=== PATIENT | female | born 1940 | race African-American/Black ===

== ENCOUNTER → 2018-03-02 09:42 | Outpatient (CLI) | payer MEDICARE, BC, SELFPAY ==
[2018-03-02 10:58] LABS: AST(SGOT) 22 U/L (15-37); Alanine Aminotransfer ALT/SGPT 20 U/L (13-56); Albumin, Serum 3.5 g/dL (3.2-5.0); Alkaline Phosphatase 106 U/L (45-117); Bilirubin, Direct 0.14 mg/dL (0.00-0.30); Cholesterol 143 mg/dL (200); Globulin 3.8 g/dL (2.2-4.2); High Density Lipoprotein 49 mg/dL; Protein, Total 7.3 g/dL (6.4-8.2); Triglycerides 169 mg/dL; Very Low Density Lipoprotein 34 mg/dL (5-40)
== END ==
PROVIDERS: Family Provider Family Medicine; PCP Family Medicine; Visit Provider Internal Medicine Cardiovascular Disease
DX: E78.5 Hyperlipidemia, unspecified (principal)
CPT/HCPCS: 36415; 80061; 80076

== ENCOUNTER → 2018-04-20 14:34 | Outpatient (CLI) | payer MEDICARE, BC, SELFPAY | PROVIDERS: Family Provider Family Medicine; PCP Family Medicine; Visit Provider Family Medicine | DX: Z12.31 Encounter for screening mammogram for malignant neoplasm of breast (principal); Z80.3 Family history of malignant neoplasm of breast | CPT/HCPCS: 77063; 77067 ==

== ENCOUNTER → 2018-11-17 13:56 | Outpatient (CLI) | payer MEDICARE, BC, SELFPAY ==
[2018-02-19 09:37] VITALS: BMI 53.6
[2018-11-17 17:24] LABS: Chlamydia Trachomatis by PCR Negative (Negative); Neisserai gonorrhoeae by PCR Negative (Negative); Probe Check PASS; Sample Adequacy Control PASS; Specimen Processing Control PASS
[2018-11-17 17:45] LABS: HIV - WCH Non-Reactive (Nonreactive)
[2018-11-19 01:30] LABS: Rapid Plasmin Reagin (RPR) NONREACTIVE (NONREACTIVE)
[2018-11-19 05:07] LABS: HEPATITIS B SURFACE AG Negative (Negative); Hepatitis A AB, Total Positive (Negative); Hepatitis A IgM Antibody Negative (Negative); Hepatitis B Core AB IgM Negative (Negative); Hepatitis B Core Ab Total Negative (Negative); Hepatitis C Ab <0.1 s/co ratio (0.0-0.9)
[2018-11-19 14:30] LABS: Hep B Surface Antibodies Non Reactive (.)
== END ==
PROVIDERS: Family Provider Family Medicine; PCP Family Medicine; Visit Provider Family Medicine
DX: Z20.9 Contact with and (suspected) exposure to unspecified communicable disease (principal); Z20.5 Contact with and (suspected) exposure to viral hepatitis
CPT/HCPCS: 86592; 86703; 86704; 86705; 86706; 86708; 86709; 86803; 87340; 87491; 87591

== ENCOUNTER 2019-03-05 20:24 | Emergency (ER) | payer MEDICARE, BC, SELFPAY ==
[2019-03-05 20:24] VITALS: BP 159/63; PULSE 72; RESP 18; TEMP 36.1; O2SAT 99; BMI 53.1
--- NOTE | 2019-03-05 20:51 | ED.RN ---
pt had similar problem in her opposite eye last week and was given drops, now the problem is in the right eye. conjunctiva of right eye is red, eye is discharging, pt is wearing makeup on both eyes and states she had been using the same make up for a while, pt was also observed wiping her affected eye then the non affected eye. this nurse educated the pt to not touch the affected eye and then the clean eye without washing her hands between.
[2019-03-05] MEDS: Tetracaine 0.5% Ophthalmic Bottle 1 DRP RIGHT EYE (22:24)
--- NOTE | 2019-03-05 23:55 | ED.DCSUM_ITS ---
- ER Visit Summary Date of Service: 03/05/19 Chief Complaint: Atraumatic right eye pain History of Present Illness: The patient is a 78 F history of bilateral cataract surgery with lens implants. Patient states she is doing well. This afternoon she was sitting outside so developing right eye pain. Denies any trauma. No visual change. No discharge. No facial swelling. States this is never happened before. States she saw her tile layer drainage Dr. Wally Myers within the last several weeks and she had a good eye exam at that time. She has no history of glaucoma. Physical Examination: Older female no acute distress. Vital signs are stable afebrile. Visual acuity 20/30 right eye 20/30 left eye 20/30 bilaterally. HEENT exam pupils round reactive light. Distributions are intact. She has bilateral lens implants. The upper and lower lid of the right eye were everted there was no signs of trauma. No swelling. No stye. There was watering of the right eye and mild injection. External motions are intact. Bilaterally. No palsy. Tetracaine was applied to the right eye which gave her significant relief. And then floor seen. Slit-lamp examination I did not see any signs of foreign body. No corneal abrasion. No signs of infection. 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 There was no swelling or trauma to her face. No preauricular lymphadenopathy. No signs of proptosis. And no orbital cellulitis or orbital trauma. Lungs clear to auscultation. Heart regular rhythm no murmur. Abdomen soft and nontender. Neurologically she is awake and alert with no focal motor deficits. Test Results: Slit-lamp exam was unremarkable other than focal injection of the right eye. Adria-Pen revealed pressures in the right eye of 22 and 23. Emergency Department Course and Treatment: Patient responded to tetracaine. There is no obvious cause of her pain. I do not see any signs of trauma. This does not appear to be glaucoma. And she has no visual change. Treatment Plan: I spoke to her tile layer drainage Dr. Wally Myers who is on-call. She will be discharged with tetracaine for pain. Bacitracin ophthalmic ointment. And follow-up with his office on Thursday. She does return if worse. Tylenol for pain. Disposition: Discharge Impression: Acute right eye pain uncertain etiology. Prior history of cataract surgery. This note was generated with [employer] dictation software. It may contain incorrect words, spelling, and punctuation that were not noted in review of the chart prior to signing ED Disposition - Plan for ED Patient: Referrals: Alicia Florentino DO [Primary Care Provider] -
--- NOTE | 2019-03-05 23:59 | ED.DEP ---
ED Disposition - Plan for ED Patient: Disposition: Home or Assisted Living Referrals: Sergo Myers MD [STAFF PHYSICIAN] - As soon as possible Additional Instructions: Tylenol for pain. Eye ointment 3 times a day to your right eye. Tetracaine for pain. Follow-up with Dr. Myers on Thursday. I spoke with him the night. Because office Thursday morning and get an appointment on Thursday.
[2019-03-06 00:14] VITALS: BP 148/68; PULSE 72; RESP 15; O2SAT 96
== END 2019-03-06 00:14 | disposition home or self-care (01) ==
PROVIDERS: Emergency Provider Emergency Medicine; Family Provider Family Medicine; PCP Family Medicine
DX: H57.11 Ocular pain, right eye (principal); H57.03 Miosis; E11.9 Type 2 diabetes mellitus without complications; I10 Essential (primary) hypertension; Z79.82 Long term (current) use of aspirin; Z79.4 Long term (current) use of insulin; Z79.899 Other long term (current) drug therapy; Z98.42 Cataract extraction status, left eye; Z98.41 Cataract extraction status, right eye; Z96.1 Presence of intraocular lens
CPT/HCPCS: 99283

== ENCOUNTER → 2019-04-21 13:12 | Outpatient (CLI) | payer MEDICARE, BC, SELFPAY ==
[2019-04-01 10:17] VITALS: BMI 53.6
--- NOTE | 2019-04-21 13:15 | BI_ITS ---
MAMMOGRAPHY - BILATERAL SCREENING REASON FOR EXAM: Female, 78 years old. Routine annual screening examination. PERTINENT HISTORY: Sister with breast cancer. TECHNIQUE: Digital bilateral breast geoffrey (3D mammographic acquisition) in the CC and MLO projections. 2-D mediolateral oblique (MLO) and craniocaudad (CC) views of both breasts were obtained. CAD: Full Field Digital Mammography with Computer Added Detection was performed. COMPARISON: Comparison is made with prior examination dated April 20, 2018 and March 27, 2017. FINDINGS: Breast Composition: The breasts are almost entirely fatty. There are no dominant masses or suspicious calcifications. Stable benign-appearing bilateral axillary lymph nodes. Stable calcified nodule in the mid medial aspect of the right breast suggestive of a calcified fibroadenoma. No other significant abnormalities are identified. There has been no significant change since the prior study. BI/SCREEN MAMM (CAD) W/GEOFFREY BILAT IMPRESSION: Stable bilateral screening mammogram. Yearly follow-up mammogram recommended. (A) ASSESSMENT CATEGORY: BIRADS Category 2: Benign. A letter regarding these results will be sent to the patient by the facility within 30 days. Approximately 10% of breast cancers are not detected by mammography. A normal mammogram should not delay biopsy of a clinically suspicious abnormality. [id number] Electronically Signed: Young Rucker, at 15:11 EDT , Service support ,
== END ==
PROVIDERS: Family Provider Family Medicine; PCP Family Medicine; Referring Provider Family Medicine; Visit Provider Family Medicine
DX: Z12.31 Encounter for screening mammogram for malignant neoplasm of breast (principal); Z80.3 Family history of malignant neoplasm of breast
CPT/HCPCS: 77063; 77067

== ENCOUNTER → 2020-04-23 10:46 | Outpatient (CLI) | payer MEDICARE, BC, SELFPAY ==
[2020-04-02 10:05] VITALS: BMI 53.5
--- NOTE | 2020-04-23 10:49 | BI_ITS ---
MAMMOGRAPHY - BILATERAL SCREENING REASON FOR EXAM: Female, 79 years old. Routine annual screening examination. PERTINENT HISTORY: Sister with breast cancer. TECHNIQUE: Digital bilateral breast geoffrey (3D mammographic acquisition) in the CC and MLO projections. 2-D mediolateral oblique (MLO) and craniocaudad (CC) views of both breasts were obtained. CAD: Full Field Digital Mammography with Computer Added Detection was performed. COMPARISON: Comparison is made with prior examination dated 04/21/2019 and 04/20/2018. FINDINGS: Breast Composition: The breasts are almost entirely fatty. There are no dominant masses or suspicious calcifications. Stable benign-appearing bilateral axillary lymph nodes. Stable calcified nodule in the mid medial aspect of the right breast fibroadenoma. No other significant abnormalities are identified. There has been no significant change since the prior study. BI/SCREEN MAMM (CAD) W/GEOFFREY BILAT IMPRESSION: Stable bilateral screening mammogram. Yearly follow-up mammogram recommended. (A) ASSESSMENT CATEGORY: BIRADS Category 2: Benign. A letter regarding these results will be sent to the patient by the facility within 30 days. Approximately 10% of breast cancers are not detected by mammography. A normal mammogram should not delay biopsy of a clinically suspicious abnormality. [id number] Electronically Signed: Young Rucker, at 12:40 EDT , Service support ,
== END ==
PROVIDERS: PCP Family Medicine; Referring Provider Family Medicine; Visit Provider Family Medicine
DX: Z12.31 Encounter for screening mammogram for malignant neoplasm of breast (principal); Z80.3 Family history of malignant neoplasm of breast
CPT/HCPCS: 77063; 77067

== ENCOUNTER → 2020-09-24 13:42 | Outpatient (CLI) | payer MEDICARE, BC, SELFPAY ==
[2020-04-02 10:05] VITALS: BMI 53.5
[2020-09-24 15:22] LABS: Absolute Lymphocyte Count 2.24 X10^3/uL (0.83-4.51); Absolute Neutrophil Count 1.9 X10^3/uL (2.0-7.7); Basophil# 0.02 X10^3/uL; Basophil% 0.4 % (0-1); Eosinophil# 0.05 X10^3/uL; Eosinophils% 1.1 % (0-5); Hematocrit 43.7 % (37-47); Hemoglobin 13.5 g/dL (12.0-15.0); Lymphocyte # 2.24 X10^3/ul (4.0); Lymphocyte % 50.1 % (19-41); Mean Corp Hgb Conc 30.9 g/dL (32-36); Mean Corpuscular Hgb 28.3 pg (27.0-32.0); Mean Corpuscular Volume 91.6 fL (81-99); Mean Platelet Vol. 11.2 fl (6.2-12.0); Monocyte% 6.7 % (0-10); NRBC Flagged by Analyzer 0 % (0-5); Neutrophil # 1.85 X10^3/uL (2.7-7.7); Neutrophil % 41.5 % (47-70); Platelet Count 277 K/mm3 (150-450); RBC Distribution Width CV 14.1 % (11.6-14.6); RBC Distribution Width SD 47.7 fl (35.1-43.9); Red Blood Count 4.77 M/mm3 (4.2-5.4); White Blood Count 4.5 K/mm3 (4.4-11.0)
[2020-09-24 16:04] LABS: ALB/GLOB Ratio 0.8 RATIO (0.9-2.4); AST(SGOT) 20 U/L (15-37); Alanine Aminotransfer ALT/SGPT 23 U/L (13-56); Albumin, Serum 3.4 g/dL (3.2-5.0); Alkaline Phosphatase 115 U/L (45-117); Anion Gap 7 (5-15); BUN 11 mg/dL (7-18); BUN/Creat Ratio 12.7 RATIO (10-20); Calcium,Total 9.9 mg/dL (8.5-10.1); Chloride 108 mmol/L (98-107); Creatinine, Serum 0.87 mg/dL (0.55-1.02); EST Glomerular Filtration Rate 67 mL/min (>60); Est Glom Filt Rate - Afr Amer 81 mL/min (>60); Globulin 4.2 g/dL (2.2-4.2); Glucose 101 mg/dL (74-106); Iron 75 ug/dL (50-170); Potassium 4.3 mmol/L (3.5-5.1); Protein, Total 7.6 g/dL (6.4-8.2); Sodium Level 141 mmol/L (136-145)
== END ==
PROVIDERS: PCP Family Medicine; Visit Provider Family Medicine
DX: E11.9 Type 2 diabetes mellitus without complications (principal); D64.9 Anemia, unspecified; Z51.81 Encounter for therapeutic drug level monitoring
CPT/HCPCS: 36415; 80053; 83540; 85025

== ENCOUNTER → 2021-04-25 12:32 | Outpatient (CLI) | payer MEDICARE, BC, SELFPAY ==
--- NOTE | 2021-04-25 12:34 | BI_ITS ---
MAMMOGRAPHY - BILATERAL SCREENING 3-D TOMOSYNTHESIS REASON FOR EXAM: Female, 80 years old. SCREENING PERTINENT HISTORY: No significant family history. TECHNIQUE: 2-D mammograms and 3-D Tomosynthesis of the breast (s) were performed. CAD was performed. COMPARISON: 04/23/2020 FINDINGS: The breast composition is composed of scattered fibroglandular density. Scattered benign calcifications are seen. No dense spiculated masses or suspicious microcalcifications are identified. No architectural distortion is identified. There is no skin thickening or retraction. There has been no significant change since the prior study. BI/SCRN MAMM (CAD)W/GEOFFREY BILAT IMPRESSION: No mammographic signs of malignancy. Routine yearly mammograms recommended. ASSESSMENT CATEGORY: BIRADS Category 1: Negative. A letter regarding these results will be sent to the patient by the facility within 30 days. FOLLOW UP RECOMMENDATION: Yearly follow up mammogram recommended. (A) Approximately 10% of breast cancers are not detected by mammography. A normal mammogram should not delay biopsy of a clinically suspicious abnormality. Electronically Signed: Petar Washington MD at 13:49 EDT Tel , Service support ,
== END ==
PROVIDERS: PCP Family Medicine; Referring Provider Family Medicine; Visit Provider Family Medicine
DX: Z12.31 Encounter for screening mammogram for malignant neoplasm of breast (principal)
CPT/HCPCS: 77063; 77067

== ENCOUNTER → 2022-05-01 | Outpatient (CLI) | payer MEDICARE, BC, SELFPAY ==
--- NOTE | 2022-05-01 09:46 | BI_ITS ---
MAMMOGRAPHY - BILATERAL SCREENING REASON FOR EXAM: Female, 81 years old. Routine annual screening examination. PERTINENT HISTORY: Sister with breast cancer. TECHNIQUE: Digital bilateral breast geoffrey (3D mammographic acquisition) in the CC and MLO projections. 2-D mediolateral oblique (MLO) and craniocaudad (CC) views of both breasts were obtained. CAD: Full Field Digital Mammography with Computer Added Detection was performed. COMPARISON: Comparison is made with prior study dated 04/25/2021 and 04/23/2020. FINDINGS: Breast Composition: There are scattered areas of fibroglandular density. There are no dominant masses or suspicious calcifications. Stable small benign appearing bilateral axillary lymph nodes. No other significant abnormalities are identified. There has been no significant change since the prior study. BI/SCRN MAMM (CAD)W/GEOFFREY BILAT IMPRESSION: Stable bilateral screening mammogram. Yearly follow-up mammogram recommended. (A) ASSESSMENT CATEGORY: BIRADS Category 2: Benign. A letter regarding these results will be sent to the patient by the facility within 30 days. Approximately 10% of breast cancers are not detected by mammography. A normal mammogram should not delay biopsy of a clinically suspicious abnormality. [id number] Electronically Signed: Young Rucker MD at 10:52 EDT ,
== END | disposition home or self-care (01) ==
LOC: OPBI 09:43
PROVIDERS: PCP Family Medicine; Visit Provider Family Medicine
DX: Z12.31 Encounter for screening mammogram for malignant neoplasm of breast (principal); Z80.3 Family history of malignant neoplasm of breast
CPT/HCPCS: 77063; 77067

== ENCOUNTER → 2023-05-04 | Outpatient (CLI) | payer MEDICARE, BC, SELFPAY ==
--- NOTE | 2023-05-04 12:31 | BI_ITS ---
MAMMOGRAPHY - BILATERAL SCREENING 3-D TOMOSYNTHESIS REASON FOR EXAM: Female, 82 years old. SCREENING PERTINENT HISTORY: Sister with breast cancer.. TECHNIQUE: 2-D mammograms and 3-D Tomosynthesis of the breast (s) were performed. CAD was performed. COMPARISON: 05/01/2022 FINDINGS: The breast composition is composed of scattered fibroglandular density. Scattered benign calcifications are seen. No dense spiculated masses or suspicious microcalcifications are identified. No architectural distortion is identified. There is no skin thickening or retraction. There has been no significant change since the prior study. BI/SCRN MAMM (CAD)W/GEOFFREY BILAT IMPRESSION: No mammographic signs of malignancy. Routine yearly mammograms recommended. ASSESSMENT CATEGORY: BIRADS Category 1: Negative. A letter regarding these results will be sent to the patient by the facility within 30 days. FOLLOW UP RECOMMENDATION: Yearly follow up mammogram recommended. (A) Approximately 10% of breast cancers are not detected by mammography. A normal mammogram should not delay biopsy of a clinically suspicious abnormality. Electronically Signed: Ki Macias MD at 15:14 EDT ,
== END | disposition home or self-care (01) ==
PROVIDERS: PCP Family Medicine; Referring Provider Family Medicine; Visit Provider Family Medicine
DX: Z12.31 Encounter for screening mammogram for malignant neoplasm of breast (principal); Z80.3 Family history of malignant neoplasm of breast
CPT/HCPCS: 77063; 77067

== ENCOUNTER 2023-09-02 08:44 | Inpatient (IN) | payer MEDICARE, BC, SELFPAY ==
[2023-09-02] VITALS (10 sets, daily range): BP systolic 128–165; BP diastolic 46–73; PULSE 57–86; RESP 14–25; TEMP 36.6–36.9; O2SAT 97–100; BMI 45.8; BMI 46.1
--- NOTE | 2023-09-02 08:56 | RAD_ITS ---
STUDY: X-RAY CHEST REASON FOR EXAM: Female, 82 years old. Chest pain TECHNIQUE: Single AP portable view of the chest. COMPARISON: Comparison is made with prior study dated October 26, 2015. FINDINGS: EKG electrodes are seen. The lungs are clear and expanded. There is no demonstrated pleural abnormality. Normal size heart. Normal mediastinum and maria eugenia. Normal visualized pulmonary arteries. Normal visualized aortic arch and descending thoracic aorta. There are diffuse degenerative changes of the visualized thoracic spine. Prior rotator cuff surgery of the left shoulder. Degenerative changes of the right shoulder joint. There is no demonstrated abnormality of the visualized soft tissue structures of the upper abdomen. RAD/Chest 1 View (Portable) IMPRESSION: No acute abnormality is seen. Electronically Signed: Young Rucker MD at 9:23 EST ,
--- NOTE | 2023-09-02 08:58 | EDS_ITS ---
HPI History of Present Illness Chief Complaint: Chest Pain Detail of Chief Complaint: Chest pain and abdomen pain Informant: patient Narrative Narrative: Patient presents to the emergency department complaint of chest pain and abdomen pain that started around 3 AM. Patient also vomited x 3. She describes pain in her upper abdomen and chest. She still has her gallbladder. No prior heart history. She denies recent travel or surgery. She denies diarrhea. She denies sick contacts. States her pain severe. Pain does not radiate to her back. [facility] Medical History (Updated 09/02/23 @ 15:11 by Iwona Hawk) Asthma Chronic pain Diabetes Diabetes mellitus, type II Essential hypertension Former smoker GERD (gastroesophageal reflux disease) Hyperlipidemia Hypertension Irregular heart beat Morbid obesity with BMI of 50.0-59.9, adult Nephrolithiasis Peripheral neuropathy Premature atrial contractions Premature ventricular contraction Rheumatoid arthritis RLS (restless legs syndrome) Home Medications atorvastatin 10 mg tablet 10 mg PO QHS CHOLESTEROL 07/28/13 [History Last Taken 10/05/16 08:30] esomeprazole magnesium 40 mg capsule,delayed release 40 mg PO DAILY heartburn/acid reflux 07/28/13 [History Last Taken 12/02/16 09:00] metoprolol tartrate 25 mg tablet 25 tab PO BID high blood pressure 12/26/14 [History Last Taken 12/02/16 09:00] odublwnt-lfb-nmlit acid 0.4 mg-lycopene 300 mcg-lutein 250 mcg tablet 1 ea PO DAILY supplement 12/26/14 [History Last Taken 10/05/16 08:30] calcium carbonate 600 mg calcium (1,500 mg) tablet 1,200 mg PO DAILY SUPPLEMENT 10/05/16 [History Last Taken 10/05/16 08:30] amlodipine 5 mg-valsartan 320 mg tablet 1 tab PO DAILY HIGH BLOOD PRESSURE 11/19/16 [History Last Taken 12/02/16 09:00] acetaminophen 500 mg tablet 1,000 mg PO Q8 PRN pain 02/19/18 [History Last Taken Unknown] aspirin 81 mg tablet,delayed release 81 mg PO DAILY HEART MAINTENENCE 03/05/19 [History Last Taken Unknown] insulin glargine 100 unit/mL (3 mL) subcutaneous pen 45 unit subcut QHS DIABETES 04/01/19 [History Last Taken Unknown] insulin lispro 100 unit/mL subcutaneous pen 8 unit subcut TID DIABETES 04/01/19 [History Last Taken Unknown] nitroglycerin 0.4 mg sublingual tablet 0.4 mg sublingual Q5M PRN Chest Pain #25 tabs 04/02/20 [Rx Last Taken Unknown] etodolac 300 mg capsule 300 mg PO BID INFLAMMATION 09/02/23 [History Last Taken Unknown] potassium chloride 20 mEq tablet,extended release(part/cryst) (Klor-Con M) 20 meq PO DAILY SUPPLEMENT 09/02/23 [History Last Taken Unknown] Allergy/AdvReac Type Severity Reaction Status Date / Time hydromorphone HCl Allergy Nausea Verified 09/02/23 08:44 [From Dilaudid] naproxen [From Aleve] AdvReac Severe Nausea Verified 09/02/23 08:44 venlafaxine AdvReac Severe Nausea Verified 09/02/23 08:44 adhesive AdvReac Other Verified 09/02/23 08:44 aspirin AdvReac BABY OK. Verified 09/02/23 08:44 REG STRENG UPSET STOMACH Family History Father Diabetes Mother Hypertension Sister Hypertension CAD (coronary artery disease) Myocardial infarction Sister Diabetes Surgical History (Updated 09/02/23 @ 15:11 by Iwona Hawk) History of appendectomy History of coronary artery stent placement History of hernia repair History of knee replacement procedure of left knee History of knee replacement procedure of right knee History of repair of rotator cuff History of total hysterectomy Social History (Updated 09/02/23 @ 14:[address] Babita Beltrán MD) household members: none Smoking Status: Former smoker how long ago did patient quit smoking: Quit ~ 40 yrs prior, smoked 1/4 ppd since teen until quit. alcohol intake: never substance use type: does not use ROS ROS ED Review of Systems ROS Unobtainable: other Constitutional Constitutional ED: Reports lethargy; Denies chills, fever(s), sweats or weight loss Eyes Eyes: Denies blurry vision, change in vision or diplopia ENT ENT ED: Denies rhinorrhea or sore throat Cardiovascular Cardiovascular: Reports chest pain; Denies orthopnea or racing heartbeat Respiratory/Chest Respiratory/Chest: Denies cough, dyspnea, dyspnea on exertion, orthopnea or sputum Gastrointestinal Gastrointestinal: Reports abdominal pain, nausea and vomiting; Denies diarrhea Genitourinary Genitourinary ED: Denies dysuria, hematuria or urinary frequency Musculoskeletal Musculoskeletal: Denies arthralgias, back pain, myalgias or neck pain Integumentary Denies abscess, Abrasions or rash Neurologic Neurologic: Denies headache(s) or weakness Psychiatric Psychiatric: Denies anxiety, depression or suicidal thoughts Endocrine Endocrinology: Denies polydipsia, polyphagia or polyuria Hematologic/Lymphatic Hematologic/Lymphatic: Denies easy bleeding, easy bruising or lymphadenopathy Allergic/Immunologic Allergic/Immunologic ED: Denies mouth swelling, tongue swelling or urticaria EXAM Physical Exam Const Vital Signs: 09/02/23 08:45 09/02/23 08:45 09/02/23 09:14 Temperature 97.9 F Temperature Source Oral Pulse Rate 80 Respiratory Rate 20 H Respiratory Effort Normal Non-Labored Blood Pressure Blood Pressure Mean Pulse Ox 100 100 Oxygen Delivery Method Room Air Room Air 09/02/23 09:14 09/02/23 09:56 09/02/23 11:55 Temperature Temperature Source Pulse Rate 81 78 Respiratory Rate 20 H 25 H Respiratory Effort Blood Pressure 165/69 H 145/62 H 148/46 H Blood Pressure Mean 101 89 80 Pulse Ox 100 100 Oxygen Delivery Method Room Air 09/02/23 13:00 09/02/23 13:26 Temperature 98.4 F Temperature Source Pulse Rate 57 L 76 Respiratory Rate 15 14 Respiratory Effort Blood Pressure 136/55 H 147/64 H Blood Pressure Mean 82 91 Pulse Ox 100 100 Oxygen Delivery Method Room Air Positive well nourished and well developed General Appearance ED: well developed and NAD HEENT Reports TM's clear and moist mucous membranes normocephalic and atraumatic; Negative for trauma or tenderness Tympanic Membrane ED: Yes TM's clear Eyes PERRL and EOMs intact bilaterally General Eye ED: Negative for pale conjunctiva or scleral icterus Neck no lymphadenopathy, supple and no JVD General: Negative for tenderness Chest Wall inspection of chest normal and palpation of chest normal Chest: Negative for tenderness Resp normal respiratory effort and clear to auscultation bilaterally Effort and Inspection: Negative for respiratory distress or pain with movement Auscultation: Negative for rhonchi, wheezes or diminished lung sounds Cardio regular rate, regular rhythm, S1 normal heart sound, S2 normal heart sound and no murmurs Peripheral Pulses: pulses 2+ throughout GI normal to inspection, nondistended, normoactive bowel sounds, soft to palpation, non-distended and no masses GI Narrative: Tenderness diffusely over the right upper quadrant with guarding. Patient also with tenderness over the epigastric region with guarding. No rebound, rigidity, or pineal signs. No mass palpated. Patient morbidly obese. Back/Spine no CVA tenderness and no thoracic nor lumbar tenderness Extremity normal to inspection General Extremety ED: Negative for edema General Extremity: Negative for edema Neuro oriented x3, CN's II-XII intact bilaterally, no sensory deficits noted and gait normal Sensorium / Orientation: awake, alert, oriented to person, oriented to place and oriented to time Motor Exam: strength 5/5 throughout and strength abnormal Psych mental status grossly normal Skin no rashes or lesions noted and no wounds MDM MDM MDM Narrative Medical decision making narrative: Patient presents with chest and upper abdomen pain. An IV line established. EKG obtained arrival showed a sinus rhythm with ventricular rate of 81 bpm with occasional PACs and no acute ST segment changes. She had occasional PVCs. CBC with differential obtained showed white count 7.5 with hemoglobin 13 and platelet count of 345. Chemistries unremarkable. Initial troponin was normal at 7. LFTs were elevated with total bilirubin of 2.1 and AST of 190 and ALT of 90. Alkaline phosphatase was 173. Patient had a gallbladder ultrasound that showed multiple gallstones with thickened gallbladder wall measuring 4.2 millimeters and a duct that measured 4.4 mm. There was gallbladder wall thickening and small amount of pericholecystic fluid. She had a positive Murray sign. On presentation she was medicated with morphine and Zofran. She had to be given a second dose of morphine secondary to pain. Will discuss case with general surgeon on-call to evaluate for abdominal pain and suspected acute cholecystitis. Lab Data Attestation: I reviewed the patient's lab results. Labs: Laboratory Results - last 24 hr 09/02/23 09/02/23 09:27 12:22 WBC 7.5 RBC 4.55 Hgb 13.2 Hct 40.4 MCV 88.8 MCH 29.0 MCHC 32.7 RDW Std Deviation 45.5 H RDW Coeff of Jorge L 14.2 Plt Count 345 MPV 10.3 Immature Gran % (Auto) 0.300 Neut % (Auto) 87.1 H Lymph % (Auto) 10.4 L Emery % (Auto) 1.9 Eos % (Auto) 0.0 Baso % (Auto) 0.3 Absolute Neuts (auto) 6.6 Absolute Lymphs (auto) 0.78 L Nucleated RBC % 0 Differential Comment SCANNED Sodium 140 Potassium 4.0 Chloride 109 H Carbon Dioxide 23.0 Anion Gap 8 BUN 9 Creatinine 0.94 Estim Creat Clear Calc 51.82 Est GFR (MDRD) Af Amer 74 Est GFR (MDRD) Non-Af 61 BUN/Creatinine Ratio 9.6 L Glucose 171 H Calcium 10.5 H Magnesium 1.8 Total Bilirubin 2.10 H AST 190 H ALT 90 H Alkaline Phosphatase 173 H Troponin I High Sens 7 10 Total Protein 7.5 Albumin 3.4 Globulin 4.1 Albumin/Globulin Ratio 0.8 L Lipase 47 Radiography Diagnostic Testing: Clinical Impression(s) from Imaging Studies Chest X-Ray 09/02/23 08:56 IMPRESSION: No acute abnormality is seen. Electronically Signed: Young Rucker MD at 9:23 EST , Gallbladder Ultrasound 09/02/23 10:56 IMPRESSION: Hepatomegaly and fatty infiltration of the liver. Multiple gallstones with positive sonographic Murray''s sign and small amount of pericholecystic fluid. Electronically Signed: Young Rucker MD at 12:15 EST , 1 view chest x-ray obtained interpreted by myself as no evidence of infiltrate or pneumothorax or acute disease process. No evidence of widened mediastinum. Radiology in agreement. EKG Initial EKG: Comments: Sinus rhythm with ventricular rate of 81 bpm with PACs and occasional PVCs Discharge Plan Dx/Rx/DC Orders Clinical Impression: Abdominal pain, Chest pain, Acute cholecystitis Disposition Disposition: Acute Care [facility] Discharge Date/Time: 09/02/23 14:42
--- NOTE | 2023-09-02 09:00 | EKG12_ITS ---
Test Reason : CP Blood Pressure : / mmHG Vent. Rate : 081 BPM Atrial Rate : 072 BPM P-R Int : 152 ms QRS Dur : 090 ms QT Int : 390 ms P-R-T Axes : 042 -07 041 degrees QTc Int : 453 ms Sinus rhythm with Premature atrial complexes and Premature ventricular complexes or Fusion complexes Otherwise normal ECG Confirmed by ESMER DE LEON, MOOK ([id number]), film editor THEODORE FREY ([id number]) on 09/04/2023 6:56:58 AM Referred By: Confirmed By:MOOK LYMAN MD
[2023-09-02 09:48] LABS: Absolute Lymphocyte Count 0.78 X10^3/uL (0.83-4.51); Absolute Neutrophil Count 6.6 X10^3/uL (2.0-7.7); Basophil# 0.02 X10^3/uL; Basophil% 0.3 % (0-1); Hematocrit 40.4 % (37-47); Hemoglobin 13.2 g/dL (12.0-15.0); Lymphocyte # 0.78 X10^3/ul (0.83-4.51); Lymphocyte % 10.4 % (19-41); Mean Corp Hgb Conc 32.7 g/dL (32-36); Mean Corpuscular Volume 88.8 fL (81-99); Mean Platelet Vol. 10.3 fl (6.2-12.0); Monocyte# 0.14 X10^3/uL; Monocyte% 1.9 % (0-10); NRBC Flagged by Analyzer 0 % (0-5); Neutrophil # 6.57 X10^3/uL (2.7-7.7); Neutrophil % 87.1 % (47-70); POSITIVE MORPHOLOGY YES; Platelet Count 345 K/mm3 (150-450); RBC Distribution Width CV 14.2 % (11.6-14.6); RBC Distribution Width SD 45.5 fl (35.1-43.9); Red Blood Count 4.55 M/mm3 (4.2-5.4); White Blood Count 7.5 K/mm3 (4.4-11.0)
[2023-09-02 09:50] LABS: Differential Indicated SCAN CRITERIA MET
[2023-09-02] MEDS: Ondansetron 4 MG/2 ML Vial IV ×2 (09:53→14:09)
[2023-09-02] MEDS: 0.9% Normal Saline (1000mL) 1,000 ML 150 ML IV (09:53)
[2023-09-02] MEDS: Morphine 4 MG/ML Syringe IV ×3 (09:53→12:55)
[2023-09-02 10:09] LABS: ALB/GLOB Ratio 0.8 RATIO (0.9-2.4); AST(SGOT) 190 U/L (15-37); Alanine Aminotransfer ALT/SGPT 90 U/L (13-56); Albumin, Serum 3.4 g/dL (3.2-5.0); Alkaline Phosphatase 173 U/L (45-117); Anion Gap 8 (5-15); BUN 9 mg/dL (7-18); BUN/Creat Ratio 9.6 RATIO (10-20); Calcium,Total 10.5 mg/dL (8.5-10.1); Chloride 109 mmol/L (98-107); Creatinine, Serum 0.94 mg/dL (0.55-1.02); EST Glomerular Filtration Rate 61 mL/min (>60); Est Glom Filt Rate - Afr Amer 74 mL/min (>60); Estimated Creatinine Clearance 51.82 ml/min; Globulin 4.1 g/dL (2.2-4.2); Glucose 171 mg/dL (74-106); Lipase 47 U/L (13-75); Protein, Total 7.5 g/dL (6.4-8.2); Sodium Level 140 mmol/L (136-145); Troponin-I HS (w/2H Reflex) 7 pg/mL (3.0-54.0)
[2023-09-02] MEDS: Aspirin 81 MG TAB.CHEW 324 MG PO (10:19)
--- NOTE | 2023-09-02 10:20 | ED.RN ---
ASPIRIN DELAYED DUE TO PT WITH NAUSEA/VOMITING.
--- NOTE | 2023-09-02 10:56 | US_ITS ---
STUDY: ABDOMINAL ULTRASOUND - RIGHT UPPER QUADRANT REASON FOR VISIT: Female, 82 years old abdominal pain x 1 day TECHNIQUE: Ultrasound evaluation of the right upper quadrant was performed with real-time and static santoro-scale imaging. TECHNICAL QUALITY: Adequate. COMPARISON: None. FINDINGS: Liver: The liver is enlarged and measures 19.1 cm. There is increased echogenicity consistent with fatty infiltration. The bile ducts are within normal limits. There is hepatic color flow. The direction of portal flow is hepatopetal. There is no demonstrated mass lesion. Gallbladder: There is a distended gallbladder. The gallbladder wall is thickened and measures 4.2 mm. There is a positive sonographic Murray''s sign. There is pericholecystic fluid. There are multiple echogenic structures within the gallbladder, consistent with multiple gallstones. Common Bile Duct (C.B.D.): The common bile duct measures 4.4 mm. Pancreas: Normal size of the head, body and tail of the pancreas. There is normal echogenicity of the pancreas. There is no demonstrated pancreatic mass or cyst. Right Kidney: Normal size of the right kidney. The right kidney measures 9.5 cm x 4.5 cm x 4.7 cm. Normal renal cortex. The right cortex measures 1.2 cm. There is no demonstrated renal mass or cyst. There is no right hydronephrosis. US/Gallbladder IMPRESSION: Hepatomegaly and fatty infiltration of the liver. Multiple gallstones with positive sonographic Murray''s sign and small amount of pericholecystic fluid. Electronically Signed: Young Rucker MD at 12:15 EST ,
[2023-09-02 11:09] LABS: Differential Comment SCANNED
[2023-09-02 11:42] LABS: Reflex Troponin-HS? (from REC) Y
[2023-09-02 12:58] LABS: Troponin-I HS 10 pg/mL (3.0-54.0)
--- NOTE | 2023-09-02 13:27 | NURSING ---
MED SURG AKASH ABD PAIN, ACUTE CHOLECYSTITIS, CHEST PAIN, ELEVATED LIVER ENZYMES
--- NOTE | 2023-09-02 13:50 | CON.PCM.HO_ITS ---
HPI Consult Data Date of Consult: 09/02/23 HPI Narrative Reason for Consultation: Medical management HPI Narrative: The patient is an 82 y/o F w/ PMHx: Morbid obesity, Asthma, HTN, HLD, Diabetes mellitus type II w/ chronic peripheral neuropathy, GERD, PAC/PVC, RLS, Hx nephrolithiasis who presents to the [facility] ED on 09/02/23 with history of onset of chest discomfort as well as upper abdominal pain and right upper quadrant pain that started at approximately 3 AM on day of presentation with associated nausea and emesis with no recent fever, chills or any diarrhea reporting her pain is severe and constant prompting ED evaluation. Workup in the ED included T98.4, heart 76, BP 147/64, respiratory rate 14, under percent room air, CBC with WBC 7.5, human 13.2, platelet 345 with lymphopenia, CMP with chloride 109, glucose 171, calcium 10.5, T. bili 2.10, AST/LT 190/90, alk phos 173, troponin 7 with repeat delta 10, lipase 47, chest x-ray with no acute cardiopulmonary finding, gallbladder ultrasound with hepatomegaly and fatty infiltration of the liver, multiple gallstones with a positive sonographic Murray sign and a small amount of pericholecystic fluid, EKG was sinus rhythm with PAC and occasional PVC otherwise no acute cardiopulmonary finding. In the ED patient administered Zosyn, maintenance IV fluids, initially aspirin 324 p.o. x 1, Zofran 4 mg IV x 1, morphine 4 mg IV times a total of 3 doses while the in the ED. Dr. Melendrez admitting patient and requesting hospitalist consultation. [facility] Medical History (Updated 09/02/23 @ 12:[address] Ame Dobbs, ) Asthma Diabetes mellitus, type II Essential hypertension GERD (gastroesophageal reflux disease) Hyperlipidemia Morbid obesity with BMI of 50.0-59.9, adult Nephrolithiasis Peripheral neuropathy Premature atrial contractions Premature ventricular contraction RLS (restless legs syndrome) Home Medications atorvastatin 10 mg tablet 10 mg PO QHS 07/28/13 [History Last Taken 10/05/16 08:30] esomeprazole magnesium 40 mg capsule,delayed release 40 mg PO DAILY 07/28/13 [History Last Taken 12/02/16 09:00] metoprolol tartrate 25 mg tablet 25 tab PO BID 12/26/14 [History Last Taken 12/02/16 09:00] tsaplitn-xid-epmjl acid 0.4 mg-lycopene 300 mcg-lutein 250 mcg tablet 1 ea PO DAILY 12/26/14 [History Last Taken 10/05/16 08:30] calcium carbonate 600 mg calcium (1,500 mg) tablet 1,200 mg PO DAILY 10/05/16 [History Last Taken 10/05/16 08:30] amlodipine 5 mg-valsartan 320 mg tablet 1 tab PO DAILY 11/19/16 [History Last Taken 12/02/16 09:00] acetaminophen 500 mg tablet 1,000 mg PO Q8 PRN Pain 02/19/18 [History Last Taken Unknown] aspirin 81 mg tablet,delayed release 81 mg PO DAILY 03/05/19 [History Last Taken Unknown] insulin glargine 100 unit/mL (3 mL) subcutaneous pen 45 unit subcut QHS 04/01/19 [History Last Taken Unknown] insulin lispro 100 unit/mL subcutaneous pen 8 unit subcut TID 04/01/19 [History Last Taken Unknown] nitroglycerin 0.4 mg sublingual tablet 0.4 mg sublingual Q5M PRN Chest Pain #25 tabs 04/02/20 [Rx Last Taken Unknown] etodolac 300 mg capsule 300 mg PO BID INFLAMMATION 09/02/23 [History Last Taken Unknown] potassium chloride 20 mEq tablet,extended release(part/cryst) (Klor-Con M) 20 meq PO DAILY SUPPLEMENT 09/02/23 [History Last Taken Unknown] Allergy/AdvReac Type Severity Reaction Status Date / Time hydromorphone HCl Allergy Nausea Verified 09/02/23 08:44 [From Dilaudid] naproxen [From Aleve] AdvReac Severe Nausea Verified 09/02/23 08:44 venlafaxine AdvReac Severe Nausea Verified 09/02/23 08:44 adhesive AdvReac Other Verified 09/02/23 08:44 aspirin AdvReac BABY OK. Verified 09/02/23 08:44 REG STRENG UPSET STOMACH Family History Father Diabetes Mother Hypertension Sister Hypertension CAD (coronary artery disease) Myocardial infarction Sister Diabetes Surgical History History of hernia repair History of knee replacement procedure of left knee History of knee replacement procedure of right knee History of repair of rotator cuff History of total hysterectomy Social History Smoking Status: Former smoker alcohol intake: never substance use type: does not use Lab / Micro Data 09/02/23 09:27 09/02/23 09:27 Labs: Laboratory Results - last 24 hr 09/02/23 09:27: WBC 7.5, RBC 4.55, Hgb 13.2, Hct 40.4, MCV 88.8, MCH 29.0, MCHC 32.7, RDW Std Deviation 45.5 H, RDW Coeff of Jorge L 14.2, Plt Count 345, MPV 10.3, Immature Gran % (Auto) 0.300, Neut % (Auto) 87.1 H, Lymph % (Auto) 10.4 L, Jerome % (Auto) 1.9, Eos % (Auto) 0.0, Baso % (Auto) 0.3, Absolute Neuts (auto) 6.6, Absolute Lymphs (auto) 0.78 L, Nucleated RBC % 0, Differential Comment SCANNED, Sodium 140, Potassium 4.0, Chloride 109 H, Carbon Dioxide 23.0, Anion Gap 8, BUN 9, Creatinine 0.94, Estim Creat Clear Calc 51.82, Est GFR (MDRD) Af Amer 74, Est GFR (MDRD) Non-Af 61, BUN/Creatinine Ratio 9.6 L, Glucose 171 H, Calcium 10.5 H, Total Bilirubin 2.10 H, AST 190 H, ALT 90 H, Alkaline Phosphatase 173 H, Troponin I High Sens 7, Total Protein 7.5, Albumin 3.4, Globulin 4.1, Albumin/Globulin Ratio 0.8 L, Lipase 47 09/02/23 12:22: Troponin I High Sens 10 Imagaing Radiology Impression Chest X-Ray 09/02/23 08:56 IMPRESSION: No acute abnormality is seen. Electronically Signed: Young Rucker MD at 9:23 EST , Gallbladder Ultrasound 09/02/23 10:56 IMPRESSION: Hepatomegaly and fatty infiltration of the liver. Multiple gallstones with positive sonographic Murray''s sign and small amount of pericholecystic fluid. Electronically Signed: Young Rucker MD at 12:15 EST ,
--- NOTE | 2023-09-02 13:50 | PCM.CONS.GEN ---
Assessment & Plan Assessment/Plan (1) Acute cholecystitis: PLAN: Plan The patient is an 82 y/o F w/ PMHx: Morbid obesity, Asthma, HTN, HLD, Diabetes mellitus type II w/ chronic peripheral neuropathy, GERD, PAC/PVC, RLS, Hx nephrolithiasis who presents to the [facility] ED on 09/02/23 with history of onset of chest discomfort as well as upper abdominal pain and right upper quadrant pain that started at approximately 3 AM on day of presentation with associated nausea and emesis with no recent fever, chills or any diarrhea reporting her pain is severe and constant prompting ED evaluation. #1. Acute cholecystitis with some concern for choledocholithiasis w/ abdominal pain, N/V with significant hyperbilirubinemia and transaminitis: Patient being admitted per general surgery, maintain on judicious fluids, maintained on IV Zosyn therapy, per review of their orders note plan for allowance of clears with n.p.o. status at midnight, maintain on PPI, would trend CBC, CMP, given findings consultation with GI at Surgery discretion, PRN pain regimen/antiemetic regimen per surgery discretion. Patient NSQIP risk certainly moderately increased for perioperative cardiac events also confounded by underlying pulmonary disease and from discussions asthma is not as well-controlled as preferred but patient has had no recent exacerbation therefore as noted will place on budesonide scheduled, EKG with no acute evidence of ischemia, labs otherwise with no acute findings, agree with progression to OR. #2. Chronic asthma, from discussions moderately controlled with intermittent symptoms ongoing: From discussion patient's asthma is likely not completely well-controlled although she has not had an exacerbation in some time, to be cautious given current presentation and planned operative intervention will place on ATC budesonide therapy, PRN albuterol, HOB, IS parameters. #3. Hypertension: Continue home regimen including metoprolol, and the pain, valsartan, PRN hydralazine. #4. Hyperlipidemia: Holding statin therapy given elevated bilirubin and transaminases. Resume once clinically appropriate. #5. Diabetes mellitus type II with chronic neuropathy: Will hold scheduled short acting insulin given clear to n.p.o. status but may resume once she is transition to an appropriate diet, in the interim will maintain on every 6 hours accu checks w/ ISS. #6. Morbid Obesity: Weight loss and lifestyle changes encouraged. #7. History PVC/PAC: We will continue patient home metoprolol regimen. #8. Restless leg syndrome: Per currently not on chronic regimen, if acutely an issue may consider adding agent. #9. Former tobacco use: Encourage continued tobacco cessation. #10. GERD: We will maintain on PPI. #11. DVT prophylaxis: SCDs, chemoprophylaxis initiation per surgery discretion given planned OR. #12. CODE status: Patient HCPOA is Radha Ken her niece and Kamran Goel her son and living will is she notes currently in place. Discussed CODE status at length including difference between FULL code, DNR-CCA and DNR-CC status. Following discussions about the differences in these status, requested Full Code status. Advanced Care Planning Face to Face Time: 16 minutes. HPI Consult Data Date of Consult: 09/02/23 HPI Narrative Reason for Consultation: Medical management HPI Narrative: The patient is an 82 y/o F w/ PMHx: Morbid obesity, Asthma, HTN, HLD, Diabetes mellitus type II w/ chronic peripheral neuropathy, GERD, PAC/PVC, RLS, Hx nephrolithiasis who presents to the [facility] ED on 09/02/23 with history of onset of chest discomfort as well as upper abdominal pain and right upper quadrant pain that started at approximately 3 AM on day of presentation with associated nausea and emesis with no recent fever, chills or any diarrhea reporting her pain is severe and constant prompting ED evaluation. She reports her pain still 9-10/10, worse with palpation. She notes minimal improvement with morphine. She does report history of occasional wheezing and dyspnea with heavy activity but otherwise notes last asthma exacerbation was > 2 years prior. She denies having any inhaler should she needed unfortunately. She does note that she has been meaning to discuss this with her primary care physician. Workup in the ED included T98.4, heart 76, BP 147/64, respiratory rate 14, under percent room air, CBC with WBC 7.5, human 13.2, platelet 345 with lymphopenia, CMP with chloride 109, glucose 171, calcium 10.5, T. bili 2.10, AST/LT 190/90, alk phos 173, troponin 7 with repeat delta 10, lipase 47, chest x-ray with no acute cardiopulmonary finding, gallbladder ultrasound with hepatomegaly and fatty infiltration of the liver, multiple gallstones with a positive sonographic Murray sign and a small amount of pericholecystic fluid, EKG was sinus rhythm with PAC and occasional PVC otherwise no acute cardiopulmonary finding. In the ED patient administered Zosyn, maintenance IV fluids, initially aspirin 324 p.o. x 1, Zofran 4 mg IV x 1, morphine 4 mg IV times a total of 3 doses while the in the ED. Dr. Melendrez admitting patient and requesting hospitalist consultation. [facility] Medical History Asthma Diabetes mellitus, type II Essential hypertension GERD (gastroesophageal reflux disease) Hyperlipidemia Morbid obesity with BMI of 50.0-59.9, adult Nephrolithiasis Peripheral neuropathy Premature atrial contractions Premature ventricular contraction RLS (restless legs syndrome) Home Medications atorvastatin 10 mg tablet 10 mg PO QHS CHOLESTEROL 07/28/13 [History Last Taken 10/05/16 08:30] esomeprazole magnesium 40 mg capsule,delayed release 40 mg PO DAILY heartburn/acid reflux 07/28/13 [History Last Taken 12/02/16 09:00] metoprolol tartrate 25 mg tablet 25 tab PO BID high blood pressure 12/26/14 [History Last Taken 12/02/16 09:00] xaesdxak-lhq-fiumg acid 0.4 mg-lycopene 300 mcg-lutein 250 mcg tablet 1 ea PO DAILY supplement 12/26/14 [History Last Taken 10/05/16 08:30] calcium carbonate 600 mg calcium (1,500 mg) tablet 1,200 mg PO DAILY SUPPLEMENT 10/05/16 [History Last Taken 10/05/16 08:30] amlodipine 5 mg-valsartan 320 mg tablet 1 tab PO DAILY HIGH BLOOD PRESSURE 11/19/16 [History Last Taken 12/02/16 09:00] acetaminophen 500 mg tablet 1,000 mg PO Q8 PRN pain 02/19/18 [History Last Taken Unknown] aspirin 81 mg tablet,delayed release 81 mg PO DAILY HEART MAINTENENCE 03/05/19 [History Last Taken Unknown] insulin glargine 100 unit/mL (3 mL) subcutaneous pen 45 unit subcut QHS DIABETES 04/01/19 [History Last Taken Unknown] insulin lispro 100 unit/mL subcutaneous pen 8 unit subcut TID DIABETES 04/01/19 [History Last Taken Unknown] nitroglycerin 0.4 mg sublingual tablet 0.4 mg sublingual Q5M PRN Chest Pain #25 tabs 04/02/20 [Rx Last Taken Unknown] etodolac 300 mg capsule 300 mg PO BID INFLAMMATION 09/02/23 [History Last Taken Unknown] potassium chloride 20 mEq tablet,extended release(part/cryst) (Klor-Con M) 20 meq PO DAILY SUPPLEMENT 09/02/23 [History Last Taken Unknown] Allergy/AdvReac Type Severity Reaction Status Date / Time hydromorphone HCl Allergy Nausea Verified 09/02/23 08:44 [From Dilaudid] naproxen [From Aleve] AdvReac Severe Nausea Verified 09/02/23 08:44 venlafaxine AdvReac Severe Nausea Verified 09/02/23 08:44 adhesive AdvReac Other Verified 09/02/23 08:44 aspirin AdvReac BABY OK. Verified 09/02/23 08:44 REG STRENG UPSET STOMACH Family History Father Diabetes Mother Hypertension Sister Hypertension CAD (coronary artery disease) Myocardial infarction Sister Diabetes Surgical History History of hernia repair History of knee replacement procedure of left knee History of knee replacement procedure of right knee History of repair of rotator cuff History of total hysterectomy Social History (Updated 09/02/23 @ 14:[address] Babita Beltrán MD) household members: none Smoking Status: Former smoker how long ago did patient quit smoking: Quit ~ 40 yrs prior, smoked 1/4 ppd since teen until quit. alcohol intake: never substance use type: does not use ROS ROS Narrative Admission Review of Systems: CONSTITUTIONAL: No weight loss, fever, chills, + weakness or fatigue. HEENT: Eyes: No visual loss, blurred vision, double vision or yellow sclerae. Ears, Nose, Throat: No hearing loss, sneezing, congestion, runny nose or sore throat. SKIN: No rash or itching, lesions, wounds. CARDIOVASCULAR: No chest pain, chest pressure or chest discomfort, palpitations, edema, orthopnea, syncopal events. RESPIRATORY: + Intermittent exertional dyspnea with wheezing. No recent cough, increased sputum or hemoptysis. GASTROINTESTINAL: + anorexia, nausea, vomiting, abdominal pain. No diarrhea, melena, BRBPR. GENITOURINARY: No dysuria, frequency, urgency or retention. NEUROLOGICAL: No headache, dizziness, syncope, paralysis, ataxia, numbness or tingling in the extremities, focal weakness, change in bowel or bladder control, seizure. MUSCULOSKELETAL: + muscle, back pain, joint pain or stiffness. HEMATOLOGIC: No anemia. Easy bleeding/bruising. LYMPHATICS: No enlarged nodes. No history of splenectomy. PSYCHIATRIC: No history of depression or anxiety. ENDOCRINOLOGIC: No reports of sweating, cold or heat intolerance. No polyuria or polydipsia. ALLERGIES: + History of asthma. Physical Exam Narrative Physical Examination: General: Awake, alert, oriented x 3 and cooperative, laying in the ED bed, fatigued, notes pain ongoing to the epigastric but primarily right upper quadrant, 9-10 out of 10 Skin: Normal color, normal turgor, no icterus, no cyanosis. HEENT: AT/NC, EOMI, PERRLA, dry MM, no carotid bruits or JVD noted. Lungs: Mildly diminished, distant, greater bases, appropriate effort with no evidence of any distress, currently no wheezing nor any rales or rhonchi. Heart: Regular rate and rhythm; no gallop, rub audible. Abdomen: Soft, morbidly obese, significant discomfort primarily to right upper quadrant with rebound and some mild discomfort to the epigastric region as well, hyperactive BS, difficult to discern distention and HSM given significant pain with palpation and habitus. Extremities: No cyanosis, no clubbing, mild ankle/distal hernandez nonpitting edema. Neurological: Patient awake, alert, oriented as noted, cognitive function intact; pupils equally reactive to light and accommodation, cranial nerves II-XII grossly normal, moving all 4 extremities, no focal deficits, strength severely globally decreased secondary to acute complaints. Psychiatric: Affect appears fatigued, uncomfortable appearing, no acute evidence of depressive or anxiety feelings. Lab / Micro Data 09/02/23 09:27 09/02/23 09:27 Labs: Laboratory Results - last 24 hr 09/02/23 09:27: WBC 7.5, RBC 4.55, Hgb 13.2, Hct 40.4, MCV 88.8, MCH 29.0, MCHC 32.7, RDW Std Deviation 45.5 H, RDW Coeff of Jorge L 14.2, Plt Count 345, MPV 10.3, Immature Gran % (Auto) 0.300, Neut % (Auto) 87.1 H, Lymph % (Auto) 10.4 L, [place] % (Auto) 1.9, Eos % (Auto) 0.0, Baso % (Auto) 0.3, Absolute Neuts (auto) 6.6, Absolute Lymphs (auto) 0.78 L, Nucleated RBC % 0, Differential Comment SCANNED, Sodium 140, Potassium 4.0, Chloride 109 H, Carbon Dioxide 23.0, Anion Gap 8, BUN 9, Creatinine 0.94, Estim Creat Clear Calc 51.82, Est GFR (MDRD) Af Amer 74, Est GFR (MDRD) Non-Af 61, BUN/Creatinine Ratio 9.6 L, Glucose 171 H, Calcium 10.5 H, Total Bilirubin 2.10 H, AST 190 H, ALT 90 H, Alkaline Phosphatase 173 H, Troponin I High Sens 7, Total Protein 7.5, Albumin 3.4, Globulin 4.1, Albumin/Globulin Ratio 0.8 L, Lipase 47 09/02/23 12:22: Troponin I High Sens 10 Imagaing Radiology Impression Chest X-Ray 09/02/23 08:56 IMPRESSION: No acute abnormality is seen. Electronically Signed: Young Rucker MD at 9:23 EST , Gallbladder Ultrasound 09/02/23 10:56 IMPRESSION: Hepatomegaly and fatty infiltration of the liver. Multiple gallstones with positive sonographic Murray''s sign and small amount of pericholecystic fluid. Electronically Signed: Young Rucker MD at 12:15 EST , Charges/Coding Visit Charges Office Visits / Consults: [id number] IP Consult L4
--- NOTE | 2023-09-02 14:03 | PCM.HP.STD ---
HPI - General General Date of Admission: 09/02/23 Date of Service: 09/02/23 Chief Complaint: Right upper quadrant/epigastric pain HPI Narrative KEIKO ALANIZ, is a 82 F who presents with a sudden onset of epigastric/right upper quadrant abdominal pain. Patient notes that the pain woke her up around 0300 AM this morning. She notes multiple episodes of vomiting this morning prior to coming to the ED. Patient denies previous pain similar to this. She denies a known history of gallbladder issues. She notes a cardiac history of irregular heartbeat and was following with Dr. Lockett. Her last office visit with him was in May of 2022. Patient was supposed to transfer to Dr. Gusman, however she has not scheduled an appointment with him. Patient notes she has high blood pressure and is a diabetic. She notes she carries nitroglycerin with her in her purse, however has not had to take it. Patient denies any pulmonary history. She does not use oxygen at home. She notes her abdominal surgical history includes a hysterectomy. Labs were obtained and were remarkable for elevated liver enzymes. A RUQ u/s was obtained which demonstrated fatty liver, hepatomegaly, multiple gallstones with positive sonographic Murray's sign and small amount of pericholecystic fluid. [facility] Medical History (Updated 09/02/23 @ 12:[address] Ame Dobbs DO) Asthma Diabetes mellitus, type II Essential hypertension GERD (gastroesophageal reflux disease) Hyperlipidemia Morbid obesity with BMI of 50.0-59.9, adult Nephrolithiasis Peripheral neuropathy Premature atrial contractions Premature ventricular contraction RLS (restless legs syndrome) Home Medications atorvastatin 10 mg tablet 10 mg PO QHS CHOLESTEROL 07/28/13 [History Last Taken 10/05/16 08:30] esomeprazole magnesium 40 mg capsule,delayed release 40 mg PO DAILY heartburn/acid reflux 07/28/13 [History Last Taken 12/02/16 09:00] metoprolol tartrate 25 mg tablet 25 tab PO BID high blood pressure 12/26/14 [History Last Taken 12/02/16 09:00] kwirccqg-jpk-kaqss acid 0.4 mg-lycopene 300 mcg-lutein 250 mcg tablet 1 ea PO DAILY supplement 12/26/14 [History Last Taken 10/05/16 08:30] calcium carbonate 600 mg calcium (1,500 mg) tablet 1,200 mg PO DAILY SUPPLEMENT 10/05/16 [History Last Taken 10/05/16 08:30] amlodipine 5 mg-valsartan 320 mg tablet 1 tab PO DAILY HIGH BLOOD PRESSURE 11/19/16 [History Last Taken 12/02/16 09:00] acetaminophen 500 mg tablet 1,000 mg PO Q8 PRN pain 02/19/18 [History Last Taken Unknown] aspirin 81 mg tablet,delayed release 81 mg PO DAILY HEART MAINTENENCE 03/05/19 [History Last Taken Unknown] insulin glargine 100 unit/mL (3 mL) subcutaneous pen 45 unit subcut QHS DIABETES 04/01/19 [History Last Taken Unknown] insulin lispro 100 unit/mL subcutaneous pen 8 unit subcut TID DIABETES 04/01/19 [History Last Taken Unknown] nitroglycerin 0.4 mg sublingual tablet 0.4 mg sublingual Q5M PRN Chest Pain #25 tabs 04/02/20 [Rx Last Taken Unknown] etodolac 300 mg capsule 300 mg PO BID INFLAMMATION 09/02/23 [History Last Taken Unknown] potassium chloride 20 mEq tablet,extended release(part/cryst) (Klor-Con M) 20 meq PO DAILY SUPPLEMENT 09/02/23 [History Last Taken Unknown] Allergy/AdvReac Type Severity Reaction Status Date / Time hydromorphone HCl Allergy Nausea Verified 09/02/23 08:44 [From Dilaudid] naproxen [From Aleve] AdvReac Severe Nausea Verified 09/02/23 08:44 venlafaxine AdvReac Severe Nausea Verified 09/02/23 08:44 adhesive AdvReac Other Verified 09/02/23 08:44 aspirin AdvReac BABY OK. Verified 09/02/23 08:44 REG STRENG UPSET STOMACH Family History Father Diabetes Mother Hypertension Sister Hypertension CAD (coronary artery disease) Myocardial infarction Sister Diabetes Surgical History History of hernia repair History of knee replacement procedure of left knee History of knee replacement procedure of right knee History of repair of rotator cuff History of total hysterectomy Social History Smoking Status: Former smoker alcohol intake: never substance use type: does not use ROS Constitutional Constitutional: Reports fatigue and poor appetite Eyes Eyes: Reports systems reviewed and no addt'l complaints, except as documented ENT HEENT: Reports systems reviewed and no addt'l complaints, except as documented Cardiovascular Cardiovascular: Reports chest pain, hypertension, irregular heart rhythm and vomiting Respiratory/Chest Respiratory/Chest: Reports systems reviewed and no addt'l complaints, except as documented Gastrointestinal Gastrointestinal: Reports systems reviewed and no addt'l complaints, except as documented Genitourinary Genitourinary: Reports systems reviewed and no addt'l complaints, except as documented Musculoskeletal Musculoskeletal: Reports systems reviewed and no addt'l complaints, except as documented Integumentary Integumentary: Reports systems reviewed and no addt'l complaints, except as documented Neurologic Neurologic: Reports systems reviewed and no addt'l complaints, except as documented Psychiatric Psychiatric: Reports systems reviewed and no addt'l complaints, except as documented Endocrine Endocrinology: Reports systems reviewed and no addt'l complaints, except as documented Hematologic/Lymphatic Hematologic/Lymphatic: Reports systems reviewed and no addt'l complaints, except as documented Allergic/Immunologic Allergic/Immunologic: Reports systems reviewed and no addt'l complaints, except as documented Vital Signs Vital Signs Vital Signs: 09/02/23 08:45 09/02/23 08:45 09/02/23 09:14 Temperature 97.9 F Temperature Source Oral Pulse Rate 80 Respiratory Rate 20 H Respiratory Effort Normal Non-Labored Blood Pressure Blood Pressure Mean Pulse Ox 100 100 Oxygen Delivery Method Room Air Room Air 09/02/23 09:14 09/02/23 09:56 09/02/23 11:55 Temperature Temperature Source Pulse Rate 81 78 Respiratory Rate 20 H 25 H Respiratory Effort Blood Pressure 165/69 H 145/62 H 148/46 H Blood Pressure Mean 101 89 80 Pulse Ox 100 100 Oxygen Delivery Method Room Air 09/02/23 13:00 09/02/23 13:26 Temperature 98.4 F Temperature Source Pulse Rate 57 L 76 Respiratory Rate 15 14 Respiratory Effort Blood Pressure 136/55 H 147/64 H Blood Pressure Mean 82 91 Pulse Ox 100 100 Oxygen Delivery Method Room Air Weight Weight: 235 lb 0.204 oz Body Mass Index (BMI) 45.8 Physical Exam Const alert and oriented x3 General Appearance: anxious HEENT normocephalic and head/scalp atraumatic Eyes PERRL Neck full ROM Lymph Lymphatic: no lymphadenopathy noted Resp normal respiratory effort and clear to auscultation bilaterally Cardio Rate: regular rate Rhythm: regular rhythm Heart Sounds: murmur GI GI Narrative: Abdomen- soft, obese, generalized abdominal pain worse in the epigastric region. Positive bowel sounds. no CVA tenderness Back/Spine no CVA tenderness Extremity normal to inspection Skin no rashes or lesions noted Neuro no focal motor deficits and no sensory deficits noted Psych Appearance: grossly normal Mood & Affect: anxious Thought Process: normal thought process Results Lab / Micro Data 09/02/23 09:27 09/02/23 09:27 Labs: Laboratory Results - last 24 hr 09/02/23 09:27: WBC 7.5, RBC 4.55, Hgb 13.2, Hct 40.4, MCV 88.8, MCH 29.0, MCHC 32.7, RDW Std Deviation 45.5 H, RDW Coeff of Jorge L 14.2, Plt Count 345, MPV 10.3, Immature Gran % (Auto) 0.300, Neut % (Auto) 87.1 H, Lymph % (Auto) 10.4 L, [place] % (Auto) 1.9, Eos % (Auto) 0.0, Baso % (Auto) 0.3, Absolute Neuts (auto) 6.6, Absolute Lymphs (auto) 0.78 L, Nucleated RBC % 0, Differential Comment SCANNED, Sodium 140, Potassium 4.0, Chloride 109 H, Carbon Dioxide 23.0, Anion Gap 8, BUN 9, Creatinine 0.94, Estim Creat Clear Calc 51.82, Est GFR (MDRD) Af Amer 74, Est GFR (MDRD) Non-Af 61, BUN/Creatinine Ratio 9.6 L, Glucose 171 H, Calcium 10.5 H, Total Bilirubin 2.10 H, AST 190 H, ALT 90 H, Alkaline Phosphatase 173 H, Troponin I High Sens 7, Total Protein 7.5, Albumin 3.4, Globulin 4.1, Albumin/Globulin Ratio 0.8 L, Lipase 47 09/02/23 12:22: Troponin I High Sens 10 Imagaing Radiology Impression Chest X-Ray 09/02/23 08:56 IMPRESSION: No acute abnormality is seen. Electronically Signed: Young Rucker MD at 9:23 EST , Gallbladder Ultrasound 09/02/23 10:56 IMPRESSION: Hepatomegaly and fatty infiltration of the liver. Multiple gallstones with positive sonographic Murray''s sign and small amount of pericholecystic fluid. Electronically Signed: Young Rucker MD at 12:15 EST , Assessment & Plan Assessment/Plan (1) Acute cholecystitis: PLAN: I am seeing this patient in conjunction with Dr. Melendrez. Patient's examination and workup are consistent with acute cholecystitis. Plan to admit patient to med/surg floor with tele monitoring, stabilize and plan for surgery tomorrow. Consult hospitalist for medical management. Dr. Melendrez will plan to perform a laparoscopic cholecystectomy with intraoperative cholangiogram. Procedure details, risks and benefits have been explained to the patient. Patient verbally understands and agrees with eplan. Appreciate hospitalist input and recommendations. Thank you for allowing us to participate in this patient's care. Charges/Coding Visit Charges Inpatient E&M: 11098 Init Hosp L2
[2023-09-02] MEDS: HYDROmorphone 1 MG/ML Syringe IV ×2 (14:09→19:34)
--- NOTE | 2023-09-02 14:12 | ED.RN ---
patient continued to not improve w/ pain after 3 doses of Morphine. Patient was ok with trialing dilaudid after consulting with Dr. Beltrán and Dr. Agrawal regarding patient alleged adverse reaction to Dilaudid being nausea.
[2023-09-02] MEDS: Piperacil/Tazobactam 4.5 GM in 0.9% Normal Saline (100mL MB+) 100 ML IV (14:22)
--- OUTSIDE RECORDS SUMMARY | 2023-09-02 14:23 | XMS RPT_ITS | CCD ---
Author Name Unknown Address [address] [place] [address] Organization [facility] Care Team Providers Care Salesperson [employer] Name Role Phone Lisbet Chairez Unavailable Nita Ramírez Unavailable Unavailable Nita Ramírez Unavailable Unavailable LO LEO Attending Unavailable ALICIA FLORENTINO Primary Care Unavailable Alicia Florentino DO Primary Care Provider [phone] Allergies Allergy Classification Reported Allergen(s) Allergy Type Date of Onset Reaction(s) Facility (3 sources) Adhesive Tape; Translations: [ADHESIVE BANDAGES] allergy to substance 3 silva skin [facility] Work Phone: (6 sources) aspirin drug allergy 0 vomiting [facility] Work Phone: (3 sources) naproxen drug allergy 5 nausea [facility] Work Phone: (3 sources) venlafaxine drug allergy 6 Nausea [facility] Work Phone: (3 sources) Lisinopril; Translations: [LISINOPRIL] Drug Allergy 9 Swelling [facility] Repository Medications Current Medications Medication Drug Class(es) Dates Sig (Normalized) Sig (Original) benzonatate 100 mg oral capsule (7 sources) Non-narcotic Antitussive Start: 08-22-2022 End: 08-29-2022 take 1 capsule by mouth three times daily as needed for cough benzonatate (TESSALON PERLES) 100 mg capsule Indications: URI, acute Take 1 capsule by mouth three times daily as needed for cough for up to 7 days. 21 capsule 0 08/22/2022 08/29/2022 Active Completed/Discontinued Medications Medication Drug Class(es) Dates Sig (Normalized) Sig (Original) ACCUCHECK COMPACT TEST STRIPS (6 sources) Start: 10-22-2012 End: 08-31-2013 ACCUCHECK COMPACT TEST STRIPS 3-4 times daily DX: DM-uncontrolled, on insulin ACCUCHECK COMPACT TEST STRIPS Marybel Palafox Mallorymcikpeggy Problems Active Problems Problem Classification Problem Date Documented Date Episodic/Chronic Cardiac dysrhythmias (6 sources) Ventricular premature beats; Translations: [Premature atrial contraction] Onset: 09-08-2013 09-08-2013 Chronic Diabetes mellitus with complications (15 sources) Diabetic peripheral neuropathy; Translations: [Type II diabetes mellitus uncontrolled] Onset: 10-02-2010 Resolved: 03-28-2015 10-02-2010 Chronic Disorders of lipid metabolism (5 sources) Hypercholesterolemia; Translations: [Hyperlipidemia] Onset: 10-02-2010 10-02-2010 Chronic Esophageal disorders (3 sources) Gastroesophageal reflux disease; Translations: [Gastro-esophageal reflux disease without esophagitis] 08-25-2012 Chronic Essential hypertension (3 sources) Hypertensive disorder; Translations: [Essential (primary) hypertension] Onset: 10-02-2010 10-02-2010 Chronic Menopausal disorders (3 sources) Menopausal syndrome; Translations: [Menopausal and female climacteric states] Onset: 11-30-2012 11-30-2012 Chronic Osteoarthritis (3 sources) Osteoarthritis of knee; Translations: [Osteoarthritis of knee, unspecified] Onset: 11-22-2015 12-02-2015 Chronic Other hereditary and degenerative nervous system conditions (3 sources) Restless legs; Translations: [Restless legs syndrome] Onset: 10-02-2010 10-02-2010 Chronic Other nervous system disorders (3 sources) Peripheral nerve disease ; Translations: [Polyneuropathy, unspecified] Onset: 01-17-2016 01-17-2016 Chronic Other nutritional; endocrine; and metabolic disorders (4 sources) Body mass index 40+ - severely obese; Translations: [Body mass index (BMI) 50-59.9 , adult] Onset: 09-08-2013 04-07-2016 Chronic Other nutritional; endocrine; and metabolic disorders (2 sources) Body mass index (BMI) 50-59.9 , adult; Translations: [Body mass index (BMI) 50-59.9 , adult] Onset: 09-08-2013 09-08-2013 Chronic Other upper respiratory infections (3 sources) Acute upper respiratory infection, unspecified; Translations: [Acute upper respiratory infection] Onset: 08-22-2022 Episodic Spondylosis; intervertebral disc disorders; other back problems (3 sources) Degeneration of lumbar intervertebral disc; Translations: [Other intervertebral disc degeneration, lumbar region] Onset: 10-17-2013 10-17-2013 Chronic Unclassified (2 sources) Screening mammography ; Translations: [Encounter for other screening for malignant neoplasm of breast] Onset: 03-01-2013 03-01-2013 Past or Other Problems Problem Classification Problem Date Documented Da te Episodic/Chronic Abdominal pain (6 sources) Left lower quadrant pain; Translations: [Left lower quadrant pain] Onset: 04-07-2011 Resolved: 02-09-2012 04-07-2011 Episodic Cardiac dysrhythmias (6 sources) Tachycardia; Translations: [Palpitations] Onset: 08-01-2013 11-28-2014 Episodic Conditions associated with dizziness or vertigo (9 sources) Dizziness; Translations: [Dizziness and giddiness] Onset: 08-01-2013 Resolved: 01-19-2014 01-19-2014 Episodic Malaise and fatigue (3 sources) Fatigue; Translations: [Other fatigue] Onset: 03-28-2015 03-28-2015 Episodic Nonspecific chest pain (18 sources) Atypical chest pain; Translations: [Chest pain] Onset: 08-01-2013 Resolved: 03-28-2015 03-28-2015 Episodic Other acquired deformities (2 sources) Lumbar spondylolisthesis; Translations: [Spondylolisthesis, lumbar region] Onset: 06-26-2016 06-26-2016 Episodic Other circulatory disease (3 sources) Abnormal result of cardiovascular function study, unspecified; Translations: [Abnormal result of cardiovascular function study, unspecified] Onset: 12-13-2014 12-13-2014 Episodic Other connective tissue disease (12 sources) Ganglion cyst; Translations: [Foot pain] Onset: 08-07-2010 Resolved: 03-28-2015 03-28-2015 Episodic Other connective tissue disease (2 sources) Foot pain; Translations: [Pain in right foot] Onset: 05-13-2011 Resolved: 08-12-2011 08-12-2011 Episodic Other connective tissue disease (1 source) Pain in lower limb; Translations: [Pain in left leg] Onset: 10-17-2013 10-17-2013 Episodic Other ear and sense organ disorders (3 sources) Tinnitus; Translations: [Tinnitus, left ear] Onset: 08-12-2013 08-12-2013 Episodic Other gastrointestinal disorders (12 sources) Constipation; Translations: [Chronic constipation] Onset: 03-26-2011 Resolved: 02-09-2012 08-12-2011 Episodic Other gastrointestinal disorders (3 sources) Chronic constipation; Translations: [Other constipation] Onset: 03-26-2011 Resolved: 02-09-2012 05-24-2012 Episodic Other lower respiratory disease (6 sources) Cough; Translations: [Cough] Onset: 06-07-2012 Resolved: 08-25-2012 06-07-2012 Episodic Other nervous system disorders (3 sources) Paresthesia; Translations: [Unspecified disturbances of skin sensation] Onset: 01-19-2014 01-19-2014 Episodic Other non-traumatic joint disorders (10 sources) Pain in joint, shoulder region; Translations: [Knee pain] Onset: 01-19-2014 Resolved: 03-28-2015 03-28-2015 Episodic Other non-traumatic joint disorders (1 source) Hip pain; Translations: [Pain in right hip] Onset: 08-13-2015 08-13-2015 Episodic Other non-traumatic joint disorders (1 source) Knee pain; Translations: [Pain in unspecified knee] Onset: 08-13-2015 08-13-2015 Episodic Other skin disorders (10 sources) Localized swelling, mass and lump, unspecified; Translations: [Excessive sweating] Onset: 07-22-2010 Resolved: 03-28-2015 07-22-2010 Episodic Other skin disorders (1 source) Excessive sweating; Translations: [Generalized hyperhidrosis] Onset: 01-17-2016 01-17-2016 Episodic Other skin disorders (4 sources) Mass of neck; Translations: [Localized swelling, mass and lump, trunk] Onset: 10-02-2011 Resolved: 11-30-2012 10-02-2011 Episodic Residual codes; unclassified (1 source) FH: Raised blood lipids; Translations: [Family history of other endocrine, nutritional and metabolic diseases] 02-19-2015 Episodic Residual codes; unclassified (1 source) Family history of ischemic heart disease and other diseases of the circulatory system; Translations: [Family history of ischemic heart disease and other diseases of the circulatory system] 02-19-2015 Episodic Residual codes; unclassified (1 source) Postmenopausal state; Translations: [Asymptomatic menopausal state] Onset: 03-01-2013 03-01-2013 Episodic Residual codes; unclassified (1 source) Insomnia; Translations: [Insomnia, unspecified] Onset: 05-24-2012 05-24-2012 Episodic Spondylosis; intervertebral disc disorders; other back problems (3 sources) Sciatica; Translations: [Sciatica, left side] Onset: 03-28-2015 03-28-2015 Episodic Unclassified (13 sources) FH: Hypertension; Translations: [FH: Raised blood lipids] Onset: 10-02-2011 Resolved: 11-30-2012 02-19-2015 Episodic Results Test Name Value Interpretation Reference Range Facil it Vital Signs Date Time Vital Sign Value Performing Clinician Facility 08-22-2022 11:22-0500 Body temperature 97.39 [degF] Lo Leo APRN.CALL TAKER Work Phone: [facility] 08-22-2022 11:22-0500 Body weight 108.14 kg Lo Leo APRN.CALL TAKER Work Phone: [facility] 08-22-2022 11:22-0500 Diastolic blood pressure 72 mm[Hg] Lo Leo APRN.CALL TAKER Work Phone: [facility] 08-22-2022 11:22-0500 Heart rate 85 /min Lo Leo APRN.CALL TAKER Work Phone: [facility] 08-22-2022 11:22-0500 Respiratory rate 18 /min Lo Leo APRN.CALL TAKER Work Phone: [facility] 08-22-2022 11:22-0500 SaO2% (BldA) [Mass fraction] 98 % Lo Leo APRN.CALL TAKER Work Phone: [facility] 08-22-2022 11:22-0500 Systolic blood pressure 124 mm[Hg] Lo Leo APRN.CALL TAKER Work Phone: [facility] 06-08-2017 09:55-0400 BMI (Body Mass Index) 51.75 kg/m2 [facility] Work Phone: 06-08-2017 09:55-0400 BP Diastolic 60 mm[Hg] [facility] Work Phone: 06-08-2017 09:55-0400 BP Systolic 120 mm[Hg] [facility] Work Phone: 06-08-2017 09:55-0400 Pulse (Heart Rate) 60 /min [facility] Work Phone: 06-08-2017 09:55-0400 Weight 120.2 kg [facility] Work Phone: 12-01-2016 09:47-0400 BMI (Body Mass Index) 52.14 kg/m2 Lisbethussein Chairez [place] [employer] [facility] Work Phone: 12-01-2016 09:47-0400 BP Diastolic 64 mm[Hg] Lisbet Chairez [place] [employer] [facility] Work Phone: 12-01-2016 09:47-0400 BP Systolic 122 mm[Hg] Lisbet Chairez [facility] [employer] [facility] Work Phone: 12-01-2016 09:47-0400 Height 152.[address] [facility] [employer] [facility] Work Phone: 12-01-2016 09:47-0400 Pulse (Heart Rate) 68 /min Lisbet Chairez [facility] [employer] [facility] Work Phone: 12-01-2016 09:47-0400 Respiratory Rate 20 /min Lisbet Chairez [facility] [employer] [facility] Work Phone: 12-01-2016 09:47-0400 Weight 121.[address] [facility] [employer] [facility] Work Phone: 04-07-2016 11:27-0400 BSA (Body Surface Area) 2.11 m2 [facility] [employer] [facility] Work Phone: 02-18-2016 12:15-0400 Body Temperature 98.3 [degF] Lisbet Chairez [facility] [employer] [facility] Work Phone: 02-18-2016 12:15-0400 Pulse Oximetry 100 % Lisbet Chairez [place] [employer] [facility] Work Phone: 11-03-2015 07:55-0500 Body surface area Derived from formula 38.96 mL/min [facility] Work Phone: 11-28-2014 10:11-0400 Heart rate 66 /min [facility] Work Phone: 08-01-2013 09:41-0500 BP Diastolic 80 mm[Hg] Lisbet [facility] [employer] Work Phone: 08-01-2013 09:41-0500 BP Systolic 125 mm[Hg] Lisbet [facility] [employer] [facility] Work Phone: Encounters Encounter Date Encounter Type Care Provider Facility Start: 09-13-2022 Amos espinoza APRN.CNP Work Phone: [facility] Care Procedures Date Procedure Procedure Detail Performing Clinician Start: 06-08-2017 End: 06-08-2017 Follow Up Appt 9 months Sharona freed PA-C Work Phone: Start: 06-08-2017 End: 06-08-2017 M Sharona Lucas PA-C Work Phone: Start: 12-01-2016 End: 12-01-2016 Follow Up Appt 6 months Nickolas Lockett MD Start: 12-01-2016 End: 12-01-2016 GAEL Lockett MD Start: 12-01-2016 End: 12-01-2016 Dietary management education, guidance, and counseling Nita Ramírez Start: 12-01-2016 End: 12-01-2016 Follow Up Appt 6 months Nickolas Lockett MD Start: 12-01-2016 End: 12-01-2016 MMM Nickolas Lockett MD Start: 04-07-2016 End: 04-07-2016 Follow Up Appt 6 months Sharona freed PA-C Work Phone: Start: 04-07-2016 End: 04-07-2016 PFM Sharona Lucas PA-C Work Phone: Start: 04-07-2016 End: 04-07-2016 Follow Up Appt 6 months Sharona freed PA-C Work Phone: Start: 04-07-2016 End: 04-07-2016 PF Sharona Lucas PA-C Work Phone: Start: 03-07-2016 End: 05-27-2017 Mammogram, screening Jerson Carrillo DO Work Phone: Start: 10-27-2015 End: 10-27-2015 Urinalysis Nita Ramírez Start: 10-01-2015 End: 05-27-2017 *Hepatic Function Panel Nickolas Lockett MD Start: 10-01-2015 End: 10-01-2015 Follow Up Appt 6 months Nickolas Lockett MD Start: 10-01-2015 End: 05-27-2017 Lipid 1996 panel - Serum or Plasma Nickolas Lockett MD Start: 10-01-2015 End: 10-01-2015 MMSerafin Lockett MD Start: 10-01-2015 End: 10-01-2015 Follow Up Appt 6 months Nickolas Lockett MD Start: 10-01-2015 End: 10-01-2015 GAEL Lockett MD Start: 08-13-2015 End: 05-27-2017 Radiologic exam knee complete 4/more views Alicia A Malys, DO Work Phone: Start: 08-13-2015 End: 05-27-2017 X-ray exam of hip Alicia Florentino, DO Work Phone: Start: 03-28-2015 End: 08-13-2015 *CBC with Differential Alicia Kesslerys, DO Work Phone: Start: 03-28-2015 End: 08-10-2015 *CMP Complete Metabolic Panel Alicia Kesslerys, DO Work Phone: Start: 03-28-2015 End: 08-11-2015 Hemoglobin A1c/Hemoglobin.total in Blood Alicia Florentino, DO Work Phone: Start: 03-28-2015 End: 08-11-2015 Lipid 1996 panel - Serum or Plasma Alicia Florentino, DO Work Phone: Start: 03-28-2015 End: 08-13-2015 *CBC with Differential Alicia Kesslerys, DO Work Phone: Start: 03-28-2015 End: 08-10-2015 *CMP Complete Metabolic Panel Alicia Florentino, DO Work Phone: Start: 03-28-2015 End: 08-11-2015 HbA1c Alicia Florentino, DO Work Phone: Start: 03-28-2015 End: 08-11-2015 Lipid panel [AGGREGATE] Alicia Florentino, DO Work Phone: Start: 02-27-2015 End: 05-27-2017 Mammogram, screening Alicia Florentino, DO Work Phone: Start: 02-19-2015 End: 02-20-2015 Colonoscopy Sharona Lucas PA-C Work Phone: Start: 02-19-2015 End: 02-20-2015 Documentation of current medications Sharona Lucas PA-C Work Phone: Start: 02-19-2015 End: 02-20-2015 Examination of retina Sharona villalba PA-C Work Phone: Start: 02-19-2015 End: 02-19-2015 Follow Up Appt 6 months Sharona freed PA-C Work Phone: Start: 02-19-2015 End: 02-20-2015 Pedal pulse taking Sharona Lucas PA-C Work Phone: Start: 02-19-2015 End: 02-19-2015 PFM Sharona Lucas PA-C Work Phone: Start: 02-19-2015 End: 02-20-2015 Colonoscopy Sharona Lucas PA-C Work Phone: Start: 02-19-2015 End: 02-20-2015 Documentation of current medications Sharona Lucas PA-C Work Phone: Start: 02-19-2015 End: 02-20-2015 Examination of retina Sharona villalba PA-C Work Phone: Start: 02-19-2015 End: 02-19-2015 Follow Up Appt 6 months Sharona freed PA-C Work Phone: Start: 02-19-2015 End: 02-20-2015 Pedal pulse taking Sharona Lucas PA-C Work Phone: Start: 02-19-2015 End: 02-19-2015 PFM Sharona Lucas PA-C Work Phone: Start: 12-13-2014 End: 12-13-2014 *BMP Sharona Lucas PA-C Work Phone: Start: 12-13-2014 End: 12-13-2014 aPTT in Platelet poor plasma by Coagulation assay Sharona Lucas PA-C Work Phone: Start: 12-13-2014 End: 01-19-2015 Carotid duplex Sharona Lucas PA-C Work Phone: Start: 12-13-2014 End: 12-13-2014 CBC W Auto Differential panel - Blood Sharona Lucas PA-C Work Phone: Start: 12-13-2014 End: 12-15-2014 Chest x-ray Sharona Lucas PA-C Work Phone: Start: 12-13-2014 End: 12-14-2014 Colonoscopy Sharona Lucas PA-C Work Phone: Start: 12-13-2014 End: 12-14-2014 Documentation of current medications Sharona Lucas PA-C Work Phone: Start: 12-13-2014 End: 12-13-2014 Ecg routine ecg w/least 12 lds w/i&r Sharona Lucas PA-C Work Phone: Start: 12-13-2014 End: 12-14-2014 Examination of retina Sharona villalba PA-C Work Phone: Start: 12-13-2014 End: 12-13-2014 Follow Up Appt 6 weeks Sharona lawson PA-C Work Phone: Start: 12-13-2014 End: 12-13-2014 INR in Platelet poor plasma by Coagulation assay Sharona Lucas PA-C Work Phone: Start: 12-13-2014 End: 01-19-2015 Left Heart Cath Sharona Lucas PA-C Work Phone: Start: 12-13-2014 End: 12-13-2014 MMM Sharona Lucas PA-C Work Phone: Start: 12-13-2014 End: 12-14-2014 Pedal pulse taking Sharona Lucas PA-C Work Phone: Start: 12-13-2014 End: 12-13-2014 *BMP Sharona Lucas PA-C Work Phone: Start: 12-13-2014 End: 12-13-2014 aPTT Sharona Lucas PA-C Work Phone: Start: 12-13-2014 End: 01-19-2015 Carotid duplex Sharona Lucas PA-C Work Phone: Start: 12-13-2014 End: 12-13-2014 CBC W Auto Differential panel - Blood Sharona Lucas PA-C Work Phone: Start: 12-13-2014 End: 12-15-2014 Chest x-ray Sharona Lucas PA-C Work Phone: Start: 12-13-2014 End: 12-13-2014 Coagulation factor induced.INR assay in platelet poor plasma Sharona Lucas PA-C Work Phone: Start: 12-13-2014 End: 12-14-2014 Colonoscopy Sharona Lucas PA-C Work Phone: Start: 12-13-2014 End: 12-14-2014 Documentation of current medications Sharona Lucas PA-C Work Phone: Start: 12-13-2014 End: 12-13-2014 Electrocardiogram, complete Sharona Rivas PA-C Work Phone: Start: 12-13-2014 End: 12-14-2014 Examination of retina Sharona villalba PA-C Work Phone: Start: 12-13-2014 End: 12-13-2014 Follow Up Appt 6 weeks Sharona lawson PA-C Work Phone: Start: 12-13-2014 End: 01-19-2015 Left Heart Cath Sharona Lucsa PA-C Work Phone: Start: 12-13-2014 End: 12-13-2014 MMM Sharona Lucas PA-C Work Phone: Start: 12-13-2014 End: 12-14-2014 Pedal pulse taking Sharona Lucas PA-C Work Phone: Start: 11-28-2014 End: 12-06-2014 Ecg routine ecg w/least 12 lds w/i&r Jossue Moya MD Start: 11-28-2014 End: 12-06-2014 Nuclear stress test -Anya Moya MD Start: 11-28-2014 End: 12-06-2014 Electrocardiogram, nestor Moya MD Start: 11-28-2014 End: 12-06-2014 Nuclear stress test -Anya Moya MD Start: 10-26-2014 End: 11-23-2014 *CMP Complete Metabolic Panel Jossue Moya MD Start: 10-26-2014 End: 11-23-2014 *MIACRE Microalb; Creat Ratio, [place] UR Jossue Moya MD Start: 10-26-2014 End: 11-23-2014 Assay of thyroid stimulating hormone tsh Jossue Moya MD Start: 10-26-2014 End: 11-23-2014 Hemoglobin glycosylated a1c Jossue Moya MD Start: 10-26-2014 End: 11-23-2014 Lipid Profile Jossue Moya MD Start: 10-26-2014 End: 11-23-2014 *CMP Complete Metabolic Panel Jossue Moya MD Start: 10-26-2014 End: 11-23-2014 *MIACRE Microalb; Creat Ratio, [place] UR Jossue Moya MD Start: 10-26-2014 End: 11-23-2014 HbA1c Jossue Moya MD Start: 10-26-2014 End: 11-23-2014 Lipid Profile Jossue Moya MD Start: 10-26-2014 End: 11-23-2014 Thyroid stimulating hormone (TSH) Jossue Moya MD Start: 07-27-2014 End: 07-27-2014 *BMP Jossue Moya MD Start: 07-27-2014 End: 07-27-2014 Hemoglobin A1c/Hemoglobin.total in Blood Jossue Moya MD Start: 07-27-2014 End: 07-27-2014 Injection single/varitype operator trigger point 1/2 muscles Jossue Moya MD Start: 07-27-2014 End: 07-27-2014 *ANGELIQUE Moya MD Start: 07-27-2014 End: 07-27-2014 HbA1c Jossue Moya MD Start: 07-27-2014 End: 07-27-2014 Inj trigger point, 1/2 muscl Jossue youssef MD Start: 06-23-2014 End: 07-28-2014 Neurology Referral Jossue Moya MD Start: 06-23-2014 End: 07-28-2014 Neurology Referral Jossue Moya MD Start: 05-30-2014 End: 07-27-2014 *ANGELIQUE Moya MD Start: 05-30-2014 End: 07-27-2014 Hemoglobin A1c/Hemoglobin.total in Blood Jossue Moya MD Start: 05-30-2014 End: 07-27-2014 *ANGELIQUE Moya MD Start: 05-30-2014 End: 07-27-2014 Christian Moya MD Start: 04-26-2014 End: 07-27-2014 EMG Jossue Moya MD Start: 04-26-2014 End: 07-27-2014 Nerve Conduction Jossue Moya MD Start: 04-26-2014 End: 07-27-2014 PHILLIP Moya MD Start: 04-26-2014 End: 07-27-2014 Nerve Conduction Jossue Moya MD Start: 03-06-2014 End: 03-09-2014 Mammogram, Screening, both breasts Jossue Moya MD Start: 03-06-2014 End: 03-09-2014 Mammogram, Screening, both breasts Jossue Moya MD Start: 01-19-2014 End: 04-19-2014 *CMP Complete Metabolic Panel Jossue Moya MD Start: 01-19-2014 End: 07-27-2014 EMG Jossue Moya MD Start: 01-19-2014 End: 04-19-2014 Hemoglobin A1c/Hemoglobin.total in Blood Jossue Moya MD Start: 01-19-2014 End: 04-19-2014 Lipid 1996 panel - Serum or Plasma Jossue Moya MD Start: 01-19-2014 End: 07-27-2014 Nerve Conduction Jossue Moya MD Start: 01-19-2014 End: 01-19-2014 Radex shoulder complete minimum 2 views Jossue Moya MD Start: 01-19-2014 End: 04-19-2014 *CMP Complete Metabolic Panel Jossue Moya MD Start: 01-19-2014 End: 07-27-2014 EMG Jossue Moya MD Start: 01-19-2014 End: 04-19-2014 HbA1c Jossue Moya MD Start: 01-19-2014 End: 04-19-2014 Lipid panel [AGGREGATE] Jossue Moya MD Start: 01-19-2014 End: 07-27-2014 Nerve Conduction Jossue Moya MD Start: 01-19-2014 End: 01-19-2014 X-ray exam of shoulder Jossue Moya MD Start: 01-17-2014 End: 01-19-2014 Hemoglobin A1c/Hemoglobin.total in Blood Jossue Moya MD Start: 01-17-2014 End: 01-19-2014 HbA1c Jossue Moya MD Start: 09-08-2013 End: 09-08-2013 Ecg routine ecg w/least 12 lds w/i&r Nickolas Lockett MD Start: 09-08-2013 End: 12-13-2014 Echocardiography Nickolas Lockett MD Start: 09-08-2013 End: 09-08-2013 Follow Up Appt 6 weeks Nickolas Lockett MD Start: 09-08-2013 End: 09-08-2013 MMM Nickolas Lockett MD Start: 09-08-2013 End: 12-13-2014 Echocardiography Nickolas Lockett MD Start: 09-08-2013 End: 09-08-2013 Electrocardiogram, complete Nickolas springer MD Start: 09-08-2013 End: 09-08-2013 Follow Up Appt 6 weeks Nickolas Lockett MD Start: 09-08-2013 End: 09-08-2013 MMM Nickolas Lockett MD Start: 08-29-2013 End: 08-29-2014 Cardiac Referral Jossue Moya MD Start: 08-29-2013 End: 08-29-2014 Cardiac Referral Jossue Moya MD Start: 08-12-2013 End: 08-12-2014 ENT referral Jossue Moya MD Start: 08-12-2013 End: 08-12-2014 ENT referral Jossue Moya MD Start: 08-01-2013 End: 08-15-2013 48 hour holter monitor Jossue Moya MD Start: 08-01-2013 End: 08-09-2013 Carotid duplex Jossue Moya MD Start: 08-01-2013 End: 08-15-2013 48 hour holter monitor Jossue Moya MD Start: 08-01-2013 End: 08-09-2013 Carotid duplex Jossue Moya MD Start: 06-23-2013 End: 09-07-2013 *CMP Complete Metabolic Panel Jossue Moya MD Start: 06-23-2013 End: 09-07-2013 *MIACRE Microalb; Creat Ratio, [place] UR Jossue Moya MD Start: 06-23-2013 End: 09-07-2013 CBC W Auto Differential panel - Blood Jossue Moya MD Start: 06-23-2013 End: 09-07-2013 Hemoglobin A1c/Hemoglobin.total in Blood Jossue Moya MD Start: 06-23-2013 End: 09-07-2013 Lipid 1996 panel - Serum or Plasma Jossue Moya MD Start: 06-23-2013 End: 09-07-2013 *CMP Complete Metabolic Panel Jossue Moya MD Start: 06-23-2013 End: 09-07-2013 *MIACRE Microalb; Creat Ratio, [place] UR Jossue Moya MD Start: 06-23-2013 End: 09-07-2013 CBC W Auto Differential panel - Blood Jossue Moya MD Start: 06-23-2013 End: 09-07-2013 HbA1c Jossue Moya MD Start: 06-23-2013 End: 09-07-2013 Lipid panel [AGGREGATE] Jossue Moya MD Start: 03-01-2013 End: 03-01-2013 *BMP Jossue Moya MD Start: 03-01-2013 End: 03-08-2013 Bone density scan Jossue Moya MD Start: 03-01-2013 End: 03-01-2013 Hemoglobin A1c/Hemoglobin.total in Blood Jossue Moya MD Start: 03-01-2013 End: 03-08-2013 Mammogram, Screening, both breasts Jossue Moya MD Start: 03-01-2013 Screening mammography OTHER SCREENING MAMMOGRAM Nita Ramírez Start: 03-01-2013 End: 03-01-2013 *ANGELIQUE Moya MD Start: 03-01-2013 End: 03-08-2013 Bone density scan Jossue Moya MD Start: 03-01-2013 End: 03-01-2013 HbA1c Jossue Moya MD Start: 03-01-2013 End: 03-08-2013 Mammogram, Screening, both breasts Jossue Moya MD Start: 11-30-2012 End: 11-30-2012 *ANGELIQUE Moya MD Start: 11-30-2012 End: 12-01-2012 Hemoglobin A1c/Hemoglobin.total in Blood Jossue Moya MD Start: 11-30-2012 End: 11-30-2012 *ANGELIQUE Moya MD Start: 11-30-2012 End: 12-01-2012 Christian Moya MD Start: 05-24-2012 End: 08-25-2012 *CMP Complete Metabolic Panel Jossue Moya MD Start: 05-24-2012 End: 08-25-2012 *Microalbumin, Creatine Ratio, rand urine Jossue Moya MD Start: 05-24-2012 End: 05-24-2012 Follow Up Appt 3 months Jossue Moya MD Start: 05-24-2012 End: 08-25-2012 Hemoglobin A1c/Hemoglobin.total in Blood Jossue Moya MD Start: 05-24-2012 End: 08-25-2012 Lipid 1996 panel - Serum or Plasma Jossue Moya MD Start: 05-24-2012 End: 08-25-2012 *CMP Complete Metabolic Panel Jossue Moya MD Start: 05-24-2012 End: 08-25-2012 *Microalbumin, Creatine Ratio, rand urine Jossue Moya MD Start: 05-24-2012 End: 05-24-2012 Follow Up Appt 3 months Jossue Moya MD Start: 05-24-2012 End: 08-25-2012 HbA1c Jossue Moya MD Start: 05-24-2012 End: 08-25-2012 Lipid panel [AGGREGATE] Jossue Moya MD Start: 04-09-2012 End: 05-17-2012 *BMP Jossue Moya MD Start: 04-09-2012 End: 05-17-2012 Hemoglobin A1c/Hemoglobin.total in Blood Jossue Moya MD Start: 04-09-2012 End: 05-17-2012 *BMP Jossue Moya MD Start: 04-09-2012 End: 05-17-2012 HbA1c Jossue Moya MD Start: 10-02-2011 End: 12-18-2011 Ct soft tissue neck w/contrast material Brian Tovar MD Start: 10-02-2011 End: 12-18-2011 Ct soft tissue neck w/dye Brian Tovar MD Start: 08-12-2011 End: 2011 *CMP Complete Metabolic Panel Brian Tovar MD Start: 08-12-2011 End: 2011 Hemoglobin A1c/Hemoglobin.total in Blood Brian Tovar MD Start: 08-12-2011 End: 2011 Lipid 1996 panel - Serum or Plasma Brian Tovar MD Start: 08-12-2011 End: 2011 *CMP Complete Metabolic Panel Brian Tovar MD Start: 08-12-2011 End: 2011 HbA1c Brian Tovar MD Start: 08-12-2011 End: 2011 Lipid panel [AGGREGATE] Brian Betancourt D Start: 05-13-2011 End: 10-03-2011 Radex foot complete minimum 3 views Brian Tovar MD Start: 05-13-2011 End: 10-03-2011 X-ray exam of foot Brian Tovar MD Start: 03-26-2011 End: 2011 Surgery Referral Brian Tovar MD Start: 03-26-2011 End: 2011 Surgery Referral Brian Tovar MD Start: 02-13-2011 End: 03-27-2011 Hemoglobin glycosylated a1c Brian washington MD Start: 02-13-2011 End: 03-27-2011 HbA1c Brian Tovar MD Start: 10-02-2010 End: 10-03-2010 Basic metabolic panel calcium total Brian Tovar MD Start: 10-02-2010 End: 10-03-2010 Blood count manual cell count each Brian Tovar MD Start: 10-02-2010 End: 10-03-2010 Hemoglobin glycosylated a1c Brian washington MD Start: 10-02-2010 End: 10-03-2010 Hepatic function panel Brian Tovar MD Start: 10-02-2010 End: 10-03-2010 Lipid panel Brian Tovar MD Start: 10-02-2010 End: 10-03-2010 HbA1c Brian Tovar MD Start: 10-02-2010 End: 10-03-2010 Hepatic function panel Brian Tovar MD Start: 10-02-2010 End: 10-03-2010 Lipid panel Brian Tovar MD Start: 10-02-2010 End: 10-03-2010 Manual cell count, each Brian Victoria Start: 10-02-2010 End: 10-03-2010 Metabolic panel total ca Brian Tovar MD Plan of Treatment Date Care Activity Detail Author Start: 08-24-2022 ADVANCE DIRECTIVE DISCUSSION ADVANCE DIRECTIVE DISCUSSION [facility] Start: 08-24-2022 DEPRESSION ASSESSMENT DEPRESSION ASSESSMENT [facility] Start: 03-08-2018 End: 03-08-2018 Appointment Appointment [facility] Work Phone: Start: 11-23-2017 DIABETES SCREEN DIABETES SCREEN [facility] Start: 06-08-2017 End: 06-08-2017 Follow Up Appt 9 months Follow Up Appt 9 months [facility] Work Phone: Start: 06-08-2017 End: 06-08-2017 PFM PFM [facility] Work Phone: Start: 06-08-2017 End: 06-08-2017 Appointment Appointment [employer] [facility] Work Phone: Start: 12-01-2016 End: 12-01-2016 Follow Up Appt 6 months Follow Up Appt 6 months [facility] Work Phone: Start: 12-01-2016 End: 12-01-2016 MMM MMM [facility] Work Phone: Start: 12-01-2016 End: 12-01-2016 Follow Up Appt 6 months Follow Up Appt 6 months [employer] [facility] Work Phone: Start: 12-01-2016 End: 12-01-2016 MMM [employer] [facility] Work Phone: Start: 04-07-2016 End: 04-07-2016 Follow Up Appt 6 months Follow Up Appt 6 months [facility] Work Phone: Start: 04-07-2016 End: 04-07-2016 PFM PFM [facility] Work Phone: Start: 04-07-2016 End: 04-07-2016 Follow Up Appt 6 months Follow Up Appt 6 months [facility] Work Phone: Start: 04-07-2016 End: 04-07-2016 [facility] Work Phone: Start: 03-07-2016 End: 05-27-2017 Mammogram, screening Mammogram, Screening, both breasts [facility] Work Phone: Start: 03-07-2016 End: 03-07-2016 Mammogram, screening Mammogram, Screening, both breasts [facility] Work Phone: Start: 10-01-2015 End: 05-27-2017 *Hepatic Function Panel *Hepatic Function Panel [facility] Work Phone: Start: 10-01-2015 End: 10-01-2015 Follow Up Appt 6 months Follow Up Appt 6 months [facility] Work Phone: Start: 10-01-2015 End: 05-27-2017 Lipid panel [AGGREGATE] *Lipid Profile CC PCP [facility] Work Phone: Start: 10-01-2015 End: 10-01-2015 MMM MMM [facility] Work Phone: Start: 10-01-2015 End: 10-01-2015 *Hepatic Function Panel *[facility] Work Phone: Start: 10-01-2015 End: 10-01-2015 Follow Up Appt 6 months Follow [facility] Appt 6 [facility] Work Phone: Start: 10-01-2015 End: 10-01-2015 Lipid panel [AGGREGATE] *Lipid Profile CC PCP [facility] Work Phone: Start: 10-01-2015 End: 10-01-2015 MMM MMM [place] [employer] [facility] Work Phone: Start: 08-13-2015 End: 05-27-2017 Radiologic exam knee complete 4/more views X-Ray, Knee [facility] Work Phone: Start: 08-13-2015 End: 05-27-2017 X-ray exam of hip X-Ray, Hip Unilateral [facility] Work Phone: Start: 08-13-2015 End: 08-13-2015 X-ray exam of hip X-Ray, Hip Unilateral [facility] [employer] [facility] Work Phone: Start: 08-13-2015 End: 08-13-2015 X-ray exam, knee, 4 or more X-Ray, Knee [place] [employer] [facility] Work Phone: Start: 03-28-2015 End: 08-13-2015 *CBC with Differential *CBC with Differential [facility] Work Phone: Start: 03-28-2015 End: 08-10-2015 *CMP Complete Metabolic Panel *CMP Complete Metabolic Panel [facility] Work Phone: Start: 03-28-2015 End: 08-11-2015 Hemoglobin A1c/Hemoglobin.total mass fraction (Bld) *HgA1C [facility] Work Phone: Start: 03-28-2015 End: 08-11-2015 Lipid panel [AGGREGATE] *Lipid Profile [facility] Work Phone: Start: 03-28-2015 End: 08-13-2015 *CBC with Differential *CBC with Differential [facility] [employer] [facility] Work Phone: Start: 03-28-2015 End: 08-10-2015 *CMP Complete Metabolic Panel *CMP Complete Metabolic Panel [place] [employer] [facility] Work Phone: Start: 03-28-2015 End: 08-11-2015 HbA1c *HgA1C [place] [employer] [facility] Work Phone: Start: 03-28-2015 End: 08-11-2015 Lipid panel [AGGREGATE] *Lipid Profile [facility] Work Phone: Start: 02-27-2015 End: 05-27-2017 Mammogram, screening Mammogram, Screening, both breasts [facility] Work Phone: Start: 02-27-2015 End: 02-27-2015 Mammogram, screening Mammogram, Screening, both breasts [facility] Work Phone: Start: 02-19-2015 End: 02-19-2015 Follow Up Appt 6 months Follow Up Appt 6 months [facility] Work Phone: Start: 02-19-2015 End: 02-19-2015 PFM PF [facility] Work Phone: Start: 02-19-2015 End: 02-19-2015 Follow Up Appt 6 months Follow Up Appt 6 months [facility] Work Phone: Start: 02-19-2015 End: 02-19-2015 [facility] Work Phone: Start: 12-13-2014 End: 12-13-2014 *BMP *BMP [facility] Work Phone: Start: 12-13-2014 End: 12-13-2014 aPTT *PTT-Partial Thromboplastin Time [facility] Work Phone: Start: 12-13-2014 End: 12-13-2014 Carotid duplex Carotid duplex [facility] Work Phone: Start: 12-13-2014 End: 12-13-2014 CBC W Auto Differential panel - Blood *CBC without Diff [facility] Work Phone: Start: 12-13-2014 End: 12-15-2014 Chest x-ray X-Ray, Chest, PA & Lateral [facility] Work Phone: Start: 12-13-2014 End: 12-13-2014 Ecg routine ecg w/least 12 lds w/i&r EKG (In office) [facility] Work Phone: Start: 12-13-2014 End: 12-13-2014 Follow Up Appt 6 weeks Follow Up Appt 6 weeks [facility] Work Phone: Start: 12-13-2014 End: 12-13-2014 INR Coag RelTime (PPP) *PT/INR [facility] Work Phone: Start: 12-13-2014 End: 12-13-2014 Left Heart Cath Left Heart Cath [facility] Work Phone: Start: 12-13-2014 End: 12-13-2014 MMM MMM [facility] Work Phone: Start: 12-13-2014 End: 12-13-2014 *BMP *BMP [place] [facility] Work Phone: Start: 12-13-2014 End: 12-13-2014 aPTT *PTT-Partial Thromboplastin Time [place] [employer] [facility] Work Phone: Start: 12-13-2014 End: 12-13-2014 Carotid duplex Carotid duplex [place] [employer] [facility] Work Phone: Start: 12-13-2014 End: 12-13-2014 CBC W Auto Differential panel - Blood *CBC without Diff [place] [employer] [facility] Work Phone: Start: 12-13-2014 End: 12-15-2014 Chest x-ray X-Ray, Chest, PA & Lateral [place] [employer] [facility] Work Phone: Start: 12-13-2014 End: 12-13-2014 Coagulation factor induced.INR assay in platelet poor plasma *PT/INR [place] [employer] [facility] Work Phone: Start: 12-13-2014 End: 12-13-2014 Electrocardiogram, complete EKG (In office) [place] [employer] [facility] Work Phone: Start: 12-13-2014 End: 12-13-2014 Follow Up Appt 6 weeks [facility] Appt [facility] Work Phone: Start: 12-13-2014 End: 12-13-2014 Left Heart Cath Left Heart Cath [facility] Work Phone: Start: 12-13-2014 End: 12-13-2014 MMM MMM [place] [employer] [facility] Work Phone: Start: 11-28-2014 End: 12-06-2014 Ecg routine ecg w/least 12 lds w/i&r EKG (In office) [facility] Work Phone: Start: 11-28-2014 End: 12-06-2014 Nuclear stress test -Lexiscan Nuclear stress test -Lexiscan [facility] Work Phone: Start: 11-28-2014 End: 12-06-2014 Electrocardiogram, complete EKG (In office) [place] [employer] [facility] Work Phone: Start: 11-28-2014 End: 12-06-2014 Nuclear stress test -Lexiscan Nuclear stress test -SPARQan [place] [employer] [facility] Work Phone: Start: 10-26-2014 End: 11-23-2014 *CMP Complete Metabolic Panel *CMP Complete Metabolic Panel [facility] Work Phone: Start: 10-26-2014 End: 11-23-2014 *MIACRE Microalb; Creat Ratio, [place] UR *MIACRE Microalb; Creat Ratio, [place] UR [facility] Work Phone: Start: 10-26-2014 End: 11-23-2014 Hemoglobin A1c/Hemoglobin.total mass fraction (Bld) HGBA1C [facility] Work Phone: Start: 10-26-2014 End: 11-23-2014 Lipid Profile Lipid Profile [facility] Work Phone: Start: 10-26-2014 End: 11-23-2014 Thyroid stimulating hormone (TSH) TSH [facility] Work Phone: Start: 10-26-2014 End: 11-23-2014 *CMP Complete Metabolic Panel *CMP Complete Metabolic Panel [facility] Work Phone: Start: 10-26-2014 End: 11-23-2014 *MIACRE Microalb; Creat Ratio, [place] UR *MIACRE Microalb; Creat Ratio, [place] UR [facility] Work Phone: Start: 10-26-2014 End: 11-23-2014 HbA1c HGBA1C [facility] Work Phone: Start: 10-26-2014 End: 11-23-2014 Lipid Profile Lipid Profile [facility] Work Phone: Start: 10-26-2014 End: 11-23-2014 Thyroid stimulating hormone (TSH) TSH [facility] Work Phone: Start: 07-27-2014 End: 07-27-2014 *BMP *BMP [facility] Work Phone: Start: 07-27-2014 End: 07-27-2014 Hemoglobin A1c/Hemoglobin.total mass fraction (Bld) *HgA1C [facility] Work Phone: Start: 07-27-2014 End: 07-27-2014 Injection single/varitype operator trigger point 1/2 muscles Injection Trigger Point 1-2 Muscles [facility] Work Phone: Start: 07-27-2014 End: 07-27-2014 *BMP *BMP [facility] Work Phone: Start: 07-27-2014 End: 07-27-2014 HbA1c *HgA1C [facility] Work Phone: Start: 07-27-2014 End: 07-27-2014 Inj trigger point, 1/2 muscl Injection Trigger Point 1-2 Muscles [facility] Work Phone: Start: 06-23-2014 End: 06-28-2014 Neurology Referral Neurology Referral [address], [place], [address] [facility] Work Phone: Start: 06-23-2014 End: 06-28-2014 Neurology Referral Neurology Referral [address], [place], [address] [facility] Work Phone: Start: 05-30-2014 End: 07-27-2014 *BMP *BMP [facility] Work Phone: Start: 05-30-2014 End: 07-27-2014 Hemoglobin A1c/Hemoglobin.total mass fraction (Bld) *HgA1C [facility] Work Phone: Start: 05-30-2014 End: 07-27-2014 *BMP *BMP [place] [employer] [facility] Work Phone: Start: 05-30-2014 End: 07-27-2014 HbA1c *HgA1C [place] [employer] [facility] Work Phone: Start: 04-26-2014 End: 07-27-2014 [facility]: Start: 04-26-2014 End: 07-27-2014 Nerve Conduction Nerve Conduction [facility] Work Phone: Start: 04-26-2014 End: 07-27-2014 EMG EMG [place] [employer] [facility] Work Phone: Start: 04-26-2014 End: 07-27-2014 Nerve Conduction Nerve Conduction [place] [employer] [facility] Work Phone: Start: 03-06-2014 End: 03-09-2014 Mammogram, Screening, both breasts Mammogram, Screening, both breasts [facility] Work Phone: Start: 03-06-2014 End: 03-09-2014 Mammogram, Screening, both breasts Mammogram, Screening, both breasts [facility] Work Phone: Start: 01-19-2014 End: 04-19-2014 *CMP Complete Metabolic Panel *CMP Complete Metabolic Panel [facility] Work Phone: Start: 01-19-2014 End: 07-27-2014 EMG EMG [facility] Work Phone: Start: 01-19-2014 End: 04-19-2014 Hemoglobin A1c/Hemoglobin.total mass fraction (Bld) *HgA1C [facility] Work Phone: Start: 01-19-2014 End: 04-19-2014 Lipid panel [AGGREGATE] *Lipid Profile [facility] Work Phone: Start: 01-19-2014 End: 07-27-2014 Nerve Conduction Nerve Conduction [facility] Work Phone: Start: 01-19-2014 End: 01-19-2014 Radex shoulder complete minimum 2 views X-Ray, Shoulder [facility] Work Phone: Start: 01-19-2014 End: 04-19-2014 *CMP Complete Metabolic Panel *CMP Complete Metabolic Panel [place] [employer] [facility] Work Phone: Start: 01-19-2014 End: 07-27-2014 EMG EMG [place] [employer] [facility] Work Phone: Start: 01-19-2014 End: 04-19-2014 HbA1c *HgA1C [place] [employer] [facility] Work Phone: Start: 01-19-2014 End: 04-19-2014 Lipid panel [AGGREGATE] *Lipid Profile [facility] Work Phone: Start: 01-19-2014 End: 07-27-2014 Nerve Conduction Nerve Conduction [place] [employer] [facility] Work Phone: Start: 01-19-2014 End: 01-19-2014 X-ray exam of shoulder [facility]-Ray, Shoulder [facility] Work Phone: Start: 01-17-2014 End: 01-19-2014 Hemoglobin A1c/Hemoglobin.total mass fraction (Bld) *HgA1C [facility] Work Phone: Start: 01-17-2014 End: 01-19-2014 HbA1c *HgA1C [place] [employer] [facility] Work Phone: Start: 09-08-2013 End: 09-08-2013 Ecg routine ecg w/least 12 lds w/i&r EKG (In office) [facility] Work Phone: Start: 09-08-2013 End: 09-08-2013 Echocardiography Echocardiogram (complete) [facility] Work Phone: Start: 09-08-2013 End: 09-08-2013 Follow Up Appt 6 weeks Follow Up Appt 6 weeks [facility] Work Phone: Start: 09-08-2013 End: 09-08-2013 MMM MMM [facility] Work Phone: Start: 09-08-2013 End: 09-08-2013 Echocardiography Echocardiogram (complete) [place] [employer] [facility] Work Phone: Start: 09-08-2013 End: 09-08-2013 Electrocardiogram, complete EKG (In office) [place] [employer] [facility] Work Phone: Start: 09-08-2013 End: 09-08-2013 Follow Up Appt 6 weeks [facility]t [facility] Work Phone: Start: 09-08-2013 End: 09-08-2013 MMM MMIMANIN [place] [employer] [facility] Work Phone: Start: 08-29-2013 End: 08-30-2013 Cardiac Referral Cardiac Referral [address] [place] [address], [address], [place], [address] [facility] Work Phone: Start: 08-29-2013 End: 08-30-2013 Cardiac Referral Cardiac Referral [address] [place] [address], [address], [place], [address] [place] [employer] [facility] Work Phone: Start: 08-12-2013 End: 09-05-2013 ENT referral ENT referral Beto Pratt, [address] [place] [address], [place], [address] [facility] Work Phone: Start: 08-12-2013 End: 09-05-2013 ENT referral ENT referral Beto Pratt, [address] [place] [address], [address] [place] [employer] [facility] Work Phone: Start: 08-01-2013 End: 08-15-2013 48 hour holter monitor 48 hour holter monitor [facility] Work Phone: Start: 08-01-2013 End: 08-09-2013 Carotid duplex Carotid duplex [facility] Work Phone: Start: 08-01-2013 End: 08-15-2013 48 hour holter monitor 48 hour holter monitor [facility] Work Phone: Start: 08-01-2013 End: 08-09-2013 Carotid duplex Carotid duplex [facility] Work Phone: Start: 06-23-2013 End: 09-07-2013 *CMP Complete Metabolic Panel *CMP Complete Metabolic Panel [facility] Work Phone: Start: 06-23-2013 End: 09-07-2013 *MIACRE Microalb; Creat Ratio, [place] UR *MIACRE Microalb; Creat Ratio, [place] UR [facility] Work Phone: Start: 06-23-2013 End: 09-07-2013 CBC W Auto Differential panel - Blood *CBC without Diff [facility] Work Phone: Start: 06-23-2013 End: 09-07-2013 Hemoglobin A1c/Hemoglobin.total mass fraction (Bld) *HgA1C [facility] Work Phone: Start: 06-23-2013 End: 09-07-2013 Lipid panel [AGGREGATE] *Lipid Profile [facility] Work Phone: Start: 06-23-2013 End: 09-07-2013 *CMP Complete Metabolic Panel *CMP Complete Metabolic Panel [facility] Work Phone: Start: 06-23-2013 End: 09-07-2013 *MIACRE Microalb; Creat Ratio, [place] UR *MIACRE Microalb; Creat Ratio, [place] UR [facility] Work Phone: Start: 06-23-2013 End: 09-07-2013 CBC W Auto Differential panel - Blood *CBC without Diff [place] [employer] [facility] Work Phone: Start: 06-23-2013 End: 09-07-2013 HbA1c *HgA1C [facility] Work Phone: Start: 06-23-2013 End: 09-07-2013 Lipid panel [AGGREGATE] *Lipid Profile [facility] Work Phone: Start: 03-01-2013 End: 03-01-2013 *BMP *BMP [employer] [facility] Work Phone: Start: 03-01-2013 End: 03-01-2013 Bone density scan Bone Density Study [facility] Work Phone: Start: 03-01-2013 End: 03-01-2013 Hemoglobin A1c/Hemoglobin.total mass fraction (Bld) *HgA1C [facility] Work Phone: Start: 03-01-2013 End: 03-01-2013 Mammogram, Screening, both breasts Mammogram, Screening, both breasts [facility] Work Phone: Start: 03-01-2013 End: 03-01-2013 *BMP *BMP [place] [employer] [facility] Work Phone: Start: 03-01-2013 End: 03-01-2013 Bone density scan Bone Density Study [facility] Work Phone: Start: 03-01-2013 End: 03-01-2013 HbA1c *HgA1C [facility] Work Phone: Start: 03-01-2013 End: 03-01-2013 Mammogram, Screening, both breasts Mammogram, Screening, both breasts [facility] Work Phone: Start: 11-30-2012 End: 11-30-2012 *BMP *BMP [employer] [facility] Work Phone: Start: 11-30-2012 End: 12-01-2012 Hemoglobin A1c/Hemoglobin.total mass fraction (Bld) *HgA1C [facility] Work Phone: Start: 11-30-2012 End: 11-30-2012 *BMP *BMP [place] [employer] [facility] Work Phone: Start: 11-30-2012 End: 12-01-2012 HbA1c *HgA1C [facility] Work Phone: Start: 05-24-2012 End: 08-25-2012 *CMP Complete Metabolic Panel *CMP Complete Metabolic Panel [facility] Work Phone: Start: 05-24-2012 End: 08-25-2012 *Microalbumin, Creatine Ratio, rand urine *Microalbumin, Creatine Ratio, rand urine [facility] Work Phone: Start: 05-24-2012 End: 05-24-2012 Follow Up Appt 3 months Follow Up Appt 3 months [facility] Work Phone: Start: 05-24-2012 End: 08-25-2012 Hemoglobin A1c/Hemoglobin.total mass fraction (Bld) *HgA1C [facility] Work Phone: Start: 05-24-2012 End: 08-25-2012 Lipid panel [AGGREGATE] *Lipid Profile [facility] Work Phone: Start: 05-24-2012 End: 08-25-2012 *CMP Complete Metabolic Panel *CMP Complete Metabolic Panel [facility] Work Phone: Start: 05-24-2012 End: 08-25-2012 *Microalbumin, Creatine Ratio, rand urine *Microalbumin, Creatine Ratio, rand urine [place] [facility] Work Phone: Start: 05-24-2012 End: 05-24-2012 Follow Up Appt 3 months Follow Up Appt 3 months [place] [facility] Work Phone: Start: 05-24-2012 End: 08-25-2012 HbA1c *HgA1C [place] [facility] Work Phone: Start: 05-24-2012 End: 08-25-2012 Lipid panel [AGGREGATE] *Lipid Profile [facility] [employer] [facility] Work Phone: Start: 04-09-2012 End: 05-17-2012 *BMP *BMP [facility] Work Phone: Start: 04-09-2012 End: 05-17-2012 Hemoglobin A1c/Hemoglobin.total mass fraction (Bld) *HgA1C [facility] Work Phone: Start: 04-09-2012 End: 05-17-2012 *BMP *BMP [facility] Work Phone: Start: 04-09-2012 End: 05-17-2012 HbA1c *HgA1C [facility] Work Phone: Start: 10-02-2011 End: 12-18-2011 Ct soft tissue neck w/contrast material CT Neck Soft Tissue with Contrast [facility] Work Phone: Start: 10-02-2011 End: 12-18-2011 Ct soft tissue neck w/dye CT Neck Soft Tissue with Contrast [facility] Work Phone: Start: 08-12-2011 End: 2011 *CMP Complete Metabolic Panel *CMP Complete Metabolic Panel [facility] Work Phone: Start: 08-12-2011 End: 2011 Hemoglobin A1c/Hemoglobin.total mass fraction (Bld) *HgA1C [facility] Work Phone: Start: 08-12-2011 End: 2011 Lipid panel [AGGREGATE] *Lipid Profile [facility][Note 2] [facility] Work Phone: Start: 08-12-2011 End: 2011 *CMP Complete Metabolic Panel *CMP Complete Metabolic Panel [facility] [facility] Work Phone: Start: 08-12-2011 End: 2011 HbA1c *HgA1C [facility] Work Phone: Start: 08-12-2011 End: 2011 Lipid panel [AGGREGATE] *Lipid Profile [facility] Work Phone: Start: 05-13-2011 End: 10-03-2011 Radex foot complete minimum 3 views X-Ray, Foot [facility] Work Phone: Start: 05-13-2011 End: 10-03-2011 X-ray exam of foot X-Ray, Foot [facility] Work Phone: Start: 03-26-2011 End: 2011 Surgery Referral Surgery Referral [facility] Work Phone: Start: 03-26-2011 End: 2011 Surgery Referral Surgery Referral [employer] [facility] Work Phone: Start: 02-13-2011 End: 03-27-2011 Hemoglobin A1c/Hemoglobin.total mass fraction (Bld) *HgA1C [employer] [facility] Work Phone: Start: 02-13-2011 End: 03-27-2011 HbA1c *HgA1C [employer] [facility] Work Phone: Start: 10-02-2010 End: 10-03-2010 Basic metabolic panel calcium total *BMP [facility] Work Phone: Start: 10-02-2010 End: 10-03-2010 Blood count manual cell count each *CBC with Differential [employer] [facility] Work Phone: Start: 10-02-2010 End: 10-03-2010 Hemoglobin A1c/Hemoglobin.total mass fraction (Bld) *HgA1C [employer] Work Phone: Start: 10-02-2010 End: 10-03-2010 Hepatic function panel *Liver/Hepatic Function Panel [facility] Work Phone: Start: 10-02-2010 End: 10-03-2010 Lipid panel *Lipid Profile [facility] Work Phone: Start: 10-02-2010 End: 10-03-2010 Protein mass conc *Lipid Profile [employer] Work Phone: Start: 10-02-2010 End: 10-03-2010 HbA1c *HgA1C [employer] [facility] Work Phone: Start: 10-02-2010 End: 10-03-2010 Hepatic function panel *Liver/Hepatic Function Panel [employer] [facility] Work Phone: Start: 10-02-2010 End: 10-03-2010 Lipid panel *Lipid Profile [facility] Work Phone: Start: 10-02-2010 End: 10-03-2010 Manual cell count, each *CBC with Differential [facility] Work Phone: Start: 10-02-2010 End: 10-03-2010 Metabolic panel total ca *BMP [facility] [employer] Work Phone: Start: 2006 BONE DENSITY BONE DENSITY [facility] Start: 2006 PNEUMOCOCCAL: 65+ (1 - PCV) PNEUMOCOCCAL: 65+ (1 - PCV) [facility] Start: 1991 SHINGRIX VACCINE (1 of 2) SHINGRIX VACCINE (1 of 2) [facility] Start: 1960 Urine microalbumin profile DTAP,TDAP,TD (1 - Tdap) [facility] Immunizations Immunization Date Immunization Notes Care Provider Angela dill 05-08-2015 varicella zoster imm une globulin; Translations: [ZOSTER VACCINE LIVE] Nita davis Work Phone: Payers Date Payer Category Payer Medicare [id number] 2004 Unknown LEONIE HADLEY ME DICARE SUPPLEMENT [id number] 2004-Present [phone] [address] [place] [address] Indemnity [id number] 2002 Medicare [id number] 2002 Medicare MEDICARE MEDICAR E A AND B [id number] 2002-Present [phone] [address] [address] [place] [address] Medicare [id number] Social History Date Type Detail Facility Tobacco smoking stat us RIIS Never smoked tobacco [facility] Start: 08-22-2022 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 Medical Equipment Procedure Code Equipment Code Equipment Origin al Text Equipment Identifier Dates TEST STRIPS TEST STRIPS [id number] Start: 05-21-2015 LANCETS LANCETS [id number] Start: 05-21-2015 INSULIN SYRINGE-NEEDLE U-100 [id number] Start: 10-22-2012 End: 08-31-2013 INSULIN SYRINGE-NEEDLE U-100 BD INSULIN SYRINGE ULTRAFINE 31G X 5/16 0.3 ML [id number] Start: 03-17-2011 INSULIN SYRINGE-NEEDLE U-100 BD INSULIN SYRINGE ULTRAFINE 31G X 5/16 0.3 ML [id number] Start: 05-20-2012 ACCUCHECK COMPACT TEST STRIPS ACCUCHECK COMPACT TEST STRIPS [id number] Start: 12-04-2010 ACCUCHECK COMPAC T TEST STRIPS [id number] Start: 10-22-2012 Note 09-16-2022 Telephone Encounter - Larisa Barker LPN - 09/16/2022 11:38 AM ESTTelephone Encounter - Lynnette Zayas LPN - 09/15/2022 10:22 AM EST Note Date & Type Note Facility 09-16-2022 Miscellaneous Notes Formattin g of this note might be different from the original. Pt reports she has a pcp outside of the clinic and is not sure why a rx request was sent here unless it has something to do with being at [facility] last month. Larisa Barker LPN TC to Pt. LM to call [facility] to schedule a New Pt appt. Has not been seen since 2011. Lynnette Zayas LPN documented in this encounter [facility] Progress note 08-22-2022 Note Date & Type Note Facility 08-22-2022 Note HNO ID: [id number] Author: Lo Leo APRN.CALL TAKER Service: ? Author Type: Nurse Practitioner Type: Progress Notes Filed: 08/22/2022 12:06 PM Note Text: CC: Patient presents with: Head Congestion: And chest congestion x5 days HPI: Marilou Goel is a 81 year old female who presents to the office with complaint of head congestion and cough, nonproductive for 5 days. Symptoms are staying the same. Associated symptoms includes nasal congestion and cough. Denies nausea, vomiting , and diarrhea. Treatments tried include nothing so far. with no relief of symptoms. Sick contacts: unknown. History of asthma, frequent episodes of bronchitis, chronic bronchitis, bronchiectasis or COPD: No Smoker: No Seasonal/environmental allergies: No The ROS is otherwise negative. The patient's pmh, medications, allergies, and past visits are reviewed. PHYSICAL EXAM: BP 124/72 Pulse 85 Temp 36.3 ?C (97.4 ?F) Resp 18 Wt 108.1 kg (238 lb 6.4 oz) SpO2 98% BMI 46.56 kg/m? General appearance: alert, cooperative, pleasant, in no acute distress Head: Normocephalic Eyes: EOM's intact, conjunctiva pink and moist, no icterus, sclera white, non-injected Ears: Right ear: External ear/canal- Normal, TM - clear with good landmarks. Left ear: External ear/canal- Normal, TM - clear with good landmarks Nose: clear. Oropharynx:moist without lesions, No erythema, exudates or tonsillar hypertrophy. Heart: Negative. RRR without obvious murmur, gallop, or rubs. No ectopy. Lungs: clear to auscultation, without rales or wheeze, good air exchange PAST MEDICAL HISTORY Diagnosis Date Dizziness and giddiness Esophagitis, unspecified Other and unspecified hyperlipidemia Type II or unspecified type diabetes mellitus without mention of complication, not stated as uncontrolled Unspecified essential hypertension PAST SURGICAL HISTORY Procedure Laterality Date ARTHRP KNE CONDYLEANDPLATU MEDIALANDLAT COMPARTMENTS Knee replacement, total COLONOSCOPY FLX DX W/COLLJ SPEC WHEN PFRMD years ago Colonoscopy FNA WITH IMAGING 01/06/12 U/S FNA left supraclavicular mass PAST SURGICAL HISTORY OF 2009 Lipoma on shoulder removed RPR 1ST INGUN HRNA AGE 6 YRS/> REDUCIBLE Hernia repair, inguinal TOTAL ABDOMINAL HYSTERECT W/WO RMVL TUBE OVARY Hysterectomy, JOSEPH ALLERGIES Lisinopril MEDICATIONS metoprolol tartrate, short acting, (LOPRESSOR) 25 mg tablet amLODIPine-Valsartan 5-320 mg per tablet BD INSULIN SYRINGE ULTRA-FINE 0.5 mL 31 gauge x 5/16 potassium chloride(KLOR-CON M20 20 MEQ TAB) Take one(1) tablet daily. esomeprazole mag trihydrate(NEXIUM 40 MG CAP) Take one(1) capsule daily. FUROSEMIDE 40 MG TAB Take one(1) tablet daily. atorvastatin calcium(LIPITOR 10 MG TAB) Take one(1) tablet daily. multivitamins w-minerals/lut(CENTRUM SILVER TAB) Take one(1) tablet daily. CALCIUM 500 MG TAB Take one(1) tablet twice daily. insulin lispro,human rec.anlog(HUMALOG 100 UNIT/ML SUB-Q) as directed insulin glargine,hum.rec.anlog(LANTUS 100 UNIT/ML SUB-Q) Use as directed. fluticasone (FLONASE) 50 mcg/actuation nasal spray Use 2 Sprays in each nostril once daily. Rinse mouth after use. benzonatate (TESSALON PERLES) 100 mg capsule Take 1 capsule by mouth three times daily as needed for cough for up to 7 days. estrogens,conjugated(PREMARIN 0.3 MG TAB) Take one(1) tablet daily. FAMILY HISTORY Problem Relation Age of Onset Cancer Mother Social History Tobacco Use Smoking status: Never Substance Use Topics Alcohol use: No ASSESSMENT/PLAN: 1. URI, acute - ICD9: 465.9, ICD10: J06.9 - FLUTICASONE PROPIONATE 50 MCG/ACTUATION NASAL SPRAY,SUSPENSION - BENZONATATE 100 MG CAPSULE Prescription instructions reviewed with patient as applicable. Potential red flag symptoms discussed with the patient. Reviewed appropriate action plan to take if red flag symptoms occur. Patient agreeable to treatment plan. Lo Leo APRN.ARNOL [facility] Instructions 08-22-2022 Patient Instructions Note Date & Type Note Facility 08-22-2022 Instructions Lo Leo APRN.[facility] - 08/22/2022 11:44 AM EST Diagnosis: Assessment COUGH: Your doctor wants you to have this information about coughing. The body has a cough reflex which helps expel mucous secretions and irritants from the lung and airway passages. Cough spasms are periods of continuous coughing lasting several minutes. Most coughs is caused by virus infections which may last for up to 2-3 weeks. Coughing helps to protect the lung from pneumonia. A persistent cough lasting longer than 4-6 weeks requires medical evaluation by your primary care doctor. Treatment of cough includes measures to loosen the cough and thin the mucous. Warm liquids, cough drops, and nonprescription cough medicine may help reduce dry hacking cough. Use a humidifier if necessary as dry air can make coughs worse. Ultrasonic humidifiers are especially useful as they kill molds and many bacteria. Some cough medicines have antihistamines, decongestants, or alcohol in them; there is no proof that any of these help control cough. Prescription cough medicine or those with dextromethorphan (DM) should be reserved for dry coughs that prevent sleep or cause spasms or chest pain. Avoid any exposure to cigarette smoke as this will worsen the cough or make it last much longer. Call your doctor right away if you or your child have increased breathing difficulty, a high fever, a cough that lasts longer than 3 weeks, or other serious complaints. documented in this encounter [facility] History of Present illness Narrative 08-22-2022 Lo Leo APRN.CALL TAKER - 08/22/2022 11:40 AM EST Note Date & Type Note Facility 08-22-2022 History of Presen t illness Narrative CC: Patient presents with: Head Congestion: And chest congestion x5 days HPI: Marilou Goel is a 81 year old female who presents to the office with complaint of head congestion and cough, nonproductive for 5 days. Symptoms are staying the same. Associated symptoms includes nasal congestion and cough. Denies nausea, vomiting , and diarrhea. Treatments tried include nothing so far. with no relief of symptoms. Sick contacts: unknown. History of asthma, frequent episodes of bronchitis, chronic bronchitis, bronchiectasis or COPD: No Smoker: No Seasonal/environmental allergies: No The ROS is otherwise negative. The patient's pmh, medications, allergies, and past visits are reviewed. PHYSICAL EXAM: BP 124/72 Pulse 85 Temp 36.3 C (97.4 F) Resp 18 Wt 108.1 kg (238 lb 6.4 oz) SpO2 98% BMI 46.56 kg/m General appearance: alert, cooperative, pleasant, in no acute distress Head: Normocephalic Eyes: EOM's intact, conjunctiva pink and moist, no icterus, sclera white, non-injected Ears: Right ear: External ear/canal- Normal, TM - clear with good landmarks. Left ear: External ear/canal- Normal, TM - clear with good landmarks Nose: clear. Oropharynx:moist without lesions, No erythema, exudates or tonsillar hypertrophy. Heart: Negative. RRR without obvious murmur, gallop, or rubs. No ectopy. Lungs: clear to auscultation, without rales or wheeze, good air exchange PAST MEDICAL HISTORY Diagnosis Date Dizziness and giddiness Esophagitis, unspecified Other and unspecified hyperlipidemia Type II or unspecified type diabetes mellitus without mention of complication, not stated as uncontrolled Unspecified essential hypertension PAST SURGICAL HISTORY Procedure Laterality Date ARTHRP KNE CONDYLE&PLATU MEDIAL&LAT COMPARTMENTS Knee replacement, total COLONOSCOPY FLX DX W/COLLJ SPEC WHEN PFRMD years ago Colonoscopy FNA WITH IMAGING 01/06/12 U/S FNA left supraclavicular mass PAST SURGICAL HISTORY OF 2009 Lipoma on shoulder removed RPR 1ST INGUN HRNA AGE 6 YRS/> REDUCIBLE Hernia repair, inguinal TOTAL ABDOMINAL HYSTERECT W/WO RMVL TUBE OVARY Hysterectomy, JOSEPH ALLERGIES Lisinopril MEDICATIONS metoprolol tartrate, short acting, (LOPRESSOR) 25 mg tablet amLODIPine-Valsartan 5-320 mg per tablet BD INSULIN SYRINGE ULTRA-FINE 0.5 mL 31 gauge x 5/16 potassium chloride(KLOR-CON M20 20 MEQ TAB) Take one(1) tablet daily. esomeprazole mag trihydrate(NEXIUM 40 MG CAP) Take one(1) capsule daily. FUROSEMIDE 40 MG TAB Take one(1) tablet daily. atorvastatin calcium(LIPITOR 10 MG TAB) Take one(1) tablet daily. multivitamins w-minerals/lut(CENTRUM SILVER TAB) Take one(1) tablet daily. CALCIUM 500 MG TAB Take one(1) tablet twice daily. insulin lispro,human rec.anlog(HUMALOG 100 UNIT/ML SUB-Q) as directed insulin glargine,hum.rec.anlog(LANTUS 100 UNIT/ML SUB-Q) Use as directed. fluticasone (FLONASE) 50 mcg/actuation nasal spray Use 2 Sprays in each nostril once daily. Rinse mouth after use. benzonatate (TESSALON PERLES) 100 mg capsule Take 1 capsule by mouth three times daily as needed for cough for up to 7 days. estrogens,conjugated(PREMARIN 0.3 MG TAB) Take one(1) tablet daily. FAMILY HISTORY Problem Relation Age of Onset Cancer Mother Social History Tobacco Use Smoking status: Never Substance Use Topics Alcohol use: No ASSESSMENT/PLAN: 1. URI, acute - ICD9: 465.9, ICD10: J06.9 - FLUTICASONE PROPIONATE 50 MCG/ACTUATION NASAL SPRAY,SUSPENSION - BENZONATATE 100 MG CAPSULE Prescription instructions reviewed with patient as applicable. Potential red flag symptoms discussed with the patient. Reviewed appropriate action plan to take if red flag symptoms occur. Patient agreeable to treatment plan. Lo Leo APRN.ARNOL documented in this encounter [facility] Evaluation note Note Date & Type Note Facility documented in this encounter [facility] Evaluation note Note Date & Type Note Facility documented in this encounter [facility] Summary Purpose Family History No Family History Records Found Advance Directives No Advanced Directives Records Found Additional Source Comments INFORMATION SOURCE (unrecogn ized section and content) Source Comments (unrecognize d section and content) In the event this informatio n is protected by the Federal Confidentiality of Alcohol and Drug Abuse Patient Records regulations: The Federal rules restrict any use of the information to criminally investigate or prosecute any alcohol or drug abuse patient.[facility] the event this information is protected by the Federal Confidentiality of Alcohol and Drug Abuse Patient Records regulations: The Federal rules restrict any use of the information to criminally investigate or prosecute any alcohol or drug abuse patient.[facility] Reason for Visit (unrecogniz ed section and content) Reason Onset Date Comments Refill Request Refill Request 09/16/2022 Care Teams (unrecognized sec tion and content) Salesperson [employer] Relationship Specialty Start Date End Date Alicia Florentino PCP - General Family Medicine 06/26/16 FOR RECORDS PERTAINING TO PATIENTS WHO ARE OR HAVE BEEN ENROLLED IN A CHEMICAL DEPENDENCY/SUBSTANCEABUSE PROGRAM, SOME INFORMATION MAY BE OMITTED. This clinical summary was aggregated from multiple sources. Caution should be exercised in using it in the provision of clinical care. This summary normalizes information from multiple sources, and as a consequence, information in this document may materially change the coding, format and clinical context of patient data. In addition, data may be omitted in some cases. CLINICAL DECISIONS SHOULD BE BASED ON THE PRIMARY CLINICAL RECORDS. [facility]. provides no warranty or guarantee of the accuracy or completeness of information in this document.
--- OUTSIDE RECORDS SUMMARY | 2023-09-02 14:40 | XMS RPT_ITS | CCD ---
Author Name Unknown Address [address] [place] [address] Organization [facility] Care Team Providers Care Community Youth Secretary Name Role Phone Lisbet Chairez Unavailable Nita Ramírez Unavailable Unavailable Nita Ramírez Unavailable Unavailable LO LEO Attending Unavailable ALICIA FLORENTINO Primary Care Unavailable Alicia Florentino DO Primary Care Provider Allergies Allergy Classification Reported Allergen(s) Allergy Type Date of Onset Reaction(s) Facility (3 sources) Adhesive Tape; Translations: [ADHESIVE BANDAGES] allergy to substance 3 silva skin [facility] Work Phone: (6 sources) aspirin drug allergy 0 vomiting [facility] Work Phone: (3 sources) naproxen drug allergy 5 nausea [facility] Work Phone: (3 sources) venlafaxine drug allergy 6 Nausea [facility] Work Phone: (3 sources) Lisinopril; Translations: [LISINOPRIL] Drug Allergy 9 Swelling [facility] Repository Medications Current Medications Medication Drug Class(es) [...] insulin ACCUCHECK COMPACT TEST STRIPS Marybel Palafox Mallorymickpeggy Problems Active Problems Problem Classification Problem Date [...] 11:22-0500 Body temperature 97.39 [degF] Lo Leo APRN.AUTOMOTIVE INSTRUCTOR Work Phone: [facility] 08-22-2022 11:22-0500 Body weight 108.14 kg Lo Leo APRN.AUTOMOTIVE INSTRUCTOR Work Phone: [facility] 08-22-2022 11:22-0500 Diastolic blood pressure 72 mm[Hg] Lo Leo APRN.AUTOMOTIVE INSTRUCTOR Work Phone: [facility] 08-22-2022 11:22-0500 Heart rate 85 /min Lo Leo APRN.AUTOMOTIVE INSTRUCTOR Work Phone: [facility] 08-22-2022 11:22-0500 Respiratory rate 18 /min Lo Leo APRN.AUTOMOTIVE INSTRUCTOR Work Phone: [facility] 08-22-2022 11:22-0500 SaO2% (BldA) [Mass fraction] 98 % Lo Leo APRN.AUTOMOTIVE INSTRUCTOR Work Phone: [facility] 08-22-2022 11:22-0500 Systolic blood pressure 124 mm[Hg] Lo Leo APRN.AUTOMOTIVE INSTRUCTOR Work Phone: [facility] 06-08-2017 09:55-0400 BMI (Body Mass Index) 51.75 [...] (Body Mass Index) 52.14 kg/m2 Lisbethussein Chairez [place] [employer] [facility] Work Phone: 12-01-2016 09:47-0400 BP Diastolic 64 mm[Hg] Lisbet Chairez [place] [employer] [facility] Work Phone: 12-01-2016 09:47-0400 BP Systolic 122 mm[Hg] Lisbet Chairez [facility] [employer] [facility] Work Phone: 12-01-2016 09:47-0400 Height 152.4 cm Lisbethussein Chairez [facility] [employer] [facility] Work Phone: 12-01-2016 09:47-0400 Pulse (Heart Rate) 68 /min Lisbet Chairez [facility] [employer] [facility] Work Phone: 12-01-2016 09:47-0400 Respiratory Rate 20 /min Lisbet Chairez [facility] ical [employer] [facility] Work Phone: 12-01-2016 09:47-0400 Weight 121.11 kg Lisbet Chairez [facility] [employer] [facility] Work Phone: 04-07-2016 11:27-0400 BSA (Body Surface Area) 2.11 m2 [facility] Work Phone: 02-18-2016 12:15-0400 Body Temperature 98.3 [degF] Lisbet Chairez [facility] [employer] [facility] Work Phone: 02-18-2016 12:15-0400 Pulse Oximetry 100 % Lisbet Chairez [place] [employer] [facility] Work Phone: 11-03-2015 07:55-0500 Body surface area Derived from formula 38.96 mL/min Nita [facility] Work Phone: 11-28-2014 10:11-0400 Heart rate 66 /min [facility] Work Phone: 08-01-2013 09:41-0500 BP Diastolic 80 mm[Hg] Lisbet [facility] [employer] Work Phone: 08-01-2013 09:41-0500 BP Systolic 125 mm[Hg] Lisbet [facility] [employer] [facility] Work Phone: Encounters Encounter Date Encounter Type Care Provider Facility Start: 09-13-2022 Amos espinoza APRN.CNP Work Phone: [facility] Care Procedures Date Procedure Procedure Detail [...] 12-13-2014 End: 12-14-2014 Examination of retina Sharona vilallba PA-C Work Phone: Start: 12-13-2014 End: 12-13-2014 [...] 10-26-2014 End: 11-23-2014 *MIACRE Microalb; Creat Ratio, [place] UR Jossue Moya MD Start: 10-26-2014 End: 11-23-2014 Assay of thyroid stimulating hormone tsh Jossue Moya MD Start: 10-26-2014 End: 11-23-2014 Hemoglobin glycosylated a1c Jossue Moya MD Start: 10-26-2014 End: 11-23-2014 Lipid Profile Jossue Moya MD Start: 10-26-2014 End: 11-23-2014 *CMP Complete Metabolic Panel Jossue Moya MD Start: 10-26-2014 End: 11-23-2014 *MIACRE Microalb; Creat Ratio, [place] UR Jossue Moya MD Start: 10-26-2014 End: 11-23-2014 HbA1c Jossue Moya MD Start: 10-26-2014 End: 11-23-2014 Lipid Profile Jossue Moya MD Start: 10-26-2014 End: 11-23-2014 Thyroid stimulating hormone (TSH) Jossue Moya MD Start: 07-27-2014 End: 07-27-2014 *BMP Jossue Moya MD Start: 07-27-2014 End: 07-27-2014 Hemoglobin A1c/Hemoglobin.total in Blood Jossue Moya MD Start: 07-27-2014 End: 07-27-2014 Injection single/belt lacer trigger point 1/2 muscles Jossue Moya MD [...] 06-23-2013 End: 09-07-2013 *CMP Complete Metabolic Panel Josuse Moya MD Start: 06-23-2013 End: 09-07-2013 *MIACRE Microalb; Creat Ratio, [place] UR Jossue Moya MD Start: 06-23-2013 End: 09-07-2013 CBC W Auto Differential panel - Blood Jossue Moya MD Start: 06-23-2013 End: 09-07-2013 Hemoglobin A1c/Hemoglobin.total in Blood Jossue Moya MD Start: 06-23-2013 End: 09-07-2013 Lipid 1996 panel - Serum or Plasma Jossue Moya MD Start: 06-23-2013 End: 09-07-2013 *CMP Complete Metabolic Panel Jossue Moya MD Start: 06-23-2013 End: 09-07-2013 *MIACRE Microalb; Creat Ratio, [place] UR Jossue Moya MD Start: 06-23-2013 End: [...] 08-24-2022 ADVANCE DIRECTIVE DISCUSSION ADVANCE DIRECTIVE DISCUSSION [facility] Start: 08-24-2022 DEPRESSION ASSESSMENT DEPRESSION ASSESSMENT [facility] Start: 03-08-2018 End: 03-08-2018 Appointment Appointment [facility] Work Phone: Start: 11-23-2017 DIABETES SCREEN DIABETES SCREEN [facility] Start: 06-08-2017 End: 06-08-2017 Follow Up Appt 9 months Follow Up Appt 9 months [facility] Work Phone: Start: 06-08-2017 End: 06-08-2017 PFM PFM [facility] Work Phone: Start: 06-08-2017 End: 06-08-2017 Appointment Appointment [employer] [facility] Work Phone: Start: 12-01-2016 End: 12-01-2016 Follow Up Appt 6 months Follow Up Appt 6 months [facility] Work Phone: Start: 12-01-2016 End: 12-01-2016 MMM MMM [facility] Work Phone: Start: 12-01-2016 End: 12-01-2016 Follow Up Appt 6 months Follow Up Appt 6 months [employer] [facility] Work Phone: Start: 12-01-2016 End: 12-01-2016 MMM [employer] [facility] Work Phone: Start: 04-07-2016 End: 04-07-2016 Follow Up Appt 6 months Follow Up Appt 6 months [facility] Work Phone: Start: 04-07-2016 End: 04-07-2016 PFM PFM [facility] Work Phone: Start: 04-07-2016 End: 04-07-2016 Follow Up Appt 6 months Follow Up Appt 6 months [facility] Work Phone: Start: 04-07-2016 End: 04-07-2016 [facility] Work Phone: Start: 03-07-2016 End: 05-27-2017 Mammogram, screening Mammogram, Screening, both breasts [facility] Work Phone: Start: 03-07-2016 End: 03-07-2016 Mammogram, screening Mammogram, Screening, both breasts [facility] Work Phone: Start: 10-01-2015 End: 05-27-2017 *Hepatic Function Panel *Hepatic Function Panel [facility] Work Phone: Start: 10-01-2015 End: 10-01-2015 Follow Up Appt 6 months Follow Up Appt 6 months [facility] Work Phone: Start: 10-01-2015 End: 05-27-2017 Lipid panel [AGGREGATE] *Lipid Profile CC PCP [facility] Work Phone: Start: 10-01-2015 End: 10-01-2015 MMM MMM [facility] Work Phone: Start: 10-01-2015 End: 10-01-2015 *Hepatic Function Panel *[facility] Work Phone: Start: 10-01-2015 End: 10-01-2015 Follow Up Appt 6 months [facility] Appt [facility] Work Phone: Start: 10-01-2015 End: 10-01-2015 Lipid panel [AGGREGATE] *Lipid Profile CC PCP [facility] Work Phone: Start: 10-01-2015 End: 10-01-2015 MMM MMM [place] [facility] Work Phone: Start: 08-13-2015 End: 05-27-2017 Radiologic exam knee complete 4/more views X-Ray, Knee [facility] Work Phone: Start: 08-13-2015 End: 05-27-2017 X-ray exam of hip X-Ray, Hip Unilateral [facility] Work Phone: Start: 08-13-2015 End: 08-13-2015 X-ray exam of hip X-Ray, Hip Unilateral [facility] [employer] [facility] Work Phone: Start: 08-13-2015 End: 08-13-2015 X-ray exam, knee, 4 or more X-Ray, Knee [place] [facility] Work Phone: Start: 03-28-2015 End: 08-13-2015 *CBC with Differential *CBC with Differential [facility] Work Phone: Start: 03-28-2015 End: 08-10-2015 *CMP Complete Metabolic Panel *CMP Complete Metabolic Panel [facility] Work Phone: Start: 03-28-2015 End: 08-11-2015 Hemoglobin A1c/Hemoglobin.total mass fraction (Bld) *HgA1C [facility] Work Phone: Start: 03-28-2015 End: 08-11-2015 Lipid panel [AGGREGATE] *Lipid Profile [facility] Work Phone: Start: 03-28-2015 End: 08-13-2015 *CBC with Differential *CBC with Differential [facility] [employer] [facility] Work Phone: Start: 03-28-2015 End: 08-10-2015 *CMP Complete Metabolic Panel *CMP Complete Metabolic Panel [place] [facility] Work Phone: Start: 03-28-2015 End: 08-11-2015 HbA1c *HgA1C [place] [facility] Work Phone: Start: 03-28-2015 End: 08-11-2015 Lipid panel [AGGREGATE] *[facility] Work Phone: Start: 02-27-2015 End: 05-27-2017 Mammogram, screening Mammogram, Screening, both breasts [facility] Work Phone: Start: 02-27-2015 End: 02-27-2015 Mammogram, screening Mammogram, Screening, both breasts [facility] Work Phone: Start: 02-19-2015 End: 02-19-2015 Follow Up Appt 6 months Follow Up Appt 6 months [facility] Work Phone: Start: 02-19-2015 End: 02-19-2015 PFM PF [facility] Work Phone: Start: 02-19-2015 End: 02-19-2015 Follow Up Appt 6 months Follow Up Appt 6 [facility] Work Phone: Start: 02-19-2015 End: 02-19-2015 [facility] Work Phone: Start: 12-13-2014 End: 12-13-2014 *BMP *BMP [facility] Work Phone: Start: 12-13-2014 End: 12-13-2014 aPTT *PTT-Partial Thromboplastin Time [facility] Work Phone: Start: 12-13-2014 End: 12-13-2014 Carotid duplex Carotid duplex [facility] Work Phone: Start: 12-13-2014 End: 12-13-2014 CBC W Auto Differential panel - Blood *CBC without Diff [facility] Work Phone: Start: 12-13-2014 End: 12-15-2014 Chest x-ray X-Ray, Chest, PA & Lateral [facility] Work Phone: Start: 12-13-2014 End: [...] Phone: Start: 12-13-2014 End: 12-13-2014 *BMP *BMP [place] [employer] [facility] Work Phone: Start: 12-13-2014 End: 12-13-2014 aPTT *PTT-Partial Thromboplastin Time [place] [employer] [facility] Work Phone: Start: 12-13-2014 End: 12-13-2014 Carotid duplex Carotid duplex [place] [employer] [facility] Work Phone: Start: 12-13-2014 End: 12-13-2014 CBC W Auto Differential panel - Blood *CBC without Diff [place] [employer] [facility] Work Phone: Start: 12-13-2014 End: 12-15-2014 Chest x-ray X-Ray, Chest, PA & Lateral [place] [facility] Work Phone: Start: 12-13-2014 End: 12-13-2014 Coagulation factor induced.INR assay in platelet poor plasma *PT/INR [place] [employer] [facility] Work Phone: Start: 12-13-2014 End: 12-13-2014 Electrocardiogram, complete EKG (In office) [place] [employer] [facility] Work Phone: Start: 12-13-2014 End: 12-13-2014 Follow Up Appt 6 weeks Follow Up Appt 6 weeks [facility] Work Phone: Start: 12-13-2014 End: 12-13-2014 Left Heart Cath Left Heart Cath [facility] Work Phone: Start: 12-13-2014 End: 12-13-2014 MMM MMM [place] [facility] Work Phone: Start: 11-28-2014 End: 12-06-2014 Ecg routine ecg w/least 12 lds w/i&r EKG (In office) [facility] Work Phone: Start: 11-28-2014 End: 12-06-2014 Nuclear stress test -Lexiscan Nuclear stress test -Lexiscan [facility] Work Phone: Start: 11-28-2014 End: 12-06-2014 Electrocardiogram, complete EKG (In office) [place] [facility] Work Phone: Start: 11-28-2014 End: 12-06-2014 Nuclear stress test -Lexiscan Nuclear stress test -[place] [employer] [place] [facility] Work Phone: Start: 10-26-2014 End: 11-23-2014 *CMP Complete Metabolic Panel *CMP Complete Metabolic Panel [facility] Work Phone: Start: 10-26-2014 End: 11-23-2014 *MIACRE Microalb; Creat Ratio, [place] UR *MIACRE Microalb; Creat Ratio, [place] UR [facility] Work Phone: Start: 10-26-2014 End: 11-23-2014 Hemoglobin A1c/Hemoglobin.total mass fraction (Bld) HGBA1C [facility] Work Phone: Start: 10-26-2014 End: 11-23-2014 Lipid Profile Lipid Profile [facility] Work Phone: Start: 10-26-2014 End: 11-23-2014 Thyroid stimulating hormone (TSH) TSH [facility] Work Phone: Start: 10-26-2014 End: 11-23-2014 *CMP Complete Metabolic Panel *CMP Complete Metabolic Panel [facility] Work Phone: Start: 10-26-2014 End: 11-23-2014 *MIACRE Microalb; Creat Ratio, [place] UR *MIACRE Microalb; Creat Ratio, [place] UR [facility] Work Phone: Start: 10-26-2014 End: 11-23-2014 HbA1c HGBA1C [facility] Work Phone: Start: 10-26-2014 End: 11-23-2014 Lipid Profile Lipid Profile [facility] Work Phone: Start: 10-26-2014 End: 11-23-2014 Thyroid stimulating hormone (TSH) TSH [facility] Work Phone: Start: 07-27-2014 End: 07-27-2014 *BMP *BMP [facility] Work Phone: Start: 07-27-2014 End: 07-27-2014 Hemoglobin A1c/Hemoglobin.total mass fraction (Bld) *HgA1C [facility] Work Phone: Start: 07-27-2014 End: 07-27-2014 Injection single/belt lacer trigger point 1/2 muscles Injection Trigger Point 1-2 Muscles [facility] Work Phone: Start: 07-27-2014 End: 07-27-2014 *BMP *BMP [facility] Work Phone: Start: 07-27-2014 End: 07-27-2014 HbA1c *HgA1C [facility] Work Phone: Start: 07-27-2014 End: 07-27-2014 Inj trigger point, 1/2 muscl Injection Trigger Point 1-2 Muscles [facility] Work Phone: Start: 06-23-2014 End: 06-28-2014 Neurology Referral Neurology Referral [address], [place], [address] [place] [employer] [facility] Work Phone: Start: 06-23-2014 End: 06-28-2014 Neurology Referral Neurology Referral [address], [place], [address] [facility] Work Phone: Start: 05-30-2014 End: 07-27-2014 *BMP *BMP [facility] [employer] [facility] Work Phone: Start: 05-30-2014 End: 07-27-2014 Hemoglobin A1c/Hemoglobin.total mass fraction (Bld) *HgA1C [facility] [employer] [facility] Work Phone: Start: 05-30-2014 End: 07-27-2014 *BMP *BMP [place] [facility] Work Phone: Start: 05-30-2014 End: 07-27-2014 HbA1c *HgA1C [place] [facility] Work Phone: Start: 04-26-2014 End: 07-27-2014 [facility] Start: 04-26-2014 End: 07-27-2014 Nerve Conduction Nerve Conduction [facility] Work Phone: Start: 04-26-2014 End: 07-27-2014 EMG EMG [place] [facility] Work Phone: Start: 04-26-2014 End: 07-27-2014 Nerve Conduction Nerve Conduction [place] [facility] Work Phone: Start: 03-06-2014 End: 03-09-2014 Mammogram, Screening, both breasts Mammogram, Screening, both breasts [place] [employer] [facility] Work Phone: Start: 03-06-2014 End: 03-09-2014 Mammogram, Screening, both breasts Mammogram, Screening, both breasts [facility] Work Phone: Start: 01-19-2014 End: 04-19-2014 *CMP Complete Metabolic Panel *CMP Complete Metabolic Panel [facility] Work Phone: Start: 01-19-2014 End: 07-27-2014 EMG EMG [facility] Work Phone: Start: 01-19-2014 End: 04-19-2014 Hemoglobin A1c/Hemoglobin.total mass fraction (Bld) *HgA1C [facility] Work Phone: Start: 01-19-2014 End: 04-19-2014 Lipid panel [AGGREGATE] *Lipid Profile [facility] Work Phone: Start: 01-19-2014 End: 07-27-2014 Nerve Conduction Nerve Conduction [facility] Work Phone: Start: 01-19-2014 End: 01-19-2014 Radex shoulder complete minimum 2 views X-Ray, Shoulder [facility] Work Phone: Start: 01-19-2014 End: 04-19-2014 *CMP Complete Metabolic Panel *CMP Complete Metabolic Panel [place] [facility] Work Phone: Start: 01-19-2014 End: 07-27-2014 EMG EMG [place] [facility] Work Phone: Start: 01-19-2014 End: 04-19-2014 HbA1c *HgA1C [place] [facility] Work Phone: Start: 01-19-2014 End: 04-19-2014 Lipid panel [AGGREGATE] *Lip[facility] Work Phone: Start: 01-19-2014 End: 07-27-2014 Nerve Conduction Nerve Conduction [place] [facility] Work Phone: Start: 01-19-2014 End: 01-19-2014 X-ray exam of shoulder [facility], [facility] Work Phone: Start: 01-17-2014 End: 01-19-2014 Hemoglobin A1c/Hemoglobin.total mass fraction (Bld) *HgA1C [place] [employer] [facility] Work Phone: Start: 01-17-2014 End: 01-19-2014 HbA1c *HgA1C [place] [facility] Work Phone: Start: 09-08-2013 End: 09-08-2013 Ecg routine ecg w/least 12 lds w/i&r EKG (In office) [facility] Work Phone: Start: 09-08-2013 End: 09-08-2013 Echocardiography Echocardiogram (complete) [facility] Work Phone: Start: 09-08-2013 End: 09-08-2013 Follow Up Appt 6 weeks Follow Up Appt 6 weeks [facility] Work Phone: Start: 09-08-2013 End: 09-08-2013 MMM MMM [facility] Work Phone: Start: 09-08-2013 End: 09-08-2013 Echocardiography Echocardiogram (complete) [place] [facility] Work Phone: Start: 09-08-2013 End: 09-08-2013 Electrocardiogram, complete EKG (In office) [place] [facility] Work Phone: Start: 09-08-2013 End: 09-08-2013 Follow Up Appt 6 weeks Follow Up Appt 6 weeks [facility] Work Phone: Start: 09-08-2013 End: 09-08-2013 MMM [employer] [place] [facility] Work Phone: Start: 08-29-2013 End: 08-30-2013 Cardiac Referral Cardiac Referral [address] [place] [address], [address], [place], [address] [facility] Work Phone: Start: 08-29-2013 End: 08-30-2013 Cardiac Referral Cardiac Referral [address] [place] [address], [address], [place], [address] [place] [facility] Work Phone: Start: 08-12-2013 End: 09-05-2013 ENT referral ENT referral Beto Pratt, [address] [place] [address], [place], [address] [facility] Work Phone: Start: 08-12-2013 End: 09-05-2013 ENT referral ENT referral Beto Pratt, [address] [place] [address], [address] [place] [facility] Work Phone: Start: 08-01-2013 End: 08-15-2013 48 hour holter monitor 48 hour holter monitor [facility] Work Phone: Start: 08-01-2013 End: 08-09-2013 Carotid duplex Carotid duplex [facility] Work Phone: Start: 08-01-2013 End: 08-15-2013 48 hour holter monitor 48 hour holter monitor [facility] Work Phone: Start: 08-01-2013 End: 08-09-2013 Carotid duplex Carotid duplex [facility] Work Phone: Start: 06-23-2013 End: 09-07-2013 *CMP Complete Metabolic Panel *CMP Complete Metabolic Panel [facility] Work Phone: Start: 06-23-2013 End: 09-07-2013 *MIACRE Microalb; Creat Ratio, [place] UR *MIACRE Microalb; Creat Ratio, [place] UR [facility] Work Phone: Start: 06-23-2013 End: 09-07-2013 CBC W Auto Differential panel - Blood *CBC without Diff [facility] Work Phone: Start: 06-23-2013 End: 09-07-2013 Hemoglobin A1c/Hemoglobin.total mass fraction (Bld) *HgA1C [facility] Work Phone: Start: 06-23-2013 End: 09-07-2013 Lipid panel [AGGREGATE] *Lipid Profile [facility] Work Phone: Start: 06-23-2013 End: 09-07-2013 *CMP Complete Metabolic Panel *CMP Complete Metabolic Panel [facility] Work Phone: Start: 06-23-2013 End: 09-07-2013 *MIACRE Microalb; Creat Ratio, [place] UR *MIACRE Microalb; Creat Ratio, [place] UR [facility] Work Phone: Start: 06-23-2013 End: 09-07-2013 CBC W Auto Differential panel - Blood *CBC without Diff [place] [facility] Work Phone: Start: 06-23-2013 End: 09-07-2013 HbA1c *HgA1C [facility] Work Phone: Start: 06-23-2013 End: 09-07-2013 Lipid panel [AGGREGATE] *Lip[facility] Work Phone: Start: 03-01-2013 End: 03-01-2013 *BMP *BMP [employer] [facility] Work Phone: Start: 03-01-2013 End: 03-01-2013 Bone density scan Bone Density Study [facility] Work Phone: Start: 03-01-2013 End: 03-01-2013 Hemoglobin A1c/Hemoglobin.total mass fraction (Bld) *HgA1C [place] [employer] [facility] Work Phone: Start: 03-01-2013 End: 03-01-2013 Mammogram, Screening, both breasts Mammogram, Screening, both breasts [place] [employer] [facility] Work Phone: Start: 03-01-2013 End: 03-01-2013 *BMP *BMP [place] [facility] Work Phone: Start: 03-01-2013 End: 03-01-2013 Bone density scan Bone Density Study [facility] Work Phone: Start: 03-01-2013 End: 03-01-2013 HbA1c *HgA1C [facility] [facility] Work Phone: Start: 03-01-2013 End: 03-01-2013 Mammogram, Screening, both breasts Mammogram, Screening, both breasts [facility] Work Phone: Start: 11-30-2012 End: 11-30-2012 *BMP *BMP [employer] [facility] Work Phone: Start: 11-30-2012 End: 12-01-2012 Hemoglobin A1c/Hemoglobin.total mass fraction (Bld) *HgA1C [facility] [employer] [facility] Work Phone: Start: 11-30-2012 End: 11-30-2012 *BMP *BMP [place] [facility] Work Phone: Start: 11-30-2012 End: 12-01-2012 HbA1c *HgA1C [facility] Work Phone: Start: 05-24-2012 End: 08-25-2012 *CMP [...] End: 08-25-2012 Lipid panel [AGGREGATE] *Lipid Profile [facility] Work Phone: Start: 05-24-2012 End: 08-25-2012 *CMP Complete Metabolic Panel *CMP Complete Metabolic Panel [place] [employer] [facility] Work Phone: Start: 05-24-2012 End: 08-25-2012 *Microalbumin, Creatine Ratio, rand urine *Microalbumin, Creatine Ratio, rand urine [place] [employer] [facility] Work Phone: Start: 05-24-2012 End: 05-24-2012 Follow Up Appt 3 months Follow Up Appt 3 months [place] [employer] [facility] Work Phone: Start: 05-24-2012 End: 08-25-2012 HbA1c *HgA1C [place] [employer] [facility] Work Phone: Start: 05-24-2012 End: 08-25-2012 Lipid panel [AGGREGATE] *Lipid Profile [facility] Work Phone: Start: 04-09-2012 End: 05-17-2012 *BMP *BMP [facility] Work Phone: Start: 04-09-2012 End: 05-17-2012 Hemoglobin A1c/Hemoglobin.total mass fraction (Bld) *HgA1C [facility] Work Phone: Start: 04-09-2012 End: 05-17-2012 *BMP *BMP [facility] Work Phone: Start: 04-09-2012 End: 05-17-2012 HbA1c *HgA1C [facility] Work Phone: Start: 10-02-2011 End: 12-18-2011 Ct soft tissue neck w/contrast material CT Neck Soft Tissue with Contrast [facility] Work Phone: Start: 10-02-2011 End: 12-18-2011 Ct soft tissue neck w/dye CT Neck Soft Tissue with Contrast [facility] Work Phone: Start: 08-12-2011 End: 2011 *CMP Complete Metabolic Panel *CMP Complete Metabolic Panel [facility] Work Phone: Start: 08-12-2011 End: 2011 Hemoglobin A1c/Hemoglobin.total mass fraction (Bld) *HgA1C [facility] Work Phone: Start: 08-12-2011 End: 2011 Lipid panel [AGGREGATE] *Lipid Profile [facility] Work Phone: Start: 08-12-2011 End: 2011 *CMP Complete Metabolic Panel *CMP Complete Metabolic Panel [facility] Work Phone: Start: 08-12-2011 End: 2011 HbA1c *HgA1C [facility] Work Phone: Start: 08-12-2011 End: 2011 Lipid panel [AGGREGATE] *Lipid Profile [facility] Work Phone: Start: 05-13-2011 End: 10-03-2011 Radex foot complete minimum 3 views X-Ray, Foot [facility] Work Phone: Start: 05-13-2011 End: 10-03-2011 X-ray exam of foot X-Ray, Foot [facility] Work Phone: Start: 03-26-2011 End: 2011 Surgery Referral Surgery Referral [facility] Work Phone: Start: 03-26-2011 End: 2011 Surgery Referral [facility] [place] [facility] Work Phone: Start: 02-13-2011 End: 03-27-2011 Hemoglobin A1c/Hemoglobin.total mass fraction (Bld) *HgA1C [employer] [facility] Work Phone: Start: 02-13-2011 End: 03-27-2011 HbA1c *HgA1C [place] [facility] Work Phone: Start: 10-02-2010 End: 10-03-2010 Basic metabolic panel calcium total *BMP [facility] Work Phone: Start: 10-02-2010 End: 10-03-2010 Blood count manual cell count each *CBC with Differential [place] [employer] [facility] Work Phone: Start: 10-02-2010 End: 10-03-2010 Hemoglobin A1c/Hemoglobin.total mass fraction (Bld) *HgA1C [place] [employer] Work Phone: Start: 10-02-2010 End: 10-03-2010 Hepatic function panel *Liver/Hepatic Function Panel [facility] Work Phone: Start: 10-02-2010 End: 10-03-2010 Lipid panel *Lipid Profile [facility] Work Phone: Start: 10-02-2010 End: 10-03-2010 Protein mass conc *Lipid Profile [facility] [employer] Work Phone: Start: 10-02-2010 End: 10-03-2010 HbA1c *HgA1C [place] [facility] Work Phone: Start: 10-02-2010 End: 10-03-2010 Hepatic function panel *Liver/Hepatic Function Panel [place] [facility] Work Phone: Start: 10-02-2010 End: 10-03-2010 Lipid panel *Lipid Profile [facility] Work Phone: Start: 10-02-2010 End: 10-03-2010 Manual cell count, each *CBC with Differential [facility] Work Phone: Start: 10-02-2010 End: 10-03-2010 Metabolic panel total ca *BMP [facility] [employer] Work Phone: Start: 2006 BONE DENSITY BONE DENSITY [facility] Start: 2006 PNEUMOCOCCAL: 65+ (1 - PCV) PNEUMOCOCCAL: 65+ (1 - PCV) [facility] Start: 1991 SHINGRIX VACCINE (1 of 2) SHINGRIX VACCINE (1 of 2) [facility] Start: 1960 Urine microalbumin profile DTAP,TDAP,TD (1 - Tdap) [facility] Immunizations Immunization Date Immunization Notes Care Provider Angela dill 05-08-2015 varicella zoster imm une globulin; Translations: [ZOSTER VACCINE LIVE] Nita davis Work Phone: Payers Date Payer Category Payer Medicare [id number] 2004 Unknown LEONIE HADLEY ME DICARE SUPPLEMENT [id number] 2004-Present [phone] [address] [place] [address] Indemnity [id number] 2002 Medicare [id number] 2002 Medicare MEDICARE MEDICAR E A AND B [id number] 2002-Present [phone] [address] [address] [place] [address] Medicare [id number] Social History Date Type Detail Facility Tobacco smoking stat us TXIS Never smoked tobacco [facility] Start: 08-22-2022 Alcohol intake 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) [facility] Start: 1940 Sex Assigned At Not on file [facility] Medical Equipment Procedure Code Equipment Code Equipment Origin al Text Equipment Identifier Dates TEST STRIPS TEST STRIPS [id number] Start: 05-21-2015 LANCETS LANCETS [id number] Start: 05-21-2015 INSULIN SYRINGE-NEEDLE U-100 [id number] Start: 10-22-2012 End: 08-31-2013 INSULIN SYRINGE-NEEDLE U-100 BD INSULIN SYRINGE ULTRAFINE 31G X 5/16 0.3 ML [id number] Start: 03-17-2011 INSULIN SYRINGE-NEEDLE U-100 BD INSULIN SYRINGE ULTRAFINE 31G X 5/16 0.3 ML [id number] Start: 05-20-2012 ACCUCHECK COMPACT TEST STRIPS ACCUCHECK COMPACT TEST STRIPS [id number] Start: 12-04-2010 ACCUCHECK COMPAC T TEST STRIPS [id number] Start: 10-22-2012 Note 09-16-2022 Telephone Encounter - [...] has something to do with being at [facility] last month. Larisa Barker LPN TC to Pt. LM to call [facility] to schedule a New Pt appt. Has not been seen since 2011. Lynnette Zayas LPN documented in this encounter [facility] Progress note 08-22-2022 Note Date & Type Note Facility 08-22-2022 Note HNO ID: [id number] Author: Lo Leo APRN.AUTOMOTIVE INSTRUCTOR Service: ? Author Type: Nurse Practitioner Type: [...] agreeable to treatment plan. Lo Leo APRN.ARNOL [facility] Instructions 08-22-2022 Patient Instructions Note Date & Type Note Facility 08-22-2022 Instructions Lo Leo APRN.[facility] - 08/22/2022 11:44 AM EST Diagnosis: Assessment [...] other serious complaints. documented in this encounter [facility] History of Present illness Narrative 08-22-2022 Lo Leo APRN.AUTOMOTIVE INSTRUCTOR - 08/22/2022 11:40 AM EST Note Date [...] Lo Leo APRN.ARNOL documented in this encounter [facility] Evaluation note Note Date & Type Note Facility documented in this encounter [facility] Evaluation note Note Date & Type Note Facility documented in this encounter [facility] Summary Purpose Family History No Family History [...] or prosecute any alcohol or drug abuse patient.[facility] the event this information is protected by the Federal Confidentiality of Alcohol and Drug Abuse Patient Records regulations: The Federal rules restrict any use of the information to criminally investigate or prosecute any alcohol or drug abuse patient.[facility] Reason for Visit (unrecogniz ed section and content) Reason Onset Date Comments Refill Request Refill Request 09/16/2022 Care Teams (unrecognized sec tion and content) Community Youth Secretary Relationship Specialty Start Date End Date Alicia [...] BE BASED ON THE PRIMARY CLINICAL RECORDS. [facility]. provides no warranty or guarantee of the accuracy or completeness of information in this document.
[2023-09-02 14:54] LABS: Magnesium 1.8 mg/dL (1.6-2.6)
[2023-09-02] MEDS: 0.9% Normal Saline (1000mL) 1,000 ML 100 ML IV (15:22)
[2023-09-02 15:49] LABS: Bedside Glucose 101 mg/dL (74-106)
[2023-09-02 21:36] LABS: Bedside Glucose 119 mg/dL (74-106)
[2023-09-02] MEDS: Piperacil/Tazobactam 3.375 GM in 0.9% Normal Saline (50mL MB+) 50 ML IV (21:54)
[2023-09-02] MEDS: Metoprolol Tartrate 25 MG Tablet PO (21:54)
--- NOTE | 2023-09-02 23:00 | EX.PCM.CON.G ---
HPI Consult Data Date of Consult: 09/02/23 HPI Narrative Reason for Consultation: Choledocholithiasis HPI Narrative: KEIKO ALANIZ, is a 82 F who presents with worsening right upper quadrant pain. She has a past medical history of morbid obesity, Asthma, HTN, HLD, Diabetes mellitus type II w/ chronic peripheral neuropathy, GERD, PAC/PVC, RLS, Hx nephrolithiasis who presents to the [facility] ED on 09/02/23 with history of onset of chest discomfort as well as upper abdominal pain and right upper quadrant pain. She reported her pain as 9-10/10, worse with palpation. She notes minimal improvement with morphine. She does report history of occasional wheezing and dyspnea with heavy activity but otherwise notes last asthma exacerbation was > 2 years prior. She denies having any inhaler should she needed unfortunately. Workup in the ED included T98.4, heart 76, BP 147/64, respiratory rate 14, under percent room air, CBC with WBC 7.5, human 13.2, platelet 345 with lymphopenia, CMP with chloride 109, glucose 171, calcium 10.5, T. bili 2.10, AST/LT 190/90, alk phos 173, troponin 7 with repeat delta 10, lipase 47, chest x-ray with no acute cardiopulmonary finding, gallbladder ultrasound with hepatomegaly and fatty infiltration of the liver, multiple gallstones with a positive sonographic Murray sign and a small amount of pericholecystic fluid, EKG was sinus rhythm with PAC and occasional PVC otherwise no acute cardiopulmonary finding. CT scan of the abdomen pelvis there is decreased attenuation of the liver consistent with steatosis. There are multiple gallstones. Mild distention of the gallbladder lumen. Normal spleen. Normal pancreas Laboratory analysis WBC 7.2, RBC 4.02 L, Hgb 11.6 L, Hct 36.0 L, MCV 89.6, MCH 28.9, MCHC 32.2, RDW Std Deviation 46.0 H, RDW Coeff of Jorge L 14.2, Plt Count 299, MPV 9.7, Immature Gran % (Auto) 0.000, Neut % (Auto) 72.6 H, Lymph % (Auto) 21.2, Dixon % (Auto) 6.0, Eos % (Auto) 0.1, Baso % (Auto) 0.1, Absolute Neuts (auto) 5.2, Absolute Lymphs (auto) 1.52, Nucleated RBC % 0, Sodium 143, Potassium 4.0, Chloride 113 H, Carbon Dioxide 26.0, Anion Gap 4 L, BUN 11, Creatinine 0.98, Estim Creat Clear Calc 49.88, Est GFR (MDRD) Af Amer 70, Est GFR (MDRD) Non-Af 58 L, BUN/Creatinine Ratio 11.2, Glucose 78, Hemoglobin A1c 6.5 H, Calcium 8.7, Total Bilirubin 4.90 H, AST 154 H, ALT 136 H, Alkaline Phosphatase 175 H, Total Protein 6.3 L, Albumin 2.8 L, Globulin 3.5, Albumin/Globulin Ratio 0.8 L PFSH Medical History (Updated 09/02/23 @ 15:11 by Iwona Hawk) Asthma Chronic pain Diabetes Diabetes mellitus, type II Essential hypertension Former smoker GERD (gastroesophageal reflux disease) Hyperlipidemia Hypertension Irregular heart beat Morbid obesity with BMI of 50.0-59.9, adult Nephrolithiasis Peripheral neuropathy Premature atrial contractions Premature ventricular contraction Rheumatoid arthritis RLS (restless legs syndrome) Home Medications atorvastatin 10 mg tablet 10 mg PO QHS CHOLESTEROL 07/28/13 [History Last Taken 10/05/16 08:30] esomeprazole magnesium 40 mg capsule,delayed release 40 mg PO DAILY heartburn/acid reflux 07/28/13 [History Last Taken 12/02/16 09:00] metoprolol tartrate 25 mg tablet 25 tab PO BID high blood pressure 12/26/14 [History Last Taken 12/02/16 09:00] ksvgghxi-rsp-jhtgn acid 0.4 mg-lycopene 300 mcg-lutein 250 mcg tablet 1 ea PO DAILY supplement 12/26/14 [History Last Taken 10/05/16 08:30] calcium carbonate 600 mg calcium (1,500 mg) tablet 1,200 mg PO DAILY SUPPLEMENT 10/05/16 [History Last Taken 10/05/16 08:30] amlodipine 5 mg-valsartan 320 mg tablet 1 tab PO DAILY HIGH BLOOD PRESSURE 11/19/16 [History Last Taken 12/02/16 09:00] acetaminophen 500 mg tablet 1,000 mg PO Q8 PRN pain 02/19/18 [History Last Taken Unknown] aspirin 81 mg tablet,delayed release 81 mg PO DAILY HEART MAINTENENCE 03/05/19 [History Last Taken Unknown] insulin glargine 100 unit/mL (3 mL) subcutaneous pen 45 unit subcut QHS DIABETES 04/01/19 [History Last Taken Unknown] insulin lispro 100 unit/mL subcutaneous pen 8 unit subcut TID DIABETES 04/01/19 [History Last Taken Unknown] nitroglycerin 0.4 mg sublingual tablet 0.4 mg sublingual Q5M PRN Chest Pain #25 tabs 04/02/20 [Rx Last Taken Unknown] etodolac 300 mg capsule 300 mg PO BID INFLAMMATION 09/02/23 [History Last Taken Unknown] potassium chloride 20 mEq tablet,extended release(part/cryst) (Klor-Con M) 20 meq PO DAILY SUPPLEMENT 09/02/23 [History Last Taken Unknown] Allergy/AdvReac Type Severity Reaction Status Date / Time hydromorphone HCl Allergy Nausea Verified 09/02/23 08:44 [From Dilaudid] naproxen [From Aleve] AdvReac Severe Nausea Verified 09/02/23 08:44 venlafaxine AdvReac Severe Nausea Verified 09/02/23 08:44 adhesive AdvReac Other Verified 09/02/23 08:44 aspirin AdvReac BABY OK. Verified 09/02/23 08:44 REG STRENG UPSET STOMACH Family History Father Diabetes Mother Hypertension Sister Hypertension CAD (coronary artery disease) Myocardial infarction Sister Diabetes Surgical History (Updated 09/02/23 @ 15:11 by Iwona Hawk) History of appendectomy History of coronary artery stent placement History of hernia repair History of knee replacement procedure of left knee History of knee replacement procedure of right knee History of repair of rotator cuff History of total hysterectomy Social History (Updated 09/02/23 @ 14:[address] Babita Beltrán MD) household members: none Smoking Status: Former smoker how long ago did patient quit smoking: Quit ~ 40 yrs prior, smoked 1/4 ppd since teen until quit. alcohol intake: never substance use type: does not use ROS Constitutional Constitutional: Reports fatigue and poor appetite Eyes Eyes: Reports systems reviewed and no addt'l complaints, except as documented ENT HEENT: Reports systems reviewed and no addt'l complaints, except as documented Cardiovascular Cardiovascular: Reports chest pain, hypertension, irregular heart rhythm and vomiting Respiratory/Chest Respiratory/Chest: Reports systems reviewed and no addt'l complaints, except as documented Gastrointestinal Gastrointestinal: Reports systems reviewed and no addt'l complaints, except as documented Genitourinary Genitourinary: Reports systems reviewed and no addt'l complaints, except as documented Musculoskeletal Musculoskeletal: Reports systems reviewed and no addt'l complaints, except as documented Integumentary Integumentary: Reports systems reviewed and no addt'l complaints, except as documented Neurologic Neurologic: Reports systems reviewed and no addt'l complaints, except as documented Psychiatric Psychiatric: Reports systems reviewed and no addt'l complaints, except as documented Endocrine Endocrinology: Reports systems reviewed and no addt'l complaints, except as documented Hematologic/Lymphatic Hematologic/Lymphatic: Reports systems reviewed and no addt'l complaints, except as documented Allergic/Immunologic Allergic/Immunologic: Reports systems reviewed and no addt'l complaints, except as documented Physical Exam Const oriented x3 and no apparent distress Resp normal respiratory effort GI GI Narrative: Obese, nondistended, soft, tender to palpation in the right upper quadrant with positive Murray sign Lab / Micro Data 09/03/23 05:45 09/03/23 05:45 Labs: Laboratory Results - last 24 hr 09/02/23 21:18: POC Glucose 119 H 09/03/23 02:25: POC Glucose 105 09/03/23 05:45: WBC 7.2, RBC 4.02 L, Hgb 11.6 L, Hct 36.0 L, MCV 89.6, MCH 28.9, MCHC 32.2, RDW Std Deviation 46.0 H, RDW Coeff of Jorge L 14.2, Plt Count 299, MPV 9.7, Immature Gran % (Auto) 0.000, Neut % (Auto) 72.6 H, Lymph % (Auto) 21.2, Dixon % (Auto) 6.0, Eos % (Auto) 0.1, Baso % (Auto) 0.1, Absolute Neuts (auto) 5.2, Absolute Lymphs (auto) 1.52, Nucleated RBC % 0, Sodium 143, Potassium 4.0, Chloride 113 H, Carbon Dioxide 26.0, Anion Gap 4 L, BUN 11, Creatinine 0.98, Estim Creat Clear Calc 49.88, Est GFR (MDRD) Af Amer 70, Est GFR (MDRD) Non-Af 58 L, BUN/Creatinine Ratio 11.2, Glucose 78, Hemoglobin A1c 6.5 H, Calcium 8.7, Total Bilirubin 4.90 H, AST 154 H, ALT 136 H, Alkaline Phosphatase 175 H, Total Protein 6.3 L, Albumin 2.8 L, Globulin 3.5, Albumin/Globulin Ratio 0.8 L 09/03/23 10:08: POC Glucose 52 L 09/03/23 10:30: POC Glucose 164 H 09/03/23 15:45: POC Glucose 61 L Imagaing Radiology Impression Abdomen/Pelvis CT 09/03/23 07:39 IMPRESSION: Hepatomegaly and fatty infiltration of the liver. Mildly distended gallbladder lumen with multiple gallstones. 2. Adjacent calculi are seen in the midportion of the right ureter. Bibasilar atelectasis. Electronically Signed: Young Rucker MD at 8:55 EST , Assessment & Plan Assessment/Plan (1) Acute cholecystitis: PLAN: Plan The patient is an 82 y/o F w/ PMHx: Morbid obesity, Asthma, HTN, HLD, Diabetes mellitus type II w/ chronic peripheral neuropathy, GERD, PAC/PVC, RLS, Hx nephrolithiasis who presents to the [facility] ED on 09/02/23 with history of onset of chest discomfort as well as upper abdominal pain and right upper quadrant pain that started at approximately 3 AM on day of presentation with associated nausea and emesis with no recent fever, chills or any diarrhea reporting her pain is severe and constant prompting ED evaluation. Acute cholecystitis with some concern for choledocholithiasis w/ abdominal pain, N/V with significant hyperbilirubinemia and transaminitis: We discussed the option of pursuing an MRCP due to the elevation in her liver enzymes consistent with cholestatic stasis and likely obstructive jaundice. However patient cannot get an MRI in order to have the test done and it is highly likely that she will need a therapeutic procedure. Therefore she agreed to undergo ERCP. Risk and benefits of the procedure were explained to the patient including not withstanding infection, bleeding, sepsis, perforation, post ERCP pancreatitis,. She will have an ASA of 3 for the procedure. Charges/Coding Visit Charges Inpatient E&M: 15813 Init Hosp L3
[2023-09-03] VITALS (20 sets, daily range): BP systolic 114–149; BP diastolic 37–73; PULSE 49–77; RESP 12–19; TEMP 36.4–37.4; O2SAT 92–100; BMI 46.1
[2023-09-03] MEDS: 0.9% Saline Lock 10 ML Syringe IV ×4 (01:24→22:53)
[2023-09-03] MEDS: HYDROmorphone 1 MG/ML Syringe IV ×3 (01:25→22:52)
[2023-09-03] MEDS: Ondansetron 4 MG/2 ML Vial IV ×2 (01:30→11:55)
[2023-09-03 02:42] LABS: Bedside Glucose 105 mg/dL (74-106)
[2023-09-03] MEDS: 0.9% Normal Saline (1000mL) 1,000 ML 100 ML IV (05:38)
[2023-09-03] MEDS: Piperacil/Tazobactam 3.375 GM in 0.9% Normal Saline (50mL MB+) 50 ML IV ×3 (05:38→22:44)
[2023-09-03 06:04] LABS: Absolute Lymphocyte Count 1.52 X10^3/uL (0.83-4.51); Absolute Neutrophil Count 5.2 X10^3/uL (2.0-7.7); Basophil# 0.01 X10^3/uL; Basophil% 0.1 % (0-1); Eosinophil# 0.01 X10^3/uL; Eosinophils% 0.1 % (0-5); Hemoglobin 11.6 g/dL (12.0-15.0); Lymphocyte # 1.52 X10^3/ul (0.83-4.51); Lymphocyte % 21.2 % (19-41); Mean Corp Hgb Conc 32.2 g/dL (32-36); Mean Corpuscular Hgb 28.9 pg (27.0-32.0); Mean Corpuscular Volume 89.6 fL (81-99); Mean Platelet Vol. 9.7 fl (6.2-12.0); Monocyte# 0.43 X10^3/uL; NRBC Flagged by Analyzer 0 % (0-5); Neutrophil % 72.6 % (47-70); Platelet Count 299 K/mm3 (150-450); RBC Distribution Width CV 14.2 % (11.6-14.6); Red Blood Count 4.02 M/mm3 (4.2-5.4); White Blood Count 7.2 K/mm3 (4.4-11.0)
[2023-09-03 06:56] LABS: ALB/GLOB Ratio 0.8 RATIO (0.9-2.4); AST(SGOT) 154 U/L (15-37); Alanine Aminotransfer ALT/SGPT 136 U/L (13-56); Albumin, Serum 2.8 g/dL (3.2-5.0); Alkaline Phosphatase 175 U/L (45-117); Anion Gap 4 (5-15); BUN 11 mg/dL (7-18); BUN/Creat Ratio 11.2 RATIO (10-20); Calcium,Total 8.7 mg/dL (8.5-10.1); Chloride 113 mmol/L (98-107); Creatinine, Serum 0.98 mg/dL (0.55-1.02); EST Glomerular Filtration Rate 58 mL/min (>60); Est Glom Filt Rate - Afr Amer 70 mL/min (>60); Estimated Creatinine Clearance 49.88 ml/min; Globulin 3.5 g/dL (2.2-4.2); Glucose 78 mg/dL (74-106); Protein, Total 6.3 g/dL (6.4-8.2); Sodium Level 143 mmol/L (136-145)
[2023-09-03] MEDS: Budesonide Respules 0.5 MG/2 ML AMPUL.NEB. INHALATION ×2 (07:19→19:58)
--- NOTE | 2023-09-03 07:39 | CT_ITS ---
STUDY: CT ABDOMEN AND PELVIS WITH CONTRAST REASON FOR EXAM: Female, 82 years old. Obstructive jaundice RADIATION DOSAGE (If Supplied By Facility): CTDIvol = ( 40.78 ) mGy, DLP = ( 1447.59 ) mGycm TECHNIQUE: Transaxial images were obtained from the dome of the diaphragm to the symphysis pubis without oral contrast. IV 100mL Isovue-300 was administered. Sagittal and coronal images were reconstructed. Individualized dose optimization techniques were used for this CT. COMPARISON: None. FINDINGS: Increased markings at the lung bases suggest some bibasilar atelectasis. The visualized portions of the heart are within normal limits. There is decreased attenuation of the liver consistent with steatosis. There are multiple gallstones. Mild distention of the gallbladder lumen. Normal spleen. Normal pancreas. Normal bilateral adrenal glands. Normal right kidney. 2.7 mm calculus in the mid right ureter. A similar appearing calculus is seen just distal to the previously mentioned calculus. Normal left kidney. Normal visualized stomach. Normal small intestine. Normal colon. The patient is status post appendectomy. There is scattered atherosclerotic calcification of the abdominal aorta and major visceral branches, without a demonstrated aneurysm. Normal inferior vena cava. Normal retroperitoneum. Normal urinary bladder. There is absence of the uterus consistent with a prior hysterectomy. Normal abdominal wall. There are diffuse degenerative changes of the visualized lumbar spine. CT/Abdomen/Pelvis W IV Cont ONLY IMPRESSION: Hepatomegaly and fatty infiltration of the liver. Mildly distended gallbladder lumen with multiple gallstones. 2. Adjacent calculi are seen in the midportion of the right ureter. Bibasilar atelectasis. Electronically Signed: Young Rucker MD at 8:55 EST ,
--- NOTE | 2023-09-03 08:55 | PN.HOSP_ITS ---
Reason for Visit Reason for Visit: Diagnoses Acute cholecystitis (09/02/23) Subjective Subjective Patient is an 82-year-old lady who presented with epigastric discomfort. An assessment of acute cholecystitis made admitted to regular nursing floor under surgical services with consultation placed to the hospitalist team Objective Data Objective Data Vital Signs: Vital Signs Temp Pulse Resp BP Pulse Ox O2 Del Method 97.8 F 77 19 H 115/52 L 95 Room Air 09/03/23 02:29 09/03/23 07:18 09/03/23 07:18 09/03/23 02:29 09/03/23 02:29 09/03/23 08:18 Oxygen Delivery Method Room Air Weight: 107.184 kg Body Mass Index (BMI) 46.1 Intake & Output: Intake and Output for Last 24 Hours 09/01/23 09/02/23 09/03/23 23:59 23:59 23:59 Intake Total 1575.83 / 1575.83 398.34 / 398.34 Output Total 650 / 650 Balance 1575.83 / 1575.83 -251.66 / -251.66 Lab / Micro Data 09/03/23 05:45 09/03/23 05:45 Labs: Laboratory Results - last 24 hr 09/02/23 09:27: WBC 7.5, RBC 4.55, Hgb 13.2, Hct 40.4, MCV 88.8, MCH 29.0, MCHC 32.7, RDW Std Deviation 45.5 H, RDW Coeff of Jorge L 14.2, Plt Count 345, MPV 10.3, Immature Gran % (Auto) 0.300, Neut % (Auto) 87.1 H, Lymph % (Auto) 10.4 L, [place] % (Auto) 1.9, Eos % (Auto) 0.0, Baso % (Auto) 0.3, Absolute Neuts (auto) 6.6, Absolute Lymphs (auto) 0.78 L, Nucleated RBC % 0, Differential Comment SCANNED, Sodium 140, Potassium 4.0, Chloride 109 H, Carbon Dioxide 23.0, Anion Gap 8, BUN 9, Creatinine 0.94, Estim Creat Clear Calc 51.82, Est GFR (MDRD) Af Amer 74, Est GFR (MDRD) Non-Af 61, BUN/Creatinine Ratio 9.6 L, Glucose 171 H, Calcium 10.5 H, Total Bilirubin 2.10 H, AST 190 H, ALT 90 H, Alkaline Phosphatase 173 H, Troponin I High Sens 7, Total Protein 7.5, Albumin 3.4, Globulin 4.1, Albumin/Globulin Ratio 0.8 L, Lipase 47 09/02/23 12:22: Magnesium 1.8, Troponin I High Sens 10 09/02/23 15:25: POC Glucose 101 09/02/23 21:18: POC Glucose 119 H 09/03/23 02:25: POC Glucose 105 09/03/23 05:45: WBC 7.2, RBC 4.02 L, Hgb 11.6 L, Hct 36.0 L, MCV 89.6, MCH 28.9, MCHC 32.2, RDW Std Deviation 46.0 H, RDW Coeff of Jorge L 14.2, Plt Count 299, MPV 9.7, Immature Gran % (Auto) 0.000, Neut % (Auto) 72.6 H, Lymph % (Auto) 21.2, [place] % (Auto) 6.0, Eos % (Auto) 0.1, Baso % (Auto) 0.1, Absolute Neuts (auto) 5.2, Absolute Lymphs (auto) 1.52, Nucleated RBC % 0, Sodium 143, Potassium 4.0, Chloride 113 H, Carbon Dioxide 26.0, Anion Gap 4 L, BUN 11, Creatinine 0.98, Estim Creat Clear Calc 49.88, Est GFR (MDRD) Af Amer 70, Est GFR (MDRD) Non-Af 58 L, BUN/Creatinine Ratio 11.2, Glucose 78, Calcium 8.7, Total Bilirubin 4.90 H , AST 154 H, ALT 136 H, Alkaline Phosphatase 175 H, Total Protein 6.3 L, Albumin 2.8 L, Globulin 3.5, Albumin/Globulin Ratio 0.8 L Radiography Diagnostic Testing: Radiology Impression Chest X-Ray 09/02/23 08:56 IMPRESSION: No acute abnormality is seen. Electronically Signed: Young Rucker MD at 9:23 EST , Gallbladder Ultrasound 01/10/24 10:56 IMPRESSION: Hepatomegaly and fatty infiltration of the liver. Multiple gallstones with positive sonographic Murray''s sign and small amount of pericholecystic fluid. Electronically Signed: Young Rucker MD at 12:15 EST , Physical Exam Narrative GENERAL: cooperative HEENT: Atraumatic; normocephalic EYES; Anicteric, Normal Conjunctiva NECK; supple, normal thyroid, RESPIRATORY: Diminished to auscultation CARDIOVASCULAR: Regular S1 S2, GI: soft, normoactive bowel sounds, : No Renal angle tenderness; EXTREMITIES: No edema, no clubbing, MUSCULOSKELETAL: no muscle wasting NEURO: Awake; no lateralizing signs. SKIN: No Rash PSYCH; Flat affect Assessment & Plan Assessment/Plan (1) Acute cholecystitis: PLAN: Plan Patient is an 82-year-old lady who presented with epigastric discomfort. An assessment of acute cholecystitis made admitted to regular nursing floor under surgical services with consultation placed to the hospitalist team 1. Acute cholecystitis ? Imaging studies on admission did reveal hepatomegaly and fatty infiltration of the liver. Multiple gallstones with positive sonographic Murray''s sign and small amount of pericholecystic fluid. Patient admitted to the surgical service with plans for patient to undergo laparoscopic cholecystectomy with intraoperative cholangiogram 2. Mild intermittent asthma ? Bronchodilator treatments as needed 3. Hypertension - Blood pressure controlled, home medications continued with dose adjustment as needed 4. Class III obesity with BMI of 46 ? Complicating care weight loss advised 5. Nonalcoholic fatty liver disease ? Related to patient obesity as well as diabetes plans for patient to follow-up with primary care physician for subsequent referral to GI 6. Dyslipidemia -Patient is on statin therapy, continued at home dose 7. Diabetes mellitus type II -patient's oral hypoglycemics held. Placed on long acting insulin, Accu-Cheks a.c. and at bedtime and covered with sliding scale insulin 8. GERD ? On PPI 9. History of PACs and PVCs ? Patient is on metoprolol 10. DVT prophylaxis Recommend low molecular weight if no contraindication will defer decision to general surgery Time spent in the patient's overall evaluation,decision-making process, review of diagnostic data, adjustment of management, discussion with other providers, nursing nursing and ancillary staff involved in patient's care documentation, 50 Minutes Charges/Coding Visit Charges Inpatient E&M: 98158 Subs Hosp L3
--- NOTE | 2023-09-03 09:25 | PCM.PN.SRG ---
Subjective Subjective Patient seen and examined during AM rounds. She is found resting in bed. She states that she is feeling somewhat better today. Objective Data Objective Data Vital Signs: Vital Signs Temp Pulse Resp BP Pulse Ox O2 Del Method 97.8 F 77 19 H 115/52 L 95 Room Air 09/03/23 02:29 09/03/23 07:18 09/03/23 07:18 09/03/23 02:29 09/03/23 02:29 09/03/23 08:18 Oxygen Delivery Method Room Air Weight: 236 lb 4.8 oz Body Mass Index (BMI) 46.1 Intake & Output: Intake and Output for Last 24 Hours 09/01/23 09/02/23 09/03/23 23:59 23:59 23:59 Intake Total 1575.83 / 1575.83 398.34 / 398.34 Output Total 650 / 650 Balance 1575.83 / 1575.83 -251.66 / -251.66 Lab / Micro Data 09/03/23 05:45 09/03/23 05:45 Labs: Laboratory Results - last 24 hr 09/02/23 09:27: WBC 7.5, RBC 4.55, Hgb 13.2, Hct 40.4, MCV 88.8, MCH 29.0, MCHC 32.7, RDW Std Deviation 45.5 H, RDW Coeff of Jorge L 14.2, Plt Count 345, MPV 10.3, Immature Gran % (Auto) 0.300, Neut % (Auto) 87.1 H, Lymph % (Auto) 10.4 L, [place] % (Auto) 1.9, Eos % (Auto) 0.0, Baso % (Auto) 0.3, Absolute Neuts (auto) 6.6, Absolute Lymphs (auto) 0.78 L, Nucleated RBC % 0, Differential Comment SCANNED, Sodium 140, Potassium 4.0, Chloride 109 H, Carbon Dioxide 23.0, Anion Gap 8, BUN 9, Creatinine 0.94, Estim Creat Clear Calc 51.82, Est GFR (MDRD) Af Amer 74, Est GFR (MDRD) Non-Af 61, BUN/Creatinine Ratio 9.6 L, Glucose 171 H, Calcium 10.5 H, Total Bilirubin 2.10 H, AST 190 H, ALT 90 H, Alkaline Phosphatase 173 H, Troponin I High Sens 7, Total Protein 7.5, Albumin 3.4, Globulin 4.1, Albumin/Globulin Ratio 0.8 L, Lipase 47 09/02/23 12:22: Magnesium 1.8, Troponin I High Sens 10 09/02/23 15:25: POC Glucose 101 09/02/23 21:18: POC Glucose 119 H 09/03/23 02:25: POC Glucose 105 09/03/23 05:45: WBC 7.2, RBC 4.02 L, Hgb 11.6 L, Hct 36.0 L, MCV 89.6, MCH 28.9, MCHC 32.2, RDW Std Deviation 46.0 H, RDW Coeff of Jorge L 14.2, Plt Count 299, MPV 9.7, Immature Gran % (Auto) 0.000, Neut % (Auto) 72.6 H, Lymph % (Auto) 21.2, [place] % (Auto) 6.0, Eos % (Auto) 0.1, Baso % (Auto) 0.1, Absolute Neuts (auto) 5.2, Absolute Lymphs (auto) 1.52, Nucleated RBC % 0, Sodium 143, Potassium 4.0, Chloride 113 H, Carbon Dioxide 26.0, Anion Gap 4 L, BUN 11, Creatinine 0.98, Estim Creat Clear Calc 49.88, Est GFR (MDRD) Af Amer 70, Est GFR (MDRD) Non-Af 58 L, BUN/Creatinine Ratio 11.2, Glucose 78, Calcium 8.7, Total Bilirubin 4.90 H, AST 154 H, ALT 136 H, Alkaline Phosphatase 175 H, Total Protein 6.3 L, Albumin 2.8 L, Globulin 3.5, Albumin/Globulin Ratio 0.8 L Radiography Diagnostic Testing: Radiology Impression Gallbladder Ultrasound 09/02/23 10:56 IMPRESSION: Hepatomegaly and fatty infiltration of the liver. Multiple gallstones with positive sonographic Murray''s sign and small amount of pericholecystic fluid. Electronically Signed: Young Rucker MD at 12:15 EST , Abdomen/Pelvis CT 09/03/23 07:39 IMPRESSION: Hepatomegaly and fatty infiltration of the liver. Mildly distended gallbladder lumen with multiple gallstones. 2. Adjacent calculi are seen in the midportion of the right ureter. Bibasilar atelectasis. Electronically Signed: Young Rucker MD at 8:55 EST , Physical Exam Const oriented x3 and no apparent distress Resp normal respiratory effort GI GI Narrative: Obese, nondistended, soft, tender to palpation in the right upper quadrant with positive Murray sign Assessment & Plan Assessment/Plan (1) Acute cholecystitis: PLAN: Patient is an 82-year-old female who is hospital day 2 for acute cholecystitis and probable choledocholithiasis. Given that her T. bili is elevated over yesterday's value I am recommending that we proceed with a GI consultation and probable ERCP prior to performing a cholecystectomy so as to decompress to her biliary tree to mitigate her risk for cholangitis. Patient has been n.p.o. since yesterday in anticipation of procedure and remains on continuous empiric antibiotic therapy. Consult has been placed in GI has been notified. (2) Hyperlipidemia: QUALIFIERS: Hyperlipidemia type: unspecified Qualified Code(s): E78.5 - Hyperlipidemia, unspecified PLAN: Hyperbilirubinemia in the setting of cholestatic pattern to remaining LFTs suggestive of choledocholithiasis. Notably patient's common bile duct was measured yesterday is within normal limits. GI consult has been made and there are tentative plans for ERCP later this afternoon. This likely means that patient's cholecystectomy will now be pending for a.m. of 09/04/2023 Charges/Coding Visit Charges Inpatient E&M: 02854 Subs Hosp L2
[2023-09-03] MEDS: Metoprolol Tartrate 25 MG Tablet PO ×2 (10:05→22:45)
[2023-09-03] MEDS: Losartan Potassium 100 MG Tablet PO (10:05)
[2023-09-03] MEDS: Dextrose 50%-Water 25 GM/50 ML DISP.SYRIN IV (10:29)
[2023-09-03] MEDS: Dext 5%-0.45% NS 1,000 ML 125 ML IV (10:29)
[2023-09-03 10:49] LABS: Bedside Glucose 52 mg/dL (74-106)
[2023-09-03 10:49] LABS: Bedside Glucose 164 mg/dL (74-106)
--- NOTE | 2023-09-03 11:47 | CASEMGMT ---
MICKEY ECHAVARRIA Assessment Face to Face with patient for initial transition planning/care coordination assessment. MICKEY ECHAVARRIA introduced self and role at [facility], pt voices understanding. Pt is A&Ox4 and is resting comfortably in bed and is calm. There are multiple family members in the room at this time. Care providers, pharmacy, and demographics verified. Admitting dx: NASREEN HANSON Strata: 2 PCP: Mishel Specialists: Denies Preferred Pharmacy: [facility] Insurance: AARP CADY ADV, ANTHEM Prescription Benefit: Yes LNOK: Kamran Goel - Son. Radha Ken - Niece Living Arrangements: Pt states she lives alone on the second floor of an apartment with 7 steps with handrails to enter. Pt denies any issues using the steps. ADLs/IADLs: States independent will all ADLS and IADLs. Pt manages own medications. Transportation: Pt drives DME: Pt states she uses a walker at home. Pt states that she checks her BS daily and has enough supplies for this. Raised toilet seat with grab bars. Shower is equipped with grab bars. Pt reports she has a lift chair but does not need to use. HHC/SNF: Denies history or needs at this time. Pt Plan: Pt 6 click close is 14. PT ordered to evaluate. Pt states that she wants to DC home alone via a family member (pt has multiple family members willing to help her). Pt states that she does not need any additional therapy at this time. Will follow therapy. Andree Prado RN, CM
[2023-09-03 12:32] LABS: Hemoglobin A1c 6.5 % (3.8-5.6)
--- NOTE | 2023-09-03 13:19 | CHAPLAIN ---
Type of Pastoral Visit _x__ Initial Visit ___ Follow-up Visit ___ On-call Visit ___ General Patient Visit ___ Spiritual Assessment ___ Family Conference ___ Bereavement ___ Rapid Response ___ Code Blue ___ Other (describe below) Pastoral Care Referral From _x__ Patient ___ Family ___ Nurse ___ Physician ___ Senior Ruby Developer ___ Regional Economic Liaison ___ Other (describe below) Sacrament/Intervention _x__ Active listening ___ Anointing ___ Anglican ___ Bereavement ___ Communion ___ Laine exploration ___ ___ Life review ___ Prayer ___ Reconciliation _x__ Sacrament of Sick _x__ Supportive presence ___ Wedding ___ Other (describe below) Pastoral Comments patient is lying down in bed and explains that she will need to use the bathroom real soon because she will be going into surgery; many family members are in the room; pt expresses desire for this senior ecologist to stay, offer of prayer given and answer is yes, as family mbmers gather around pt bed; prayer and praises given at this time of need; pt expresses gratitude and so does the family members
--- NOTE | 2023-09-03 13:25 | RAD_ITS ---
Fluoroscopic guided ERCP INDICATION: Right upper quadrant pain TECHNIQUE: Fluoroscopic guided ERCP was performed in usual fashion utilizing fluoroscopic guidance by the call center recruiter.. 5.41 minutes of fluoroscopic time were utilized during the exam. FINDINGS: Fluoroscopic guided images were obtained during the study to document findings during the procedure. For more complete information recommend correlation with gastroenterology procedural notes RAD/ERCP Biliary/Pancreas IMPRESSION: Fluoroscopic guided ERCP Electronically Signed: Sergo Garcia MD at 18:15 EST ,
--- NOTE | 2023-09-03 14:47 | NURSING ---
pt to endo
[2023-09-03] MEDS: Lactated Ringers 1,000 ML 15 ML IV (15:35)
--- NOTE | 2023-09-03 15:58 | NURSING ---
BGL [address] RODRIGUEZ AT BEDSIDE VERBAL ORDER DEXTROSE 5% AT 150ML/HR
[2023-09-03 16:04] LABS: Bedside Glucose 61 mg/dL (74-106)
--- NOTE | 2023-09-03 17:31 | OP.ERCP_ITS ---
Patient Name: Marilou Goel Procedure Date: 09/03/2023 4:12 PM Date of : 1940 Age: 82 Procedure: ERCP Indications: Bile duct stone(s) Providers: Azar Cespedes DO Medicines: Monitored Anesthesia Care Patient Profile: This is an 82 year old female. Refer to note in patient chart for documentation of history and physical. Patient has symptoms of chronic jaundice. Complications: No immediate complications. Procedure: Pre-Anesthesia Assessment: - Prior to the procedure, a History and Physical was performed, and patient medications and allergies were reviewed. The patient is competent. The risks and benefits of the procedure and the sedation options and risks were discussed with the patient. All questions were answered and informed consent was obtained. Patient identification and proposed procedure were verified by the physician. Mental Status Examination: normal. Respiratory Examination: clear to auscultation. Prophylactic Antibiotics: The patient does not require prophylactic antibiotics. Prior Anticoagulants: The patient has taken no anticoagulant or antiplatelet agents. ASA Grade Assessment: III - A patient with severe systemic disease. After reviewing the risks and benefits, the patient was deemed in satisfactory condition to undergo the procedure. The anesthesia plan was to use monitored anesthesia care (MAC). Immediately prior to administration of medications, the patient was re-assessed for adequacy to receive sedatives. The heart rate, respiratory rate, oxygen saturations, blood pressure, adequacy of pulmonary ventilation, and response to care were monitored throughout the procedure. The physical status of the patient was re-assessed after the procedure. After obtaining informed consent, the scope was passed under direct vision. Throughout the procedure, the patient's blood pressure, pulse, and oxygen saturations were monitored continuously. The Duodenoscope was introduced through the mouth, and advanced to the duodenum and used to inject contrast into the bile duct and ventral pancreatic duct. The ERCP was accomplished without difficulty. The patient tolerated the procedure well. Scope In: 4:41:03 PM Scope Out: 5:24:55 PM Total Procedure Duration Time 0 hours 43 minutes 52 seconds Findings: The informatica developer film was normal. The esophagus was successfully intubated under direct vision. The scope was advanced to a normal major papilla in the descending duodenum without detailed examination of the pharynx, larynx and associated structures, and upper GI tract. The upper GI tract was grossly normal. The bile duct was deeply cannulated with the short-nosed traction sphincterotome. Contrast was injected. I personally interpreted the pancreatic duct images. There was brisk flow of contrast through the ducts. Image quality was adequate. Opacification of the entire biliary tree except for the cystic duct and gallbladder and main bile duct was successful. The maximum diameter of the ducts was 10 mm. The main bile duct contained multiple stones, the largest of which was 8 mm in diameter. A long cystic duct stump originated in the main bile duct. The main bile duct contained multiple stones, the largest of which was 6 mm in diameter. A straight Roadrunner wire was passed into the biliary tree. A 4 mm biliary sphincterotomy was made with a traction (standard) sphincterotome using ERBE electrocautery. There was no post-sphincterotomy bleeding. The biliary tree was swept with a 15 mm balloon starting at the bifurcation. Three stones were removed. Three stones remained. A 0.035 inch x 260 cm angled Hydra Jagwire was passed into the ventral pancreatic duct. The hepatic duct bifurcation was successfully dilated with a 6-7-8 mm balloon dilator. One 10 Fr by 9 cm temporary stent with two external flaps and two internal flaps was placed 5 cm into the common bile duct. Bile flowed through the stent. The stent was in good position. Impression: - The patient has had a cholecystectomy. - Choledocholithiasis was found. Partial removal was accomplished with biliary sphincterotomy; a stent was inserted. - A biliary sphincterotomy was performed. - The biliary tree was swept. - The hepatic duct bifurcation was successfully dilated. - One temporary stent was placed into the common bile duct. Procedure Code(s): --- Professional --- 28291, Endoscopic retrograde cholangiopancreatography (ERCP); with placement of endoscopic stent into biliary or pancreatic duct, including pre- and post-dilation and guide wire passage, when performed, including sphincterotomy, when performed, each stent 16437, 59, Endoscopic retrograde cholangiopancreatography (ERCP); with trans-endoscopic balloon dilation of biliary/pancreatic duct(s) or of ampulla (sphincteroplasty), including sphincterotomy, when performed, each duct 80717, 51, Endoscopic retrograde cholangiopancreatography (ERCP); with removal of calculi/debris from biliary/pancreatic duct(s) 19060, 26, Endoscopic catheterization of the pancreatic ductal system, radiological supervision and interpretation CPT copyright 2021 [employer]. All rights reserved. The codes documented in this report are preliminary and upon cnc supervisor review may be revised to meet current compliance requirements. Azar Cespedes DO 09/03/2023 5:30:50 PM This report has been signed electronically. Number of Addenda: 0 Note Initiated On: 09/03/2023 4:12 PM
--- NOTE | 2023-09-03 17:31 | OP.CCLET_ITS ---
09/03/2023 Alicia Florentino [address] [facility] [facility] [place] [address] [place] [address] Re : ERCP procedure for Marilou Ray Dear Dr. Florentino This procedure was performed on August. My impressions and recommendations are as follows: Impressions : - The patient has had a cholecystectomy. - Choledocholithiasis was found. Partial removal was accomplished with biliary sphincterotomy; a stent was inserted. - A biliary sphincterotomy was performed. - The biliary tree was swept. - The hepatic duct bifurcation was successfully dilated. - One temporary stent was placed into the common bile duct. Recommendations : My findings are described in the full procedure note, which is enclosed. If I can be of further assistance, please feel free to contact me at . Sincerely, Azar Cespedes, 09/03/2023 5:30:50 PM This report has been signed electronically.
[2023-09-03 18:19] LABS: Bedside Glucose 99 mg/dL (74-106)
[2023-09-03] MEDS: Dext 5%-0.45% NS 1,000 ML 150 ML IV (22:45)
[2023-09-04] VITALS (20 sets, daily range): BP systolic 105–188; BP diastolic 31–81; PULSE 53–90; RESP 16–18; TEMP 36.6–37.7; O2SAT 94–100; BMI 46.1
--- NOTE | 2023-09-04 | GALL_PTH ---
PATHOLOGY RESULTS PATIENT: KEIKO ALANIZ LOC: [facility]3 U#:[id number] AGE/SX: 82/F ROOM: [facility]322 RE09/02/[address]: Dr. Carol Crow MD : 1940 BED: 1 DIS: 09/10/2023 SPEC #: [id number] RECD: 09/04/23 12:58 STATUS: SADI REQ #: [id number] CHAI: 09/04/23 00:[address]: Elia Melendrez DEPT: SURGICAL PATHOLOGY RECD BY: Ashwin Nicole ENTERED: 09/04/23 12:58 SP TYPE: CHRIS ABRAMS DR: MD Dr. Master Alvarez MD Dr. Lisa Malys, DO Dr. Michael Bortz, MD Dr. Rahsaan Friend, DO Tissues: Gallbladder, NOS Procedures: Surgery Specimen Level III Comments: @ Ordering doctor for SUIII edited from to @ by JANI at 09/04/23 1425 @ Submitting doctor edited from to @ by KYLEOD at 09/04/23 1425 HEADER OPERATION: Laparoscopic cholecystectomy with IOC PRE-OP DIAGNOSIS: Acute cholelithiasis TISSUE SUBMITTED: Gallbladder MICROSCOPIC DIAGNOSIS Gallbladder, cholecystectomy: Chronic cholecystitis and cholelithiasis. AM:keshia 09/07/2023 MICROSCOPIC DESCRIPTION Slides are reviewed. GROSS DESCRIPTION Received is one container labeled with the patient's name and designated gallbladder. The specimen consists of a gallbladder measuring 10.0 cm in length and up to 4.0 cm in diameter. The external surface is pink-bello, smooth and glistening for the most part. Focally it is granular, hemorrhagic and contains cautery artifact. The gallbladder contains green-yellow to hemorrhagic bile and multiple black, irregular stones measuring in aggregate 5.0 x 4.5 x 0.5 cm and 0.1 to 0.5 cm in greatest dimension. The mucosa is bile-stained and without any mass lesions. The gallbladder wall measures up to 0.1 cm in thickness. Care Coordination Manager sections from the gallbladder and the cystic duct are submitted in one cassette. / SJ:keshia 09/04/23 TC:3 CPT: 67217
[2023-09-04] MEDS: Insulin Lispro 100 UNIT/ML INSULN.PEN SC ×2 (03:21→21:55)
[2023-09-04 03:38] LABS: Bedside Glucose 219 mg/dL (74-106)
[2023-09-04 05:18] LABS: Absolute Neutrophil Count 5.2 X10^3/uL (2.0-7.7); Hematocrit 33.9 % (37-47); Hemoglobin 11.1 g/dL (12.0-15.0); Lymphocyte % 14.3 % (19-41); Mean Corp Hgb Conc 32.7 g/dL (32-36); Mean Corpuscular Hgb 29.7 pg (27.0-32.0); Mean Corpuscular Volume 90.6 fL (81-99); Mean Platelet Vol. 10.4 fl (6.2-12.0); Monocyte# 0.16 X10^3/uL; Monocyte% 2.5 % (0-10); NRBC Flagged by Analyzer 0 % (0-5); Neutrophil # 5.21 X10^3/uL (2.7-7.7); Neutrophil % 82.9 % (47-70); Platelet Count 280 K/mm3 (150-450); RBC Distribution Width CV 14.5 % (11.6-14.6); RBC Distribution Width SD 48.3 fl (35.1-43.9); Red Blood Count 3.74 M/mm3 (4.2-5.4); White Blood Count 6.3 K/mm3 (4.4-11.0)
[2023-09-04 05:45] LABS: AST(SGOT) 93 U/L (15-37); Alanine Aminotransfer ALT/SGPT 96 U/L (13-56); Albumin, Serum 2.3 g/dL (3.2-5.0); Alkaline Phosphatase 144 U/L (45-117); Anion Gap 5 (5-15); BUN 14 mg/dL (7-18); BUN/Creat Ratio 13.1 RATIO (10-20); Bilirubin, Direct 0.85 mg/dL (0.00-0.30); Chloride 110 mmol/L (98-107); Creatinine, Serum 1.07 mg/dL (0.55-1.02); EST Glomerular Filtration Rate 52 mL/min (>60); Est Glom Filt Rate - Afr Amer 63 mL/min (>60); Estimated Creatinine Clearance 45.68 ml/min; Globulin 3.2 g/dL (2.2-4.2); Glucose 232 mg/dL (74-106); Magnesium 1.9 mg/dL (1.6-2.6); Phosphorus 3.3 mg/dL (2.5-4.9); Potassium 4.6 mmol/L (3.5-5.1); Protein, Total 5.5 g/dL (6.4-8.2); Sodium Level 138 mmol/L (136-145)
[2023-09-04] MEDS: Dext 5%-0.45% NS 1,000 ML 150 ML IV ×2 (05:50→17:29)
[2023-09-04] MEDS: Piperacil/Tazobactam 3.375 GM in 0.9% Normal Saline (50mL MB+) 50 ML IV ×2 (05:51→21:56)
[2023-09-04] MEDS: Budesonide Respules 0.5 MG/2 ML AMPUL.NEB. INHALATION ×2 (07:12→20:01)
--- NOTE | 2023-09-04 07:42 | PCM.PN.HOSP ---
Reason for Visit Reason for Visit: Diagnoses Hyperlipidemia, unspecified (09/02/23) Acute cholecystitis (09/02/23) Subjective Subjective Underwent ERCP by Dr. Cespedes the day prior findings of procedure performed as below - Choledocholithiasis was found. Partial removal was accomplished with biliary sphincterotomy; a stent was inserted. - A biliary sphincterotomy was performed. - The biliary tree was swept. - The hepatic duct bifurcation was successfully dilated. - One temporary stent was placed into the common bile duct. -Plan is for patient to undergo laparoscopic cholecystectomy Objective Data Objective Data Vital Signs: Vital Signs Temp Pulse Resp BP Pulse Ox O2 Del Method O2 Flow Rate 97.9 F 78 18 105/48 L 95 Nasal Cannula 2 09/04/23 03:23 09/04/23 07:13 09/04/23 07:13 09/04/23 03:23 09/04/23 07:13 09/04/23 07:13 09/04/23 07:13 Oxygen Flow Rate (L/min) 2 Oxygen Delivery Method Nasal Cannula Weight: 107.184 kg Body Mass Index (BMI) 46.1 Intake & Output: Intake and Output for Last 24 Hours 09/02/23 09/03/23 09/04/23 23:59 23:59 23:59 Intake Total 1575.83 / 1575.83 1557.59 / 1557.59 1050 / 1050 Output Total 1150 / 1150 225 / 225 Balance 1575.83 / 1575.83 407.59 / 407.59 825 / 825 Lab / Micro Data 09/04/23 04:00 09/04/23 04:00 Labs: Laboratory Results - last 24 hr 09/03/23 05:45: Hemoglobin A1c 6.5 H 09/03/23 10:08: POC Glucose 52 L 09/03/23 10:30: POC Glucose 164 H 09/03/23 15:45: POC Glucose 61 L 09/03/23 18:01: POC Glucose 99 09/04/23 03:14: POC Glucose 219 H 09/04/23 04:00: WBC 6.3, RBC 3.74 L, Hgb 11.1 L, Hct 33.9 L, MCV 90.6, MCH 29.7, MCHC 32.7, RDW Std Deviation 48.3 H, RDW Coeff of Jorge L 14.5, Plt Count 280, MPV 10.4, Immature Gran % (Auto) 0.300, Neut % (Auto) 82.9 H, Lymph % (Auto) 14.3 L, Briscoe % (Auto) 2.5, Eos % (Auto) 0.0, Baso % (Auto) 0.0, Absolute Neuts (auto) 5.2, Absolute Lymphs (auto) 0.90, Nucleated RBC % 0, Sodium 138, Potassium 4.6, Chloride 110 H, Carbon Dioxide 23.0, Anion Gap 5, BUN 14, Creatinine 1.07 H, Estim Creat Clear Calc 45.68, Est GFR (MDRD) Af Amer 63, Est GFR (MDRD) Non-Af 52 L, BUN/Creatinine Ratio 13.1, Glucose 232 H, Calcium 8.0 L, Phosphorus 3.3, Magnesium 1.9, Total Bilirubin 1.30 H, Direct Bilirubin 0.85 H, AST 93 H, ALT 96 H, Alkaline Phosphatase 144 H, Total Protein 5.5 L, Albumin 2.3 L, Globulin 3.2 Radiography Diagnostic Testing: Radiology Impression Abdomen/Pelvis CT 09/03/23 07:39 IMPRESSION: Hepatomegaly and fatty infiltration of the liver. Mildly distended gallbladder lumen with multiple gallstones. 2. Adjacent calculi are seen in the midportion of the right ureter. Bibasilar atelectasis. Electronically Signed: Young Rucker MD at 8:55 EST , Endo Retro Cholangiopancreatogram 09/03/23 13:25 IMPRESSION: Fluoroscopic guided ERCP Electronically Signed: Sergo Garcia MD at 18:15 EST , Physical Exam Narrative GENERAL: cooperative HEENT: Atraumatic; normocephalic EYES; Anicteric, Normal Conjunctiva NECK; supple, normal thyroid, RESPIRATORY: Diminished to auscultation CARDIOVASCULAR: Regular S1 S2, GI: soft, normoactive bowel sounds, : No Renal angle tenderness; EXTREMITIES: No edema, no clubbing, MUSCULOSKELETAL: no muscle wasting NEURO: Awake; no lateralizing signs. SKIN: No Rash PSYCH; Flat affect Assessment & Plan Assessment/Plan (1) Acute cholecystitis: PLAN: Plan Patient is an 82-year-old lady who presented with epigastric discomfort. An assessment of acute cholecystitis made admitted to regular nursing floor under surgical services with consultation placed to the hospitalist team 1. Acute cholecystitis ? Imaging studies on admission did reveal hepatomegaly and fatty infiltration of the liver. Multiple gallstones with positive sonographic Murray''s sign and small amount of pericholecystic fluid. Patient admitted to the surgical service with plans for patient to undergo laparoscopic cholecystectomy with intraoperative cholangiogram ? 09/04/2023;Underwent ERCP by Dr. Cespedes the day prior findings of procedure performed as below - Choledocholithiasis was found. Partial removal was accomplished with biliary sphincterotomy; a stent was inserted. - A biliary sphincterotomy was performed. - The biliary tree was swept. - The hepatic duct bifurcation was successfully dilated. - One temporary stent was placed into the common bile duct. -Plan is for patient to undergo laparoscopic cholecystectomy 2. Mild intermittent asthma ? Bronchodilator treatments as needed 3. Hypertension - Blood pressure controlled, home medications continued with dose adjustment as needed 4. Class III obesity with BMI of 46 ? Complicating care weight loss advised 5. Nonalcoholic fatty liver disease ? Related to patient obesity as well as diabetes plans for patient to follow-up with primary care physician for subsequent referral to GI 6. Dyslipidemia -Patient is on statin therapy, continued at home dose 7. Diabetes mellitus type II -patient's oral hypoglycemics held. Placed on long acting insulin, Accu-Cheks a.c. and at bedtime and covered with sliding scale insulin ? 09/04/2023 patient had a hypoglycemic episode the day prior patient was started on D5 since she was n.p.o. for her procedure. 8. GERD ? On PPI 9. History of PACs and PVCs ? Patient is on metoprolol 10. DVT prophylaxis Recommend low molecular weight if no contraindication will defer decision to general surgery Time spent in the patient's overall evaluation,decision-making process, review of diagnostic data, adjustment of management, discussion with other providers, nursing nursing and ancillary staff involved in patient's care documentation, 50 Minutes Charges/Coding Visit Charges Inpatient E&M: 06812 Subs Hosp L3
[2023-09-04] MEDS: 0.9% Saline Lock 10 ML Syringe IV (08:01)
[2023-09-04] MEDS: Furosemide 100 MG/10 ML Vial 60 MG IV (08:01)
--- NOTE | 2023-09-04 08:30 | NURSING ---
pt left floor with sugery transport and went to AC
[2023-09-04 08:39] LABS: Bedside Glucose 225 mg/dL (74-106)
[2023-09-04] MEDS: 0.9% Normal Saline (1000mL) 1,000 ML 15 ML IV ×2 (09:05→11:30)
[2023-09-04] MEDS: Albuterol 2.5 MG/3 ML VIAL.NEB. INHALATION (09:25)
--- NOTE | 2023-09-04 09:30 | PCM.PN.SRG ---
Subjective Subjective Pt seen and examined during AM rounds. She is found resting in bed. However, she appears somewhat short of breath and confirms this. She describes mild tenderness of her right upper quadrant but states that overall her abdominal pain is improved. Objective Data Objective Data Vital Signs: Vital Signs Temp Pulse Resp BP Pulse Ox O2 Del Method O2 Flow Rate 98.3 F 56 L 18 129/55 H 98 Nasal Cannula 2 09/04/23 08:23 09/04/23 08:23 09/04/23 09:26 09/04/23 08:23 09/04/23 08:23 09/04/23 08:23 09/04/23 08:23 Oxygen Flow Rate (L/min) 2 Oxygen Delivery Method Nasal Cannula Weight: 236 lb 4.8 oz Body Mass Index (BMI) 46.1 Intake & Output: Intake and Output for Last 24 Hours 09/02/23 09/03/23 09/04/23 23:59 23:59 23:59 Intake Total 1575.83 / 1575.83 1557.59 / 1557.59 1050 / 1050 Output Total 1150 / 1150 225 / 225 Balance 1575.83 / 1575.83 407.59 / 407.59 825 / 825 Lab / Micro Data 09/04/23 04:00 09/04/23 04:00 Labs: Laboratory Results - last 24 hr 09/03/23 05:45: Hemoglobin A1c 6.5 H 09/03/23 10:08: POC Glucose 52 L 09/03/23 10:30: POC Glucose 164 H 09/03/23 15:45: POC Glucose 61 L 09/03/23 18:01: POC Glucose 99 09/04/23 03:14: POC Glucose 219 H 09/04/23 04:00: WBC 6.3, RBC 3.74 L, Hgb 11.1 L, Hct 33.9 L, MCV 90.6, MCH 29.7, MCHC 32.7, RDW Std Deviation 48.3 H, RDW Coeff of Jorge L 14.5, Plt Count 280, MPV 10.4, Immature Gran % (Auto) 0.300, Neut % (Auto) 82.9 H, Lymph % (Auto) 14.3 L, Isabela % (Auto) 2.5, Eos % (Auto) 0.0, Baso % (Auto) 0.0, Absolute Neuts (auto) 5.2, Absolute Lymphs (auto) 0.90, Nucleated RBC % 0, Sodium 138, Potassium 4.6, Chloride 110 H, Carbon Dioxide 23.0, Anion Gap 5, BUN 14, Creatinine 1.07 H, Estim Creat Clear Calc 45.68, Est GFR (MDRD) Af Amer 63, Est GFR (MDRD) Non-Af 52 L, BUN/Creatinine Ratio 13.1, Glucose 232 H, Calcium 8.0 L, Phosphorus 3.3, Magnesium 1.9, Total Bilirubin 1.30 H, Direct Bilirubin 0.85 H, AST 93 H, ALT 96 H, Alkaline Phosphatase 144 H, Total Protein 5.5 L, Albumin 2.3 L, Globulin 3.2 09/04/23 08:05: POC Glucose 225 H Radiography Diagnostic Testing: Radiology Impression Endo Retro Cholangiopancreatogram 09/03/23 13:25 IMPRESSION: Fluoroscopic guided ERCP Electronically Signed: Sergo Garcia MD at 18:15 EST Reading Location ID and State: [facility] / [place] Tel , Service support , Physical Exam Const oriented x3 Resp Resp Narrative: Dyspneic GI GI Narrative: The soft, nondistended, soft, tender to palpation in right upper quadrant with negative Murray sign Assessment & Plan Assessment/Plan (1) Acute cholecystitis: PLAN: Patient is an 82-year-old female who is hospital day 2 for acute cholecystitis with acute choledocholithiasis status post ERCP with stone removal 09/03/2023 by GI. Appears somewhat dyspneic this morning I understand she had intravenous fluids applied with dextrose 5% to counteract some hypoglycemia over the past 24 hours. Hospitalist service has been notified and we are in agreement that patient should be diuresed this morning to try to optimize her respiratory status prior to undergoing anesthesia again today for planned laparoscopic cholecystectomy with intraoperative cholangiogram. (2) Hyperlipidemia: QUALIFIERS: Hyperlipidemia type: unspecified Qualified Code(s): E78.5 - Hyperlipidemia, unspecified PLAN: Hyperbilirubinemia in the setting of cholestatic pattern to remaining LFTs suggestive of choledocholithiasis. Notably patient's common bile duct was measured yesterday is within normal limits. GI consult has been made and there are tentative plans for ERCP later this afternoon. This likely means that patient's cholecystectomy will now be pending for a.m. of 09/04/2023 Charges/Coding Visit Charges Inpatient E&M: 18619 Subs Hosp L2
[2023-09-04 09:43] LABS: Bedside Glucose 192 mg/dL (74-106)
--- NOTE | 2023-09-04 10:22 | RAD_ITS ---
STUDY: INTRAOPERATIVE CHOLANGIOGRAM. REASON FOR EXAM: Female, 82 years old. LAP PAULINA WITH IOC FLUOROSCOPY TIME (if supplied): ( 23 seconds ) minutes/seconds. 16.05 mGy TECHNIQUE: An intraoperative cholangiogram was performed by the surgeon. Imaging was submitted. COMPARISON: None. FINDINGS: A common bile duct stent is seen. There is a dilatation of the intrahepatic biliary ducts and proximal common bile duct. Contrast is seen entering the duodenum. RAD/Cholangiogram/ O R,Initial IMPRESSION: Biliary stent is seen. Dilated intrahepatic bile ducts and proximal common bile duct. Electronically Signed: Young Rucker MD at 12:39 EST ,
[2023-09-04] MEDS: Bupivacaine Mpf 0.5% 30 ML VIAL (11:46)
--- NOTE | 2023-09-04 11:48 | PCM.OPRPT ---
Report of Operation Date of Procedure: 09/04/23 Pre-Operative Diagnosis: Acute cholecystitis with choledocholithiasis Post-Operative Diagnosis: Same Surgery/Procedure Performed:: Laparoscopic cholecystectomy with intraoperative cholangiogram Description of Surgical Findings:: ? Foreshortened gallbladder neck due to inflammation, with shortened cystic duct ? Otherwise normal biliary anatomy with single cystic duct and anterior cystic artery ? Cholangiogram showing antegrade filling through common bile duct stent in good position with flow through the ampulla into the duodenum as well as retrograde flow into the common hepatic and proper hepatic duct Surgeon: Elia Melendrez lighting adviser: Kiara Dove Type of Anesthesia: General/Supplemental Anesthesiologist: Jeramie Goldberg Specimen's removed: Gallbladder Estimated Blood Loss (mL): 25 Description of Procedure: After appropriate identification in the preoperative holding area the patient was brought to the operating room. There she was positioned supine on the operating room table. Preoperatively SCDs were placed (antibiotics were administered just prior in the day surgery holding area). General anesthesia was then induced. Patient then required replacement of her peripheral IV as the existing peripheral demonstrated suboptimal function. Patient's abdomen was prepped and draped in usual sterile fashion. A formal timeout was conducted to confirm both patient and the procedure. Procedure was begun with a epigastric incision (given the low level of her umbilicus) which was extended deeply down to the level of the fascia. The fascia was elevated and incised, as well as the peritoneum. A finger sweep was performed to ensure there were no underlying adhesions and a 12 mm balloon trocar was inserted. Pneumoperitoneum was established at 15 mmHg. 3 additional trocars were placed in the subxiphoid position and in the right upper quadrant (3 x 5 mm) under laparoscopic visualization. Inspection of the peritoneum revealed no inadvertent injury to the viscera below. The gallbladder was visualized with a shroud of omentum which was bluntly taken down. Above the liver I noted rather dense adhesions between the dome of the liver capsule and the underside of the right hemidiaphragm consistent with Sandro-Jesus Dallas adhesions. The the gallbladder fundus was then grasped and elevated cephalad. Unfortunately the gallbladder wall was both thin and inflamed and simply elevating the gallbladder in this manner resulting in inadvertent rent in the wall and consequently there was local spillage of bile contents that were suctioned free of the peritoneum. The grasper then was reoriented to try to minimize any further contamination. Then, using careful dissection the peritoneum was opened and the structures of the hepatocystic triangle were delineated. This proved challenging as the gallbladder neck area was foreshortened by the inflammation and the cystic duct itself proved to be quite short but I attempted to dissect all soft tissue structures off the cystic duct to gain as much length as possible. Once the critical view of safety was obtained, the cystic duct was singly clipped and partially divided with a ductotomy. The proximal duct was milked of any debris until there was backflow of bile. Using an [place] Morning [place] clamp, a cholangiocatheter was fed into the proximal segment of the cystic duct and clamped into place. Under fluoroscopy a cholangiogram was then obtained showing a shortened cystic duct flowing into a common bile duct with unobstructed antegrade flow of contrast through a common bile duct stent into the duodenum. There was also retrograde flow through the common hepatic duct into the right and left hepatic ducts. Satisfied with this result, the cholangiocatheter was withdrawn and the proximal cystic duct was sealed with clips and the cystic duct was completely transected. The same process was used for the cystic artery. The gallbladder was then removed from the gallbladder fossa with the use of electrocautery. Selective electrocautery was used to obtain hemostasis in the gallbladder fossa?particularly along the medial aspect where there was some slight oozing. However this application electrocautery was successful in obtaining hemostasis. The gallbladder was placed in an Endo Catch bag and removed from the peritoneum. Morison's pouch was copiously irrigated and the effluent was suctioned free of the peritoneum until the effluent returned clear as there had been continued local contamination during the removal of the gallbladder from the rent in the gallbladder wall. Hemostasis was again confirmed in the gallbladder fossa. Then, given the thickness of the patient's abdominal wall, I elected to close the supraumbilical port site under direct laparoscopic visualization with a [place] Sinclair suture passer and #1 PDS suture. A [id number] was made in the abdominal wall fascia resulting in a nice apposition of the fascial edges. The fascia was then injected with additional local anesthetic. Pneumoperitoneum was evacuated.. A total of 30 mL of anesthetic was injected at the port sites for postoperative pain control. The skin of each port site was then closed in subcuticular fashion using 4-0 Monocryl. Steri-Strips and bandages were applied as dressings. Patient tolerated the procedure well without any apparent complications. On emergence from their anesthetic the patient was taken to PACU for ongoing recovery. Complications None Admit VTE Documentation VTE Mechan Device Prophylaxis: SCD's Procedures Digestive 40xxx-49xxx: [id number] Laparo cholecystectomy/graph
[2023-09-04 14:17] LABS: Bedside Glucose 218 mg/dL (74-106)
[2023-09-04] MEDS: HYDROmorphone 1 MG/ML Syringe IV ×2 (15:10→17:59)
[2023-09-04] MEDS: Ondansetron 4 MG/2 ML Vial IV (15:13)
[2023-09-04] MEDS: Metoclopramide 10 MG/2 ML Vial IV (18:35)
[2023-09-04] MEDS: Ketorolac 15 MG/ML Vial IV (19:47)
--- NOTE | 2023-09-04 21:05 | PN.GI_ITS ---
Subjective Subjective Patient is doing well without any complaints. She is scheduled to undergo cystectomy today. She underwent an ERCP yesterday. Objective Data Objective Data Vital Signs: Vital Signs Temp Pulse Resp BP Pulse Ox O2 Del Method O2 Flow Rate 98.0 F 80 18 113/52 L 100 Room Air 2 09/04/23 17:51 09/04/23 17:51 09/04/23 17:51 09/04/23 17:51 09/04/23 17:51 09/04/23 17:51 09/04/23 14:58 Oxygen Flow Rate (L/min) 2 Oxygen Delivery Method Room Air Weight: 236 lb 4.8 oz Body Mass Index (BMI) 46.1 Intake & Output: Intake and Output for Last 24 Hours 09/02/23 09/03/23 09/04/23 23:59 23:59 23:59 Intake Total 1575.83 / 1575.83 1557.59 / 1557.59 3307 / 3307 Output Total 1150 / 1150 1425 / 1425 Balance 1575.83 / 1575.83 407.59 / 407.59 1882 / 1882 Lab / Micro Data 09/04/23 04:00 09/04/23 04:00 Labs: Laboratory Results - last 24 hr 09/04/23 03:14: POC Glucose 219 H 09/04/23 04:00: WBC 6.3, RBC 3.74 L, Hgb 11.1 L, Hct 33.9 L, MCV 90.6, MCH 29.7, MCHC 32.7, RDW Std Deviation 48.3 H, RDW Coeff of Jorge L 14.5, Plt Count 280, MPV 10.4, Immature Gran % (Auto) 0.300, Neut % (Auto) 82.9 H, Lymph % (Auto) 14.3 L, Emanuel % (Auto) 2.5, Eos % (Auto) 0.0, Baso % (Auto) 0.0, Absolute Neuts (auto) 5.2, Absolute Lymphs (auto) 0.90, Nucleated RBC % 0, Sodium 138, Potassium 4.6, Chloride 110 H, Carbon Dioxide 23.0, Anion Gap 5, BUN 14, Creatinine 1.07 H, Estim Creat Clear Calc 45.68, Est GFR (MDRD) Af Amer 63, Est GFR (MDRD) Non-Af 52 L, BUN/Creatinine Ratio 13.1, Glucose 232 H, Calcium 8.0 L, Phosphorus 3.3, Magnesium 1.9, Total Bilirubin 1.30 H, Direct Bilirubin 0.85 H, AST 93 H, ALT 96 H, Alkaline Phosphatase 144 H, Total Protein 5.5 L, Albumin 2.3 L, Globulin 3.2 09/04/23 08:05: POC Glucose 225 H 09/04/23 09:26: POC Glucose 192 H 09/04/23 13:58: POC Glucose 218 H Radiography Diagnostic Testing: Radiology Impression Cholangiogram 09/04/23 10:22 IMPRESSION: Biliary stent is seen. Dilated intrahepatic bile ducts and proximal common bile duct. Electronically Signed: Young Rucker MD at 12:39 EST , Physical Exam Narrative GENERAL: cooperative HEENT: Atraumatic; normocephalic EYES; Anicteric, Normal Conjunctiva NECK; supple, normal thyroid, RESPIRATORY: Diminished to auscultation CARDIOVASCULAR: Regular S1 S2, GI: soft, normoactive bowel sounds, : No Renal angle tenderness; EXTREMITIES: No edema, no clubbing, MUSCULOSKELETAL: no muscle wasting NEURO: Awake; no lateralizing signs. SKIN: No Rash PSYCH; Flat affect Assessment & Plan Assessment/Plan (1) Acute cholecystitis: PLAN: Plan The patient is an 82 y/o F w/ PMHx: Morbid obesity, Asthma, HTN, HLD, Diabetes mellitus type II w/ chronic peripheral neuropathy, GERD, PAC/PVC, RLS, Hx nephrolithiasis who presents to the [facility] ED on 09/02/23 with history of onset of chest discomfort as well as upper abdominal pain and right upper quadrant pain that started at approximately 3 AM on day of presentation with associated nausea and emesis with no recent fever, chills or any diarrhea reporting her pain is severe and constant prompting ED evaluation. Acute cholecystitis with some concern for choledocholithiasis w/ abdominal pain, N/V with significant hyperbilirubinemia and transaminitis: We discussed the option of pursuing an MRCP due to the elevation in her liver enzymes consistent with cholestatic stasis and likely obstructive jaundice. However patient cannot get an MRI in order to have the test done and it is highly likely that she will need a therapeutic procedure. Therefore she agreed to undergo ERCP. Risk and benefits of the procedure were explained to the patient including not withstanding infection, bleeding, sepsis, perforation, post ERCP pancreatitis,. She will have an ASA of 3 for the procedure. 09/04- Status post Rstatus post the [employer]PERATING OFFIC[employer] with stone removal at the sprinkler, autotomy and dilation. All the stones cannot be removed so a come by extant was placed. She will need EHL with possible mechanical lithotripsy to remove the rest of Tangela. She's is scheduled for a cholecystectomy today Continue to monitor LFTs. . Charges/Coding Visit Charges Inpatient E&M: 24073 Subs Hosp L3
[2023-09-04] MEDS: Insulin Glargine-YFGN 100 UNIT/ML Pen 45 UNIT SC (21:54)
[2023-09-04] MEDS: Metoprolol Tartrate 25 MG Tablet PO (21:55)
[2023-09-04 22:17] LABS: Bedside Glucose 322 mg/dL (74-106)
[2023-09-05] VITALS (9 sets, daily range): BP systolic 112–120; BP diastolic 49–62; PULSE 64–95; RESP 16–19; TEMP 36.8–37.1; O2SAT 94–100
[2023-09-05] MEDS: Dext 5%-0.45% NS 1,000 ML 150 ML IV (02:46)
[2023-09-05] MEDS: Insulin Lispro 100 UNIT/ML INSULN.PEN SC ×4 (02:47→21:50)
[2023-09-05] MEDS: Ondansetron 4 MG/2 ML Vial IV (02:55)
[2023-09-05] MEDS: HYDROmorphone 1 MG/ML Syringe IV ×4 (02:58→21:51)
[2023-09-05 03:30] LABS: Bedside Glucose 256 mg/dL (74-106)
[2023-09-05] MEDS: Piperacil/Tazobactam 3.375 GM in 0.9% Normal Saline (50mL MB+) 50 ML IV (05:23)
[2023-09-05 06:57] LABS: Absolute Lymphocyte Count 1.26 X10^3/uL (0.83-4.51); Absolute Neutrophil Count 7.9 X10^3/uL (2.0-7.7); Basophil# 0.01 X10^3/uL; Basophil% 0.1 % (0-1); Hematocrit 32.5 % (37-47); Hemoglobin 10.5 g/dL (12.0-15.0); Lymphocyte # 1.26 X10^3/ul (0.83-4.51); Lymphocyte % 13.1 % (19-41); Mean Corp Hgb Conc 32.3 g/dL (32-36); Mean Corpuscular Volume 89.8 fL (81-99); Mean Platelet Vol. 10.5 fl (6.2-12.0); Monocyte# 0.42 X10^3/uL; Monocyte% 4.4 % (0-10); NRBC Flagged by Analyzer 0 % (0-5); Neutrophil # 7.93 X10^3/uL (2.7-7.7); Neutrophil % 82.1 % (47-70); Platelet Count 294 K/mm3 (150-450); RBC Distribution Width CV 14.1 % (11.6-14.6); RBC Distribution Width SD 46.4 fl (35.1-43.9); Red Blood Count 3.62 M/mm3 (4.2-5.4); White Blood Count 9.7 K/mm3 (4.4-11.0)
[2023-09-05] MEDS: Budesonide Respules 0.5 MG/2 ML AMPUL.NEB. INHALATION ×2 (07:26→19:16)
[2023-09-05] MEDS: Albuterol 2.5 MG/3 ML VIAL.NEB. INHALATION (07:26)
--- NOTE | 2023-09-05 08:07 | PCM.PN.HOSP ---
Reason for Visit Reason for Visit: Diagnoses Hyperlipidemia, unspecified (09/02/23) Acute cholecystitis (09/02/23) Subjective Subjective Patient underwent laparoscopic cholecystectomy with intraoperative cholangiogram on 09/04/2023 Objective Data Objective Data Vital Signs: Vital Signs Temp Pulse Resp BP Pulse Ox O2 Del Method O2 Flow Rate 98.2 F 95 19 H 117/55 L 94 Nasal Cannula 2 09/05/23 02:35 09/05/23 07:26 09/05/23 07:26 09/05/23 02:35 09/05/23 07:26 09/05/23 07:26 09/05/23 07:26 Oxygen Flow Rate (L/min) 2 Oxygen Delivery Method Nasal Cannula Weight: 107.184 kg Body Mass Index (BMI) 46.1 Intake & Output: Intake and Output for Last 24 Hours 09/03/23 09/04/23 09/05/23 23:59 23:59 23:59 Intake Total 1557.59 / 1557.59 3307 / 3307 1050 / 1050 Output Total 1150 / 1150 1425 / 1425 600 / 600 Balance 407.59 / 407.59 1882 / 1882 450 / 450 Lab / Micro Data 09/05/23 06:00 09/05/23 06:00 Labs: Laboratory Results - last 24 hr 09/04/23 08:05: POC Glucose 225 H 09/04/23 09:26: POC Glucose 192 H 09/04/23 13:58: POC Glucose 218 H 09/04/23 21:43: POC Glucose 322 H 09/05/23 02:39: POC Glucose 256 H 09/05/23 06:00: WBC 9.7, RBC 3.62 L, Hgb 10.5 L, Hct 32.5 L, MCV 89.8, MCH 29.0, MCHC 32.3, RDW Std Deviation 46.4 H, RDW Coeff of Jorge L 14.1, Plt Count 294, MPV 10.5, Immature Gran % (Auto) 0.300, Neut % (Auto) 82.1 H, Lymph % (Auto) 13.1 L, [place] % (Auto) 4.4, Eos % (Auto) 0.0, Baso % (Auto) 0.1, Absolute Neuts (auto) 7.9 H, Absolute Lymphs (auto) 1.26, Nucleated RBC % 0 Radiography Diagnostic Testing: Radiology Impression Cholangiogram 09/04/23 10:22 IMPRESSION: Biliary stent is seen. Dilated intrahepatic bile ducts and proximal common bile duct. Electronically Signed: Young Rucker MD at 12:39 EST , Physical Exam Narrative GENERAL: cooperative HEENT: Atraumatic; normocephalic EYES; Anicteric, Normal Conjunctiva NECK; supple, normal thyroid, RESPIRATORY: Diminished to auscultation CARDIOVASCULAR: Regular S1 S2, GI: soft, normoactive bowel sounds, : No Renal angle tenderness; EXTREMITIES: No edema, no clubbing, MUSCULOSKELETAL: no muscle wasting NEURO: Awake; no lateralizing signs. SKIN: No Rash PSYCH; Flat affect Assessment & Plan Assessment/Plan (1) Acute cholecystitis: PLAN: Plan Patient is an 82-year-old lady who presented with epigastric discomfort. An assessment of acute cholecystitis made admitted to regular nursing floor under surgical services with consultation placed to the hospitalist team 1. Acute cholecystitis ? Imaging studies on admission did reveal hepatomegaly and fatty infiltration of the liver. Multiple gallstones with positive sonographic Murray''s sign and small amount of pericholecystic fluid. Patient admitted to the surgical service with plans for patient to undergo laparoscopic cholecystectomy with intraoperative cholangiogram ? 09/04/2023;Underwent ERCP by Dr. Cespedes the day prior findings of procedure performed as below - Choledocholithiasis was found. Partial removal was accomplished with biliary sphincterotomy; a stent was inserted. - A biliary sphincterotomy was performed. - The biliary tree was swept. - The hepatic duct bifurcation was successfully dilated. - One temporary stent was placed into the common bile duct. -Plan is for patient to undergo laparoscopic cholecystectomy [id number] patient underwent laparoscopic cholecystectomy with intraoperative cholangiogram on 09/04/2023 Laparoscopic cholecystectomy with intraoperative cholangiogram Description of Surgical Findings:: ? Foreshortened gallbladder neck due to inflammation, with shortened cystic duct ? Otherwise normal biliary anatomy with single cystic duct and anterior cystic artery ? Cholangiogram showing antegrade filling through common bile duct stent in good position with flow through the ampulla into the duodenum as well as retrograde flow into the common hepatic and proper hepatic duct 2. Mild intermittent asthma ? Bronchodilator treatments as needed 3. Hypertension - Blood pressure controlled, home medications continued with dose adjustment as needed 4. Class III obesity with BMI of 46 ? Complicating care weight loss advised 5. Nonalcoholic fatty liver disease ? Related to patient obesity as well as diabetes plans for patient to follow-up with primary care physician for subsequent referral to GI 6. Dyslipidemia -Patient is on statin therapy, continued at home dose 7. Diabetes mellitus type II -patient's oral hypoglycemics held. Placed on long acting insulin, Accu-Cheks a.c. and at bedtime and covered with sliding scale insulin ? 09/04/2023 patient had a hypoglycemic episode the day prior patient was started on D5 since she was n.p.o. for her procedure. 8. GERD ? On PPI 9. History of PACs and PVCs ? Patient is on metoprolol 10. DVT prophylaxis SC Lovenox 11. Acute dyspnea ? Do suspect fluid overload versus atelectasis ordered checks x-ray patient given Lasix also ordered 2D echo for EF assessment Time spent in the patient's overall evaluation,decision-making process, review of diagnostic data, adjustment of management, discussion with other providers, nursing nursing and ancillary staff involved in patient's care documentation, 50 Minutes Charges/Coding Visit Charges Inpatient E&M: 23258 [facility] L3
[2023-09-05 09:09] LABS: Bedside Glucose 188 mg/dL (74-106)
[2023-09-05 09:28] LABS: ALB/GLOB Ratio 0.6 RATIO (0.9-2.4); AST(SGOT) 51 U/L (15-37); Alanine Aminotransfer ALT/SGPT 75 U/L (13-56); Albumin, Serum 2.1 g/dL (3.2-5.0); Alkaline Phosphatase 108 U/L (45-117); Anion Gap 6 (5-15); BUN 18 mg/dL (7-18); BUN/Creat Ratio 15.1 RATIO (10-20); Calcium,Total 8.1 mg/dL (8.5-10.1); Chloride 107 mmol/L (98-107); Creatinine, Serum 1.19 mg/dL (0.55-1.02); EST Glomerular Filtration Rate 46 mL/min (>60); Est Glom Filt Rate - Afr Amer 56 mL/min (>60); Estimated Creatinine Clearance 41.07 ml/min; Globulin 3.4 g/dL (2.2-4.2); Glucose 186 mg/dL (74-106); Potassium 3.8 mmol/L (3.5-5.1); Protein, Total 5.5 g/dL (6.4-8.2); Sodium Level 138 mmol/L (136-145)
--- NOTE | 2023-09-05 09:48 | PCM.PN.SRG ---
Subjective Subjective Patient seen and examined during AM rounds. Her family is at bedside and provides much of the history. They share that Mrs. Goel's pain is somewhat improved and that her nausea is also somewhat better. They share that she got out of bed yesterday with assistance and the plan is to sit in a chair this morning before further work with ambulation. Mrs. Goel largely confirms the above and specifies that her abdominal pain remains focused about her subxiphoid and supraumbilical port sites. Lastly there is some concern for upper extremity swelling (right greater than left) Objective Data Objective Data Vital Signs: Vital Signs Temp Pulse Resp BP Pulse Ox O2 Del Method O2 Flow Rate 98.7 F 87 18 120/52 L 100 Nasal Cannula 2 09/05/23 08:00 09/05/23 08:00 09/05/23 08:00 09/05/23 08:00 09/05/23 08:00 09/05/23 08:55 09/05/23 08:55 Oxygen Flow Rate (L/min) 2 Oxygen Delivery Method Nasal Cannula Weight: 236 lb 4.8 oz Body Mass Index (BMI) 46.1 Intake & Output: Intake and Output for Last 24 Hours 09/03/23 09/04/23 09/05/23 23:59 23:59 23:59 Intake Total 1557.59 / 1557.59 3307 / 3307 1050 / 1050 Output Total 1150 / 1150 1425 / 1425 600 / 600 Balance 407.59 / 407.59 1882 / 1882 450 / 450 Lab / Micro Data 09/05/23 06:00 09/05/23 06:00 Labs: Laboratory Results - last 24 hr 09/04/23 13:58: POC Glucose 218 H 09/04/23 21:43: POC Glucose 322 H 09/05/23 02:39: POC Glucose 256 H 09/05/23 06:00: WBC 9.7, RBC 3.62 L, Hgb 10.5 L, Hct 32.5 L, MCV 89.8, MCH 29.0, MCHC 32.3, RDW Std Deviation 46.4 H, RDW Coeff of Jorge L 14.1, Plt Count 294, MPV 10.5, Immature Gran % (Auto) 0.300, Neut % (Auto) 82.1 H, Lymph % (Auto) 13.1 L, [place] % (Auto) 4.4, Eos % (Auto) 0.0, Baso % (Auto) 0.1, Absolute Neuts (auto) 7.9 H, Absolute Lymphs (auto) 1.26, Nucleated RBC % 0, Sodium 138, Potassium 3.8, Chloride 107, Carbon Dioxide 25.0, Anion Gap 6, BUN 18, Creatinine 1.19 H, Estim Creat Clear Calc 41.07, Est GFR (MDRD) Af Amer 56 L, Est GFR (MDRD) Non-Af 46 L, BUN/Creatinine Ratio 15.1, Glucose 186 H, Calcium 8.1 L, Total Bilirubin 0.90, AST 51 H, ALT 75 H, Alkaline Phosphatase 108, Total Protein 5.5 L, Albumin 2.1 L, Globulin 3.4, Albumin/Globulin Ratio 0.6 L 09/05/23 08:14: POC Glucose 188 H Radiography Diagnostic Testing: Radiology Impression Cholangiogram 09/04/23 10:22 IMPRESSION: Biliary stent is seen. Dilated intrahepatic bile ducts and proximal common bile duct. Electronically Signed: Young Rucker MD at 12:39 EST , Physical Exam Const oriented x3 Constitutional Narrative: Patient appears fatigued and mildly dyspneic Resp Resp Narrative: Shallow respirations and mildly tachypneic GI GI Narrative: Minimally distended, operative dressings intact with no strikethrough. Soft and tender to palpation predominantly in the subxiphoid and supraumbilical port sites superficially. Assessment & Plan Assessment/Plan (1) Acute cholecystitis: PLAN: Patient is an 82-year-old female who is postoperative day 1 from laparoscopic cholecystectomy with intraoperative cholangiogram and hospital day 3 for acute cholecystitis with acute choledocholithiasis status post ERCP with stone removal 09/03/2023 by GI. Her pain complaints are somewhat improved and her nausea is reportedly resolved. Once again she appears somewhat dyspneic this morning and continues with administration of intravenous fluids applied with dextrose 5% to counteract some hypoglycemia over the past 24 hours. Given that we are completed with her planned procedures I would like to advance her to regular diet and discontinue her IV fluids as a means of restricting her free water. Will also transition her to oral pain medication to try to prolong the relief. Appreciate assistance of medicine for medical optimization and of nursing/PT OT for postoperative mobilization. Dispo: Continue inpatient stay Elia Melendrez MD General Surgery Endocrine Surgery Pager: [facility] [address] [place] [address], [facility], [address] [place] [address] Office: [phone] (2) Hyperlipidemia: QUALIFIERS: Hyperlipidemia type: unspecified Qualified Code(s): E78.5 - Hyperlipidemia, unspecified PLAN: Hyperbilirubinemia in the setting of cholestatic pattern to remaining LFTs suggestive of choledocholithiasis. Charges/Coding Visit Charges Inpatient E&M: 03929 Subs Hosp L2
[2023-09-05] MEDS: Losartan Potassium 100 MG Tablet PO (09:56)
[2023-09-05] MEDS: Metoprolol Tartrate 25 MG Tablet PO ×2 (09:57→21:50)
[2023-09-05] MEDS: amLODIPine 5 MG Tablet PO (09:57)
[2023-09-05] MEDS: Pantoprazole Sodium 40 MG Tablet PO (09:57)
--- NOTE | 2023-09-05 09:57 | RAD_ITS ---
INDICATION: dyspnea EXAMINATION/TECHNIQUE: X-RAY - XR Chest 1 View COMPARISON: No relevant prior comparison study available FINDINGS: LINES/DEVICES: None. LUNGS: [Atelectatic changes in the left lung base. Trace of left pleural effusion. MEDIASTINUM AND CARDIOVASCULAR STRUCTURES: Cardiac silhouette not enlarged. Central airways and mediastinal contour are unremarkable. BONES AND SOFT TISSUES: Unremarkable. RAD/Chest 1 View (Portable) IMPRESSION: Mild atelectatic changes in the left lung base and trace of left pleural effusion. Electronically Signed: Doni Khoury MD at 13:22 EST ,
--- NOTE | 2023-09-05 09:58 | ECHOCS_ITS ---
Reason For Study: CHF Procedure This was a 2D Doppler, Color Flow transthoracic echocardiogram. The study was technically difficult. Contrast injection was performed. Patient scanned sitting upright due to pain from surgery on 09/04/23. Exam performed portable in patient room. Left Ventricle Normal LV size. Left ventricular systolic function is normal. The estimated ejection fraction is 65 %. No regional wall motion abnormalities noted. Right Ventricle Normal RV size. Normal systolic function. Atria Normal left atrium. Normal right atrium. Mitral Valve Normal mitral valve. Tricuspid Valve Normal tricuspid valve. Mild to moderate (1-2+) tricuspid valve insufficiency. Pulmonary artery systolic pressure is 45 mmHg. Mild pulmonary hypertension. Aortic Valve Normal aortic valve. Pulmonic Valve Normal pulmonic valve. Great Vessels Normal aortic root. The pulmonary artery is normal size. Normal inferior vena cava. Pericardium/Pleural No pericardial effusion. Medication Diluted definity 4ml given slow IV push to enhance endocardial definition. MMode/2D Measurements & Calculations LVIDd: 3.6 cm IVSd: 1.0 cm LA dimension: 3.1 cm LVIDs: 2.3 cm LVPWd: 0.92 cm FS: 35.0 % LAV(MOD-bp): 60.8 ml LVAd ap4: 28.7 cm2 SV(MOD-sp4): 59.7 ml LAV(MOD-bp) Indexed: 30.4 ml/m2 LVLd ap4: 7.3 cm LAV(MOD-sp2): 48.4 ml EDV(MOD-sp4): 93.5 ml LAV(MOD-sp4): 65.3 ml EDV(sp4-el): 96.4 ml LVAs ap4: 15.9 cm2 LVLs ap4: 6.2 cm ESV(MOD-sp4): 33.8 ml ESV(sp4-el): 34.5 ml EF(MOD-sp4): 63.8 % EF(sp4-el): 64.3 % SV(sp4-el): 62.0 ml LA A4 area: 22.1 cm2 Time Measurements MV dec time: 0.20 sec Doppler Measurements & Calculations MV E max nixon: 60.5 cm/sec Lat Peak E' Nixon: 15.3 cm/sec Med Peak E' Nixon: 5.4 cm/sec MV A max nixon: 58.8 cm/sec E/E' lat: 4.0 E/E' med: 11.2 MV E/A: 1.0 MV V2 max: 79.6 cm/sec MV P1/2t max nixon: 80.1 cm/sec Ao V2 max: 158.5 cm/sec MV max P.5 mmHg MV P1/2t: 64.7 msec Ao max P.1 mmHg MV V2 mean: 36.3 cm/sec Ao V2 mean: 105.3 cm/sec MV mean P.67 mmHg MV dec slope: 362.3 cm/sec2 Ao mean P.1 mmHg MV V2 VTI: 25.7 cm MVA(P1/2t): 3.4 cm2 Ao V2 VTI: 34.6 cm AV (velocity ratio): 0.57 LV V1 max: 86.1 cm/sec PA V2 max: 107.3 cm/sec TR max nixon: 321.7 cm/sec LV V1 max P.0 mmHg PA V2 mean: 68.0 cm/sec TR max P.4 mmHg LV V1 mean P.5 mmHg LV V1 mean: 57.1 cm/sec LV V1 VTI: 19.9 cm ECHO/Echo Complete W/ Contrast Interpretation Summary Normal LV size. Left ventricular systolic function is normal. The estimated ejection fraction is 65 %. Pulmonary artery systolic pressure is 45 mmHg. Contrast injection was performed. Ordering Physician: Master Phillip Referring Physician: Alicia Florentino Performed By: Chato Huddleston RCS
[2023-09-05 10:25] LABS: BNP,B-Type NATRIURETIC PEPTIDE 120.7 pg/mL (0-100)
[2023-09-05] MEDS: Furosemide 100 MG/10 ML Vial 60 MG IV (10:44)
[2023-09-05] MEDS: oxyCODONE 5 MG Tablet PO ×2 (10:45→16:50)
[2023-09-05] MEDS: Enoxaparin 40 MG/0.4 ML Syringe SC (10:46)
--- NOTE | 2023-09-05 10:57 | NURSING ---
assisted up to BSC with walker and assist x2; pt voided then walked around bed to chair. pt tolerated with some pain rating 8/10. after in chair Echo came in. assisted pt back to bed for ECHO to be done. informed pt that we will let her rest after getting up twice. placed the purewick back. IV lasix and pain med given. talked with pt that will let her rest and then will get her up to chair again in couple hours for lunch. pt in agreeance
[2023-09-05 12:49] LABS: Bedside Glucose 172 mg/dL (74-106)
[2023-09-05 15:32] LABS: Bedside Glucose 168 mg/dL (74-106)
[2023-09-05] MEDS: Acetaminophen 325 MG Tablet 650 MG PO (16:24)
--- NOTE | 2023-09-05 18:29 | NURSING ---
documentation by Chapis cuellar reviewed.
[2023-09-05] MEDS: Insulin Glargine-YFGN 100 UNIT/ML Pen 45 UNIT SC (21:50)
[2023-09-05 23:25] LABS: Bedside Glucose 159 mg/dL (74-106)
[2023-09-06] VITALS (11 sets, daily range): BP systolic 106–132; BP diastolic 43–62; PULSE 62–82; RESP 16–20; TEMP 36.4–37.2; O2SAT 91–95
[2023-09-06] MEDS: HYDROmorphone 1 MG/ML Syringe IV ×2 (00:47→18:41)
[2023-09-06] MEDS: 0.9% Saline Lock 10 ML Syringe IV ×3 (00:48→18:41)
[2023-09-06 04:55] LABS: Bedside Glucose 110 mg/dL (74-106)
[2023-09-06] MEDS: oxyCODONE 5 MG Tablet PO ×3 (05:02→14:29)
[2023-09-06] MEDS: Acetaminophen 325 MG Tablet 650 MG PO ×2 (05:02→12:08)
[2023-09-06 07:01] LABS: Absolute Lymphocyte Count 1.46 X10^3/uL (0.83-4.51); Absolute Neutrophil Count 4.8 X10^3/uL (2.0-7.7); Basophil# 0.01 X10^3/uL; Basophil% 0.1 % (0-1); Eosinophil# 0.06 X10^3/uL; Eosinophils% 0.9 % (0-5); Hematocrit 31.7 % (37-47); Hemoglobin 10.6 g/dL (12.0-15.0); Lymphocyte # 1.46 X10^3/ul (0.83-4.51); Lymphocyte % 21.5 % (19-41); Mean Corp Hgb Conc 33.4 g/dL (32-36); Mean Corpuscular Volume 89.8 fL (81-99); Mean Platelet Vol. 9.9 fl (6.2-12.0); Monocyte# 0.46 X10^3/uL; Monocyte% 6.8 % (0-10); NRBC Flagged by Analyzer 0 % (0-5); Neutrophil # 4.79 X10^3/uL (2.7-7.7); Neutrophil % 70.4 % (47-70); Platelet Count 278 K/mm3 (150-450); RBC Distribution Width CV 14.5 % (11.6-14.6); RBC Distribution Width SD 47.6 fl (35.1-43.9); Red Blood Count 3.53 M/mm3 (4.2-5.4); White Blood Count 6.8 K/mm3 (4.4-11.0)
[2023-09-06] MEDS: Budesonide Respules 0.5 MG/2 ML AMPUL.NEB. INHALATION ×2 (07:18→19:55)
--- NOTE | 2023-09-06 07:37 | PN.HOSP_ITS ---
Reason for Visit Reason for Visit: Diagnoses Hyperlipidemia, unspecified (09/02/23) Acute cholecystitis (09/02/23) Subjective Subjective Patient seen clinical condition continues to improve. Case discussed with general surgery plans for possible discharge. Patient however complains of being constipated an order was given for [place] mL of magnesium citrate. Additional dose of Lasix given. Objective Data Objective Data Vital Signs: Vital Signs Temp Pulse Resp BP Pulse Ox O2 Del Method O2 Flow Rate 98.3 F 82 18 132/52 H 91 Room Air 2 09/06/23 04:36 09/06/23 07:18 09/06/23 07:18 09/06/23 04:36 09/06/23 07:18 09/06/23 07:18 09/05/23 14:00 Oxygen Flow Rate (L/min) 2 Oxygen Delivery Method Room Air Weight: 107.184 kg Body Mass Index (BMI) 46.1 Intake & Output: Intake and Output for Last 24 Hours 09/04/23 09/05/23 09/06/23 23:59 23:59 23:59 Intake Total 3307 / 3307 2460 / 2460 400 / 400 Output Total 1425 / 1425 1700 / 1700 600 / 600 Balance 1882 / 1882 760 / 760 -200 / -200 Lab / Micro Data 09/06/23 06:23 09/05/23 06:00 Labs: Laboratory Results - last 24 hr 09/05/23 06:00: Sodium 138, Potassium 3.8, Chloride 107, Carbon Dioxide 25.0, Anion Gap 6, BUN 18, Creatinine 1.19 H, Estim Creat Clear Calc 41.07, Est GFR (MDRD) Af Amer 56 L, Est GFR (MDRD) Non-Af 46 L, BUN/Creatinine Ratio 15.1, Glucose 186 H, Calcium 8.1 L, Total Bilirubin 0.90, AST 51 H, ALT 75 H, Alkaline Phosphatase 108, B-Natriuretic Peptide 120.7 H, Total Protein 5.5 L, Albumin 2.1 L, Globulin 3.4, Albumin/Globulin Ratio 0.6 L 09/05/23 08:14: POC Glucose 188 H 09/05/23 12:30: POC Glucose 172 H 09/05/23 15:08: POC Glucose 168 H 09/05/23 21:42: POC Glucose 159 H 09/06/23 04:28: POC Glucose 110 H 09/06/23 06:23: WBC 6.8, RBC 3.53 L, Hgb 10.6 L, Hct 31.7 L, MCV 89.8, MCH 30.0, MCHC 33.4, RDW Std Deviation 47.6 H, RDW Coeff of Jorge L 14.5, Plt Count 278, MPV 9.9, Immature Gran % (Auto) 0.300, Neut % (Auto) 70.4 H, Lymph % (Auto) 21.5, [place] % (Auto) 6.8, Eos % (Auto) 0.9, Baso % (Auto) 0.1, Absolute Neuts (auto) 4.8, Absolute Lymphs (auto) 1.46, Nucleated RBC % 0 Radiography Diagnostic Testing: Radiology Impression Chest X-Ray 09/05/23 09:57 IMPRESSION: Mild atelectatic changes in the left lung base and trace of left pleural effusion. Electronically Signed: Doni Khoury MD at 13:22 EST , Echocardiogram 09/05/23 09:58 Interpretation Summary Normal LV size. Left ventricular systolic function is normal. The estimated ejection fraction is 65 %. Pulmonary artery systolic pressure is 45 mmHg. Contrast injection was performed. Ordering Physician: Master Phillip Referring Physician: Alicia Florentino Performed By: Chato Huddleston RCS Physical Exam Narrative GENERAL: cooperative HEENT: Atraumatic; normocephalic EYES; Anicteric, Normal Conjunctiva NECK; supple, normal thyroid, RESPIRATORY: Diminished to auscultation CARDIOVASCULAR: Regular S1 S2, GI: soft, normoactive bowel sounds, : No Renal angle tenderness; EXTREMITIES: No edema, no clubbing, MUSCULOSKELETAL: no muscle wasting NEURO: Awake; no lateralizing signs. SKIN: No Rash PSYCH; Flat affect Assessment & Plan Assessment/Plan (1) Acute cholecystitis: PLAN: Plan Patient is an 82-year-old lady who presented with epigastric discomfort. An assessment of acute cholecystitis made admitted to regular nursing floor under surgical services with consultation placed to the hospitalist team 1. Acute cholecystitis ? Imaging studies on admission did reveal hepatomegaly and fatty infiltration of the liver. Multiple gallstones with positive sonographic Murray''s sign and small amount of pericholecystic fluid. Patient admitted to the surgical service with plans for patient to undergo laparoscopic cholecystectomy with intraoperative cholangiogram ? 09/04/2023;Underwent ERCP by Dr. Cespedes the day prior findings of procedure performed as below - Choledocholithiasis was found. Partial removal was accomplished with biliary sphincterotomy; a stent was inserted. - A biliary sphincterotomy was performed. - The biliary tree was swept. - The hepatic duct bifurcation was successfully dilated. - One temporary stent was placed into the common bile duct. -Plan is for patient to undergo laparoscopic cholecystectomy 09/05/2023 patient underwent laparoscopic cholecystectomy with intraoperative cholangiogram on 09/04/2023 Laparoscopic cholecystectomy with intraoperative cholangiogram Description of Surgical Findings:: ? Foreshortened gallbladder neck due to inflammation, with shortened cystic duct ? Otherwise normal biliary anatomy with single cystic duct and anterior cystic artery ? Cholangiogram showing antegrade filling through common bile duct stent in good position with flow through the ampulla into the duodenum as well as retrograde flow into the common hepatic and proper hepatic duct 2. Mild intermittent asthma ? Bronchodilator treatments as needed 3. Hypertension - Blood pressure controlled, home medications continued with dose adjustment as needed 4. Class III obesity with BMI of 46 ? Complicating care weight loss advised 5. Nonalcoholic fatty liver disease ? Related to patient obesity as well as diabetes plans for patient to follow-up with primary care physician for subsequent referral to GI 6. Dyslipidemia -Patient is on statin therapy, continued at home dose 7. Diabetes mellitus type II -patient's oral hypoglycemics held. Placed on long acting insulin, Accu-Cheks a.c. and at bedtime and covered with sliding scale insulin ? 09/04/2023 patient had a hypoglycemic episode the day prior patient was started on D5 since she was n.p.o. for her procedure. 8. GERD ? On PPI 9. History of PACs and PVCs ? Patient is on metoprolol 10. DVT prophylaxis SC Lovenox 11. Acute dyspnea ? Do suspect fluid overload versus atelectasis ordered checks x-ray patient given Lasix also ordered 2D echo for EF assessment 13. Acute congestive heart failure with preserved ejection fraction ? Echo demonstrated Normal LV size. Left ventricular systolic function is normal. The estimated ejection fraction is 65 %. Pulmonary artery systolic pressure is 45 mmHg. Contrast injection was performed. ? Patient responded to diuretic therapy Time spent in the patient's overall evaluation,decision-making process, review of diagnostic data, adjustment of management, discussion with other providers, nursing nursing and ancillary staff involved in patient's care documentation, 35. Minutes Charges/Coding Visit Charges Inpatient E&M: 03128 Subs Hosp L2
--- NOTE | 2023-09-06 08:03 | PCM.PN.SRG ---
Subjective Subjective Patient seen and examined during AM rounds. She is initially found eating breakfast and denied any nausea. She also reported that she had improvements in her abdominal discomfort but persistent pain at her subxiphoid port site. She was later evaluated in the afternoon and appeared to have more pain complaints. Family, at bedside, remarked that she had difficulty working with physical therapy and that her stamina was lacking. They are interested in seeing if patient is a candidate for TCU rehab. They also share that the pressure sore was identified. Lastly, they remain concerned about the swelling of patient's hands. Objective Data Objective Data Vital Signs: Vital Signs Temp Pulse Resp BP Pulse Ox O2 Del Method O2 Flow Rate 98.3 F 82 18 132/52 H 91 Room Air 2 09/06/23 04:36 09/06/23 07:18 09/06/23 07:18 09/06/23 04:36 09/06/23 07:18 09/06/23 07:18 09/05/23 14:00 Oxygen Flow Rate (L/min) 2 Oxygen Delivery Method Room Air Weight: 236 lb 4.8 oz Body Mass Index (BMI) 46.1 Intake & Output: Intake and Output for Last 24 Hours 09/04/23 09/05/23 09/06/23 23:59 23:59 23:59 Intake Total 3307 / 3307 2460 / 2460 400 / 400 Output Total 1425 / 1425 1700 / 1700 600 / 600 Balance 1882 / 1882 760 / 760 -200 / -200 Lab / Micro Data 09/06/23 06:23 09/05/23 06:00 Labs: Laboratory Results - last 24 hr 09/05/23 06:00: Sodium 138, Potassium 3.8, Chloride 107, Carbon Dioxide 25.0, Anion Gap 6, BUN 18, Creatinine 1.19 H, Estim Creat Clear Calc 41.07, Est GFR (MDRD) Af Amer 56 L, Est GFR (MDRD) Non-Af 46 L, BUN/Creatinine Ratio 15.1, Glucose 186 H, Calcium 8.1 L, Total Bilirubin 0.90, AST 51 H, ALT 75 H, Alkaline Phosphatase 108, B-Natriuretic Peptide 120.7 H, Total Protein 5.5 L, Albumin 2.1 L, Globulin 3.4, Albumin/Globulin Ratio 0.6 L 09/05/23 08:14: POC Glucose 188 H 09/05/23 12:30: POC Glucose 172 H 09/05/23 15:08: POC Glucose 168 H 09/05/23 21:42: POC Glucose 159 H 09/06/23 04:28: POC Glucose 110 H 09/06/23 06:23: WBC 6.8, RBC 3.53 L, Hgb 10.6 L, Hct 31.7 L, MCV 89.8, MCH 30.0, MCHC 33.4, RDW Std Deviation 47.6 H, RDW Coeff of Jorge L 14.5, Plt Count 278, MPV 9.9, Immature Gran % (Auto) 0.300, Neut % (Auto) 70.4 H, Lymph % (Auto) 21.5, Vance % (Auto) 6.8, Eos % (Auto) 0.9, Baso % (Auto) 0.1, Absolute Neuts (auto) 4.8, Absolute Lymphs (auto) 1.46, Nucleated RBC % 0 Radiography Diagnostic Testing: Radiology Impression Chest X-Ray 09/05/23 09:57 IMPRESSION: Mild atelectatic changes in the left lung base and trace of left pleural effusion. Electronically Signed: Doni Khoury MD at 13:22 EST , Echocardiogram 09/05/23 09:58 Interpretation Summary Normal LV size. Left ventricular systolic function is normal. The estimated ejection fraction is 65 %. Pulmonary artery systolic pressure is 45 mmHg. Contrast injection was performed. Ordering Physician: Master Phillip Referring Physician: Alicia Florentino Performed By: Chato Huddleston RCS Physical Exam Const oriented x3 Constitutional Narrative: Mild distress?particularly in the afternoon from pain GI GI Narrative: Obese, Steri-Strips remain intact, no evidence of drainage. Superficial tenderness with palpation about patient's subxiphoid and supraumbilical port sites. Otherwise nondistended and soft. Assessment & Plan Assessment/Plan (1) Acute cholecystitis: PLAN: Patient is an 82-year-old female who is postoperative day 2 from laparoscopic cholecystectomy with intraoperative cholangiogram and hospital day 4 for acute cholecystitis with acute choledocholithiasis status post ERCP with stone removal 09/03/2023 by GI. Her pain complaints were somewhat improved this a.m., but have returned after working with therapy. Patient shares she is not taking much of her regular diet and feels constipated?being without a bowel movement throughout her hospital stay. She appears less dyspneic this morning and her IV is now saline locked. Given her persistent pain complaints, will increase her oral pain medication to 1-2 tabs of oxycodone try to prolong the relief. Appreciate assistance of medicine for medical optimization and of nursing/PT OT for postoperative mobilization. Dispo: Continue inpatient stay?based on patient's reports and family's concerns about patient's mobility on return home they are seeking TCU rehab stay. Will plan to discuss this further with social work tomorrow. Elia Melendrez MD General Surgery Endocrine Surgery Pager: [facility] [address] [place] [address], [address] [place] [address] Office: [phone] (2) Hyperlipidemia: QUALIFIERS: Hyperlipidemia type: unspecified Qualified Code(s): E78.5 - Hyperlipidemia, unspecified PLAN: Hyperbilirubinemia in the setting of cholestatic pattern to remaining LFTs suggestive of choledocholithiasis. Charges/Coding Visit Charges Inpatient E&M: 19646 Subs Hosp L2
[2023-09-06] MEDS: Pantoprazole Sodium 40 MG Tablet PO (10:13)
[2023-09-06] MEDS: Polyethylene Glycol 3350 17 GM PACKET PO (10:13)
[2023-09-06] MEDS: Enoxaparin 40 MG/0.4 ML Syringe SC (12:02)
[2023-09-06] MEDS: Furosemide 100 MG/10 ML Vial 80 MG IV (12:02)
[2023-09-06 17:05] LABS: Bedside Glucose 166 mg/dL (74-106)
[2023-09-06] MEDS: Insulin Lispro 100 UNIT/ML INSULN.PEN SC ×2 (17:33→21:19)
[2023-09-06] MEDS: Insulin Glargine-YFGN 100 UNIT/ML Pen 45 UNIT SC (21:18)
[2023-09-06] MEDS: Metoprolol Tartrate 25 MG Tablet 12.5 MG PO (21:18)
[2023-09-06 22:18] LABS: Bedside Glucose 196 mg/dL (74-106)
[2023-09-07] VITALS (11 sets, daily range): BP systolic 120–135; BP diastolic 52–59; PULSE 58–70; RESP 16–20; TEMP 36.6–37.1; O2SAT 97–100
[2023-09-07] MEDS: oxyCODONE 5 MG Tablet PO ×3 (04:35→21:32)
[2023-09-07] MEDS: Acetaminophen 325 MG Tablet 650 MG PO ×2 (04:36→21:33)
[2023-09-07 05:41] LABS: Bedside Glucose 117 mg/dL (74-106)
[2023-09-07 06:41] LABS: Absolute Lymphocyte Count 1.38 X10^3/uL (0.83-4.51); Absolute Neutrophil Count 4.8 X10^3/uL (2.0-7.7); Basophil# 0.02 X10^3/uL; Basophil% 0.3 % (0-1); Eosinophil# 0.13 X10^3/uL; Eosinophils% 1.9 % (0-5); Hematocrit 31.6 % (37-47); Hemoglobin 10.3 g/dL (12.0-15.0); Lymphocyte # 1.38 X10^3/ul (0.83-4.51); Lymphocyte % 20.4 % (19-41); Mean Corp Hgb Conc 32.6 g/dL (32-36); Mean Corpuscular Hgb 29.2 pg (27.0-32.0); Mean Corpuscular Volume 89.5 fL (81-99); Mean Platelet Vol. 9.5 fl (6.2-12.0); Monocyte# 0.44 X10^3/uL; Monocyte% 6.5 % (0-10); NRBC Flagged by Analyzer 0 % (0-5); Neutrophil # 4.77 X10^3/uL (2.7-7.7); Neutrophil % 70.6 % (47-70); Platelet Count 288 K/mm3 (150-450); RBC Distribution Width CV 14.3 % (11.6-14.6); RBC Distribution Width SD 46.9 fl (35.1-43.9); Red Blood Count 3.53 M/mm3 (4.2-5.4); White Blood Count 6.8 K/mm3 (4.4-11.0)
[2023-09-07 07:00] LABS: Anion Gap 5 (5-15); BUN 16 mg/dL (7-18); BUN/Creat Ratio 23.3 RATIO (10-20); Calcium,Total 8.4 mg/dL (8.5-10.1); Chloride 106 mmol/L (98-107); Creatinine, Serum 0.69 mg/dL (0.55-1.02); EST Glomerular Filtration Rate 87 mL/min (>60); Est Glom Filt Rate - Afr Amer 105 mL/min (>60); Glucose 107 mg/dL (74-106); Magnesium 1.8 mg/dL (1.6-2.6); Phosphorus 2.3 mg/dL (2.5-4.9); Potassium 3.9 mmol/L (3.5-5.1); Sodium Level 141 mmol/L (136-145)
[2023-09-07] MEDS: Albuterol 2.5 MG/3 ML VIAL.NEB. INHALATION (07:52)
[2023-09-07] MEDS: Budesonide Respules 0.5 MG/2 ML AMPUL.NEB. INHALATION ×2 (07:52→20:11)
--- NOTE | 2023-09-07 09:10 | PCM.PN.SRG ---
Subjective Subjective Patient seen and examined during AM rounds. She is found resting in bed. She states that she is feeling somewhat better today. She has less pain and less nausea/better appetite. Objective Data Objective Data Vital Signs: Vital Signs Temp Pulse Resp BP Pulse Ox O2 Del Method O2 Flow Rate 98.4 F 58 L 18 120/58 L 100 Room Air 2 09/07/23 08:06 09/07/23 08:06 09/07/23 08:06 09/07/23 08:06 09/07/23 08:06 09/07/23 08:06 09/07/23 07:44 Oxygen Flow Rate (L/min) 2 Oxygen Delivery Method Room Air Weight: 236 lb 4.8 oz Body Mass Index (BMI) 46.1 Intake & Output: Intake and Output for Last 24 Hours 09/05/23 09/06/23 09/07/23 23:59 23:59 23:59 Intake Total 2460 / 2460 800 / 800 500 / 500 Output Total 1700 / 1700 1400 / 1400 550 / 550 Balance 760 / 760 -600 / -600 -50 / -50 Lab / Micro Data 09/07/23 06:21 09/07/23 06:21 Labs: Laboratory Results - last 24 hr 09/06/23 16:36: POC Glucose 166 H 09/06/23 20:47: POC Glucose 196 H 09/07/23 04:38: POC Glucose 117 H 09/07/23 06:21: WBC 6.8, RBC 3.53 L, Hgb 10.3 L, Hct 31.6 L, MCV 89.5, MCH 29.2, MCHC 32.6, RDW Std Deviation 46.9 H, RDW Coeff of Jorge L 14.3, Plt Count 288, MPV 9.5, Immature Gran % (Auto) 0.300, Neut % (Auto) 70.6 H, Lymph % (Auto) 20.4, [place] % (Auto) 6.5, Eos % (Auto) 1.9, Baso % (Auto) 0.3, Absolute Neuts (auto) 4.8, Absolute Lymphs (auto) 1.38, Nucleated RBC % 0, Sodium 141, Potassium 3.9, Chloride 106, Carbon Dioxide 30.0, Anion Gap 5, BUN 16, Creatinine 0.69, Estim Creat Clear Calc 61.10, Est GFR (MDRD) Af Amer 105, Est GFR (MDRD) Non-Af 87, BUN/Creatinine Ratio 23.3 H, Glucose 107 H, Calcium 8.4 L, Phosphorus 2.3 L, Magnesium 1.8 Physical Exam Const oriented x3 and no apparent distress GI GI Narrative: Soft, nondistended, currently tender to palpation across the epigastrium (patient exhibits some voluntary guarding before palpation even). Operative Steri-Strips remain intact. There is no wound drainage or local warmth. Assessment & Plan Assessment/Plan (1) Acute cholecystitis: PLAN: Patient is an 82-year-old female who is postoperative day 3 from laparoscopic cholecystectomy with intraoperative cholangiogram and hospital day 5 for acute cholecystitis with acute choledocholithiasis status post ERCP with stone removal 09/03/2023 by GI. Her pain complaints are further improved this a.m.. Patient has yet to have her breakfast but reports a better appetite today. Appreciate assistance of medicine for medical optimization and of nursing/PT OT for postoperative mobilization. Given patient's comorbidities and difficulty mobilizing postoperatively, tentative plan is to seek TCU residency for ongoing therapy as patient recovers from her acute abdominal conditions. Dispo: Await evaluation for possible TCU transfer. From a surgical standpoint patient would be appropriate for transfer as early as later today. Elia Melendrez MD General Surgery Endocrine Surgery Pager: [facility] [address] [place] [address], [address] [place] [address] Office: [phone] (2) Hyperlipidemia: QUALIFIERS: Hyperlipidemia type: unspecified Qualified Code(s): E78.5 - Hyperlipidemia, unspecified PLAN: Hyperbilirubinemia in the setting of cholestatic pattern to remaining LFTs suggestive of choledocholithiasis. Charges/Coding Visit Charges Inpatient E&M: 31103 Subs Hosp L2
[2023-09-07] MEDS: Na Biphos/Potassium Phosphate PACKET 1 PACKET PO (11:16)
[2023-09-07] MEDS: amLODIPine 5 MG Tablet PO (11:16)
[2023-09-07] MEDS: Pantoprazole Sodium 40 MG Tablet PO (11:16)
[2023-09-07] MEDS: Metoprolol Tartrate 25 MG Tablet 12.5 MG PO ×2 (11:17→21:46)
[2023-09-07] MEDS: Losartan Potassium 25 MG Tablet PO (11:21)
[2023-09-07] MEDS: Enoxaparin 40 MG/0.4 ML Syringe SC (11:21)
[2023-09-07 11:51] LABS: Bedside Glucose 140 mg/dL (74-106)
--- NOTE | 2023-09-07 15:07 | CASEMGMT ---
Discharge Planning A list of SNF providers including quality and resource use data and consistent with the patient's preferred geographic region, medical needs, and insurance network was created in [facility] Guide.? This list was provided to the SW. Soha Hussein Discharge Planning Asst.
--- NOTE | 2023-09-07 15:48 | CASEMGMT ---
Social Work SW met with pt and introduced self and role of SW. Pt requesting to go to SNF. A list of SNF providers including quality and resource use data and consistent with the patient?s preferred geographic region, medical needs, and insurance network were provided from the [facility] Guide. Pt's friend in the room and has esau prince on the phone. Preferred providers are 1. [facility]. [facility]. Referral to TCU and no beds available. DC assistant account executive updated and referral made to the [facility]. Plan: [facility], pending acceptance and precert ENRIQUE Huff
--- NOTE | 2023-09-07 16:04 | CASEMGMT ---
Addendum entered by Soha Hussein 09/08/23 08:05: [facility] has accepted and submitted precert. Soha Hussein, Discharge Planning Asst. Original Note: Discharge Planning Referral sent to [facility] via [facility]. Soha Hussein, Discharge Planning Asst.
[2023-09-07] MEDS: Docusate Sodium 100 MG Capsule 200 MG PO ×2 (16:13→21:34)
[2023-09-07] MEDS: Insulin Lispro 100 UNIT/ML INSULN.PEN SC ×2 (16:20→21:46)
--- NOTE | 2023-09-07 16:31 | EX.PCM.PN.GI ---
Subjective Subjective Patient is awaiting to be discharged to the [facility]. She said that she is eating a little bit better. She denies any abdominal pain. Her stools are normal color. Objective Data Objective Data Vital Signs: Vital Signs Temp Pulse Resp BP Pulse Ox O2 Del Method O2 Flow Rate 98.7 F 68 18 135/59 H 98 Room Air 2 09/07/23 15:49 09/07/23 15:49 09/07/23 15:49 09/07/23 15:49 09/07/23 15:49 09/07/23 15:49 09/07/23 07:44 Oxygen Flow Rate (L/min) 2 Oxygen Delivery Method Room Air Weight: 236 lb 4.8 oz Body Mass Index (BMI) 46.1 Intake & Output: Intake and Output for Last 24 Hours 09/05/23 09/06/23 09/07/23 23:59 23:59 23:59 Intake Total 2460 / 2460 800 / 800 950 / 950 Output Total 1700 / 1700 1400 / 1400 1550 / 1550 Balance 760 / 760 -600 / -600 -600 / -600 Lab / Micro Data 09/07/23 06:21 09/07/23 06:21 Labs: Laboratory Results - last 24 hr 09/06/23 16:36: POC Glucose 166 H 09/06/23 20:47: POC Glucose 196 H 09/07/23 04:38: POC Glucose 117 H 09/07/23 06:21: WBC 6.8, RBC 3.53 L, Hgb 10.3 L, Hct 31.6 L, MCV 89.5, MCH 29.2, MCHC 32.6, RDW Std Deviation 46.9 H, RDW Coeff of Jorge L 14.3, Plt Count 288, MPV 9.5, Immature Gran % (Auto) 0.300, Neut % (Auto) 70.6 H, Lymph % (Auto) 20.4, [place] % (Auto) 6.5, Eos % (Auto) 1.9, Baso % (Auto) 0.3, Absolute Neuts (auto) 4.8, Absolute Lymphs (auto) 1.38, Nucleated RBC % 0, Sodium 141, Potassium 3.9, Chloride 106, Carbon Dioxide 30.0, Anion Gap 5, BUN 16, Creatinine 0.69, Estim Creat Clear Calc 61.10, Est GFR (MDRD) Af Amer 105, Est GFR (MDRD) Non-Af 87, BUN/Creatinine Ratio 23.3 H, Glucose 107 H, Calcium 8.4 L, Phosphorus 2.3 L, Magnesium 1.8 09/07/23 11:32: POC Glucose 140 H Physical Exam Narrative GENERAL: cooperative HEENT: Atraumatic; normocephalic EYES; Anicteric, Normal Conjunctiva NECK; supple, normal thyroid, RESPIRATORY: Diminished to auscultation CARDIOVASCULAR: Regular S1 S2, GI: soft, normoactive bowel sounds, : No Renal angle tenderness; EXTREMITIES: No edema, no clubbing, MUSCULOSKELETAL: no muscle wasting NEURO: Awake; no lateralizing signs. SKIN: No Rash PSYCH; Flat affect Assessment & Plan Assessment/Plan (1) Acute cholecystitis: PLAN: Plan Patient is an 82-year-old lady who presented with epigastric discomfort. An assessment of acute cholecystitis made admitted to regular nursing floor under surgical services 1. Acute cholecystitis ? Imaging studies on admission did reveal hepatomegaly and fatty infiltration of the liver. Multiple gallstones with positive sonographic Murray''s sign and small amount of pericholecystic fluid. Patient admitted to the surgical service with plans for patient to undergo laparoscopic cholecystectomy with intraoperative cholangiogram ? 09/04/2023;Underwent ERCP the day prior findings of procedure performed as below - Choledocholithiasis was found. Partial removal was accomplished with biliary sphincterotomy; a stent was inserted. - A biliary sphincterotomy was performed. - The biliary tree was swept. - The hepatic duct bifurcation was successfully dilated. - One temporary stent was placed into the common bile duct. -Plan is for patient to undergo laparoscopic cholecystectomy 09/05/2023 patient underwent laparoscopic cholecystectomy with intraoperative cholangiogram on 09/04/2023 Laparoscopic cholecystectomy with intraoperative cholangiogram Description of Surgical Findings:: ? Foreshortened gallbladder neck due to inflammation, with shortened cystic duct ? Otherwise normal biliary anatomy with single cystic duct and anterior cystic artery ? Cholangiogram showing antegrade filling through common bile duct stent in good position with flow through the ampulla into the duodenum as well as retrograde flow into the common hepatic and proper hepatic duct 09/07/2023-patient will need to undergo repeat ERCP in a couple months for stent removal or exchange. Charges/Coding Visit Charges Inpatient E&M: 23747 [facility] Hosp L3
[2023-09-07 17:13] LABS: Bedside Glucose 177 mg/dL (74-106)
--- NOTE | 2023-09-07 17:25 | PCM.PN.HOSP ---
Reason for Visit Reason for Visit: Diagnoses Hyperlipidemia, unspecified (09/02/23) Acute cholecystitis (09/02/23) Subjective Subjective Pt reports still having some RUQ pain, ate some breakfast and feels she did fairly well with that, reports she has been constipated, no nausea or vomiting Objective Data Objective Data Vital Signs: Vital Signs Temp Pulse Resp BP Pulse Ox O2 Del Method O2 Flow Rate 98.7 F 68 18 135/59 H 98 Room Air 2 09/07/23 15:49 09/07/23 15:49 09/07/23 15:49 09/07/23 15:49 09/07/23 15:49 09/07/23 15:49 09/07/23 07:44 Oxygen Flow Rate (L/min) 2 Oxygen Delivery Method Room Air Weight: 107.184 kg Body Mass Index (BMI) 46.1 Intake & Output: Intake and Output for Last 24 Hours 09/05/23 09/06/23 09/07/23 23:59 23:59 23:59 Intake Total 2460 / 2460 800 / 800 950 / 950 Output Total 1700 / 1700 1400 / 1400 1550 / 1550 Balance 760 / 760 -600 / -600 -600 / -600 Lab / Micro Data 09/07/23 06:21 09/07/23 06:21 Labs: Laboratory Results - last 24 hr 09/06/23 20:47: POC Glucose 196 H 09/07/23 04:38: POC Glucose 117 H 09/07/23 06:21: WBC 6.8, RBC 3.53 L, Hgb 10.3 L, Hct 31.6 L, MCV 89.5, MCH 29.2, MCHC 32.6, RDW Std Deviation 46.9 H, RDW Coeff of Jorge L 14.3, Plt Count 288, MPV 9.5, Immature Gran % (Auto) 0.300, Neut % (Auto) 70.6 H, Lymph % (Auto) 20.4, [place] % (Auto) 6.5, Eos % (Auto) 1.9, Baso % (Auto) 0.3, Absolute Neuts (auto) 4.8, Absolute Lymphs (auto) 1.38, Nucleated RBC % 0, Sodium 141, Potassium 3.9, Chloride 106, Carbon Dioxide 30.0, Anion Gap 5, BUN 16, Creatinine 0.69, Estim Creat Clear Calc 61.10, Est GFR (MDRD) Af Amer 105, Est GFR (MDRD) Non-Af 87, BUN/Creatinine Ratio 23.3 H, Glucose 107 H, Calcium 8.4 L, Phosphorus 2.3 L, Magnesium 1.8 09/07/23 11:32: POC Glucose 140 H 09/07/23 16:20: POC Glucose 177 H Physical Exam Narrative General: Alert, oriented, no apparent distress HEENT: Atraumatic, normocephalic Eyes: Anicteric, normal conjunctiva, extraocular movements grossly intact Neck: Supple Respiratory: Clear to auscultation bilaterally, normal respiratory effort Cardiovascular: Regular rate and rhythm GI: Soft, some tenderness in right upper quadrant area without rebound, guarding, rigidity Extremities: No edema Musculoskeletal: Moving all extremities Neuro: No overt focal neurological deficits Skin: No rashes appreciated Psych: Cooperative Assessment & Plan Assessment/Plan (1) Acute cholecystitis: PLAN: Plan Patient is an 82-year-old lady who presented with epigastric discomfort. An assessment of acute cholecystitis made admitted to regular nursing floor under surgical services with consultation placed to the hospitalist team 1. Acute cholecystitis ? Imaging studies on admission did reveal hepatomegaly and fatty infiltration of the liver. Multiple gallstones with positive sonographic Murray''s sign and small amount of pericholecystic fluid. Patient admitted to the surgical service with plans for patient to undergo laparoscopic cholecystectomy with intraoperative cholangiogram ? 09/04/2023;Underwent ERCP by Dr. Cespedes the day prior findings of procedure performed as below - Choledocholithiasis was found. Partial removal was accomplished with biliary sphincterotomy; a stent was inserted. - A biliary sphincterotomy was performed. - The biliary tree was swept. - The hepatic duct bifurcation was successfully dilated. - One temporary stent was placed into the common bile duct. -Plan is for patient to undergo laparoscopic cholecystectomy -09/05/2023 patient underwent laparoscopic cholecystectomy with intraoperative cholangiogram on 09/04/2023 Laparoscopic cholecystectomy with intraoperative cholangiogram Description of Surgical Findings:: ? Foreshortened gallbladder neck due to inflammation, with shortened cystic duct ? Otherwise normal biliary anatomy with single cystic duct and anterior cystic artery ? Cholangiogram showing antegrade filling through common bile duct stent in good position with flow through the ampulla into the duodenum as well as retrograde flow into the common hepatic and proper hepatic duct -09/07: Patient postop day 3 from lap pavan with IntraOp cholangiogram and ERCP with stone removal 09/03. Slowly improving. Plan is for patient to go for placement. GI evaluated and advised patient needs to undergo repeat ERCP in a couple months for stent removal or exchange 2. Mild intermittent asthma ? Bronchodilator treatments as needed 3. Hypertension - Blood pressure controlled, home medications continued with dose adjustment as needed 4. Class III obesity with BMI of 46 ? Complicating care weight loss advised 5. Nonalcoholic fatty liver disease ? Related to patient obesity as well as diabetes plans for patient to follow-up with primary care physician for subsequent referral to GI 6. Dyslipidemia -Patient is on statin therapy, continued at home dose 7. Diabetes mellitus type II -patient's oral hypoglycemics held. Placed on long acting insulin, Accu-Cheks a.c. and at bedtime and covered with sliding scale insulin ? 09/04/2023 patient had a hypoglycemic episode the day prior patient was started on D5 since she was n.p.o. for her procedure. -09/07: On her long-acting, continue sliding scale as well, off dextrose 8. GERD ? On PPI 9. History of PACs and PVCs ? Patient is on metoprolol 10. DVT prophylaxis SC Lovenox 11. Acute dyspnea ? Do suspect fluid overload versus atelectasis ordered checks x-ray patient given Lasix also ordered 2D echo for EF assessment -09/07: EF 65% with PASP 45, symptoms improved Time spent in the patient's overall evaluation,decision-making process, review of diagnostic data, adjustment of management, discussion with other providers, nursing nursing and ancillary staff involved in patient's care documentation, 35 Minutes Capacity Legal Iron Setter Reflex Medical hold order details:: IF a medical hold is selected below, a suggested order for a MEDICAL HOLD will reflex upon signing the document. Next of kin: [place] law dictates a PRIORITY LIST for identifying legal decision-maker/legal next of kin in the following order (LNOK): 1st: The patient?s legal guardian, if any 2nd: The patient's spouse (if status is questionable, consult Risk Management) 3rd: The patient?s adult child(venkata) (majority, if multiple children) 4th: The patient?s parents 5th: The patient?s adult siblings (majority, if multiple children siblings) Charges/Coding Visit Charges Inpatient E&M: 27679 Subs Hosp L2
[2023-09-07] MEDS: Insulin Glargine-YFGN 100 UNIT/ML Pen 45 UNIT SC (21:46)
[2023-09-08] VITALS (11 sets, daily range): BP systolic 111–138; BP diastolic 48–60; PULSE 60–68; RESP 16–20; TEMP 36.7–36.9; O2SAT 90–97
[2023-09-08 00:33] LABS: Bedside Glucose 196 mg/dL (74-106)
[2023-09-08] MEDS: Acetaminophen 325 MG Tablet 650 MG PO (05:27)
[2023-09-08] MEDS: oxyCODONE 5 MG Tablet PO ×2 (05:27→15:43)
[2023-09-08 06:34] LABS: Bedside Glucose 68 mg/dL (74-106)
[2023-09-08 06:34] LABS: Bedside Glucose 80 mg/dL (74-106)
[2023-09-08] MEDS: Metoclopramide 10 MG/2 ML Vial IV (09:20)
--- NOTE | 2023-09-08 09:40 | PN.SURG_ITS ---
Subjective Subjective Seen and examined during AM rounds. She is found sitting out of bed in the chair. Nursing reports that they assist the patient with ambulating this morning and she did better than yesterday. However, patient is presently dry heaving and pleads for assistance feeling better. She flatly states this is not me . She denies any bowel movements and has had minimal flatus. Objective Data Objective Data Vital Signs: Vital Signs Temp Pulse Resp BP Pulse Ox O2 Del Method O2 Flow Rate 98.5 F 68 16 121/50 H 90 Room Air 2 09/08/23 04:39 09/08/23 04:39 09/08/23 04:39 09/08/23 04:39 09/08/23 08:06 09/08/23 08:06 09/07/23 07:44 Oxygen Flow Rate (L/min) 2 Oxygen Delivery Method Room Air Weight: 236 lb 4.8 oz Body Mass Index (BMI) 46.1 Intake & Output: Intake and Output for Last 24 Hours 09/06/23 09/07/23 09/08/23 23:59 23:59 23:59 Intake Total 800 / 800 1650 / 1650 300 / 300 Output Total 1400 / 1400 1950 / 1950 625 / 625 Balance -600 / -600 -300 / -300 -325 / -325 Lab / Micro Data 09/07/23 06:21 09/07/23 06:21 Labs: Laboratory Results - last 24 hr 09/07/23 11:32: POC Glucose 140 H 09/07/23 16:20: POC Glucose 177 H 09/07/23 21:44: POC Glucose 196 H 09/08/23 04:32: POC Glucose 68 L 09/08/23 05:21: POC Glucose 80 Physical Exam Const oriented x3 Constitutional Narrative: Patient appears ill Resp normal respiratory effort GI GI Narrative: Mildly distended, tender to palpation particularly in the epigastrium. Soft Assessment & Plan Assessment/Plan (1) Acute cholecystitis: PLAN: Patient is an 82-year-old female who is postoperative day 4 from laparoscopic cholecystectomy with intraoperative cholangiogram and hospital day 6 for acute cholecystitis with acute choledocholithiasis status post ERCP with stone removal 09/03/2023 by GI. Her pain persist today and she still has not had a bowel movement despite MiraLAX and use of stool softeners. I suspect she is just significantly constipated with her large doses of opiates in the periop erative phase of her care. Yet, I will pursue further investigation with an urgent KUB to assess her bowel gas pattern and stool burden. If patient is determined to simply be constipated I have requested her permission to administer an enema and she has provided this permission. I would also like to see her get a shower today. I am obtaining labs today in the event there are electrolyte abnormalities or other concerns to be addressed. Unfortunately given patient's condition this will have to delay her disposition to a nursing facility. To this end yesterday we learned that patient will not be a candidate for TCU transfer but is awaiting precertification for nursing facility locally. Appreciate assistance of medicine for medical optimization and of nursing/PT OT for postoperative mobilization. Dispo: Continue inpatient care and workup as above. Elia Melendrez MD General Surgery Endocrine Surgery Pager: [facility] [address] [place] [address], [facility], [address] [place] [address] Office: [phone] (2) Hyperlipidemia: QUALIFIERS: Hyperlipidemia type: unspecified Qualified Code(s): E78.5 - Hyperlipidemia, unspecified PLAN: Hyperbilirubinemia in the setting of cholestatic pattern to remaining LFTs suggestive of choledocholithiasis. Capacity Legal Director Case Management Reflex Medical hold order details:: IF a medical hold is selected below, a suggested order for a MEDICAL HOLD will reflex upon signing the document. Next of kin: [place] law dictates a PRIORITY LIST for identifying legal decision-maker/legal next of kin in the following order (LNOK): 1st: The patient?s legal guardian, if any 2nd: The patient's spouse (if status is questionable, consult Risk Management) 3rd: The patient?s adult child(venkata) (majority, if multiple children) 4th: The patient?s parents 5th: The patient?s adult siblings (majority, if multiple children siblings) Charges/Coding Visit Charges Inpatient E&M: 92911 Subs Hosp L2
[2023-09-08 09:46] LABS: Absolute Lymphocyte Count 2.24 X10^3/uL (0.83-4.51); Absolute Neutrophil Count 3.4 X10^3/uL (2.0-7.7); Basophil# 0.02 X10^3/uL; Basophil% 0.3 % (0-1); Eosinophil# 0.24 X10^3/uL; Eosinophils% 3.8 % (0-5); Hematocrit 33.4 % (37-47); Lymphocyte # 2.24 X10^3/ul (0.83-4.51); Lymphocyte % 35.4 % (19-41); Mean Corp Hgb Conc 32.9 g/dL (32-36); Mean Corpuscular Hgb 29.3 pg (27.0-32.0); Mean Corpuscular Volume 89.1 fL (81-99); Mean Platelet Vol. 9.5 fl (6.2-12.0); Monocyte# 0.43 X10^3/uL; Monocyte% 6.8 % (0-10); NRBC Flagged by Analyzer 0 % (0-5); Neutrophil # 3.37 X10^3/uL (2.7-7.7); Neutrophil % 53.2 % (47-70); Platelet Count 334 K/mm3 (150-450); RBC Distribution Width SD 45.9 fl (35.1-43.9); Red Blood Count 3.75 M/mm3 (4.2-5.4); White Blood Count 6.3 K/mm3 (4.4-11.0)
[2023-09-08 10:09] LABS: Anion Gap 5 (5-15); BUN 11 mg/dL (7-18); BUN/Creat Ratio 15.2 RATIO (10-20); Calcium,Total 9.3 mg/dL (8.5-10.1); Chloride 106 mmol/L (98-107); Creatinine, Serum 0.73 mg/dL (0.55-1.02); EST Glomerular Filtration Rate 82 mL/min (>60); Est Glom Filt Rate - Afr Amer 99 mL/min (>60); Glucose 82 mg/dL (74-106); Phosphorus 2.1 mg/dL (2.5-4.9); Potassium 3.9 mmol/L (3.5-5.1); Sodium Level 140 mmol/L (136-145)
--- NOTE | 2023-09-08 10:51 | RAD_ITS ---
STUDY: X-RAY - ABDOMEN/PELVIS REASON FOR EXAM: Female, 82 years old. Constipation, ab pain, nausea post pavan TECHNIQUE: Single AP view of the abdomen / pelvis. COMPARISON: None. FINDINGS: A biliary stent is seen in the common bile duct. Moderate amount of fecal material is seen in the colon. The visualized liver, spleen and kidneys are grossly normal in size and morphology. Normal soft tissue structures. There are degenerative changes of the visualized lumbar spine. RAD/Abdomen Single View (Portable) IMPRESSION: Moderate amount of fecal material is seen in the colon. Electronically Signed: Young Rucker MD at 11:27 EST ,
[2023-09-08] MEDS: Docusate Sodium 100 MG Capsule 200 MG PO ×2 (12:14→23:57)
[2023-09-08] MEDS: Enoxaparin 40 MG/0.4 ML Syringe SC (12:15)
[2023-09-08] MEDS: Metoprolol Tartrate 25 MG Tablet 12.5 MG PO ×2 (12:15→23:57)
[2023-09-08] MEDS: Losartan Potassium 25 MG Tablet PO (12:15)
[2023-09-08] MEDS: amLODIPine 5 MG Tablet PO (12:16)
[2023-09-08] MEDS: Pantoprazole Sodium 40 MG Tablet PO (12:16)
[2023-09-08] MEDS: Fleet Enema 133 ML RC (12:16)
[2023-09-08 12:45] LABS: Bedside Glucose 71 mg/dL (74-106)
[2023-09-08] MEDS: Polyethylene Glycol 3350 17 GM PACKET PO (13:21)
--- NOTE | 2023-09-08 14:43 | CASEMGMT ---
[facility] has obtained auth. SW updated. Soha Hussein, Discharge Planning Asst.
--- NOTE | 2023-09-08 15:36 | PCM.PN.HOSP ---
Reason for Visit Reason for Visit: Diagnoses Hyperlipidemia, unspecified (09/02/23) Acute cholecystitis (09/02/23) Subjective Subjective This morning patient nauseous and with pain, felt slightly better by the afternoon when I evaluated and nausea improved, had gotten enema and was waiting to have a bowel movement Objective Data Objective Data Vital Signs: Vital Signs Temp Pulse Resp BP Pulse Ox O2 Del Method O2 Flow Rate 98.4 F 60 18 138/60 H 96 Room Air 2 09/08/23 12:10 09/08/23 12:15 09/08/23 12:10 09/08/23 12:10 09/08/23 12:10 09/08/23 12:10 09/07/23 07:44 Oxygen Flow Rate (L/min) 2 Oxygen Delivery Method Room Air Weight: 107.184 kg Body Mass Index (BMI) 46.1 Intake & Output: Intake and Output for Last 24 Hours 09/06/23 09/07/23 09/08/23 23:59 23:59 23:59 Intake Total 800 / 800 1650 / 1650 550 / 550 Output Total 1400 / 1400 1950 / 1950 825 / 825 Balance -600 / -600 -300 / -300 -275 / -275 Lab / Micro Data 09/08/23 09:31 09/08/23 09:31 Labs: Laboratory Results - last 24 hr 09/07/23 16:20: POC Glucose 177 H 09/07/23 21:44: POC Glucose 196 H 09/08/23 04:32: POC Glucose 68 L 09/08/23 05:21: POC Glucose 80 09/08/23 09:31: WBC 6.3, RBC 3.75 L, Hgb 11.0 L, Hct 33.4 L, MCV 89.1, MCH 29.3, MCHC 32.9, RDW Std Deviation 45.9 H, RDW Coeff of Jorge L 14.0, Plt Count 334, MPV 9.5, Immature Gran % (Auto) 0.500, Neut % (Auto) 53.2, Lymph % (Auto) 35.4, Shannon % (Auto) 6.8, Eos % (Auto) 3.8, Baso % (Auto) 0.3, Absolute Neuts (auto) 3.4, Absolute Lymphs (auto) 2.24, Nucleated RBC % 0, Sodium 140, Potassium 3.9, Chloride 106, Carbon Dioxide 29.0, Anion Gap 5, BUN 11, Creatinine 0.73, Estim Creat Clear Calc 61.10, Est GFR (MDRD) Af Amer 99, Est GFR (MDRD) Non-Af 82, BUN/Creatinine Ratio 15.2, Glucose 82, Calcium 9.3, Phosphorus 2.1 L, Magnesium 2.0 09/08/23 11:57: POC Glucose 71 L Radiography Diagnostic Testing: Radiology Impression KUB X-Ray 09/08/23 10:51 IMPRESSION: Moderate amount of fecal material is seen in the colon. Electronically Signed: Young Rucker MD at 11:27 EST , Physical Exam Narrative General: Alert, oriented, no apparent distress HEENT: Atraumatic, normocephalic Eyes: Anicteric, normal conjunctiva, extraocular movements grossly intact Neck: Supple Respiratory: Clear to auscultation bilaterally, normal respiratory effort Cardiovascular: Regular rate and rhythm GI: Soft, some tenderness in right upper quadrant area without rebound, guarding, rigidity Extremities: No edema Musculoskeletal: Moving all extremities Neuro: No overt focal neurological deficits Skin: No rashes appreciated Psych: Cooperative Assessment & Plan Assessment/Plan (1) Acute cholecystitis: PLAN: Plan Patient is an 82-year-old lady who presented with epigastric discomfort. An assessment of acute cholecystitis made admitted to regular nursing floor under surgical services with consultation placed to the hospitalist team 1. Acute cholecystitis ? Imaging studies on admission did reveal hepatomegaly and fatty infiltration of the liver. Multiple gallstones with positive sonographic Murray''s sign and small amount of pericholecystic fluid. Patient admitted to the surgical service with plans for patient to undergo laparoscopic cholecystectomy with intraoperative cholangiogram ? 09/04/2023;Underwent ERCP by Dr. Cespedes the day prior findings of procedure performed as below - Choledocholithiasis was found. Partial removal was accomplished with biliary sphincterotomy; a stent was inserted. - A biliary sphincterotomy was performed. - The biliary tree was swept. - The hepatic duct bifurcation was successfully dilated. - One temporary stent was placed into the common bile duct. -Plan is for patient to undergo laparoscopic cholecystectomy -09/05/2023 patient underwent laparoscopic cholecystectomy with intraoperative cholangiogram on 09/04/2023 Laparoscopic cholecystectomy with intraoperative cholangiogram Description of Surgical Findings:: ? Foreshortened gallbladder neck due to inflammation, with shortened cystic duct ? Otherwise normal biliary anatomy with single cystic duct and anterior cystic artery ? Cholangiogram showing antegrade filling through common bile duct stent in good position with flow through the ampulla into the duodenum as well as retrograde flow into the common hepatic and proper hepatic duct -09/07: Patient postop day 3 from lap pavan with IntraOp cholangiogram and ERCP with stone removal 09/03. Slowly improving. Plan is for patient to go for placement. GI evaluated and advised patient needs to undergo repeat ERCP in a couple months for stent removal or exchange -09/08: Patient still having some pain and has been constipated, KUB obtained, patient got enema and awaiting bowel movement. Continue supportive care 2. Mild intermittent asthma ? Bronchodilator treatments as needed 3. Hypertension - Blood pressure controlled, home medications continued with dose adjustment as needed 4. Class III obesity with BMI of 46 ? Complicating care weight loss advised 5. Nonalcoholic fatty liver disease ? Related to patient obesity as well as diabetes plans for patient to follow-up with primary care physician for subsequent referral to GI 6. Dyslipidemia -Patient is on statin therapy, continued at home dose 7. Diabetes mellitus type II -patient's oral hypoglycemics held. Placed on long acting insulin, Accu-Cheks a.c. and at bedtime and covered with sliding scale insulin ? 09/04/2023 patient had a hypoglycemic episode the day prior patient was started on D5 since she was n.p.o. for her procedure. -09/07: On her long-acting, continue sliding scale as well, off dextrose -09/08: Given she has not been eating very well she did have a low glucose this morning, will de-escalate insulin dosing 8. GERD ? On PPI 9. History of PACs and PVCs ? Patient is on metoprolol 10. DVT prophylaxis SC Lovenox 11. Acute dyspnea ? Do suspect fluid overload versus atelectasis ordered checks x-ray patient given Lasix also ordered 2D echo for EF assessment -09/07: EF 65% with PASP 45, symptoms improved Time spent in the patient's overall evaluation,decision-making process, review of diagnostic data, adjustment of management, discussion with other providers, nursing nursing and ancillary staff involved in patient's care documentation, 35 Minutes Capacity Legal Electronics Technician Apprentice Reflex Medical hold order details:: IF a medical hold is selected below, a suggested order for a MEDICAL HOLD will reflex upon signing the document. Next of kin: [place] law dictates a PRIORITY LIST for identifying legal decision-maker/legal next of kin in the following order (LNOK): 1st: The patient?s legal guardian, if any 2nd: The patient's spouse (if status is questionable, consult Risk Management) 3rd: The patient?s adult child(venkata) (majority, if multiple children) 4th: The patient?s parents 5th: The patient?s adult siblings (majority, if multiple children siblings) Charges/Coding Visit Charges Inpatient E&M: 02837 Subs Hosp L2
--- NOTE | 2023-09-08 16:32 | PN.GI_ITS ---
Subjective Subjective Patient does complain of a lot of nausea, bloating and abdominal discomfort. She says that she has been belching and having dry heaving. She was seen by surgical service earlier in the day and a x-ray of the abdomen pelvis was ordered. It did show a significant stool burden. She is scheduled to get enemas. Objective Data Objective Data Vital Signs: Vital Signs Temp Pulse Resp BP Pulse Ox O2 Del Method O2 Flow Rate 98.4 F 60 18 138/60 H 96 Room Air 2 09/08/23 12:10 09/08/23 12:15 09/08/23 12:10 09/08/23 12:10 09/08/23 12:10 09/08/23 12:10 09/07/23 07:44 Oxygen Flow Rate (L/min) 2 Oxygen Delivery Method Room Air Weight: 236 lb 4.8 oz Body Mass Index (BMI) 46.1 Intake & Output: Intake and Output for Last 24 Hours 09/06/23 09/07/23 09/08/23 23:59 23:59 23:59 Intake Total 800 / 800 1650 / 1650 550 / 550 Output Total 1400 / 1400 1950 / 1950 825 / 825 Balance -600 / -600 -300 / -300 -275 / -275 Lab / Micro Data 09/08/23 09:31 09/08/23 09:31 Labs: Laboratory Results - last 24 hr 09/07/23 16:20: POC Glucose 177 H 09/07/23 21:44: POC Glucose 196 H 09/08/23 04:32: POC Glucose 68 L 09/08/23 05:21: POC Glucose 80 09/08/23 09:31: WBC 6.3, RBC 3.75 L, Hgb 11.0 L, Hct 33.4 L, MCV 89.1, MCH 29.3, MCHC 32.9, RDW Std Deviation 45.9 H, RDW Coeff of Jorge L 14.0, Plt Count 334, MPV 9.5, Immature Gran % (Auto) 0.500, Neut % (Auto) 53.2, Lymph % (Auto) 35.4, Cameron % (Auto) 6.8, Eos % (Auto) 3.8, Baso % (Auto) 0.3, Absolute Neuts (auto) 3.4, Absolute Lymphs (auto) 2.24, Nucleated RBC % 0, Sodium 140, Potassium 3.9, Chloride 106, Carbon Dioxide 29.0, Anion Gap 5, BUN 11, Creatinine 0.73, Estim Creat Clear Calc 61.10, Est GFR (MDRD) Af Amer 99, Est GFR (MDRD) Non-Af 82, BUN/Creatinine Ratio 15.2, Glucose 82, Calcium 9.3, Phosphorus 2.1 L, Magnesium 2.0 09/08/23 11:57: POC Glucose 71 L Radiography Diagnostic Testing: Radiology Impression KUB X-Ray 09/08/23 10:51 IMPRESSION: Moderate amount of fecal material is seen in the colon. Electronically Signed: Young Rucker MD at 11:27 EST , Physical Exam Narrative General: Alert, oriented, no apparent distress HEENT: Atraumatic, normocephalic Eyes: Anicteric, normal conjunctiva, extraocular movements grossly intact Neck: Supple Respiratory: Clear to auscultation bilaterally, normal respiratory effort Cardiovascular: Regular rate and rhythm GI: Soft, some tenderness in right upper quadrant area without rebound, guarding, rigidity Extremities: No edema Musculoskeletal: Moving all extremities Neuro: No overt focal neurological deficits Skin: No rashes appreciated Psych: Cooperative Assessment & Plan Assessment/Plan (1) Acute cholecystitis: PLAN: Plan Patient is an 82-year-old lady who presented with epigastric discomfort. An assessment of acute cholecystitis made admitted to regular nursing floor under surgical services 1. Acute cholecystitis ? Imaging studies on admission did reveal hepatomegaly and fatty infiltration of the liver. Multiple gallstones with positive sonographic Murray''s sign and small amount of pericholecystic fluid. Patient admitted to the surgical service with plans for patient to undergo laparoscopic cholecystectomy with intraoperative cholangiogram ? 09/04/2023;Underwent ERCP the day prior findings of procedure performed as below - Choledocholithiasis was found. Partial removal was accomplished with biliary sphincterotomy; a stent was inserted. - A biliary sphincterotomy was performed. - The biliary tree was swept. - The hepatic duct bifurcation was successfully dilated. - One temporary stent was placed into the common bile duct. -Plan is for patient to undergo laparoscopic cholecystectomy 09/05/2023 patient underwent laparoscopic cholecystectomy with intraoperative cholangiogram on 09/04/2023 Laparoscopic cholecystectomy with intraoperative cholangiogram Description of Surgical Findings:: ? Foreshortened gallbladder neck due to inflammation, with shortened cystic duct ? Otherwise normal biliary anatomy with single cystic duct and anterior cystic a rtery ? Cholangiogram showing antegrade filling through common bile duct stent in good position with flow through the ampulla into the duodenum as well as retrograde flow into the common hepatic and proper hepatic duct 09/07/2023-patient will need to undergo repeat ERCP in a couple months for stent removal or exchange. 09/08/2023-patient does seem to be experiencing some signs and symptoms of con stipation possibly from lack of movement, not eating and medication effect. Agree with aggressive bowel regimen including enemas, stool softeners and stimulant laxatives. I will put her on scheduled Reglan therapy. Charges/Coding Visit Charges Inpatient E&M: 70288 Subs Hosp L3
[2023-09-08] MEDS: Na Biphos/Potassium Phosphate PACKET 1 PACKET PO (17:04)
[2023-09-08] MEDS: Metoclopramide 10 MG/2 ML Vial 5 MG IV (17:07)
[2023-09-08] MEDS: 0.9% Saline Lock 10 ML Syringe IV (17:07)
[2023-09-08 17:52] LABS: Bedside Glucose 89 mg/dL (74-106)
[2023-09-08] MEDS: Budesonide Respules 0.5 MG/2 ML AMPUL.NEB. INHALATION (19:54)
[2023-09-09] VITALS (9 sets, daily range): BP systolic 126–142; BP diastolic 55–62; PULSE 65–78; RESP 16–20; TEMP 36.7–37.3; O2SAT 96–98
[2023-09-09] MEDS: Acetaminophen 325 MG Tablet 650 MG PO ×2 (00:01→10:01)
[2023-09-09 00:32] LABS: Bedside Glucose 122 mg/dL (74-106)
[2023-09-09] MEDS: 0.9% Saline Lock 10 ML Syringe IV ×3 (00:42→07:08)
[2023-09-09] MEDS: Metoclopramide 10 MG/2 ML Vial 5 MG IV ×5 (00:47→23:29)
[2023-09-09] MEDS: oxyCODONE 5 MG Tablet PO ×3 (00:54→20:48)
[2023-09-09 07:29] LABS: Bedside Glucose 106 mg/dL (74-106)
[2023-09-09] MEDS: Budesonide Respules 0.5 MG/2 ML AMPUL.NEB. INHALATION ×2 (07:55→18:56)
--- NOTE | 2023-09-09 08:03 | PCM.PN.HOSP ---
Reason for Visit Reason for Visit: Diagnoses Hyperlipidemia, unspecified (09/02/23) Acute cholecystitis (09/02/23) Subjective Subjective Had a very small bowel movement and feels slightly better but still has pain with palpation Objective Data Objective Data Vital Signs: Vital Signs Temp Pulse Resp BP Pulse Ox O2 Del Method O2 Flow Rate 99.1 F 70 20 H 142/57 H 96 Room Air 3 09/09/23 06:50 09/09/23 07:55 09/09/23 07:55 09/09/23 06:50 09/09/23 07:55 09/09/23 07:55 09/08/23 19:54 Oxygen Flow Rate (L/min) 3 Oxygen Delivery Method Room Air Weight: 107.184 kg Body Mass Index (BMI) 46.1 Intake & Output: Intake and Output for Last 24 Hours 09/07/23 09/08/23 09/09/23 23:59 23:59 23:59 Intake Total 1650 / 1650 1150 / 1150 Output Total 1950 / 1950 1075 / 1075 300 / 300 Balance -300 / -300 75 / 75 -300 / -300 Lab / Micro Data 09/09/23 07:38 09/09/23 07:38 Labs: Laboratory Results - last 24 hr 09/08/23 09:31: WBC 6.3, RBC 3.75 L, Hgb 11.0 L, Hct 33.4 L, MCV 89.1, MCH 29.3, MCHC 32.9, RDW Std Deviation 45.9 H, RDW Coeff of Jorge L 14.0, Plt Count 334, MPV 9.5, Immature Gran % (Auto) 0.500, Neut % (Auto) 53.2, Lymph % (Auto) 35.4, Angelina % (Auto) 6.8, Eos % (Auto) 3.8, Baso % (Auto) 0.3, Absolute Neuts (auto) 3.4, Absolute Lymphs (auto) 2.24, Nucleated RBC % 0, Sodium 140, Potassium 3.9, Chloride 106, Carbon Dioxide 29.0, Anion Gap 5, BUN 11, Creatinine 0.73, Estim Creat Clear Calc 61.10, Est GFR (MDRD) Af Amer 99, Est GFR (MDRD) Non-Af 82, BUN/Creatinine Ratio 15.2, Glucose 82, Calcium 9.3, Phosphorus 2.1 L, Magnesium 2.0 09/08/23 11:57: POC Glucose 71 L 09/08/23 17:01: POC Glucose 89 09/09/23 00:06: POC Glucose 122 H 09/09/23 07:10: POC Glucose 106 Radiography Diagnostic Testing: Radiology Impression KUB X-Ray 09/08/23 10:51 IMPRESSION: Moderate amount of fecal material is seen in the colon. Electronically Signed: Young Rucker MD at 11:27 EST , Physical Exam Narrative General: Alert, oriented, no apparent distress HEENT: Atraumatic, normocephalic Eyes: Anicteric, normal conjunctiva, extraocular movements grossly intact Neck: Supple Respiratory: Clear to auscultation bilaterally, normal respiratory effort Cardiovascular: Regular rate and rhythm GI: Soft, some tenderness in right upper quadrant area without rebound, guarding, rigidity Extremities: No edema Musculoskeletal: Moving all extremities Neuro: No overt focal neurological deficits Skin: No rashes appreciated Psych: Cooperative Assessment & Plan Assessment/Plan (1) Acute cholecystitis: PLAN: Plan Patient is an 82-year-old lady who presented with epigastric discomfort. An assessment of acute cholecystitis made admitted to regular nursing floor under surgical services with consultation placed to the hospitalist team 1. Acute cholecystitis ? Imaging studies on admission did reveal hepatomegaly and fatty infiltration of the liver. Multiple gallstones with positive sonographic Murray''s sign and small amount of pericholecystic fluid. Patient admitted to the surgical service with plans for patient to undergo laparoscopic cholecystectomy with intraoperative cholangiogram ? 09/04/2023;Underwent ERCP by Dr. Cespedes the day prior findings of procedure performed as below - Choledocholithiasis was found. Partial removal was accomplished with biliary sphincterotomy; a stent was inserted. - A biliary sphincterotomy was performed. - The biliary tree was swept. - The hepatic duct bifurcation was successfully dilated. - One temporary stent was placed into the common bile duct. -Plan is for patient to undergo laparoscopic cholecystectomy -09/05/2023 patient underwent laparoscopic cholecystectomy with intraoperative cholangiogram on 09/04/2023 Laparoscopic cholecystectomy with intraoperative cholangiogram Description of Surgical Findings:: ? Foreshortened gallbladder neck due to inflammation, with shortened cystic duct ? Otherwise normal biliary anatomy with single cystic duct and anterior cystic artery ? Cholangiogram showing antegrade filling through common bile duct stent in good position with flow through the ampulla into the duodenum as well as retrograde flow into the common hepatic and proper hepatic duct -09/07: Patient postop day 3 from lap pavan with IntraOp cholangiogram and ERCP with stone removal 09/03. Slowly improving. Plan is for patient to go for placement. GI evaluated and advised patient needs to undergo repeat ERCP in a couple months for stent removal or exchange -09/08: Patient still having some pain and has been constipated, KUB obtained, patient got enema and awaiting bowel movement. Continue supportive care -09/09: Patient had small bowel movement, bowel regimen to escalate per surgery recommendations/management 2. Mild intermittent asthma ? Bronchodilator treatments as needed 3. Hypertension - Blood pressure controlled, home medications continued with dose adjustment as needed 4. Class III obesity with BMI of 46 ? Complicating care weight loss advised 5. Nonalcoholic fatty liver disease ? Related to patient obesity as well as diabetes plans for patient to follow-up with primary care physician for subsequent referral to GI 6. Dyslipidemia -Patient is on statin therapy, continued at home dose 7. Diabetes mellitus type II -patient's oral hypoglycemics held. Placed on long acting insulin, Accu-Cheks a.c. and at bedtime and covered with sliding scale insulin ? 09/04/2023 patient had a hypoglycemic episode the day prior patient was started on D5 since she was n.p.o. for her procedure. -09/07: On her long-acting, continue sliding scale as well, off dextrose -09/08: Given she has not been eating very well she did have a low glucose this morning, will de-escalate insulin dosing -09/09: Fasting glucose well within range today without hypoglycemia 8. GERD ? On PPI 9. History of PACs and PVCs ? Patient is on metoprolol 10. DVT prophylaxis SC Lovenox 11. Acute dyspnea ? Do suspect fluid overload versus atelectasis ordered checks x-ray patient given Lasix also ordered 2D echo for EF assessment -09/07: EF 65% with PASP 45, symptoms improved Time spent in the patient's overall evaluation,decision-making process, review of diagnostic data, adjustment of management, discussion with other providers, nursing nursing and ancillary staff involved in patient's care documentation, 35 Minutes Capacity Legal Electronics Technician Apprentice Reflex Medical hold order details:: IF a medical hold is selected below, a suggested order for a MEDICAL HOLD will reflex upon signing the document. Next of kin: [place] law dictates a PRIORITY LIST for identifying legal decision-maker/legal next of kin in the following order (LNOK): 1st: The patient?s legal guardian, if any 2nd: The patient's spouse (if status is questionable, consult Risk Management) 3rd: The patient?s adult child(venkata) (majority, if multiple children) 4th: The patient?s parents 5th: The patient?s adult siblings (majority, if multiple children siblings) Charges/Coding Visit Charges Inpatient E&M: 03458 Subs Hosp L2
[2023-09-09 08:07] LABS: Absolute Neutrophil Count 3.9 X10^3/uL (2.0-7.7); Basophil# 0.02 X10^3/uL; Basophil% 0.3 % (0-1); Eosinophil# 0.28 X10^3/uL; Eosinophils% 4.1 % (0-5); Hematocrit 32.6 % (37-47); Hemoglobin 10.7 g/dL (12.0-15.0); Lymphocyte % 29.6 % (19-41); Mean Corp Hgb Conc 32.8 g/dL (32-36); Mean Corpuscular Hgb 29.5 pg (27.0-32.0); Mean Corpuscular Volume 89.8 fL (81-99); Mean Platelet Vol. 9.6 fl (6.2-12.0); Monocyte# 0.48 X10^3/uL; Monocyte% 7.1 % (0-10); NRBC Flagged by Analyzer 0 % (0-5); Neutrophil # 3.93 X10^3/uL (2.7-7.7); Neutrophil % 58.2 % (47-70); Platelet Count 347 K/mm3 (150-450); RBC Distribution Width SD 45.8 fl (35.1-43.9); Red Blood Count 3.63 M/mm3 (4.2-5.4); White Blood Count 6.8 K/mm3 (4.4-11.0)
[2023-09-09 08:37] LABS: Anion Gap 3 (5-15); BUN 8 mg/dL (7-18); BUN/Creat Ratio 12.2 RATIO (10-20); Calcium,Total 9.5 mg/dL (8.5-10.1); Chloride 105 mmol/L (98-107); Creatinine, Serum 0.66 mg/dL (0.55-1.02); EST Glomerular Filtration Rate 92 mL/min (>60); Est Glom Filt Rate - Afr Amer 111 mL/min (>60); Glucose 111 mg/dL (74-106); Potassium 4.1 mmol/L (3.5-5.1); Sodium Level 138 mmol/L (136-145)
[2023-09-09] MEDS: Metoprolol Tartrate 25 MG Tablet 12.5 MG PO ×2 (09:53→23:30)
[2023-09-09] MEDS: Pantoprazole Sodium 40 MG Tablet PO (09:54)
[2023-09-09] MEDS: Losartan Potassium 25 MG Tablet PO (09:54)
[2023-09-09] MEDS: Docusate Sodium 100 MG Capsule 200 MG PO ×2 (09:54→23:29)
[2023-09-09] MEDS: amLODIPine 5 MG Tablet PO (09:55)
[2023-09-09] MEDS: Enoxaparin 40 MG/0.4 ML Syringe SC (09:55)
--- NOTE | 2023-09-09 10:42 | PN.SURG_ITS ---
Subjective Subjective Patient evaluated resting comfortably in bed. She denies nausea, vomiting. She notes passing flatus, however no bowel movement. She notes abdominal discomfort due to not having a bowel movement. Objective Data Objective Data Vital Signs: Vital Signs Temp Pulse Resp BP Pulse Ox O2 Del Method O2 Flow Rate 99.1 F 78 20 H 142/57 H 96 Room Air 3 09/09/23 06:50 09/09/23 09:53 09/09/23 07:55 09/09/23 06:50 09/09/23 07:55 09/09/23 07:55 09/08/23 19:54 Oxygen Flow Rate (L/min) 3 Oxygen Delivery Method Room Air Weight: 236 lb 4.8 oz Body Mass Index (BMI) 46.1 Intake & Output: Intake and Output for Last 24 Hours 09/07/23 09/08/23 09/09/23 23:59 23:59 23:59 Intake Total 1650 / 1650 1150 / 1150 Output Total 1950 / 1950 1075 / 1075 300 / 300 Balance -300 / -300 75 / 75 -300 / -300 Lab / Micro Data 09/09/23 07:38 09/09/23 07:38 Labs: Laboratory Results - last 24 hr 09/08/23 11:57: POC Glucose 71 L 09/08/23 17:01: POC Glucose 89 09/09/23 00:06: POC Glucose 122 H 09/09/23 07:10: POC Glucose 106 09/09/23 07:38: WBC 6.8, RBC 3.63 L, Hgb 10.7 L, Hct 32.6 L, MCV 89.8, MCH 29.5, MCHC 32.8, RDW Std Deviation 45.8 H, RDW Coeff of Jorge L 14.0, Plt Count 347, MPV 9.6, Immature Gran % (Auto) 0.700, Neut % (Auto) 58.2, Lymph % (Auto) 29.6, Hunt % (Auto) 7.1, Eos % (Auto) 4.1, Baso % (Auto) 0.3, Absolute Neuts (auto) 3.9, Absolute Lymphs (auto) 2.00, Nucleated RBC % 0, Sodium 138, Potassium 4.1, Chloride 105, Carbon Dioxide 30.0, Anion Gap 3 L, BUN 8, Creatinine 0.66, Estim Creat Clear Calc 61.10, Est GFR (MDRD) Af Amer 111, Est GFR (MDRD) Non-Af 92, BUN/Creatinine Ratio 12.2, Glucose 111 H, Calcium 9.5, Phosphorus 3.0 Radiography Diagnostic Testing: Radiology Impression KUB X-Ray 09/08/23 10:51 IMPRESSION: Moderate amount of fecal material is seen in the colon. Electronically Signed: Young Rucker MD at 11:27 EST , Physical Exam GI GI Narrative: Abdomen- obese. Generalized tenderness. incisions c/d/i. No erythema or infection noted. Assessment & Plan Assessment/Plan (1) Acute cholecystitis: PLAN: Plan I have evaluated this patient in conjunction with Dr. Melendrez Labs reviewed Patient continuing to struggle with not having a bowel movement. Will give another enema. If no results in 3-4 hours will plan to give magnesium citrate. Continue regular diet at this time We will continue to monitor patient. Likely discharge tomorrow. Capacity Legal [employer] System Administrator Reflex Medical hold order details:: IF a medical hold is selected below, a suggested order for a MEDICAL HOLD will reflex upon signing the document. Next of kin: [place] law dictates a PRIORITY LIST for identifying legal decision-maker/legal next of kin in the following order (LNOK): 1st: The patient?s legal guardian, if any 2nd: The patient's spouse (if status is questionable, consult Risk Management) 3rd: The patient?s adult child(venkata) (majority, if multiple children) 4th: The patient?s parents 5th: The patient?s adult siblings (majority, if multiple children siblings) Charges/Coding Visit Charges Inpatient E&M: 57696 Subs Hosp L1 (post-op; no charge)
[2023-09-09] MEDS: Fleet Enema 133 ML RC (11:41)
[2023-09-09 12:02] LABS: Bedside Glucose 135 mg/dL (74-106)
[2023-09-09] MEDS: Magnesium Citrate 300 ML 150 ML PO (15:22)
--- NOTE | 2023-09-09 16:05 | CASEMGMT ---
Social Work SW met with pt's niece to discuss discharge plan. Niece states she and pt feel pt can return home at time of discharge and no longer want to go to [facility]. Pt lives at home alone and has a friend who can check on her frequently and stay with pt if needed. Niece states she can also stop and check on her daily and stay on the weekend. RNCM notified to followup for home needs. ENRIQUE Huff
--- NOTE | 2023-09-09 16:23 | CASEMGMT ---
Pt states at this time that she cannot decide if she wants to go home or to a SNF after DC. POA updated on pt status. Pt states she would like us to check in with her tomorrow. Pt is aware we have precert from [facility] at this time. Will follow.
[2023-09-09] MEDS: Insulin Lispro 100 UNIT/ML INSULN.PEN SC (16:39)
[2023-09-09 16:58] LABS: Bedside Glucose 158 mg/dL (74-106)
[2023-09-09 22:44] LABS: Bedside Glucose 130 mg/dL (74-106)
[2023-09-09] MEDS: Insulin Glargine-YFGN 100 UNIT/ML Pen 40 UNIT SC (23:30)
[2023-09-10] MEDS: Metoclopramide 10 MG/2 ML Vial 5 MG IV ×2 (05:49→12:07)
[2023-09-10 05:58] VITALS: BP 127/57; PULSE 66; RESP 16; TEMP 36.7; O2SAT 96
[2023-09-10 06:38] LABS: Bedside Glucose 115 mg/dL (74-106)
--- NOTE | 2023-09-10 08:00 | PN.GI_ITS ---
Subjective Subjective Patient underwent cholecystectomy yesterday. She is doing very well. She denies any abdominal pain or cramping. She is tolerating a normal diet. Objective Data Objective Data Vital Signs: Vital Signs Temp Pulse Resp BP Pulse Ox O2 Del Method O2 Flow Rate 98.3 F 76 18 142/57 H 95 Room Air 3 09/10/23 08:30 09/10/23 10:37 09/10/23 08:30 09/10/23 08:30 09/10/23 08:39 09/10/23 08:39 09/08/23 19:54 Oxygen Flow Rate (L/min) 3 Oxygen Delivery Method Room Air Weight: 236 lb 4.8 oz Body Mass Index (BMI) 46.1 Intake & Output: Intake and Output for Last 24 Hours 09/08/23 09/09/23 09/10/23 23:59 23:59 23:59 Intake Total 1150 / 1150 550 / 550 Output Total 1075 / 1075 950 / 950 1200 / 1200 Balance 75 / 75 -400 / -400 -1200 / -1200 Lab / Micro Data 09/10/23 07:58 09/10/23 07:58 Labs: Laboratory Results - last 24 hr 09/09/23 22:17: POC Glucose 130 H 09/10/23 05:48: POC Glucose 115 H 09/10/23 07:58: WBC 6.5, RBC 3.44 L, Hgb 10.0 L, Hct 30.4 L, MCV 88.4, MCH 29.1, MCHC 32.9, RDW Std Deviation 45.6 H, RDW Coeff of Jorge L 14.0, Plt Count 369, MPV 9.3, Immature Gran % (Auto) 0.900, Neut % (Auto) 59.2, Lymph % (Auto) 28.0, [place] % (Auto) 7.7, Eos % (Auto) 3.7, Baso % (Auto) 0.5, Absolute Neuts (auto) 3.8, Absolute Lymphs (auto) 1.81, Nucleated RBC % 0, Sodium 140, Potassium 4.1, Chloride 107, Carbon Dioxide 30.0, Anion Gap 3 L, BUN 7, Creatinine 0.66, Estim Creat Clear Calc 61.10, Est GFR (MDRD) Af Amer 111, Est GFR (MDRD) Non-Af 92, BUN/Creatinine Ratio 10.7, Glucose 91, Calcium 9.2, Total Bilirubin 0.50, AST 21, ALT 29, Alkaline Phosphatase 91, Total Protein 6.0 L, Albumin 2.0 L, Globulin 4.0, Albumin/Globulin Ratio 0.5 L 09/10/23 12:05: POC Glucose 153 H Physical Exam Narrative General: Alert, oriented, no apparent distress HEENT: Atraumatic, normocephalic Eyes: Anicteric, normal conjunctiva, extraocular movements grossly intact Neck: Supple Respiratory: Clear to auscultation bilaterally, normal respiratory effort Cardiovascular: Regular rate and rhythm GI: Soft, tenderness improved from yesterday Extremities: No edema Musculoskeletal: Moving all extremities Neuro: No overt focal neurological deficits Skin: No rashes appreciated Psych: Cooperative Assessment & Plan Assessment/Plan (1) Acute cholecystitis: PLAN: Plan Patient is an 82-year-old lady who presented with epigastric discomfort. An assessment of acute cholecystitis made admitted to regular nursing floor under surgical services with consultation placed to the hospitalist team Acute cholecystitis ? Imaging studies on admission did reveal hepatomegaly and fatty infiltration of the liver. Multiple gallstones with positive sonographic Murray''s sign and small amount of pericholecystic fluid. Patient admitted to the surgical service with plans for patient to undergo laparoscopic cholecystectomy with intraoperative cholangiogram ? 09/04/2023;Underwent ERCP by myself the day prior findings of procedure performed as below - Choledocholithiasis was found. Partial removal was accomplished with biliary sphincterotomy; a stent was inserted. - A biliary sphincterotomy was performed. - The biliary tree was swept. - The hepatic duct bifurcation was successfully dilated. - One temporary stent was placed into the common bile duct. -Plan is for patient to undergo laparoscopic cholecystectomy -09/05/2023 patient underwent laparoscopic cholecystectomy with intraoperative cholangiogram on 09/04/2023 Laparoscopic cholecystectomy with intraoperative cholangiogram Description of Surgical Findings:: ? Foreshortened gallbladder neck due to inflammation, with shortened cystic duct ? Otherwise normal biliary anatomy with single cystic duct and anterior cystic artery ? Cholangiogram showing antegrade filling through common bile duct stent in good position with flow through the ampulla into the duodenum as well as retrograde flow into the common hepatic and proper hepatic duct -09/07: Patient postop day [facility] from [facility] with IntraOp cholangiogram and ERCP with stone removal 09/03. Slowly improving. Plan is for patient to go for placement. GI evaluated and advised patient needs to undergo repeat ERCP in a couple months for stent removal or exchange -09/08: Patient still having some pain and has been constipated, KUB obtained, patient got enema and awaiting bowel movement. Continue supportive care -09/09: Patient had small bowel movement, bowel regimen to escalate per surgery recommendations/management -09/10: Patient had bowel movement, management per surgery, doing better overall Charges/Coding Visit Charges Inpatient E&M: 39616 [facility] Hosp L3
--- NOTE | 2023-09-10 08:09 | PCM.PN.SRG ---
Subjective Subjective Patient evaluated resting comfortably in bed. She notes generalized abdominal discomfort. She denies nausea, vomiting. She is tolerating her current diet. Patient has had an extensive amount of bowel stimulation via enemas and oral medication with little to no result. She had a very small bowel movement yesterday, however nothing over night. She has passed a little gas. Objective Data Objective Data Vital Signs: Vital Signs Temp Pulse Resp BP Pulse Ox O2 Del Method O2 Flow Rate 98.1 F 66 16 127/57 H 96 Room Air 3 09/10/23 05:58 09/10/23 05:58 09/10/23 05:58 09/10/23 05:58 09/10/23 05:58 09/10/23 05:58 09/08/23 19:54 Oxygen Flow Rate (L/min) 3 Oxygen Delivery Method Room Air Weight: 236 lb 4.8 oz Body Mass Index (BMI) 46.1 Intake & Output: Intake and Output for Last 24 Hours 09/08/23 09/09/23 09/10/23 23:59 23:59 23:59 Intake Total 1150 / 1150 550 / 550 Output Total 1075 / 1075 950 / 950 900 / 900 Balance 75 / 75 -400 / -400 -900 / -900 Lab / Micro Data 09/10/23 07:58 09/10/23 07:58 Labs: Laboratory Results - last 24 hr 09/09/23 07:38: Sodium 138, Potassium 4.1, Chloride 105, Carbon Dioxide 30.0, Anion Gap 3 L, BUN 8, Creatinine 0.66, Estim Creat Clear Calc 61.10, Est GFR (MDRD) Af Amer 111, Est GFR (MDRD) Non-Af 92, BUN/Creatinine Ratio 12.2, Glucose 111 H, Calcium 9.5, Phosphorus 3.0 09/09/23 11:40: POC Glucose 135 H 09/09/23 16:37: POC Glucose 158 H 09/09/23 22:17: POC Glucose 130 H 09/10/23 05:48: POC Glucose 115 H Physical Exam GI GI Narrative: Abdomen- obese, soft, generalized tenderness, hypoactive bowel sounds. incisions c/d/i. No erythema or infection noted. Assessment & Plan Assessment/Plan (1) Acute cholecystitis: PLAN: I am following this patient in conjunction with Dr. Melendrez Plan to give lactulose and enema Recommend patient walk in the hallway 3 times today and sitting in the chair most of the day Decrease narcotic pain use If bowel movement today, plan to discharge patient to nursing facility as all other criteria have been met Labs reviewed We will continue to monitor closely Capacity Legal Cardiac Sonographer Reflex Medical hold order details:: IF a medical hold is selected below, a suggested order for a MEDICAL HOLD will reflex upon signing the document. Next of kin: [place] law dictates a PRIORITY LIST for identifying legal decision-maker/legal next of kin in the following order (LNOK): 1st: The patient?s legal guardian, if any 2nd: The patient's spouse (if status is questionable, consult Risk Management) 3rd: The patient?s adult child(venkata) (majority, if multiple children) 4th: The patient?s parents 5th: The patient?s adult siblings (majority, if multiple children siblings) Charges/Coding Visit Charges Inpatient E&M: 18781 [facility] Hosp L1 (post-op; no charge)
[2023-09-10 08:25] LABS: Absolute Lymphocyte Count 1.81 X10^3/uL (0.83-4.51); Absolute Neutrophil Count 3.8 X10^3/uL (2.0-7.7); Basophil# 0.03 X10^3/uL; Basophil% 0.5 % (0-1); Eosinophil# 0.24 X10^3/uL; Eosinophils% 3.7 % (0-5); Hematocrit 30.4 % (37-47); Lymphocyte # 1.81 X10^3/ul (0.83-4.51); Mean Corp Hgb Conc 32.9 g/dL (32-36); Mean Corpuscular Hgb 29.1 pg (27.0-32.0); Mean Corpuscular Volume 88.4 fL (81-99); Mean Platelet Vol. 9.3 fl (6.2-12.0); Monocyte% 7.7 % (0-10); NRBC Flagged by Analyzer 0 % (0-5); Neutrophil # 3.82 X10^3/uL (2.7-7.7); Neutrophil % 59.2 % (47-70); Platelet Count 369 K/mm3 (150-450); RBC Distribution Width SD 45.6 fl (35.1-43.9); Red Blood Count 3.44 M/mm3 (4.2-5.4); White Blood Count 6.5 K/mm3 (4.4-11.0)
[2023-09-10 08:30] VITALS: BP 142/57; PULSE 70; RESP 18; TEMP 36.8; O2SAT 97
[2023-09-10 08:39] VITALS: O2SAT 95
[2023-09-10 09:03] LABS: ALB/GLOB Ratio 0.5 RATIO (0.9-2.4); AST(SGOT) 21 U/L (15-37); Alanine Aminotransfer ALT/SGPT 29 U/L (13-56); Alkaline Phosphatase 91 U/L (45-117); Anion Gap 3 (5-15); BUN 7 mg/dL (7-18); BUN/Creat Ratio 10.7 RATIO (10-20); Calcium,Total 9.2 mg/dL (8.5-10.1); Chloride 107 mmol/L (98-107); Creatinine, Serum 0.66 mg/dL (0.55-1.02); EST Glomerular Filtration Rate 92 mL/min (>60); Est Glom Filt Rate - Afr Amer 111 mL/min (>60); Glucose 91 mg/dL (74-106); Potassium 4.1 mmol/L (3.5-5.1); Sodium Level 140 mmol/L (136-145)
[2023-09-10] MEDS: Acetaminophen 325 MG Tablet 650 MG PO (10:36)
[2023-09-10] MEDS: Lactulose 20 GM/30 ML UDC PO (10:36)
[2023-09-10 10:37] VITALS: PULSE 76
[2023-09-10] MEDS: Losartan Potassium 25 MG Tablet PO (10:37)
[2023-09-10] MEDS: Pantoprazole Sodium 40 MG Tablet PO (10:37)
[2023-09-10] MEDS: Metoprolol Tartrate 25 MG Tablet 12.5 MG PO (10:37)
[2023-09-10] MEDS: Docusate Sodium 100 MG Capsule 200 MG PO (10:37)
[2023-09-10] MEDS: Enoxaparin 40 MG/0.4 ML Syringe SC (10:38)
[2023-09-10] MEDS: amLODIPine 5 MG Tablet PO (10:38)
--- NOTE | 2023-09-10 11:44 | CASEMGMT ---
Social Work SW spoke with physician and pt will likely be ready for discharge today. SW met with pt and introduced self and role of SW. SW spoke with pt regarding discharge plan. HAMIDA updated pt that [facility] has accepted pt and precert has been obtained. Pt now stating she does not feel she will need SNF placement and would like to return home. Pt lives alone, but has many family members and friends that will stay will her or check in on her as needed. HAMIDA spoke with pt regarding home health and pt is agreeable to home therapy. RNCM updated. Plan: Home with home health services ENRIQUE Huff
[2023-09-10] MEDS: Insulin Lispro 100 UNIT/ML INSULN.PEN SC (12:06)
[2023-09-10] MEDS: 0.9% Saline Lock 10 ML Syringe IV (12:08)
--- NOTE | 2023-09-10 12:44 | CASEMGMT ---
Addendum entered by Yusuf Prado 09/10/23 16:29: 1600 - [facility] calls and states they will not know if they can accept until tomorrow. Will send referrals to pt 2nd and 3rd choice now to see if we can get acceptance today so pt can DC. Addendum entered by Yusuf Prado 09/10/23 15:42: TC to N at this time, message left. Addendum entered by Yusuf rPado 09/10/23 15:37: See SW note regarding HH agencies pt chose. This RN CM sent referral via [facility] to [facility] at this time. Awaiting response. Original Note: Pt states she is wanting HHC after DC. A list of HHC providers including quality and resource use data and consistent with the patient's preferred geographic region, medical needs, and insurance network were printed and provided from the [facility]. Pt states she is going to wait until her niece gets here (around 1500) to choose 3 options.
[2023-09-10 12:50] LABS: Bedside Glucose 153 mg/dL (74-106)
--- NOTE | 2023-09-10 13:21 | PCM.DC ---
Discharge Instructions Diet Discharge Diet: Light diet - advance as tolerated Activity Discharge Activity: May Not Drive (5 days) and May Shower Lifting Restrictions: 15 pounds for 3 weeks Dressing / Incision Call your doctor if your incision/area has: Continuous Slow Oozing, Increased Pain/ Swelling, Increased Redness, Foul Smelling Discharge and Swelling at the incision site Call your doctor if you observe: Fever of 101 or Higher Suture Line Care: Avoid Pulling/Pushing and Avoid Pinching/Bending Remove Dressing in: 1 day (Leave steri-strips in place for 1 week) Cleanse incision/area with: Soap & Water Follow Up Care Please Follow Up With: Elia Melendrez MD When: Please contact our office at [phone] to schedule a 10 day follow-up. Test Results: Test results from this visit will be discussed in further detail at your follow-up appointment, if applicable. Discharge Plan Admission Admit Date/Time: 09/02/23 13:41 Primary Reason for Your Visit: acute cholecystitis, Choledocholithiasis Attending Provider: Carol Crow Primary Care Provider: Alicia Florentino Consulting Providers: Babita Beltrán; Elia Melendrez; Azar Cespedes; Master Phillip Instructions Additional Instructions / Restrictions: Cholecystectomy Diet ? Start light with soups and soft bland foods. You may advance diet as tolerated. Activity ? You may drive in 5 days but not while taking narcotic pain medication. ? I encourage walking. You may go up steps, one at a time. ? Do not swim or use hot tubs for 2 weeks. ? For comfort, you may use warm compresses or ice as needed for 15-20 minutes at a time. Lifting ? You may lift up to 15 pounds for 3 weeks. Dressings/Incision ? You may shower OVER your plastic dressings ? Do NOT tub bathe for 1 week ? Leave plastic dressings on for 1 day. ? When plastic dressings are removed, you will find steri strips. It is okay to continue showering with them in place, pat them dry. ? You may remove steri-strips after 1 week. We recommend getting them soaking wet for easier removal. Medications ? Anesthesia used during surgery and pain medications may cause constipation. I recommend initiating on the day of surgery a fiber supplement like, Metamucil, Citrucel, FiberCon, Benefiber, or a generic form of these medications. 1 heaping tablespoon in water daily. You may continue to utilize any bowel regimen or oral laxatives that you routinely take. ? As long as you are not intolerant to Tylenol, acetaminophen, ibuprofen, Motrin, Advil, Aleve, or similar medications, I would recommend transitioning to these [id number] medicines as soon as possible instead of continued use of narcotic pain medication. Follow up ? You should call [facility] soon after surgery, at [phone] option 1 to make a follow up appointment for 10 days after your surgery. Discharge Orders/Prescriptions Prescriptions: New docusate sodium 100 mg Capsule 200 mg PO BID 14 Days Qty: 56 0RF oxycodone 5 mg Tablet 5 mg PO Q6H PRN PRN (Reason: Pain Score 6-10) 3 Days Qty: 9 0RF Continued acetaminophen 500 mg tablet 1,000 mg PO Q8 PRN (Reason: pain) nitroglycerin 0.4 mg tablet, sublingual 0.4 mg SUBLINGUAL Q5M PRN (Reason: Chest Pain) Qty: 25 1RF atorvastatin 10 MG tablet 10 mg PO QHS esomeprazole magnesium 40 MG capsule 40 mg PO DAILY metoprolol tartrate 25 MG tablet 25 tab PO BID jqiajebi-vpe-DE-lycopen-lutein 1 EACH tablet 1 ea PO DAILY insulin glargine 100 unit/mL (3 mL) insulin pen 45 unit SC QHS calcium carbonate 600 MG tablet 1,200 mg PO DAILY insulin lispro 100 unit/mL insulin pen 8 unit SC TID amlodipine-valsartan 1 TAB tablet 1 tab PO DAILY aspirin 81 MG tablet 81 mg PO DAILY etodolac 300 mg capsule 300 mg PO BID potassium chloride [Klor-Con M20] 20 mEq tablet,ER particles/crystals 20 meq PO DAILY Referrals / Follow Up: Alicia Florentino DO [Primary Care Provider] - Elia Melendrez MD [Med Staff - Active Staff] - (Please schedule an appointment for 10 days from discharge) Azar Cespedes DO [Med Staff - Active Staff] - (Please follow-up in 6 weeks to have stent removed. Please call their office for an appointment) Disposition Disposition (needs filled in before D/C Order can be placed): Home, Self Care
--- NOTE | 2023-09-10 14:16 | PN.HOSP_ITS ---
Reason for Visit Reason for Visit: Diagnoses Hyperlipidemia, unspecified (09/02/23) Acute cholecystitis (09/02/23) Subjective Subjective Had a bowel movement this morning and is feeling better than she had been, pain improving, no other acute complaints today Objective Data Objective Data Vital Signs: Vital Signs Temp Pulse Resp BP Pulse Ox O2 Del Method O2 Flow Rate 98.3 F 76 18 142/57 H 95 Room Air 3 09/10/23 08:30 09/10/23 10:37 09/10/23 08:30 09/10/23 08:30 09/10/23 08:39 09/10/23 08:39 09/08/23 19:54 Oxygen Flow Rate (L/min) 3 Oxygen Delivery Method Room Air Weight: 107.184 kg Body Mass Index (BMI) 46.1 Intake & Output: Intake and Output for Last 24 Hours 09/08/23 09/09/23 09/10/23 23:59 23:59 23:59 Intake Total 1150 / 1150 550 / 550 Output Total 1075 / 1075 950 / 950 1200 / 1200 Balance 75 / 75 -400 / -400 -1200 / -1200 Lab / Micro Data 09/10/23 07:58 09/10/23 07:58 Labs: Laboratory Results - last 24 hr 09/09/23 16:37: POC Glucose 158 H 09/09/23 22:17: POC Glucose 130 H 09/10/23 05:48: POC Glucose 115 H 09/10/23 07:58: WBC 6.5, RBC 3.44 L, Hgb 10.0 L, Hct 30.4 L, MCV 88.4, MCH 29.1, MCHC 32.9, RDW Std Deviation 45.6 H, RDW Coeff of Jorge L 14.0, Plt Count 369, MPV 9.3, Immature Gran % (Auto) 0.900, Neut % (Auto) 59.2, Lymph % (Auto) 28.0, [place] % (Auto) 7.7, Eos % (Auto) 3.7, Baso % (Auto) 0.5, Absolute Neuts (auto) 3.8, Absolute Lymphs (auto) 1.81, Nucleated RBC % 0, Sodium 140, Potassium 4.1, Chloride 107, Carbon Dioxide 30.0, Anion Gap 3 L, BUN 7, Creatinine 0.66, Estim Creat Clear Calc 61.10, Est GFR (MDRD) Af Amer 111, Est GFR (MDRD) Non-Af 92, BUN/Creatinine Ratio 10.7, Glucose 91, Calcium 9.2, Total Bilirubin 0.50, AST 21, ALT 29, Alkaline Phosphatase 91, Total Protein 6.0 L, Albumin 2.0 L, Globulin 4.0, Albumin/Globulin Ratio 0.5 L 09/10/23 12:05: POC Glucose 153 H Physical Exam Narrative General: Alert, oriented, no apparent distress HEENT: Atraumatic, normocephalic Eyes: Anicteric, normal conjunctiva, extraocular movements grossly intact Neck: Supple Respiratory: Clear to auscultation bilaterally, normal respiratory effort Cardiovascular: Regular rate and rhythm GI: Soft, tenderness improved from yesterday Extremities: No edema Musculoskeletal: Moving all extremities Neuro: No overt focal neurological deficits Skin: No rashes appreciated Psych: Cooperative Assessment & Plan Assessment/Plan (1) Acute cholecystitis: PLAN: Plan Patient is an 82-year-old lady who presented with epigastric discomfort. An assessment of acute cholecystitis made admitted to regular nursing floor under surgical services with consultation placed to the hospitalist team 1. Acute cholecystitis ? Imaging studies on admission did reveal hepatomegaly and fatty infiltration of the liver. Multiple gallstones with positive sonographic Murray''s sign and smal l amount of pericholecystic fluid. Patient admitted to the surgical service with plans for patient to undergo laparoscopic cholecystectomy with intraoperative cholangiogram ? 09/04/2023;Underwent ERCP by Dr. Cespedes the day prior findings of procedure performed as below - Choledocholithiasis was found. Partial removal was accomplished with biliary sphincterotomy; a stent was inserted. - A biliary sphincterotomy was performed. - The biliary tree was swept. - The hepatic duct bifurcation was successfully dilated. - One temporary stent was placed into the common bile duct. -Plan is for patient to undergo laparoscopic cholecystectomy -09/05/2023 patient underwent laparoscopic cholecystectomy with intraoperative cholangiogram on 09/04/2023 Laparoscopic cholecystectomy with intraoperative cholangiogram Description of Surgical Findings:: ? Foreshortened gallbladder neck due to inflammation, with shortened cystic duct ? Otherwise normal biliary anatomy with single cystic duct and anterior cystic artery ? Cholangiogram showing antegrade filling through common bile duct stent in good position with flow through the ampulla into the duodenum as well as retrograde flow into the common hepatic and proper hepatic duct -09/07: Patient postop day [facility] from [facility] with IntraOp cholangiogram and ERCP with stone removal 09/03. Slowly improving. Plan is for patient to go for placement. GI evaluated and advised patient needs to undergo repeat ERCP in a couple months for stent removal or exchange -09/08: Patient still having some pain and has been constipated, KUB obtained, patient got enema and awaiting bowel movement. Continue supportive care -09/09: Patient had small bowel movement, bowel regimen to escalate per surgery recommendations/management -09/10: Patient had bowel movement, management per surgery, doing better overall 2. Mild intermittent asthma ? Bronchodilator treatments as needed 3. Hypertension - Blood pressure controlled, home medications continued with dose adjustment as needed 4. Class III obesity with BMI of 46 ? Complicating care weight loss advised 5. Nonalcoholic fatty liver disease ? Related to patient obesity as well as diabetes plans for patient to follow-up with primary care physician for subsequent referral to GI 6. Dyslipidemia -Patient is on statin therapy, continued at home dose 7. Diabetes mellitus type II -patient's oral hypoglycemics held. Placed on long acting insulin, Accu-Cheks a.c. and at bedtime and covered with sliding scale insulin ? 09/04/2023 patient had a hypoglycemic episode the day prior patient was started on D5 since she was n.p.o. for her procedure. -09/07: On her long-acting, continue sliding scale as well, off dextrose -09/08: Given she has not been eating very well she did have a low glucose this morning, will de-escalate insulin dosing -09/09: Fasting glucose well within range today without hypoglycemia 8. GERD ? On PPI 9. History of PACs and PVCs ? Patient is on metoprolol 10. DVT prophylaxis SC Lovenox 11. Acute dyspnea ? Do suspect fluid overload versus atelectasis ordered checks x-ray patient alycia Maldonado also ordered 2D echo for EF assessment -09/07: EF 65% with PASP 45, symptoms improved Capacity Legal Cat Scan Tech Reflex Medical hold order details:: IF a medical hold is selected below, a suggested order for a MEDICAL HOLD will reflex upon signing the document. Next of kin: [place] law dictates a PRIORITY LIST for identifying legal decision-maker/legal next of kin in the following order (LNOK): 1st: The patient?s legal guardian, if any 2nd: The patient's spouse (if status is questionable, consult Risk Management) 3rd: The patient?s adult child(venkata) (majority, if multiple children) 4th: The patient?s parents 5th: The patient?s adult siblings (majority, if multiple children siblings) Charges/Coding Visit Charges Inpatient E&M: 41373 Subs Hosp L1
--- NOTE | 2023-09-10 14:56 | PCM.DC.SUM ---
Providers Date of Admission: 09/02/23 Primary Care Physician: Dr. Alicia Florentino, Consultations 09/02/23 15:12 Consult: Hospitalist Routine Consulting Provider: Babita Beltrán Reason for Consult: Medical management EMERGENT Consult: No MD Notified: Yes Date Notified: 09/02/23 Time Notified: 13:59 Method of Notification: ED Physician Initiated 09/03/23 07:47 Consult: Gastroenterology Routine Consulting Provider: Azar Welsh Reason for Consult: Choledocholithiasis EMERGENT Consult: No MD Notified: Yes Date Notified: 09/03/23 Time Notified: 07:47 Method of Notification: Verbal Reason For Visit: chest pain Diagnosis Discharge Diagnosis (1) Acute cholecystitis: Status: Acute Code(s): K81.0 - Acute cholecystitis Plan: I am following this patient in conjunction with Dr. Melendrez Plan to give lactulose and enema Recommend patient walk in the hallway 3 times today and sitting in the chair most of the day Decrease narcotic pain use If bowel movement today, plan to discharge patient to nursing facility as all other criteria have been met Labs reviewed We will continue to monitor closely Medications at Discharge Home Medications atorvastatin 10 mg tablet 10 mg PO QHS CHOLESTEROL 07/28/13 esomeprazole magnesium 40 mg capsule,delayed release 40 mg PO DAILY heartburn/acid reflux 07/28/13 metoprolol tartrate 25 mg tablet 25 tab PO BID high blood pressure 12/26/14 fypwhzyt-pza-sbeku acid 0.4 mg-lycopene 300 mcg-lutein 250 mcg tablet 1 ea PO DAILY supplement 12/26/14 calcium carbonate 600 mg calcium (1,500 mg) tablet 1,200 mg PO DAILY SUPPLEMENT 10/05/16 amlodipine 5 mg-valsartan 320 mg tablet 1 tab PO DAILY HIGH BLOOD PRESSURE 11/19/16 acetaminophen 500 mg tablet 1,000 mg PO Q8 PRN pain 02/19/18 aspirin 81 mg tablet,delayed release 81 mg PO DAILY HEART MAINTENENCE 03/05/19 insulin glargine 100 unit/mL (3 mL) subcutaneous pen 45 unit subcut QHS DIABETES 04/01/19 insulin lispro 100 unit/mL subcutaneous pen 8 unit subcut TID DIABETES 04/01/19 nitroglycerin 0.4 mg sublingual tablet 0.4 mg sublingual Q5M PRN Chest Pain #25 tabs 04/02/20 etodolac 300 mg capsule 300 mg PO BID INFLAMMATION 09/02/23 potassium chloride 20 mEq tablet,extended release(part/cryst) (Klor-Con M) 20 meq PO DAILY SUPPLEMENT 09/02/23 docusate sodium 100 mg capsule 200 mg (2 x 100 mg) PO BID 14 days #56 caps 09/10/23 oxycodone 5 mg tablet 5 mg PO Q6H PRN PRN Pain Score 6-10 3 days #9 tabs 09/10/23 Hospital Course Operations cholecystecomy (Dr. Melendrez on 09/04/23), ERCP (with stent placement on 09/03/23) and - Summary of Care Provided Minutes Spent on Discharge: 40 Hospital Course: Patient is an 82 y/o F who presented with choledocholithiasis and acute cholecystitis. Dr. Welsh performed an ERCP with stent placement by Dr. welsh on 09/03/23 and laparoscopic cholecystectomy with intraoperative cholangiogram by Dr. Melendrez on 09/04/23. Patient tolerated the procedure well. Post-operatively, patient developed an ileus. KUB was obtained demonstrating a moderate amount of stool within the colon. Patent received miralax, stool softeners, mag citrate, lactulose, and multiple enemas prior to the patient having a bowel movement. Patient was also wanting to be discharged to a rehab facility for strengthening following her hospitalization. POD #6, patient decided she would like to go home. Upon discharge, patient denies nausea, vomiting, fever. She notes her abdominal pain has greatly improved. She has had multiple large bowel movements. She notes passing flatus. She will follow-up with Dr. Melendrez in [address] Welsh in 6 weeks. Post-operative instructions have been reviewed with family members. Patient's niece will be staying with her and she will have home therapy ordered as an outpatient. Weight / BMI Weight Weight: 236 lb 4.8 oz Body Mass Index (BMI) 46.1 ABG / Lab / Microbiology Data 09/10/23 07:58 09/10/23 07:58 Laboratory: Laboratory Results - last 24 hr 09/09/23 16:37: POC Glucose 158 H 09/09/23 22:17: POC Glucose 130 H 09/10/23 05:48: POC Glucose 115 H 09/10/23 07:58: WBC 6.5, RBC 3.44 L, Hgb 10.0 L, Hct 30.4 L, MCV 88.4, MCH 29.1, MCHC 32.9, RDW Std Deviation 45.6 H, RDW Coeff of Jorge L 14.0, Plt Count 369, MPV 9.3, Immature Gran % (Auto) 0.900, Neut % (Auto) 59.2, Lymph % (Auto) 28.0, [place] % (Auto) 7.7, Eos % (Auto) 3.7, Baso % (Auto) 0.5, Absolute Neuts (auto) 3.8, Absolute Lymphs (auto) 1.81, Nucleated RBC % 0, Sodium 140, Potassium 4.1, Chloride 107, Carbon Dioxide 30.0, Anion Gap 3 L, BUN 7, Creatinine 0.66, Estim Creat Clear Calc 61.10, Est GFR (MDRD) Af Amer 111, Est GFR (MDRD) Non-Af 92, BUN/Creatinine Ratio 10.7, Glucose 91, Calcium 9.2, Total Bilirubin 0.50, AST 21, ALT 29, Alkaline Phosphatase 91, Total Protein 6.0 L, Albumin 2.0 L, Globulin 4.0, Albumin/Globulin Ratio 0.5 L 09/10/23 12:05: POC Glucose 153 H D/C Instructions Discharge Diet: Light diet - advance as tolerated Call your doctor if your incision/area has: Continuous Slow Oozing, Increased Pain/ Swelling, Increased Redness, Foul Smelling Discharge and Swelling at the incision site Call your doctor if you observe: Fever of 101 or Higher Suture Line Care: Avoid Pulling/Pushing and Avoid Pinching/Bending Cleanse incision/area with: Soap & Water Please Follow Up With: Elia Melendrez MD When: Please contact our office at [phone] to schedule a 10 day follow-up. Meaningful Use Info Meaningful Use Diagnoses (Choose all that apply): None applicable Discharge Plan Admission Admit Date/Time: 09/02/23 13:41 Primary Reason for Your Visit: acute cholecystitis, Choledocholithiasis Attending Provider: Carol Crow Primary Care Provider: Alicia Florentino Consulting Providers: Babita Beltrán; Elia Melendrez; Azar Welsh; Master Phillip Instructions Additional Instructions / Restrictions: Cholecystectomy Diet ? Start light with soups and soft bland foods. You may advance diet as tolerated. Activity ? You may drive in 5 days but not while taking narcotic pain medication. ? I encourage walking. You may go up steps, one at a time. ? Do not swim or use hot tubs for 2 weeks. ? For comfort, you may use warm compresses or ice as needed for 15-20 minutes at a time. Lifting ? You may lift up to 15 pounds for 3 weeks. Dressings/Incision ? You may shower OVER your plastic dressings ? Do NOT tub bathe for 1 week ? Leave plastic dressings on for 1 day. ? When plastic dressings are removed, you will find steri strips. It is okay to continue showering with them in place, pat them dry. ? You may remove steri-strips after 1 week. We recommend getting them soaking wet for easier removal. Medications ? Anesthesia used during surgery and pain medications may cause constipation. I recommend initiating on the day of surgery a fiber supplement like, Metamucil, Citrucel, FiberCon, Benefiber, or a generic form of these medications. 1 heaping tablespoon in water daily. You may continue to utilize any bowel regimen or oral laxatives that you routinely take. ? As long as you are not intolerant to Tylenol, acetaminophen, ibuprofen, Motrin, Advil, Aleve, or similar medications, I would recommend transitioning to these gdra-vnx-oobcbna medicines as soon as possible instead of continued use of narcotic pain medication. Follow up ? You should call [facility] soon after surgery, at [phone] option 1 to make a follow up appointment for 10 days after your surgery. Discharge Orders/Prescriptions Prescriptions: New docusate sodium 100 mg Capsule 200 mg PO BID 14 Days Qty: 56 0RF oxycodone 5 mg Tablet 5 mg PO Q6H PRN PRN (Reason: Pain Score 6-10) 3 Days Qty: 9 0RF Continued acetaminophen 500 mg tablet 1,000 mg PO Q8 PRN (Reason: pain) nitroglycerin 0.4 mg tablet, sublingual 0.4 mg SUBLINGUAL Q5M PRN (Reason: Chest Pain) Qty: 25 1RF atorvastatin 10 MG tablet 10 mg PO QHS esomeprazole magnesium 40 MG capsule 40 mg PO DAILY metoprolol tartrate 25 MG tablet 25 tab PO BID extssqdl-hrj-BN-lycopen-lutein 1 EACH tablet 1 ea PO DAILY insulin glargine 100 unit/mL (3 mL) insulin pen 45 unit SC QHS calcium carbonate 600 MG tablet 1,200 mg PO DAILY insulin lispro 100 unit/mL insulin pen 8 unit SC TID amlodipine-valsartan 1 TAB tablet 1 tab PO DAILY aspirin 81 MG tablet 81 mg PO DAILY etodolac 300 mg capsule 300 mg PO BID potassium chloride [Klor-Con M20] 20 mEq tablet,ER particles/crystals 20 meq PO DAILY Referrals / Follow Up: Alicia Florentino DO [Primary Care Provider] - Elia Melendrez MD [Med Staff - Active Staff] - (Please schedule an appointment for 10 days from discharge) Friend,DO Azar [Med Staff - Active Staff] - (Please follow-up in 6 weeks to have stent removed. Please call their office for an appointment) Disposition Disposition (needs filled in before D/C Order can be placed): Home, Self Care Charges/Coding Visit Charges Inpatient E&M: 58045 Disch Hosp >30min (no charge)
--- NOTE | 2023-09-10 15:28 | CASEMGMT ---
Social work SW met with pt and niece. Niece confirms pt will be discharging home today and she will be staying overnight with pt to assure safe dc home. Nicintia is agreeable to home health and preferences are 1. [facility] 2. [facility] 3. [facility]. RNCM updated. Message sent to the Avenue and referral cancelled. Plan: Home with home health ENRIQUE Huff
--- NOTE | 2023-09-10 16:28 | CASEMGMT ---
Addendum entered by Shirley Bernal 09/10/23 16:43: [facility] has declined pt for services. Original Note: [facility] and [facility] at this time via [facility].
[2023-09-10 17:05] VITALS: BP 125/56; PULSE 64; RESP 16; TEMP 36.6; O2SAT 96
[2023-09-10] MEDS: oxyCODONE 5 MG Tablet PO (17:28)
--- NOTE | 2023-09-11 11:17 | CASEMGMT ---
[facility] states they cannot accept the pt. [facility] in [place] states they can accept the pt and that they will start care on Thursday. This RN CM calls the pt and se says that this is OK and that she has plenty of family to help her out in the meantime.
== END 2023-09-10 17:36 | disposition home or self-care (01) | DRG 417 ==
LOC: ED 13:44 → MS3 14:00
PROVIDERS: Anesthesiology; Family Medicine; Internal Medicine; Internal Medicine Gastroenterology; Physician Assistant; Admitting Provider Surgery; Emergency Provider Emergency Medicine; PCP Family Medicine; Visit Provider Internal Medicine
PROC: 0FC98ZZ Extirpation of Matter from Common Bile Duct, Via Natural or Artificial Opening Endoscopic (ICD-10-PCS; CPT 43260; principal; 2023-09-03 15:45)
PROC: 0FT44ZZ Resection of Gallbladder, Percutaneous Endoscopic Approach (ICD-10-PCS; CPT 47610; principal; 2023-09-04 09:00)
DX: K80.62 Calculus of gallbladder and bile duct with acute cholecystitis without obstruction (principal); I50.33 Acute on chronic diastolic (congestive) heart failure; K56.7 Ileus, unspecified; Z68.42 Body mass index [BMI] 45.0-49.9, adult; E11.649 Type 2 diabetes mellitus with hypoglycemia without coma; E11.42 Type 2 diabetes mellitus with diabetic polyneuropathy; I11.0 Hypertensive heart disease with heart failure; E66.01 Morbid (severe) obesity due to excess calories; Z79.4 Long term (current) use of insulin; K76.0 Fatty (change of) liver, not elsewhere classified; G25.81 Restless legs syndrome; J45.20 Mild intermittent asthma, uncomplicated; I25.10 Atherosclerotic heart disease of native coronary artery without angina pectoris; K21.9 Gastro-esophageal reflux disease without esophagitis; E78.5 Hyperlipidemia, unspecified; I49.3 Ventricular premature depolarization; Z79.82 Long term (current) use of aspirin; Z79.1 Long term (current) use of non-steroidal anti-inflammatories (NSAID); Z79.899 Other long term (current) drug therapy; Z87.891 Personal history of nicotine dependence; Z95.5 Presence of coronary angioplasty implant and graft; Z96.653 Presence of artificial knee joint, bilateral
CPT/HCPCS: 36415; 71045; 74018; 74177; 74300; 74330; 76000; 76705; 80048; 80053; 80076; 82962; 83036; 83690; 83735; 83880; 84100; 84484; 85025; 88304; 93005; 93306; 94640; 94668; 97110; 97162; 97166; 97530; 97535; 97802; 99285; J7030; J7120; Q9957; Q9967; A4216; C8929; J1940; J2405; J7799

== ENCOUNTER 2023-12-09 09:16 | Day surgery (SDC) | payer MEDICARE, BC, SELFPAY ==
[2023-12-09] VITALS (12 sets, daily range): BP systolic 86–165; BP diastolic 61–98; PULSE 70–83; RESP 16–20; TEMP 36.6–37; O2SAT 93–100; BMI 41.8
--- NOTE | 2023-12-09 | FLU_PTH ---
PATIENT: KEIKO ALANIZ LOC: EN U#:[id number] AGE/SX: 83/F ROOM: RE12/09/[address]: Dr. Azar Cespedes DO : 1940 BED: DIS: 12/09/2023 SPEC #: [id number] RECD: 12/09/23 12:07 STATUS: SADI JEWELS #: [id number] CHAI: 12/09/23 00:[address]: Azar Cespedes DEPT: CYTOLOGY RECD BY: Ashwin Nicole ENTERED: 12/09/23 12:08 SP TYPE: Fluid OTHR DR: Dr. Alicia Florentino DO Tissues: Biliary tract, NOS Procedures: Special Stain Group II Surgery Specimen Level IV Cytospin Fluid HEADER OPERATION: ERCP- stent pull PRE-OP DIAGNOSIS: Acute cholecystits TISSUE SUBMITTED: Biliary stent DIAGNOSIS CYTOLOGY Biliary stent fluid (cytospin and cellblock): Negative for malignant cells. See comment. JOEL/mr 12/10/2023 COMMENT Clinical correlation and appropriate follow up are necessary. CYTOLOGY STUDY Slides are reviewed. CYTOLOGY GROSS Received is 0.2 ml of thick yellow pasty material labeled with the patient's name and and designated per the requisition as Black biliary stent. Submitted for cytology preparation including cell block. mr 12/09/23 TC:5 CPT: 14192 [id number]
--- NOTE | 2023-12-09 09:33 | EKG12_ITS ---
Test Reason : PREOP Blood Pressure : / mmHG Vent. Rate : 069 BPM Atrial Rate : 069 BPM P-R Int : 150 ms QRS Dur : 086 ms QT Int : 396 ms P-R-T Axes : 062 -17 039 degrees QTc Int : 424 ms Normal sinus rhythm Low voltage QRS Borderline ECG When compared with ECG of 02-SEP-2023 09:02, Fusion complexes are no longer Present Premature ventricular complexes are no longer Present Premature atrial complexes are no longer Present Confirmed by ESMER DE LEON, MOOK ([id number]), editorial intern SANYA ANTONIO ([id number]) on 12/11/2023 10:46:39 AM Referred By: Alicia Florentino Confirmed By:MOOK LYMAN MD
[2023-12-09] MEDS: Lactated Ringers 1,000 ML 15 ML IV (09:35)
[2023-12-09 09:54] LABS: Bedside Glucose 102 mg/dL (74-106)
--- NOTE | 2023-12-09 10:33 | PCM.HP.BLA ---
History and Physical Date of Admission: 12/09/23 82 F who presents with worsening right upper quadrant pain. She has a past medical history of morbid obesity, Asthma, HTN, HLD, Diabetes mellitus type II w/ chronic peripheral neuropathy, GERD, PAC/PVC, RLS, Hx nephrolithiasis who presents to the [facility] ED on 09/02/23 with history of onset of chest discomfort as well as upper abdominal pain and right upper quadrant pain. She reported her pain as 9-10/10, worse with palpation. She notes minimal improvement with morphine. She does report history of occasional wheezing and dyspnea with heavy activity but otherwise notes last asthma exacerbation was > 2 years prior. She denies having any inhaler should she needed unfortunately. Workup in the ED included T98.4, heart 76, BP 147/64, respiratory rate 14, under percent room air, CBC with WBC 7.5, human 13.2, platelet 345 with lymphopenia, CMP with chloride 109, glucose 171, calcium 10.5, T. bili 2.10, AST/LT 190/90, alk phos 173, troponin 7 with repeat delta 10, lipase 47, chest x-ray with no acute cardiopulmonary finding, gallbladder ultrasound with hepatomegaly and fatty infiltration of the liver, multiple gallstones with a positive sonographic Murray sign and a small amount of pericholecystic fluid, EKG was sinus rhythm with PAC and occasional PVC otherwise no acute cardiopulmonary finding. CT scan of the abdomen pelvis there is decreased attenuation of the liver consistent with steatosis. There are multiple gallstones. Mild distention of the gallbladder lumen. Normal spleen. Normal pancreas Laboratory analysis WBC 7.2, RBC 4.02 L, Hgb 11.6 L, Hct 36.0 L, MCV 89.6, MCH 28.9, MCHC 32.2, RDW Std Deviation 46.0 H, RDW Coeff of Jorge L 14.2, Plt Count 299, MPV 9.7, Immature Gran % (Auto) 0.000, Neut % (Auto) 72.6 H, Lymph % (Auto) 21.2, [place] % (Auto) 6.0, Eos % (Auto) 0.1, Baso % (Auto) 0.1, Absolute Neuts (auto) 5.2, Absolute Lymphs (auto) 1.52, Nucleated RBC % 0, Sodium 143, Potassium 4.0, Chloride 113 H, Carbon Dioxide 26.0, Anion Gap 4 L, BUN 11, Creatinine 0.98, Estim Creat Clear Calc 49.88, Est GFR (MDRD) Af Amer 70, Est GFR (MDRD) Non-Af 58 L, BUN/Creatinine Ratio 11.2, Glucose 78, Hemoglobin A1c 6.5 H, Calcium 8.7, Total Bilirubin 4.90 H, AST 154 H, ALT 136 H, Alkaline Phosphatase 175 H, Total Protein 6.3 L, Albumin 2.8 L, Globulin 3.5, Albumin/Globulin Ratio 0.8 L [facility] Medical History (Updated 09/02/23 @ 15:11 by Iwona Hawk) Asthma Chronic pain Diabetes Diabetes mellitus, type II Essential hypertension Former smoker GERD (gastroesophageal reflux disease) Hyperlipidemia Hypertension Irregular heart beat Morbid obesity with BMI of 50.0-59.9, adult Nephrolithiasis Peripheral neuropathy Premature atrial contractions Premature ventricular contraction Rheumatoid arthritis RLS (restless legs syndrome) Home Medications atorvastatin 10 mg tablet 10 mg PO QHS CHOLESTEROL 07/28/13 [History Last Taken 10/05/16 08:30] esomeprazole magnesium 40 mg capsule,delayed release 40 mg PO DAILY heartburn/acid reflux 07/28/13 [History Last Taken 12/02/16 09:00] metoprolol tartrate 25 mg tablet 25 tab PO BID high blood pressure 12/26/14 [History Last Taken 12/02/16 09:00] csttzdki-psb-ehgrd acid 0.4 mg-lycopene 300 mcg-lutein 250 mcg tablet 1 ea PO DAILY supplement 12/26/14 [History Last Taken 10/05/16 08:30] calcium carbonate 600 mg calcium (1,500 mg) tablet 1,200 mg PO DAILY SUPPLEMENT 10/05/16 [History Last Taken 10/05/16 08:30] amlodipine 5 mg-valsartan 320 mg tablet 1 tab PO DAILY HIGH BLOOD PRESSURE 11/19/16 [History Last Taken 12/02/16 09:00] acetaminophen 500 mg tablet 1,000 mg PO Q8 PRN pain 02/19/18 [History Last Taken Unknown] aspirin 81 mg tablet,delayed release 81 mg PO DAILY HEART MAINTENENCE 03/05/19 [History Last Taken Unknown] insulin glargine 100 unit/mL (3 mL) subcutaneous pen 45 unit subcut QHS DIABETES 04/01/19 [History Last Taken Unknown] insulin lispro 100 unit/mL subcutaneous pen 8 unit subcut TID DIABETES 04/01/19 [History Last Taken Unknown] nitroglycerin 0.4 mg sublingual tablet 0.4 mg sublingual Q5M PRN Chest Pain #25 tabs 04/02/20 [Rx Last Taken Unknown] etodolac 300 mg capsule 300 mg PO BID INFLAMMATION 09/02/23 [History Last Taken Unknown] potassium chloride 20 mEq tablet,extended release(part/cryst) (Klor-Con M) 20 meq PO DAILY SUPPLEMENT 09/02/23 [History Last Taken Unknown] Allergy/AdvReac Type Severity Reaction Status Date / Time hydromorphone HCl Allergy Nausea Verified 09/02/23 08:44 [From Dilaudid] naproxen [From Aleve] AdvReac Severe Nausea Verified 09/02/23 08:44 venlafaxine AdvReac Severe Nausea Verified 09/02/23 08:44 adhesive AdvReac Other Verified 09/02/23 08:44 aspirin AdvReac BABY OK. Verified 09/02/23 08:44 REG STRENG UPSET STOMACH Family History Father DiabetesMother HypertensionSister Hypertension CAD (coronary artery disease) Myocardial infarctionSister Diabetes Surgical History (Updated 09/02/23 @ 15:11 by Iwona Hawk) History of appendectomy History of coronary artery stent placement History of hernia repair History of knee replacement procedure of left knee History of knee replacement procedure of right knee History of repair of rotator cuff History of total hysterectomy Social History (Updated 09/02/23 @ 14:[address] Babita Beltrán MD) household members: none Smoking Status: Former smoker how long ago did patient quit smoking: Quit ~ 40 yrs prior, smoked 1/4 ppd since teen until quit. alcohol intake: never substance use type: does not use ROS Constitutional Constitutional: Reports fatigue and poor appetite Eyes Eyes: Reports systems reviewed and no addt'l complaints, except as documented ENT HEENT: Reports systems reviewed and no addt'l complaints, except as documented Cardiovascular Cardiovascular: Reports chest pain, hypertension, irregular heart rhythm and vomiting Respiratory/Chest Respiratory/Chest: Reports systems reviewed and no addt'l complaints, except as documented Gastrointestinal Gastrointestinal: Reports systems reviewed and no addt'l complaints, except as documented Genitourinary Genitourinary: Reports systems reviewed and no addt'l complaints, except as documented Musculoskeletal Musculoskeletal: Reports systems reviewed and no addt'l complaints, except as documented Integumentary Integumentary: Reports systems reviewed and no addt'l complaints, except as documented Neurologic Neurologic: Reports systems reviewed and no addt'l complaints, except as documented Psychiatric Psychiatric: Reports systems reviewed and no addt'l complaints, except as documented Endocrine Endocrinology: Reports systems reviewed and no addt'l complaints, except as documented Hematologic/Lymphatic Hematologic/Lymphatic: Reports systems reviewed and no addt'l complaints, except as documented Allergic/Immunologic Allergic/Immunologic: Reports systems reviewed and no addt'l complaints, except as documented Physical Exam Const oriented x3 and no apparent distress Resp normal respiratory effort GI GI Narrative: Obese, nondistended, soft, tender to palpation in the right upper quadrant with positive Murray sign Lab / Micro Data 09/03/23 05:45 09/03/23 05:45 Labs: Laboratory Results - last 24 hr 09/02/23 21:18: POC Glucose 119 H 09/03/23 02:25: POC Glucose 105 09/03/23 05:45: WBC 7.2, RBC 4.02 L, Hgb 11.6 L, Hct 36.0 L, MCV 89.6, MCH 28.9, MCHC 32.2, RDW Std Deviation 46.0 H, RDW Coeff of Jorge L 14.2, Plt Count 299, MPV 9.7, Immature Gran % (Auto) 0.000, Neut % (Auto) 72.6 H, Lymph % (Auto) 21.2, [place] % (Auto) 6.0, Eos % (Auto) 0.1, Baso % (Auto) 0.1, Absolute Neuts (auto) 5.2, Absolute Lymphs (auto) 1.52, Nucleated RBC % 0, Sodium 143, Potassium 4.0, Chloride 113 H, Carbon Dioxide 26.0, Anion Gap 4 L, BUN 11, Creatinine 0.98, Estim Creat Clear Calc 49.88, Est GFR (MDRD) Af Amer 70, Est GFR (MDRD) Non-Af 58 L, BUN/Creatinine Ratio 11.2, Glucose 78, Hemoglobin A1c 6.5 H, Calcium 8.7, Total Bilirubin 4.90 H, AST 154 H, ALT 136 H, Alkaline Phosphatase 175 H, Total Protein 6.3 L, Albumin 2.8 L, Globulin 3.5, Albumin/Globulin Ratio 0.8 L 09/03/23 10:08: POC Glucose 52 L 09/03/23 10:30: POC Glucose 164 H 09/03/23 15:45: POC Glucose 61 L Imagaing Radiology Impression Abdomen/Pelvis CT 09/03/23 07:39 IMPRESSION: Hepatomegaly and fatty infiltration of the liver. Mildly distended gallbladder lumen with multiple gallstones. 2. Adjacent calculi are seen in the midportion of the right ureter. Bibasilar atelectasis. Electronically Signed: Young Rucker MD at 8:55 EST , Assessment & Plan Assessment/Plan (1) Acute cholecystitis: PLAN: Plan The patient is an 82 y/o F w/ PMHx: Morbid obesity, Asthma, HTN, HLD, Diabetes mellitus type II w/ chronic peripheral neuropathy, GERD, PAC/PVC, RLS, Hx nephrolithiasis who presents to the [facility] ED on 09/02/23 with history of onset of chest discomfort as well as upper abdominal pain and right upper quadrant pain that started at approximately 3 AM on day of presentation with associated nausea and emesis with no recent fever, chills or any diarrhea reporting her pain is severe and constant prompting ED evaluation. Acute cholecystitis with some concern for choledocholithiasis w/ abdominal pain, N/V with significant hyperbilirubinemia and transaminitis: We discussed the option of pursuing an MRCP due to the elevation in her liver enzymes consistent with cholestatic stasis and likely obstructive jaundice. . Therefore she agreed to undergo ERCP. she did well during ERCP. 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 She had a temporary stent placed and she comes in today to have the stent removed. Risk and benefits of the procedure were explained to the patient including not withstanding infection, bleeding, sepsis, perforation, post ERCP pancreatitis,. She will have an ASA of 3 for the procedure.
--- NOTE | 2023-12-09 10:42 | RAD_ITS ---
STUDY: ERCP. REASON FOR EXAM: Female, 83 years old. Abdominal pain. FLUOROSCOPY TIME (if supplied): ( 4 minutes and 31 seconds ) minutes/seconds. 147.1 mGy. 16 fluoroscopic images were submitted. TECHNIQUE: ERCP was performed by the horser up. Imaging was submitted. COMPARISON: None. FINDINGS: Dilated common bile duct. RAD/ERCP Biliary/Pancreas IMPRESSION: Dilated common bile duct. Electronically Signed: Young Rucker MD at 15:20 EDT ,
--- NOTE | 2023-12-09 11:29 | OP.ERCP_ITS ---
Patient Name: Marilou Goel Procedure Date: 12/09/2023 10:28 AM Date of : 1940 Age: 83 Procedure: ERCP Indications: Common bile duct stone(s), Benign stricture of the common bile duct, Stent removal Providers: Azar Cespedes DO Referring MD: Alicia Florentino Medicines: Monitored Anesthesia Care Patient Profile: This is an 83 year old female. Refer to note in patient chart for documentation of history and physical. Her most recent ERCP for stent and ERCP for stone removal was within the past three months. Complications: No immediate complications. Procedure: Pre-Anesthesia Assessment: - Prior to the procedure, a History and Physical was performed, and patient medications and allergies were reviewed. The patient is competent. The risks and benefits of the procedure and the sedation options and risks were discussed with the patient. All questions were answered and informed consent was obtained. Patient identification and proposed procedure were verified by the physician in the pre-procedure area. Mental Status Examination: alert and oriented. Prophylactic Antibiotics: The patient does not require prophylactic antibiotics. Prior Anticoagulants: The patient has taken no anticoagulant or antiplatelet agents. After reviewing the risks and benefits, the patient was deemed in satisfactory condition to undergo the procedure. The anesthesia plan was to use monitored anesthesia care (MAC). Immediately prior to administration of medications, the patient was re-assessed for adequacy to receive sedatives. The heart rate, respiratory rate, oxygen saturations, blood pressure, adequacy of pulmonary ventilation, and response to care were monitored throughout the procedure. The physical status of the patient was re-assessed after the procedure. After obtaining informed consent, the scope was passed under direct vision. Throughout the procedure, the patient's blood pressure, pulse, and oxygen saturations were monitored continuously. The Duodenoscope was introduced through the mouth, and advanced to the duodenum and used to inject contrast into the bile duct and ventral pancreatic duct. The ERCP was accomplished without difficulty. The patient tolerated the procedure well. Scope In: 10:55:51 AM Scope Out: 11:21:26 AM Total Procedure Duration Time 0 hours 25 minutes 35 seconds Findings: The hospice liaison film was normal. The esophagus was successfully intubated under direct vision. The scope was advanced to a normal major papilla in the descending duodenum without detailed examination of the pharynx, larynx and associated structures, and upper GI tract. The upper GI tract was grossly normal. The bile duct was deeply cannulated with the short-nosed traction sphincterotome. Contrast was injected. I personally interpreted the bile duct and pancreatic duct images. There was brisk flow of contrast through the ducts. Image quality was adequate. Contrast extended to the entire biliary tree. Opacification of the entire biliary tree except for the gallbladder was successful. The maximum diameter of the ducts was 10 mm. The entire biliary tree except for the cystic duct and gallbladder and entire biliary tree except for the gallbladder contained multiple stones, the largest of which was 6 mm in diameter. The entire biliary tree except for the gallbladder and main bile duct were moderately dilated and diffusely dilated, with a stone causing an obstruction. The largest diameter was 10 mm. A cholecystectomy had been performed. A straight Roadrunner wire was passed into the biliary tree. A 5 mm biliary sphincterotomy was made with a braided traction (standard) sphincterotome using ERBE electrocautery. The sphincterotomy oozed blood. The biliary tree was swept with a 12 mm balloon starting at the left main hepatic duct. Sludge was swept from the duct. All stones were removed. One stent was removed from the biliary tree using a snare and sent for cytology. The stent was found to be partially occluded via the water column test. The ventral pancreatic duct was deeply cannulated with the short-nosed traction sphincterotome. Contrast was injected. Opacification of the entire pancreatic ductal system was successful. The maximum diameter of the ducts was 3 mm. The entire opacified area was normal. Impression: - The entire main bile duct was moderately dilated, with a stone causing an obstruction. - The patient has had a cholecystectomy. - Choledocholithiasis was found. Complete removal was accomplished by biliary sphincterotomy and balloon extraction. - A biliary sphincterotomy was performed. - The biliary tree was swept. - One stent was removed from the biliary tree. Procedure Code(s): --- Professional --- 08385, Endoscopic retrograde cholangiopancreatography (ERCP); with removal of foreign body(s) or stent(s) from biliary/pancreatic duct(s) 29954, Endoscopic retrograde cholangiopancreatography (ERCP); with removal of calculi/debris from biliary/pancreatic duct(s) 58649, Endoscopic retrograde cholangiopancreatography (ERCP); with sphincterotomy/papillotomy 29586, 26, Combined endoscopic catheterization of the biliary and pancreatic ductal systems, radiological supervision and interpretation CPT copyright 2021 [employer]. All rights reserved. The codes documented in this report are preliminary and upon communication signals intelligence review may be revised to meet current compliance requirements. Azar Cespedes DO 12/09/2023 11:28:30 AM This report has been signed electronically. Number of Addenda: 0 Note Initiated On: 12/09/2023 10:28 AM
--- NOTE | 2023-12-09 11:29 | OP.CCLET_ITS ---
12/09/2023 Alicia Florentino [address] [place] [address] Re : ERCP procedure for Marilou Ray Dear Dr. Florentino This procedure was performed on Saturday, December 09, 2023. My impressions and recommendations are as follows: Impressions : - The entire main bile duct was moderately dilated, with a stone causing an obstruction. - The patient has had a cholecystectomy. - Choledocholithiasis was found. Complete removal was accomplished by biliary sphincterotomy and balloon extraction. - A biliary sphincterotomy was performed. - The biliary tree was swept. - One stent was removed from the biliary tree. Recommendations : My findings are described in the full procedure note, which is enclosed. If I can be of further assistance, please feel free to contact me at . Sincerely, Azar Cespedes, 12/09/2023 11:28:30 AM This report has been signed electronically.
[2023-12-09] MEDS: Morphine 4 MG/ML Syringe 5 MG IV ×2 (11:57→12:20)
[2023-12-09] MEDS: Lactated Ringers 500 ML 999 ML IV (12:24)
[2023-12-09 12:51] LABS: Troponin-I HS 6 pg/mL (3.0-54.0)
[2023-12-09] MEDS: Lactated Ringers 1,000 ML 999 ML IV (13:15)
== END 2023-12-09 14:45 | disposition home or self-care (01) ==
LOC: EN 09:17 → AC 09:18
PROVIDERS: PCP Family Medicine; Referring Provider Family Medicine; Visit Provider Internal Medicine Gastroenterology
PROC: (CPT 43260; principal; 2023-12-09 10:10)
DX: Z46.59 Encounter for fitting and adjustment of other gastrointestinal appliance and device (principal); E66.01 Morbid (severe) obesity due to excess calories; Z68.43 Body mass index [BMI] 50.0-59.9, adult; E11.42 Type 2 diabetes mellitus with diabetic polyneuropathy; Z79.4 Long term (current) use of insulin; K80.43 Calculus of bile duct with acute cholecystitis with obstruction; Z79.82 Long term (current) use of aspirin; I10 Essential (primary) hypertension; Z87.891 Personal history of nicotine dependence; E78.00 Pure hypercholesterolemia, unspecified; J45.909 Unspecified asthma, uncomplicated; K21.9 Gastro-esophageal reflux disease without esophagitis; Z90.49 Acquired absence of other specified parts of digestive tract; Z79.899 Other long term (current) drug therapy
CPT/HCPCS: 43262; 43275; 43264; 74330; 76000; 82962; 84484; 88108; 88305; 88313; 93005; J7120; J2405

== ENCOUNTER 2024-02-13 16:33 | Inpatient (IN) | payer MEDICARE, BC, SELFPAY ==
[2024-02-13 16:34] VITALS: BP 124/95; PULSE 65; PULSE 66; RESP 14; TEMP 36.6; O2SAT 100; BMI 31.9
--- NOTE | 2024-02-13 16:45 | EKG12_ITS ---
Test Reason : GENERAL Blood Pressure : / mmHG Vent. Rate : 053 BPM Atrial Rate : 053 BPM P-R Int : 156 ms QRS Dur : 084 ms QT Int : 424 ms P-R-T Axes : 051 -05 047 degrees QTc Int : 397 ms Sinus bradycardia Otherwise normal ECG Confirmed by Elia Feliz ([id number]), news video editor SANYA ANTONIO ([id number]) on 02/15/2024 9:39:32 AM Referred By: Confirmed By:Elia Feliz
--- NOTE | 2024-02-13 16:45 | CT_ITS ---
INDICATION: abdominal pain EXAMINATION: CT ABDOMEN AND PELVIS with CONTRAST - CT Abdomen And Pelvis W/ Contrast Injection TECHNIQUE: Multiple axial images were obtained of the abdomen and pelvis following administration of IV contrast. Planar reconstructions obtained. A radiation dose optimization technique was used for this scan. RADIATION DOSAGE (If Supplied By Facility): CTDIvol = ( 18.72 ) mGy, DLP = ( 1071.25 ) mGycm IV Contrast dosage and agent: 100 mL Isovue-370 Oral contrast: None. COMPARISON: 09/03/2023 FINDINGS: LOWER THORAX: Lungs are clear. Cardiac contour is normal, no pericardial effusion. No coronary vascular calcifications noted. HEPATOBILIARY: Liver: The liver is homogeneous and shows no evidence of focal lesion. Diffuse hepatic steatosis is noted. Gallbladder: Gallbladder is surgically absent in the interval. No evidence of ductal dilatation or abnormal fluid collections. Pancreas: Pancreas is normal size configuration and density. No mass is noted. Spleen: The spleen is homogeneous and normal in size. . BOWEL: Stomach: The stomach is normal in size configuration, no evidence of focal masses, abnormal calcifications. No hiatal hernia noted. Bowel: 1. Large and small bowel segments have normal configuration. There is a nonspecific pattern of bowel with fluid and formed stool throughout the bowel segments. No masses or bowel obstruction. 2. There has been development of 2 focal areas of hyperdensity in the region of the lateral conal fascia (series 2: Image 44). There is mild soft tissue stranding along the fascial planes. This is of uncertain etiology, and does not appear to represent the appendix. There is relative contrast enhancement of these areas. Findings may represent sequelae of epiploic appendicitis. Short-term follow-up however recommended to assure complete resolution as peritoneal implant is an additional consideration. Appendix: The visualized appendix is not positively identified.: GENITOURINARY: Adrenals: Both adrenal glands are normal in size. Kidneys: Kidneys appear symmetric in size. There are 2 focal calcifications which are present within the RIGHT ureter without evidence of obstructive changes. Pattern is stable. No hydronephrosis or perinephric fluid. Bladder: Normal Pelvic organs: The visualized pelvic organs are normal in size and configuration. No masses or adenopathy noted. RETROPERITONEUM: There is normal appearance of the abdominal aorta and inferior vena cava. LYMPH NODES: No evidence of retroperitoneal or para-aortic masses fluid collections or adenopathy. PERITONEAL CAVITY: No ascites noted ANTERIOR ABDOMINAL WALL: Normal, no hernia identified. BONES AND SOFT TISSUES: Diffuse lumbar spondylosis, marginal osteophyte formation and vacuum phenomena are present. No fracture or acutely acquired canal stenosis OTHER: None CT/Abdomen/Pelvis W IV Cont ONLY IMPRESSION: 1. No masses or bowel obstruction. 2. Interval development of 2 focal areas of soft tissue density enhancement and soft tissue stranding in the pericolic soft tissue planes at the level of the ascending colon. These are of uncertain etiology, and do not appear to represent the appendix. Sequelae of epiploic appendage is a consideration however follow-up is recommended to assure complete resolution. Peritoneal implant is an additional consideration though felt less likely. 3. 2 nonobstructing calcifications within the mid abdominal ureter on the RIGHT. 4. Status post cholecystectomy, no ductal dilatation. Electronically Signed: Petar Alcantara MD at 18:41 EDT ,
--- NOTE | 2024-02-13 16:49 | EDS_ITS ---
HPI <LAURA Jeff - Last Filed: 02/13/24 20:48> History of Present Illness Chief Complaint: Abd Pain Narrative Narrative: 83-year-old female with past medical history of HTN, HLD, DM2 developed upper and periumbilical abdominal pain around 10 AM while sitting on her couch. She states she had oatmeal for breakfast and vegetable soup for lunch which did not increase the pain but it has gradually worsened throughout the day. About an hour ago it became more severe and she called her daughter to bring her in. She has no fever, chills, nausea or vomiting. She reports normal bladder and bowel movements. Denies melena or hematochezia. She states the pain feels similar to August 2023 when she had her gallbladder removed and biliary stents placed by Dr. Cespedes. He removed the stents in December without complication. <Dr. Nan Gan DO - Last Filed: 02/18/24 08:25> History of Present Illness Informant: patient [facility] <LAURA Jeff - Last Filed: 02/13/24 20:48> [facility] Medical History Wears hearing aid Loss of hearing Wears glasses Wears dentures Walker as ambulation aid Arthritis High cholesterol Diverticulosis Leg cramps History of edema History of echocardiogram History of irregular heartbeat Cardiology follow-up encounter Cholelithiasis Diabetes Chronic pain Rheumatoid arthritis Former smoker Irregular heart beat Hypertension Acute cholecystitis Abdominal pain Essential hypertension Nephrolithiasis Asthma RLS (restless legs syndrome) GERD (gastroesophageal reflux disease) Premature atrial contractions Premature ventricular contraction Peripheral neuropathy Morbid obesity with BMI of 50.0-59.9, adult Diabetes mellitus, type II Hyperlipidemia Home Medications ?Medication ?Instructions ?Recorded ?Last Taken ?Type atorvastatin 10 mg tablet 10 mg PO QHS CHOLESTEROL 07/28/13 02/12/24 History metoprolol tartrate 25 mg tablet 25 tab PO DAILY high blood pressure 12/26/14 02/13/24 History bdtkyoib-zmw-wjoco acid 0.4 1 ea PO DAILY supplement 12/26/14 02/13/24 History mg-lycopene 300 mcg-lutein 250 mcg tablet calcium carbonate 1,200 mg PO DAILY SUPPLEMENT 10/05/16 02/13/24 History amlodipine 5 mg-valsartan 320 mg 1 tab PO DAILY HIGH BLOOD PRESSURE 11/19/16 02/13/24 History tablet acetaminophen 500 mg tablet 1,000 mg PO Q8 PRN pain 02/19/18 Unknown History aspirin 81 mg tablet,delayed 81 mg PO DAILY HEART MAINTENENCE 03/05/19 02/13/24 History release insulin glargine 100 unit/mL (3 45 unit subcut QHS DIABETES 04/01/19 02/12/24 History mL) subcutaneous pen insulin lispro 100 unit/mL 10 unit subcut TID DIABETES 04/01/19 02/13/24 History subcutaneous pen nitroglycerin 0.4 mg sublingual 0.4 mg sublingual Q5M PRN Chest 04/02/20 Unknown Rx tablet Pain #25 tabs potassium chloride 20 mEq 20 meq PO DAILY SUPPLEMENT 09/02/23 02/13/24 History tablet,extended release(part/cryst) (Klor-Con M) esomeprazole magnesium 40 mg 40 mg PO DAILY heartburn/acid 11/05/23 02/13/24 History capsule,delayed release reflux etodolac 300 mg capsule 300 mg PO BID 02/13/24 02/13/24 History insulin syringe-needle U-100 0.5 02/13/24 Unknown History mL 31 gauge x 5/16 (BD Insulin Syringe Ultra-Fine) oxycodone 10 mg tablet 10 mg PO Q6H PRN pain 3 days #10 02/15/24 Unknown Rx tabs Allergy/AdvReac Type Severity Reaction Status Date / Time hydromorphone HCl (From Allergy Nausea Verified 02/13/24 16:35 Dilaudid) venlafaxine AdvReac Severe Nausea Verified 02/13/24 16:35 adhesive AdvReac Other Verified 02/13/24 16:35 Family History Father Diabetes Mother Hypertension Sister Hypertension CAD (coronary artery disease) Myocardial infarction Sister Diabetes Surgical History History of cardiac catheterization History of laparoscopic cholecystectomy S/P ERCP History of appendectomy History of coronary artery stent placement History of repair of rotator cuff History of knee replacement procedure of right knee History of knee replacement procedure of left knee History of hernia repair History of total hysterectomy Social History household members: none Smoking Status: Former smoker how long ago did patient quit smoking: Quit ~ 40 yrs prior, smoked 1/4 ppd since teen until quit. alcohol intake: never substance use type: does not use ROS <LAURA Jeff - Last Filed: 02/13/24 20:48> ROS ED ROS Narrative Constitutional: Negative for fever, chills, malaise. CVS: Negative for chest pain, syncope. Respiratory: Negative for shortness of breath. GI: Positive for abdominal pain. Negative for nausea, vomiting, diarrhea, constipation, melena, hematochezia. : Negative for dysuria, hematuria or frequency. EXAM <LAURA Jeff - Last Filed: 02/13/24 20:48> Physical Exam Narrative Exam Narrative: CONST: Patient appears uncomfortable. EYES: Normal inspection. NECK: Normal inspection. RESP: No respiratory distress, CTAB. CVS: Regular rate and rhythm, no murmur, no gallop. ABD: Soft with epigastric and periumbilical tenderness, no guarding or rebound, nondistended, no hepatosplenomegaly. Negative Murray sign. SKIN: Color normal, no rash, warm, dry, intact. EXTREMITIES: Normal appearance, no pedal edema. NEURO: Alert and answering questions appropriately. PSYCH: Normal affect. Const Vital Signs: 02/13/24 16:34 02/13/24 16:34 02/13/24 18:33 Temperature 97.8 F 97.3 F L Temperature Source Temporal Temporal Pulse Rate 65 66 70 Respiratory Rate 14 14 16 Blood Pressure 124/95 H 124/95 H 128/57 H Blood Pressure Mean 104 104 80 Pulse Ox 100 100 92 Oxygen Delivery Method Room Air Room Air Room Air 02/13/24 18:33 02/13/24 19:33 02/13/24 20:34 Temperature 97.3 F L 97.9 F 97 F L Temperature Source Temporal Pulse Rate 70 88 94 Respiratory Rate 16 18 16 Blood Pressure 128/57 H 120/89 H 140/115 H Blood Pressure Mean 80 99 123 Pulse Ox 92 92 94 Oxygen Delivery Method Room Air <Dr. Nan Gan DO - Last Filed: 02/18/24 08:25> Physical Exam Const Vital Signs: 02/13/24 16:34 02/13/24 16:34 02/13/24 18:33 Temperature 97.8 F 97.3 F L Temperature Source Temporal Temporal Pulse Rate 65 66 70 Respiratory Rate 14 14 16 Blood Pressure 124/95 H 124/95 H 128/57 H Blood Pressure Mean 104 104 80 Pulse Ox 100 100 92 Oxygen Delivery Method Room Air Room Air Room Air 02/13/24 18:33 02/13/24 19:33 02/13/24 20:34 Temperature 97.3 F L 97.9 F 97 F L Temperature Source Temporal Pulse Rate 70 88 94 Respiratory Rate 16 18 16 Blood Pressure 128/57 H 120/89 H 140/115 H Blood Pressure Mean 80 99 123 Pulse Ox 92 92 94 Oxygen Delivery Method Room Air MDM <LAURA Jeff - Last Filed: 02/13/24 20:48> [facility] MDM Narrative Medical decision making narrative: History from: Patient and daughter Differential: GERD, choledocholithiasis, pancreatitis Consults: Hospitalist, GI Patient has epigastric and periumbilical pain that started this morning. She appears uncomfortable but nontoxic. Vital signs stable. There is abdominal periumbilical tenderness without peritoneal signs. Labs show normal white count at 6.1 and new transaminitis with normal lipase. She is status postcholecystectomy and had choledocholithiasis in the past. Gallbladder ultrasound shows enlarged CBD at 11 mm and in conjunction with CT there is a filling defect in the CBD which could be a stone. Case was discussed with Dr. Ha metzger who recommended admission with IV Rocephin and n.p.o. at midnight for ERCP tomorrow. Case was discussed with hospitalist for admission. Lab Data Attestation: I reviewed the patient's lab results. Labs: Laboratory Results - last 24 hr 02/13/24 16:56 WBC 6.1 RBC 4.49 Hgb 12.9 Hct 39.2 MCV 87.3 MCH 28.7 MCHC 32.9 RDW Std Deviation 47.0 H RDW Coeff of Jorge L 14.7 H Plt Count 420 MPV 9.8 Immature Gran % (Auto) 0.200 Neut % (Auto) 56.4 Lymph % (Auto) 37.0 Licking % (Auto) 5.6 Eos % (Auto) 0.5 Baso % (Auto) 0.3 Absolute Neuts (auto) 3.4 Absolute Lymphs (auto) 2.25 Nucleated RBC % 0 Sodium 137 Potassium 4.8 Chloride 109 H Carbon Dioxide 25.0 Anion Gap 3 L BUN 11 Creatinine 0.88 Estim Creat Clear Calc 59.48 Est GFR (MDRD) Af Amer 79 Est GFR (MDRD) Non-Af 65 BUN/Creatinine Ratio 12.5 Glucose 118 H Calcium 9.7 Total Bilirubin 1.10 H AST 549 H ALT 200 H Alkaline Phosphatase 379 H Troponin I High Sens 6 Total Protein 6.9 Albumin 2.8 L Globulin 4.1 Albumin/Globulin Ratio 0.7 L Lipase 45 Radiography Diagnostic Testing: Clinical Impression(s) from Imaging Studies Abdomen/Pelvis CT 02/13/24 16:45 IMPRESSION: 1. No masses or bowel obstruction. 2. Interval development of 2 focal areas of soft tissue density enhancement and soft tissue stranding in the pericolic soft tissue planes at the level of the ascending colon. These are of uncertain etiology, and do not appear to represent the appendix. Sequelae of epiploic appendage is a consideration however follow-up is recommended to assure complete resolution. Peritoneal implant is an additional consideration though felt less likely. 3. 2 nonobstructing calcifications within the mid abdominal ureter on the RIGHT. 4. Status post cholecystectomy, no ductal dilatation. Electronically Signed: Petar Alcantara MD at 18:41 EDT , ADDENDUM: 02/13/241945 IMPRESSION: undefined Gallbladder Ultrasound 02/13/24 17:30 IMPRESSION: 1. Status post cholecystectomy. Prominence of the common bile duct at 11 mm. No filling defects noted on ultrasound, however review of recent CT of the abdomen shows a subtle filling defect measuring 7 mm within the common bile duct approaching the sphincter which may represent a noncalcified stone. 2. Hepatic steatosis and borderline hepatomegaly. 3. Normal appearance the RIGHT kidney. 4. The reported soft tissue densities in the RIGHT upper quadrant are not visualized on current exam. Electronically Signed: Petar Alcantraa MD at 19:37 EDT , EKG Initial EKG: Attestation: I personally reviewed and interpreted this EKG as follows: Interpretation: No Acute Injury Pattern and Sinus Bradycardia Comments: Sinus bradycardia at 53 bpm Normal intervals, no ischemic changes <Dr. Nan Gan, DO - Last Filed: 02/18/24 08:25> [facility] Narrative Medical decision making narrative: History from: Patient and daughter Differential: GERD, choledocholithiasis, pancreatitis Consults: Hospitalist, GI Patient has epigastric and periumbilical pain that started this morning. She appears uncomfortable but nontoxic. Vital signs stable. There is abdominal periumbilical tenderness without peritoneal signs. Labs show normal white count at 6.1 and new transaminitis with normal lipase. She is status postcholecystectomy and had choledocholithiasis in the past. Gallbladder ultrasound shows enlarged CBD at 11 mm and in conjunction with CT there is a filling defect in the CBD which could be a stone. Case was discussed with Dr. Cespedes who recommended admission with IV Rocephin and n.p.o. at midnight for ERCP tomorrow. Case was discussed with hospitalist for admission. I have personally performed a face to face assessment of the patient and have reviewed the JULY Note. I performed a substantive portion of the visit including all aspects of the following. My eden findings include: History is Patient is an 83-year-old female with history of prior laparoscopic cholecystectomy and choledocholithiasis presenting with periumbilical abdominal pain that started this morning. She states it feels like her prior episode of choledocholithiasis. She has a history of ERCP and had the stent removed in December. She is quite uncomfortable. Concern for recurrent choledocholithiasis is high in the differential. Patient does not have a leukocytosis. Unfortunately her bilirubin and liver enzymes are elevated concerning for recurrent choledocholithiasis. CT and ultrasound also show findings of a possible stone and dilation of the common bile duct. Case discussed with Dr. Cespedes who requested patient be admitted to medicine service, started on IV antibiotics and plan for likely ERCP tomorrow. Patient is made n.p.o. after midnight. Patient is agreeable this plan of care. Maintain dynamically stable in the emergency room. Other additions or changes: [None] Lab Data Labs: Laboratory Results - last 24 hr 02/13/24 16:56 WBC 6.1 RBC 4.49 Hgb 12.9 Hct 39.2 MCV 87.3 MCH 28.7 MCHC 32.9 RDW Std Deviation 47.0 H RDW Coeff of Jorge L 14.7 H Plt Count 420 MPV 9.8 Immature Gran % (Auto) 0.200 Neut % (Auto) 56.4 Lymph % (Auto) 37.0 Licking % (Auto) 5.6 Eos % (Auto) 0.5 Baso % (Auto) 0.3 Absolute Neuts (auto) 3.4 Absolute Lymphs (auto) 2.25 Nucleated RBC % 0 Sodium 137 Potassium 4.8 Chloride 109 H Carbon Dioxide 25.0 Anion Gap 3 L BUN 11 Creatinine 0.88 Estim Creat Clear Calc 59.48 Est GFR (MDRD) Af Amer 79 Est GFR (MDRD) Non-Af 65 BUN/Creatinine Ratio 12.5 Glucose 118 H Calcium 9.7 Total Bilirubin 1.10 H AST 549 H ALT 200 H Alkaline Phosphatase 379 H Troponin I High Sens 6 Total Protein 6.9 Albumin 2.8 L Globulin 4.1 Albumin/Globulin Ratio 0.7 L Lipase 45 Radiography Diagnostic Testing: Clinical Impression(s) from Imaging Studies Abdomen/Pelvis CT 02/13/24 16:45 IMPRESSION: 1. No masses or bowel obstruction. 2. Interval development of 2 focal areas of soft tissue density enhancement and soft tissue stranding in the pericolic soft tissue planes at the level of the ascending colon. These are of uncertain etiology, and do not appear to represent the appendix. Sequelae of epiploic appendage is a consideration however follow-up is recommended to assure complete resolution. Peritoneal implant is an additional consideration though felt less likely. 3. 2 nonobstructing calcifications within the mid abdominal ureter on the RIGHT. 4. Status post cholecystectomy, no ductal dilatation. Electronically Signed: Petar Alcantara MD at 18:41 EDT , ADDENDUM: 02/13/241945 IMPRESSION: undefined Gallbladder Ultrasound 02/13/24 17:30 IMPRESSION: 1. Status post cholecystectomy. Prominence of the common bile duct at 11 mm. No filling defects noted on ultrasound, however review of recent CT of the abdomen shows a subtle filling defect measuring 7 mm within the common bile duct approaching the sphincter which may represent a noncalcified stone. 2. Hepatic steatosis and borderline hepatomegaly. 3. Normal appearance the RIGHT kidney. 4. The reported soft tissue densities in the RIGHT upper quadrant are not visualized on current exam. Electronically Signed: Petar Alcantara MD at 19:37 EDT , Discharge Plan Dx/Rx/DC Orders Clinical Impression: Choledocholithiasis, Abdominal pain, Nausea and vomiting Disposition Disposition: Acute Care Hospital [facility] Discharge Date/Time: 02/13/24 21:24
[2024-02-13] MEDS: 0.9% Normal Saline (1000mL) 1,000 ML 999 ML IV (16:55)
[2024-02-13] MEDS: Morphine 4 MG/ML Syringe IV (16:56)
[2024-02-13] MEDS: Ondansetron 4 MG/2 ML Vial IV (16:56)
[2024-02-13 17:06] LABS: Absolute Lymphocyte Count 2.25 X10^3/uL (0.83-4.51); Absolute Neutrophil Count 3.4 X10^3/uL (2.0-7.7); Basophil# 0.02 X10^3/uL; Basophil% 0.3 % (0-1); Eosinophil# 0.03 X10^3/uL; Eosinophils% 0.5 % (0-5); Hematocrit 39.2 % (37-47); Hemoglobin 12.9 g/dL (12.0-15.0); Lymphocyte # 2.25 X10^3/ul (0.83-4.51); Mean Corp Hgb Conc 32.9 g/dL (32-36); Mean Corpuscular Hgb 28.7 pg (27.0-32.0); Mean Corpuscular Volume 87.3 fL (81-99); Mean Platelet Vol. 9.8 fl (6.2-12.0); Monocyte# 0.34 X10^3/uL; Monocyte% 5.6 % (0-10); NRBC Flagged by Analyzer 0 % (0-5); Neutrophil # 3.43 X10^3/uL (2.7-7.7); Neutrophil % 56.4 % (47-70); Platelet Count 420 K/mm3 (150-450); RBC Distribution Width CV 14.7 % (11.6-14.6); Red Blood Count 4.49 M/mm3 (4.2-5.4); White Blood Count 6.1 K/mm3 (4.4-11.0)
[2024-02-13 17:26] LABS: ALB/GLOB Ratio 0.7 RATIO (0.9-2.4); AST(SGOT) 549 U/L (15-37); Alanine Aminotransfer ALT/SGPT 200 U/L (13-56); Albumin, Serum 2.8 g/dL (3.2-5.0); Alkaline Phosphatase 379 U/L (45-117); Anion Gap 3 (5-15); BUN 11 mg/dL (7-18); BUN/Creat Ratio 12.5 RATIO (10-20); Calcium,Total 9.7 mg/dL (8.5-10.1); Chloride 109 mmol/L (98-107); Creatinine, Serum 0.88 mg/dL (0.55-1.02); EST Glomerular Filtration Rate 65 mL/min (>60); Est Glom Filt Rate - Afr Amer 79 mL/min (>60); Estimated Creatinine Clearance 59.48 ml/min; Globulin 4.1 g/dL (2.2-4.2); Glucose 118 mg/dL (74-106); Lipase 45 U/L (13-75); Potassium 4.8 mmol/L (3.5-5.1); Protein, Total 6.9 g/dL (6.4-8.2); Sodium Level 137 mmol/L (136-145); Troponin-I HS 6 pg/mL (3.0-54.0)
--- NOTE | 2024-02-13 17:30 | US_ITS ---
INDICATION: pain EXAMINATION: Ultrasound US Abdomen Limited (quadrant) TECHNIQUE: Álvarez scale and color doppler imaging was performed of the right upper quadrant. COMPARISON: Prior study dated: CT of the abdomen dated 02/13/2024 FINDINGS: LIVER: There is increased echotexture and measures 15.5 cm in length.. No focal hepatic lesion. There is no free fluid. GALLBLADDER AND BILIARY TREE: Surgically absent. Common bile duct measures 11 mm. No filling defects noted by ultrasound. Correlation however made to recent CT examination. Common bile duct at the level of the pancreatic head measures approximately [address] and there appears to be a subtle filling defect measuring 7 mm within the CBD approaching the sphincter and CT (series 601: Image [address] Sonographic Murray''s sign: Not reported. PANCREAS: No focal abnormality is demonstrated in the pancreas. No pancreatic ductal dilatation. RIGHT kidney: RIGHT kidney has normal configuration, no solid or cystic masses or hydronephrosis. RIGHT kidney dimension: 3.7 x 4.3 x 4.8 cm. Cortex measures 1.2 cm.. US/Gallbladder IMPRESSION: 1. Status post cholecystectomy. Prominence of the common bile duct at 11 mm. No filling defects noted on ultrasound, however review of recent CT of the abdomen shows a subtle filling defect measuring 7 mm within the common bile duct approaching the sphincter which may represent a noncalcified stone. 2. Hepatic steatosis and borderline hepatomegaly. 3. Normal appearance the RIGHT kidney. 4. The reported soft tissue densities in the RIGHT upper quadrant are not visualized on current exam. Electronically Signed: Petar Alcantara MD at 19:37 EDT ,
[2024-02-13 18:33] VITALS: BP 128/57; PULSE 70; RESP 16; TEMP 36.3; O2SAT 92
[2024-02-13 19:33] VITALS: BP 120/89; PULSE 88; RESP 18; TEMP 36.6; O2SAT 92
[2024-02-13] MEDS: Ceftriaxone 1 GM/50 ML BAG IV (20:26)
[2024-02-13 20:34] VITALS: BP 140/115; PULSE 94; RESP 16; TEMP 36.1; O2SAT 94
--- NOTE | 2024-02-13 20:47 | HP.PCM.HOS_ITS ---
[facility] - General General Date of Admission: 02/13/24 Date of Service: 02/13/24 Chief Complaint: Abdominal Pain. HPI Narrative KEIKO GOEL, is a 83 F with a past medical history of essential hypertension, hyperlipidemia, obesity; with a BMI of 31.9 this admission, DM-2; of unknown control, CAD; s/p stent, history of constipation suspected to be due to narcotic medications, history of appendectomy, RLS, GERD, osteoarthritis; s/p bilateral TKR's, history of total hysterectomy, history of hernia repair, history of acute cholecystitis; s/p laparoscopic cholecystectomy August 2023 and history of choledocholithiasis; status post ERCP with common bile duct stent and subsequent removal in December of this year without complication followed by Dr. Cespedes of gastroenterology who presents to [facility] ER complaining of abdominal pain. Ms. Goel reports her symptoms began approximately 10 AM today with the abrupt onset of periumbilical abdominal pain that was periumbilical, cramping, intermittent and initially was moderate in severity. Then approximately 1 hour prior to arrival the pain became severe and the patient contacted her daughter to be brought in for further evaluation and treatment. She admits her symptoms are similar to the pain she felt in August 2023 when she had her gallbladder removed and biliary stents placed. She denies associated fever, chills, nausea, vomiting and has had normal bowel movements with no signs of bleeding. In the ER she had CT and ultrasound evidence of recurrent choledocholithiasis with ~11 mm enlarged CBD with filling defect in the CBD which is suspected to be a stone with GI physician recommending IV Rocephin and patient be kept n.p.o. after midnight for ERCP planned in the a.m. She was then admitted to the general medical floor for ongoing care for status expected to extend beyond 2 midnights. [facility] Medical History Wears hearing aid Loss of hearing Wears glasses Wears dentures Walker as ambulation aid Arthritis High cholesterol Diverticulosis Leg cramps History of edema History of echocardiogram History of irregular heartbeat Cardiology follow-up encounter Cholelithiasis Diabetes Chronic pain Rheumatoid arthritis Former smoker Irregular heart beat Hypertension Acute cholecystitis Abdominal pain Essential hypertension Nephrolithiasis Asthma RLS (restless legs syndrome) GERD (gastroesophageal reflux disease) Premature atrial contractions Premature ventricular contraction Peripheral neuropathy Morbid obesity with BMI of 50.0-59.9, adult Diabetes mellitus, type II Hyperlipidemia Home Medications ?Medication ?Instructions ?Recorded ?Last Taken ?Type atorvastatin 10 mg tablet 10 mg PO QHS CHOLESTEROL 07/28/13 02/12/24 History metoprolol tartrate 25 mg tablet 25 tab PO DAILY high blood pressure 12/26/14 02/13/24 History okkzxrex-puh-ousgu acid 0.4 1 ea PO DAILY supplement 12/26/14 02/13/24 History mg-lycopene 300 mcg-lutein 250 mcg tablet calcium carbonate 1,200 mg PO DAILY SUPPLEMENT 10/05/16 02/13/24 History amlodipine 5 mg-valsartan 320 mg 1 tab PO DAILY HIGH BLOOD PRESSURE 11/19/16 02/13/24 History tablet acetaminophen 500 mg tablet 1,000 mg PO Q8 PRN pain 02/19/18 Unknown History aspirin 81 mg tablet,delayed 81 mg PO DAILY HEART MAINTENENCE 03/05/19 02/13/24 History release insulin glargine 100 unit/mL (3 45 unit subcut QHS DIABETES 04/01/19 02/12/24 History mL) subcutaneous pen insulin lispro 100 unit/mL 10 unit subcut TID DIABETES 04/01/19 02/13/24 History subcutaneous pen nitroglycerin 0.4 mg sublingual 0.4 mg sublingual Q5M PRN Chest 04/02/20 Unknown Rx tablet Pain #25 tabs potassium chloride 20 mEq 20 meq PO DAILY SUPPLEMENT 09/02/23 02/13/24 History tablet,extended release(part/cryst) (Klor-Con M) esomeprazole magnesium 40 mg 40 mg PO DAILY heartburn/acid 11/05/23 02/13/24 History capsule,delayed release reflux oxycodone 10 mg tablet 10 mg PO Q6H PRN pain 5 days #15 12/09/23 Unknown Rx tabs etodolac 300 mg capsule 300 mg PO BID 02/13/24 02/13/24 History insulin syringe-needle U-100 0.5 02/13/24 Unknown History mL 31 gauge x 5/16 (BD Insulin Syringe Ultra-Fine) Allergy/AdvReac Type Severity Reaction Status Date / Time hydromorphone HCl (From Allergy Nausea Verified 02/13/24 16:35 Dilaudid) venlafaxine AdvReac Severe Nausea Verified 02/13/24 16:35 adhesive AdvReac Other Verified 02/13/24 16:35 Family History Father Diabetes Mother Hypertension Sister Hypertension CAD (coronary artery disease) Myocardial infarction Sister Diabetes Surgical History History of cardiac catheterization History of laparoscopic cholecystectomy S/P ERCP History of appendectomy History of coronary artery stent placement History of repair of rotator cuff History of knee replacement procedure of right knee History of knee replacement procedure of left knee History of hernia repair History of total hysterectomy Social History household members: none Smoking Status: Former smoker how long ago did patient quit smoking: Quit ~ 40 yrs prior, smoked 1/4 ppd since teen until quit. alcohol intake: never substance use type: does not use ROS ROS Narrative Review of systems: General: Patient denies fever or chills. HENT: Denies headache, denies stuffy nose, denies sore throat EYES: Denies changes in vision or discharge from eyes. Resp: Denies cough, denies shortness of breath Cardiac: Denies chest pain, palpitations or heart racing. GI: Patient admits to abdominal pain primarily in the epigastrium as per HPI. She denies nausea, vomiting, diarrhea, constipation or blood in stools. : Denies changes in urination Extremity: Denies swelling Musculoskeletal: Feels somewhat generally weak and unwell but she denies arthralgias or myalgias. Neuro: Patient denies headache, paresthesias or focal neurologic deficits. Heme: Denies any bleeding or bruising Skin: Denies rashes Psychiatric: No complaints voiced related to uncontrolled depression or anxiety. Endocrine: No polyuria, polydipsia or polyphagia The rest of the 14 point ROS was negative except for positives in HPI. Vital Signs Vital Signs Vital Signs: 02/13/24 16:34 02/13/24 16:34 02/13/24 18:33 Temperature 97.8 F 97.3 F L Temperature Source Temporal Temporal Pulse Rate 65 66 70 Respiratory Rate 14 14 16 Blood Pressure 124/95 H 124/95 H 128/57 H Blood Pressure Mean 104 104 80 Pulse Ox 100 100 92 Oxygen Delivery Method Room Air Room Air Room Air 02/13/24 18:33 02/13/24 19:33 02/13/24 20:34 Temperature 97.3 F L 97.9 F 97 F L Temperature Source Temporal Pulse Rate 70 88 94 Respiratory Rate 16 18 16 Blood Pressure 128/57 H 120/89 H 140/115 H Blood Pressure Mean 80 99 123 Pulse Ox 92 92 94 Oxygen Delivery Method Room Air Weight Weight: 210 lb Body Mass Index (BMI) 31.9 Physical Exam Const alert, oriented x3, no apparent distress, average body habitus and healthy appearing General Appearance: cooperative HEENT normocephalic, head/scalp atraumatic, hearing grossly normal bilaterally and moist oral mucous membranes Eyes PERRL and EOMs intact bilaterally Neck no lymphadenopathy and supple Resp normal respiratory effort, no retractions, no use of accessory muscles and clear to auscultation bilaterally Cardio regular rate and regular rhythm GI normal to inspection, nondistended, normoactive bowel sounds, soft to palpation, non-tender, non-distended and hepatosplenomegaly Extremity normal to inspection and full ROM Skin Skin Narrative: Patient has no evidence of rash, jaundice or abscess. Neuro oriented x3, CN's II-XII intact bilaterally, moves all extremities and no focal motor deficits Sensorium / Orientation: awake, alert, oriented to person, oriented to place and oriented to time Speech: speech normal Psych affect normal Results Medical Records Data Attestation: I reviewed the patient's medical records Lab / Micro Data Attestation: I reviewed the patient's lab results. 02/13/24 16:56 02/13/24 16:56 Labs: Laboratory Results - last 24 hr 02/13/24 16:56: WBC 6.1, RBC 4.49, Hgb 12.9, Hct 39.2, MCV 87.3, MCH 28.7, MCHC 32.9, RDW Std Deviation 47.0 H, RDW Coeff of Jorge L 14.7 H, Plt Count 420, MPV 9.8, Immature Gran % (Auto) 0.200, Neut % (Auto) 56.4, Lymph % (Auto) 37.0, [place] % (Auto) 5.6, Eos % (Auto) 0.5, Baso % (Auto) 0.3, Absolute Neuts (auto) 3.4, Absolute Lymphs (auto) 2.25, Nucleated RBC % 0, Sodium 137, Potassium 4.8, C hloride 109 H, Carbon Dioxide 25.0, Anion Gap 3 L, BUN 11, Creatinine 0.88, Estim Creat Clear Calc 59.48, Est GFR (MDRD) Af Amer 79, Est GFR (MDRD) Non-Af 65, BUN/Creatinine Ratio 12.5, Glucose 118 H, Calcium 9.7, Total Bilirubin 1.10 H, AST 549 H, ALT 200 H, Alkaline Phosphatase 379 H, Troponin I High Sens 6, Total Protein 6.9, Albumin 2.8 L, Globulin 4.1, Albumin/Globulin Ratio 0.7 L, Lipase 45 Imaging Radiology Impression Abdomen/Pelvis CT 02/13/24 16:45 IMPRESSION: 1. No masses or bowel obstruction. 2. Interval development of 2 focal areas of soft tissue density enhancement and soft tissue stranding in the pericolic soft tissue planes at the level of the ascending colon. These are of uncertain etiology, and do not appear to represent the appendix. Sequelae of epiploic appendage is a consideration however follow-up is recommended to assure complete resolution. Peritoneal implant is an additional consideration though felt less likely. 3. 2 nonobstructing calcifications within the mid abdominal ureter on the RIGHT. 4. Status post cholecystectomy, no ductal dilatation. Electronically Signed: Petar Alcantara MD at 18:41 EDT , ADDENDUM: 02/13/241945 IMPRESSION: undefined Gallbladder Ultrasound 02/13/24 17:30 IMPRESSION: 1. Status post cholecystectomy. Prominence of the common bile duct at 11 mm. No filling defects noted on ultrasound, however review of recent CT of the abdomen shows a subtle filling defect measuring 7 mm within the common bile duct approaching the sphincter which may represent a noncalcified stone. 2. Hepatic steatosis and borderline hepatomegaly. 3. Normal appearance the RIGHT kidney. 4. The reported soft tissue densities in the RIGHT upper quadrant are not visualized on current exam. Electronically Signed: Petar Alcantara MD at 19:37 EDT , Assessment & Plan Assessment/Plan (1) Choledocholithiasis: (2) Abdominal pain: QUALIFIERS: Abdominal location: periumbilical Qualified Code(s): R10.33 - Periumbilical pain (3) Status post laparoscopic cholecystectomy: (4) S/P ERCP: (5) Essential hypertension: PLAN: Plan 1. Recurrent choledocholithiasis with ~11 mm enlarged CBD with filling defect in the CBD which is suspected to be a stone - Admit to general medical floor. Continue IV Rocephin begun in the ER as recommended by gastroenterology. Gently volume resuscitate. Keep patient n.p.o. after midnight and start IV Protonix plus as needed IV Zofran to control nausea and vomiting. Finally, we will consult Dr. Cespedes of gastroenterology to see this patient for ERCP in the AM on-rounds with help appreciated in advance. 2. History of choledocholithiasis; status post ERCP with common bile duct stent and subsequent removal in December of this year without complication followed by Dr. Cespedes of gastroenterology complicating #1 - Noted. 3. History of acute cholecystitis; s/p laparoscopic cholecystectomy August 2023 - Noted. 4. Essential hypertension - Give IV hydralazine as needed for systolic blood pressure greater than 160 mmHg. 5. Hyperlipidemia - Restart statin when patient has able to safely tolerate oral intake. 6. Obesity; with a BMI of 31.9 this admission - Weight loss will be recommended. 7. DM-2; of unknown control - Keep n.p.o. for now. FSBS every 6 hours plus lowest intensity SSI. Check hemoglobin A1c to objectively evaluate quality of diabetic control. 8. CAD; s/p stent - Noted. 9. History of constipation suspected to be due to narcotic medications - Patient denied constipation report normal BM as per HPI. Give Dulcolax suppository as needed for recurrence. 10. History of appendectomy - Noted. 11. GERD - Patient started on IV Protonix for #1. 12. Osteoarthritis; s/p bilateral TKR's - Noted. 13. History of total hysterectomy - Noted. 14. History of hernia repair - Noted. 15. RLS - Stable. 16. DVT prophylaxis - SCD's only with impending ERCP with likely stent placement. Total time: Approximately 75 minutes. Charges/Coding Visit Charges Inpatient E&M: 12621 Init Hosp L3
[2024-02-13 21:46] LABS: Hemoglobin A1c 6.3 % (3.8-5.6)
[2024-02-13 22:31] VITALS: BP 140/61; PULSE 87; RESP 16; TEMP 37.1; O2SAT 95
[2024-02-13 22:45] VITALS: BMI 41.4
[2024-02-13] MEDS: 0.9% Normal Saline (1000mL) 1,000 ML 70 ML IV (22:54)
[2024-02-13] MEDS: Pantoprazole Sodium 40 MG in 0.9% Normal Saline (100mL MB+) 100 ML 330 MG IV (23:03)
[2024-02-13 23:34] VITALS: BMI 41.4
[2024-02-14] VITALS (14 sets, daily range): BP systolic 114–143; BP diastolic 43–105; PULSE 62–98; RESP 16–18; TEMP 36.5–37.2; O2SAT 95–99; BMI 41.4
[2024-02-14 04:46] LABS: Bedside Glucose 173 mg/dL (74-106)
[2024-02-14 06:33] LABS: Absolute Lymphocyte Count 0.57 X10^3/uL (0.83-4.51); Basophil# 0.01 X10^3/uL; Basophil% 0.1 % (0-1); Hematocrit 36.4 % (37-47); Hemoglobin 11.7 g/dL (12.0-15.0); Lymphocyte # 0.57 X10^3/ul (0.83-4.51); Lymphocyte % 8.3 % (19-41); Mean Corp Hgb Conc 32.1 g/dL (32-36); Mean Corpuscular Hgb 28.1 pg (27.0-32.0); Mean Corpuscular Volume 87.5 fL (81-99); Mean Platelet Vol. 10.1 fl (6.2-12.0); Monocyte# 0.33 X10^3/uL; Monocyte% 4.8 % (0-10); NRBC Flagged by Analyzer 0 % (0-5); Neutrophil # 5.97 X10^3/uL (2.7-7.7); Neutrophil % 86.7 % (47-70); POSITIVE DIFFERENTIAL YES; Platelet Count 403 K/mm3 (150-450); RBC Distribution Width CV 14.6 % (11.6-14.6); Red Blood Count 4.16 M/mm3 (4.2-5.4); White Blood Count 6.9 K/mm3 (4.4-11.0)
[2024-02-14 07:06] LABS: ALB/GLOB Ratio 0.6 RATIO (0.9-2.4); AST(SGOT) 419 U/L (15-37); Alanine Aminotransfer ALT/SGPT 260 U/L (13-56); Albumin, Serum 2.3 g/dL (3.2-5.0); Alkaline Phosphatase 413 U/L (45-117); Anion Gap 5 (5-15); BUN 10 mg/dL (7-18); BUN/Creat Ratio 12.2 RATIO (10-20); Calcium,Total 8.8 mg/dL (8.5-10.1); Chloride 111 mmol/L (98-107); Creatinine, Serum 0.82 mg/dL (0.55-1.02); EST Glomerular Filtration Rate 71 mL/min (>60); Est Glom Filt Rate - Afr Amer 86 mL/min (>60); Estimated Creatinine Clearance 54.93 ml/min; Globulin 3.7 g/dL (2.2-4.2); Glucose 177 mg/dL (74-106); Magnesium 1.9 mg/dL (1.6-2.6); Phosphorus 3.1 mg/dL (2.5-4.9); Sodium Level 139 mmol/L (136-145); Thyroid Stim Hormone (TSH) 0.98 uIU/mL (0.358-3.74)
--- NOTE | 2024-02-14 08:55 | PRE.ANES_ITS ---
ASA Classification* ASA Classification ASA Classification: 3 and E Assessment & Plan Anesthesia* Anesthesia Assessment Anesthesia Assessment: Discussed sedation and/or anesthesia options, risks, benefits, and alternatives with patient/parents/legal guardian/POA. Questions invited. The patient/parents/legal guardian/POA seems to understand and agrees to proceed with anesthesia plan. Reviewed the physical assessment, medical history, allergy history and patient home medications list prior to surgery/procedure/anesthetic and documented any changes. Performed airway and anesthesia risk assessments. Anesthesia Type Anesthesia Type: General Pre-Assessment Diagnosis/Proposed Procedure Planned Operative Procedure(s): ERCP Anesthesia History Anesthesia History - chancery clerk: Anesthesia History - chancery clerk Hx Hospitalization Yes: ERCP/[facility] 12/03/23 12:56 Any Problems With Anesthesia No 02/14/24 08:35 Cholinesterase deficiency No 02/14/24 08:35 You/Your Family Experience No 02/14/24 08:35 fever (hyperthermia) with Relationship Recent Exposure to Contagious No 02/14/24 08:35 Disease Does patient have nerve No 02/14/24 08:35 stimulator Patient instructed to have device shut off --Does patient have Pacemaker No 02/14/24 08:18 or ICD? When Was Last Pacemaker Check QUESTION #4 FULL TEXT: You/Your Family Experience fever (hyperthermia) with Anesthesia Last Oral Intake Last Oral intake: Last Oral Intake NPO since 00:00 02/14/24 08:18 Meds taken in AM with sips of No 02/14/24 08:18 water? Meds patient instructed to take am of surgery PONV PONV - chancery clerk: PONV - chancery clerk Female HX of Motion Sickness HX of N/V After Surgery Non-Smoker Duration of Surgery greater than 60 minutes Number of Risk Factors PONV Score Height & Weight Height & Weight: Anesthesia: Height & Weight Height 5 ft 02/14/24 08:18 Weight: 96.2 kg 02/14/24 08:18 Body Mass Index (BMI) 41.4 02/14/24 08:18 Respiratory Assessment Respiratory Assessment - chancery clerk: Respiratory Tract Infection Hx - chancery clerk Hx Respiratory Tract Infection No 02/14/24 08:35 STOP Sleep Apnea STOP Sleep Apnea - chancery clerk: STOP Sleep Apnea - chancery clerk Hx Hypertension Yes 02/13/24 22:38 Hx Sleep Apnea No 02/13/24 22:38 CPAP No 12/09/23 11:31 BIPAP No 12/03/23 12:56 Do you snore loudly (louder No 02/13/24 22:38 than talking or can be heard Do you often feel tired/ No 02/13/24 22:38 fatigued/ sleepy during daytime? Has anyone observed you stop No 02/13/24 22:38 breathing during sleep? STOP Results Negative 02/13/24 22:38 QUESTION #5 FULL TEXT : Do you snore loudly (louder than talking or can be heard through closed doors)? Tobacco Use History Tobacco Use History - chancery clerk: Tobacco Use History - chancery clerk Tobacco Use Smoking Status Former smoker 02/13/24 22:38 Hx Tobacco Use No 02/13/24 22:38 Years Smoking Packs Smoked per Day Smoking Cessation Date was No - quit smoking greater 02/13/24 22:38 within the last 15 years than 15 years ago Hx Smoking Cessation Date 08/24/71 02/13/24 22:38 Hx Smoking Cessation No 02/13/24 22:38 Counseling Hematologic Medial History Hematologic Hx - chancery clerk: Hematologic Medical Hx - tooling engineering tech Hx of Blood Transfusion Yes 02/13/24 22:38 Hx of Transfusion in last 3 No 02/13/24 22:38 Months Date of Last Transfusion (if within last 3 months) Ever experience any problems No 02/13/24 22:38 with transfusion(s)? Specify any problems Hx of Preganancy in last 3 N/A 02/13/24 22:38 Months Nurse Filling Out Transfusion FROYLAN 02/13/24 22:38 & Questions: Date: 02/13/24 02/13/24 22:38 Time: 22:41 02/13/24 22:38 Patient unable to answer at this time (ie. confused, unrespo /Reproduction History /Reproductive History - chancery clerk: /Reproductive Hx- chancery clerk Hx Now Gestational Age (in weeks): EDC: Hx Hx Para Hx Section SAB No 02/14/24 08:35 Active Medications Active Medications: Current Medications Generic Name Dose Route Start Last Admin Trade Name Freq PRN Reason Stop Dose Admin Aspirin 81 mg 02/15/24 08:00 Aspirin E.C. 81 Mg Tablet PO DAILYCM [facility] Atorvastatin Calcium 10 mg 02/14/24 22:00 Atorvastatin Calcium 10 Mg Tablet PO QHS [facility] Calcium Carbonate 1,000 mg 02/15/24 08:00 Calcium (Elemental) 500 [facility] HCl 10 mg 02/13/24 22:15 Hydralazine 20 Mg/Ml Vial IV Q6H PRN PRN Sbp Greater Than 160 Protocol Pantoprazole Sodium 40 mg/ 110 mls @ 330 mls/hr 02/13/24 21:10 02/13/24 23:23 Sodium Chloride IV Infused DAILY [facility] Infusion Ceftriaxone Sodium 1 gm in 50 mls @ 100 mls/hr 02/14/24 22:00 Rocephin IV 2200 EFRA Sodium Chloride 1,000 mls @ 70 mls/hr 02/13/24 22:15 02/13/24 22:54 IV 70 mls/hr .[id number] EFRA Administration Sodium Chloride 250 mls @ 15 mls/hr 02/14/24 01:48 IV .[id number] PRN Additional IVPB Infusion Sodium Chloride 250 mls @ 15 mls/hr 02/14/24 01:48 IV .[id number] PRN Saline Flush Metoprolol Tartrate 25 mg 02/15/24 10:00 Metoprolol Tartrate 25 Mg Tablet PO DAILY [facility] Protocol Morphine Sulfate 2 mg 02/13/24 22:15 Morphine 2 Mg/Ml Syringe IV Q4H PRN PRN Pain Score 6-10 Ondansetron HCl 4 mg 02/13/24 22:15 Ondansetron 4 Mg/2 Ml Vial IV Q4H PRN PRN NAUSEA/VOMITING Sodium Chloride 10 - 40 ml 02/14/24 01:48 0.9% Saline Lock 10 Ml Syringe IV UD PRN SALINE FLUSH Anesthesia Focused Assessment* Temperature: 97.8 F Pulse Rate: 76 Blood Pressure: 128/58 Respiratory Rate: 16 Pulse Ox: 97 Airway Assessment Mouth opens: >3 cm Mallampati Score: II Focused Labs Anesthesia Preop lab: CBC WBC 6.9 K/mm3 (4.4-11.0) 02/14/24 05:08 RBC 4.16 M/mm3 (4.2-5.4) L 02/14/24 05:08 Hgb 11.7 g/dL (12.0-15.0) L 02/14/24 05:08 Hct 36.4 % (37-47) L 02/14/24 05:08 Plt Count 403 K/mm3 (150-450) 02/14/24 05:08 CHEMISTRY Potassium 4.0 mmol/L (3.5-5.1) 02/14/24 05:08 Sodium 139 mmol/L (136-145) 02/14/24 05:08 Magnesium 1.9 mg/dL (1.6-2.6) 02/14/24 05:08 Phosphorus 3.1 mg/dL (2.5-4.9) 02/14/24 05:08 BUN 10 mg/dL (7-18) 02/14/24 05:08 Creatinine 0.82 mg/dL (0.55-1.02) 02/14/24 05:08 Glucose 177 mg/dL (74-106) H 02/14/24 05:08 POC Glucose 173 mg/dL (74-106) H 02/13/24 23:05 TSH 0.98 uIU/mL (0.358-3.74) 02/14/24 05:08 COAG PT 13.3 SECONDS (11.7-14.9) 12/13/14 11:24 Review of Systems (Anesthesia) ROS Narrative System reviewed and no additional complaints, except as documented. [facility] Medical History Wears hearing aid Loss of hearing Wears glasses Wears dentures Walker as ambulation aid Arthritis High cholesterol Diverticulosis Leg cramps History of edema History of echocardiogram History of irregular heartbeat Cardiology follow-up encounter Cholelithiasis Diabetes Chronic pain Rheumatoid arthritis Former smoker Irregular heart beat Hypertension Acute cholecystitis Abdominal pain Essential hypertension Nephrolithiasis Asthma RLS (restless legs syndrome) GERD (gastroesophageal reflux disease) Premature atrial contractions Premature ventricular contraction Peripheral neuropathy Morbid obesity with BMI of 50.0-59.9, adult Diabetes mellitus, type II Hyperlipidemia Home Medications ?Medication ?Instructions ?Recorded ?Last Taken ?Type atorvastatin 10 mg tablet 10 mg PO QHS CHOLESTEROL 07/28/13 02/12/24 History metoprolol tartrate 25 mg tablet 25 tab PO DAILY high blood pressure 12/26/14 02/13/24 History uatjrnpx-ros-sszga acid 0.4 1 ea PO DAILY supplement 12/26/14 02/13/24 History mg-lycopene 300 mcg-lutein 250 mcg tablet calcium carbonate 1,200 mg PO DAILY SUPPLEMENT 10/05/16 02/13/24 History amlodipine 5 mg-valsartan 320 mg 1 tab PO DAILY HIGH BLOOD PRESSURE 11/19/16 02/13/24 History tablet acetaminophen 500 mg tablet 1,000 mg PO Q8 PRN pain 02/19/18 Unknown History aspirin 81 mg tablet,delayed 81 mg PO DAILY HEART MAINTENENCE 03/05/19 02/13/24 History release insulin glargine 100 unit/mL (3 45 unit subcut QHS DIABETES 04/01/19 02/12/24 History mL) subcutaneous pen insulin lispro 100 unit/mL 10 unit subcut TID DIABETES 04/01/19 02/13/24 History subcutaneous pen nitroglycerin 0.4 mg sublingual 0.4 mg sublingual Q5M PRN Chest 04/02/20 Unknown Rx tablet Pain #25 tabs potassium chloride 20 mEq 20 meq PO DAILY SUPPLEMENT 09/02/23 02/13/24 History tablet,extended release(part/cryst) (Klor-Con M) esomeprazole magnesium 40 mg 40 mg PO DAILY heartburn/acid 11/05/23 02/13/24 History capsule,delayed release reflux oxycodone 10 mg tablet 10 mg PO Q6H PRN pain 5 days #15 12/09/23 Unknown Rx tabs etodolac 300 mg capsule 300 mg PO BID 02/13/24 02/13/24 History insulin syringe-needle U-100 0.5 02/13/24 Unknown History mL 31 gauge x 5/16 (BD Insulin Syringe Ultra-Fine) Allergy/AdvReac Type Severity Reaction Status Date / Time hydromorphone HCl (From Allergy Nausea Verified 02/13/24 16:35 Dilaudid) venlafaxine AdvReac Severe Nausea Verified 02/13/24 16:35 adhesive AdvReac Other Verified 02/13/24 16:35 Family History Father Diabetes Mother Hypertension Sister Hypertension CAD (coronary artery disease) Myocardial infarction Sister Diabetes Surgical History History of cardiac catheterization History of laparoscopic cholecystectomy S/P ERCP History of appendectomy History of coronary artery stent placement History of repair of rotator cuff History of knee replacement procedure of right knee History of knee replacement procedure of left knee History of hernia repair History of total hysterectomy Social History household members: none Smoking Status: Former smoker how long ago did patient quit smoking: Quit ~ 40 yrs prior, smoked 1/4 ppd since teen until quit. alcohol intake: never substance use type: does not use
[2024-02-14 09:10] LABS: Bedside Glucose 137 mg/dL (74-106)
--- NOTE | 2024-02-14 09:20 | RAD_ITS ---
EXAM: FL FLUOROSCOPY < 1 HOUR CLINICAL INDICATION: ERCP TECHNIQUE: Fluoroscopic images performed in multiple projections. Fluoroscopic guidance was provided to the operating physician. COMPARISON: No relevant prior studies available. FINDINGS: Contrast injected into the common bile duct via endoscopic cannulation of the ampulla. Outlines several filling defects within the distal portion of the common bile duct consistent with common bile duct stones. Use of a balloon type catheter for extraction of stones. See operative note for additional information. Total of 3 minutes and 16 seconds of fluoroscopy with total dose of 67.25mGY. RAD/ERCP Biliary/Pancreas IMPRESSION: As above. Electronically Signed: Fredi Sheikh MD at 14:45 EDT ,
--- NOTE | 2024-02-14 10:06 | EX.PCM.CON.G ---
HPI Consult Data Date of Consult: 02/14/24 HPI Narrative Reason for Consultation: Choledocholithiasis HPI Narrative: KEIKO GOEL, is a 83 F who presents with persistent right upper quadrant pain. She has a history of acute cholecystitis; s/p laparoscopic cholecystectomy August 2023 and history of choledocholithiasis; status post ERCP with common bile duct stent and subsequent removal in December of this year without complication. She presents to [facility] ER complaining of abdominal pain. Ms. Goel reports her symptoms began approximately 10 AM today with the abrupt onset of periumbilical abdominal pain that was periumbilical, cramping, intermittent and initially was moderate in severity. Then approximately 1 hour prior to arrival the pain became severe and the patient contacted her daughter to be brought in for further evaluation and treatment. She admits her symptoms are similar to the pain she felt in August 2023 when she had her gallbladder removed and biliary stents placed. She denies associated fever, chills, nausea, vomiting and has had normal bowel movements with no signs of bleeding. In the ER she had CT and ultrasound evidence of recurrent choledocholithiasis with ~11 mm enlarged CBD with filling defect in the CBD [facility] Medical History Wears hearing aid Loss of hearing Wears glasses Wears dentures Walker as ambulation aid Arthritis High cholesterol Diverticulosis Leg cramps History of edema History of echocardiogram History of irregular heartbeat Cardiology follow-up encounter Cholelithiasis Diabetes Chronic pain Rheumatoid arthritis Former smoker Irregular heart beat Hypertension Acute cholecystitis Abdominal pain Essential hypertension Nephrolithiasis Asthma RLS (restless legs syndrome) GERD (gastroesophageal reflux disease) Premature atrial contractions Premature ventricular contraction Peripheral neuropathy Morbid obesity with BMI of 50.0-59.9, adult Diabetes mellitus, type II Hyperlipidemia Home Medications ?Medication ?Instructions ?Recorded ?Last Taken ?Type atorvastatin 10 mg tablet 10 mg PO QHS CHOLESTEROL 07/28/13 02/12/24 History metoprolol tartrate 25 mg tablet 25 tab PO DAILY high blood pressure 12/26/14 02/13/24 History cykkdego-viz-gqdzk acid 0.4 1 ea PO DAILY supplement 12/26/14 02/13/24 History mg-lycopene 300 mcg-lutein 250 mcg tablet calcium carbonate 1,200 mg PO DAILY SUPPLEMENT 10/05/16 02/13/24 History amlodipine 5 mg-valsartan 320 mg 1 tab PO DAILY HIGH BLOOD PRESSURE 11/19/16 02/13/24 History tablet acetaminophen 500 mg tablet 1,000 mg PO Q8 PRN pain 02/19/18 Unknown History aspirin 81 mg tablet,delayed 81 mg PO DAILY HEART MAINTENENCE 03/05/19 02/13/24 History release insulin glargine 100 unit/mL (3 45 unit subcut QHS DIABETES 04/01/19 02/12/24 History mL) subcutaneous pen insulin lispro 100 unit/mL 10 unit subcut TID DIABETES 04/01/19 02/13/24 History subcutaneous pen nitroglycerin 0.4 mg sublingual 0.4 mg sublingual Q5M PRN Chest 04/02/20 Unknown Rx tablet Pain #25 tabs potassium chloride 20 mEq 20 meq PO DAILY SUPPLEMENT 09/02/23 02/13/24 History tablet,extended release(part/cryst) (Klor-Con M) esomeprazole magnesium 40 mg 40 mg PO DAILY heartburn/acid 11/05/23 02/13/24 History capsule,delayed release reflux oxycodone 10 mg tablet 10 mg PO Q6H PRN pain 5 days #15 12/09/23 Unknown Rx tabs etodolac 300 mg capsule 300 mg PO BID 02/13/24 02/13/24 History insulin syringe-needle U-100 0.5 02/13/24 Unknown History mL 31 gauge x 5/16 (BD Insulin Syringe Ultra-Fine) Allergy/AdvReac Type Severity Reaction Status Date / Time hydromorphone HCl (From Allergy Nausea Verified 02/13/24 16:35 Dilaudid) venlafaxine AdvReac Severe Nausea Verified 02/13/24 16:35 adhesive AdvReac Other Verified 02/13/24 16:35 Family History Father Diabetes Mother Hypertension Sister Hypertension CAD (coronary artery disease) Myocardial infarction Sister Diabetes Surgical History History of cardiac catheterization History of laparoscopic cholecystectomy S/P ERCP History of appendectomy History of coronary artery stent placement History of repair of rotator cuff History of knee replacement procedure of right knee History of knee replacement procedure of left knee History of hernia repair History of total hysterectomy Social History household members: none Smoking Status: Former smoker how long ago did patient quit smoking: Quit ~ 40 yrs prior, smoked 1/4 ppd since teen until quit. alcohol intake: never substance use type: does not use ROS ROS Narrative Review of systems: General: Patient denies fever or chills. HENT: Denies headache, denies stuffy nose, denies sore throat EYES: Denies changes in vision or discharge from eyes. Resp: Denies cough, denies shortness of breath Cardiac: Denies chest pain, palpitations or heart racing. GI: Patient admits to abdominal pain primarily in the epigastrium as per HPI. She denies nausea, vomiting, diarrhea, constipation or blood in stools. : Denies changes in urination Extremity: Denies swelling Musculoskeletal: Feels somewhat generally weak and unwell but she denies arthralgias or myalgias. Neuro: Patient denies headache, paresthesias or focal neurologic deficits. Heme: Denies any bleeding or bruising Skin: Denies rashes Psychiatric: No complaints voiced related to uncontrolled depression or anxiety. Endocrine: No polyuria, polydipsia or polyphagia The rest of the 14 point ROS was negative except for positives in HPI. Physical Exam Const alert, oriented x3, no apparent distress, average body habitus and healthy appearing General Appearance: cooperative HEENT normocephalic, head/scalp atraumatic, hearing grossly normal bilaterally and moist oral mucous membranes Eyes PERRL and EOMs intact bilaterally Neck no lymphadenopathy and supple Resp normal respiratory effort, no retractions, no use of accessory muscles and clear to auscultation bilaterally Cardio regular rate and regular rhythm GI normal to inspection, nondistended, normoactive bowel sounds, soft to palpation, non-tender, non-distended and hepatosplenomegaly Extremity normal to inspection and full ROM Skin Skin Narrative: Patient has no evidence of rash, jaundice or abscess. Neuro oriented x3, CN's II-XII intact bilaterally, moves all extremities and no focal motor deficits Sensorium / Orientation: awake, alert, oriented to person, oriented to place and oriented to time Speech: speech normal Psych affect normal Lab / Micro Data 02/14/24 05:08 02/14/24 05:08 Labs: Laboratory Results - last 24 hr 02/13/24 16:56: WBC 6.1, RBC 4.49, Hgb 12.9, Hct 39.2, MCV 87.3, MCH 28.7, MCHC 32.9, RDW Std Deviation 47.0 H, RDW Coeff of Jorge L 14.7 H, Plt Count 420, MPV 9.8, Immature Gran % (Auto) 0.200, Neut % (Auto) 56.4, Lymph % (Auto) 37.0, Mcmullen % (Auto) 5.6, Eos % (Auto) 0.5, Baso % (Auto) 0.3, Absolute Neuts (auto) 3.4, Absolute Lymphs (auto) 2.25, Nucleated RBC % 0, Sodium 137, Potassium 4.8, Chloride 109 H, Carbon Dioxide 25.0, Anion Gap 3 L, BUN 11, Creatinine 0.88, Estim Creat Clear Calc 59.48, Est GFR (MDRD) Af Amer 79, Est GFR (MDRD) Non-Af 65, BUN/Creatinine Ratio 12.5, Glucose 118 H, Hemoglobin A1c 6.3 H, Calcium 9.7, Total Bilirubin 1.10 H, AST 549 H, ALT 200 H, Alkaline Phosphatase 379 H, Troponin I High Sens 6, Total Protein 6.9, Albumin 2.8 L, Globulin 4.1, Albumin/Globulin Ratio 0.7 L, Lipase 45 02/13/24 23:05: POC Glucose 173 H 02/14/24 05:08: WBC 6.9, RBC 4.16 L, Hgb 11.7 L, Hct 36.4 L, MCV 87.5, MCH 28.1, MCHC 32.1, RDW Std Deviation 47.0 H, RDW Coeff of Jorge L 14.6, Plt Count 403, MPV 10.1, Immature Gran % (Auto) 0.100, Neut % (Auto) 86.7 H, Lymph % (Auto) 8.3 L, Mcmullen % (Auto) 4.8, Eos % (Auto) 0.0, Baso % (Auto) 0.1, Absolute Neuts (auto) 6.0, Absolute Lymphs (auto) 0.57 L, Nucleated RBC % 0, Sodium 139, Potassium 4.0, Chloride 111 H, Carbon Dioxide 23.0, Anion Gap 5, BUN 10, Creatinine 0.82, Estim Creat Clear Calc 54.93, Est GFR (MDRD) Af Amer 86, Est GFR (MDRD) Non-Af 71, BUN/Creatinine Ratio 12.2, Glucose 177 H, Calcium 8.8, Phosphorus 3.1, Magnesium 1.9, Total Bilirubin 2.00 H, AST 419 H, ALT 260 H, Alkaline Phosphatase 413 H, Total Protein 6.0 L, Albumin 2.3 L, Globulin 3.7, Albumin/Globulin Ratio 0.6 L, TSH 0.98 02/14/24 08:24: POC Glucose 137 H Imaging Radiology Impression Abdomen/Pelvis CT 02/13/24 16:45 IMPRESSION: 1. No masses or bowel obstruction. 2. Interval development of 2 focal areas of soft tissue density enhancement and soft tissue stranding in the pericolic soft tissue planes at the level of the ascending colon. These are of uncertain etiology, and do not appear to represent the appendix. Sequelae of epiploic appendage is a consideration however follow-up is recommended to assure complete resolution. Peritoneal implant is an additional consideration though felt less likely. 3. 2 nonobstructing calcifications within the mid abdominal ureter on the RIGHT. 4. Status post cholecystectomy, no ductal dilatation. Electronically Signed: Petar Alcantara MD at 18:41 EDT , ADDENDUM: 02/13/241945 IMPRESSION: undefined Gallbladder Ultrasound 02/13/24 17:30 IMPRESSION: 1. Status post cholecystectomy. Prominence of the common bile duct at 11 mm. No filling defects noted on ultrasound, however review of recent CT of the abdomen shows a subtle filling defect measuring 7 mm within the common bile duct approaching the sphincter which may represent a noncalcified stone. 2. Hepatic steatosis and borderline hepatomegaly. 3. Normal appearance the RIGHT kidney. 4. The reported soft tissue densities in the RIGHT upper quadrant are not visualized on current exam. Electronically Signed: Petar Alcantara MD at 19:37 EDT , Assessment & Plan Assessment/Plan (1) Acute cholecystitis: PLAN: Plan The patient is an 82 y/o F w/ PMHx: Morbid obesity, Asthma, HTN, HLD, Diabetes mellitus type II w/ chronic peripheral neuropathy, GERD, PAC/PVC, RLS, Hx nephrolithiasis who presents to the [facility] ED upper abdominal pain and right upper quadrant pain and discovered to have choledocholithiasis on imaging. Choledocholithiasis w/ abdominal pain, N/V with significant hyperbilirubinemia and transaminitis: We discussed the option of pursuing an MRCP due to the elevation in her liver enzymes consistent with cholestatic stasis and likely obstructive jaundice. However patient cannot get an MRI in order to have the test done and it is highly likely that she will need a therapeutic procedure. Therefore she agreed to undergo ERCP. Risk and benefits of the procedure were explained to the patient including not withstanding infection, bleeding, sepsis, perforation, post ERCP pancreatitis,. She will have an ASA of 3 for the procedure. Charges/Coding Visit Charges Inpatient E&M: 02610 Init Hosp L3
--- NOTE | 2024-02-14 10:11 | OP.ERCP_ITS ---
Patient Name: Marilou Goel Procedure Date: 02/14/2024 8:43 AM Date of : 1940 Age: 83 Procedure: ERCP Indications: For therapy of bile duct stone(s), Jaundice, Elevated liver enzymes Providers: Azar Cespedes DO Medicines: Monitored Anesthesia Care Patient Profile: This is an 83 year old female. Refer to note in patient chart for documentation of history and physical. Patient has symptoms of acute right upper quadrant abdominal pain and acute jaundice. Complications: No immediate complications. Procedure: Pre-Anesthesia Assessment: - Prior to the procedure, a History and Physical was performed, and patient medications and allergies were reviewed. The patient is competent. The risks and benefits of the procedure and the sedation options and risks were discussed with the patient. All questions were answered and informed consent was obtained. Patient identification and proposed procedure were verified by the physician in the pre-procedure area. Mental Status Examination: alert and oriented. Airway Examination: normal oropharyngeal airway and neck mobility. Respiratory Examination: clear to auscultation. CV Examination: normal. Prophylactic Antibiotics: The patient does not require prophylactic antibiotics. Prior Anticoagulants: The patient has taken no anticoagulant or antiplatelet agents except for NSAID medication. ASA Grade Assessment: II - A patient with mild systemic disease. After reviewing the risks and benefits, the patient was deemed in satisfactory condition to undergo the procedure. The anesthesia plan was to use general anesthesia. Immediately prior to administration of medications, the patient was re-assessed for adequacy to receive sedatives. The heart rate, respiratory rate, oxygen saturations, blood pressure, adequacy of pulmonary ventilation, and response to care were monitored throughout the procedure. The physical status of the patient was re-assessed after the procedure. After obtaining informed consent, the scope was passed under direct vision. Throughout the procedure, the patient's blood pressure, pulse, and oxygen saturations were monitored continuously. The Duodenoscope was introduced through the mouth, and advanced to the duodenum and used to inject contrast into the bile duct and ventral pancreatic duct. The ERCP was accomplished without difficulty. The patient tolerated the procedure well. Scope In: 9:22:25 AM Scope Out: 9:53:58 AM Total Procedure Duration Time 0 hours 31 minutes 33 seconds Findings: The director of industrial relations film was normal. The esophagus was successfully intubated under direct vision. The scope was advanced to a normal major papilla in the descending duodenum without detailed examination of the pharynx, larynx and associated structures, and upper GI tract. The upper GI tract was grossly normal. The bile duct was deeply cannulated with the short-nosed traction sphincterotome. Contrast was injected. I personally interpreted the bile duct and pancreatic duct images. There was brisk flow of contrast through the ducts. Image quality was adequate. Contrast extended to the entire biliary tree. Opacification of the entire opacified area was successful. The maximum diameter of the ducts was 12 mm. The lower third of the main bile duct contained two stones, the largest of which was 6 mm in diameter. The entire opacified area was moderately dilated, with a stone causing an obstruction. The largest diameter was 12 mm. A straight Roadrunner wire was passed into the biliary tree. A 5 mm biliary sphincterotomy was made with a traction (standard) sphincterotome using ERBE electrocautery. The sphincterotomy oozed blood. The biliary tree was swept with a 12 mm balloon starting at the bifurcation. Sludge was swept from the duct. All stones were removed. Dilation of the lower third of the main bile duct, common bile duct and the left main hepatic duct with 5-7-8.5 Fr catheter dilator was successful. The ventral pancreatic duct was deeply cannulated with the short-nosed traction sphincterotome. Contrast was injected. Opacification of the entire pancreatic ductal system was successful. The maximum diameter of the ducts was 3 mm. The entire opacified area was normal. A long 0.025 inch Jagwire was passed into the ventral pancreatic duct. Impression: - The biliary system were moderately dilated, with a stone causing an obstruction. - Choledocholithiasis was found. Complete removal was accomplished by biliary sphincterotomy and balloon extraction. - A biliary sphincterotomy was performed. - The biliary tree was swept. - The lower third of the main bile duct, common bile duct and the left main hepatic duct were successfully dilated. Procedure Code(s): --- Professional --- 05616, Endoscopic retrograde cholangiopancreatography (ERCP); with removal of calculi/debris from biliary/pancreatic duct(s) 51958, Endoscopic retrograde cholangiopancreatography (ERCP); with sphincterotomy/papillotomy 25692, 26, Combined endoscopic catheterization of the biliary and pancreatic ductal systems, radiological supervision and interpretation 75717, Unlisted procedure, biliary tract CPT copyright 2021 [employer]. All rights reserved. The codes documented in this report are preliminary and upon health informatics instructor review may be revised to meet current compliance requirements. Azar Cespedes DO 02/14/2024 10:10:04 AM This report has been signed electronically. Number of Addenda: 0 Note Initiated On: 02/14/2024 8:43 AM
--- NOTE | 2024-02-14 10:12 | OP.CCLET_ITS ---
02/14/2024 Alicia Florentino [address] [place] [address] [place] [address] Re : ERCP procedure for Marilou Ray Dear Dr. Florentino This procedure was performed on Wednesday, February 14, 2024. My impressions and recommendations are as follows: Impressions : - The biliary system were moderately dilated, with a stone causing an obstruction. - Choledocholithiasis was found. Complete removal was accomplished by biliary sphincterotomy and balloon extraction. - A biliary sphincterotomy was performed. - The biliary tree was swept. - The lower third of the main bile duct, common bile duct and the left main hepatic duct were successfully dilated. Recommendations : My findings are described in the full procedure note, which is enclosed. If I can be of further assistance, please feel free to contact me at . Sincerely, Azar Cespedes DO 02/14/2024 10:10:04 AM This report has been signed electronically.
--- NOTE | 2024-02-14 10:26 | PCM.POST.ANE ---
Anesthesia: Postop Eval I Current Vital Signs Temperature: 98.7 F Pulse Rate: 98 Blood Pressure: 122/105 Respiratory Rate: 18 Pulse Ox: 98 Oxygen Delivery Method: Room Air Assessment Airway patent: Yes Spontaneous unlabored respirations: Yes Mental status: Awake and Calm nausea: No Vomiting: No Anesthesia Complication: No Fluid Hydration Crystalloid volume administer (ml): 800 Total IV fluid infused: 800 Progress Note Anesthesia document: Postop Eval 1 completed: Yes
--- NOTE | 2024-02-14 10:29 | POSTOPAN2_ITS ---
Anesthesia Postop Eval I Sum Postop Eval Completion status Anesthesia document: Postop Eval 1 completed: Yes Anesthesia Postop Eval I Summary Anesthesia Postop Eval I Summary: Anesthesia Postop Eval I: Assessment Summary Airway patent Yes 02/14/24 10:28 CLINICAL AIDE.SHOL Spontaneous unlabored Yes 02/14/24 10:28 CLINICAL AIDE.SHOL respirations Mental status Awake,Calm 02/14/24 10:28 CLINICAL AIDE.SHOL nausea No 02/14/24 10:28 CLINICAL AIDE.SHOL Vomiting No 02/14/24 10:28 CLINICAL AIDE.SHOL Anesthesia Postop Eval I: Fluid Summary Crystalloid volume administer 800 02/14/24 10:28 CLINICAL AIDE.SHOL (ml) Colloids volume administered ( ml) Blood Product volume administered (ml) Total IV fluid infused 800 02/14/24 10:28 CLINICAL AIDE.SHOL Anesthesia Postop Eval I: Summary Notes Anesthesia Complication No 02/14/24 10:28 CLINICAL AIDE.SHOL Anesthesia Complication Comment: Post-operative progress note Anesthesia: Postop Eval II Evaluation Mental status: Awake Pain Level: 0 nausea: No Vomiting: No Complications Anesthesia Complication: No
--- NOTE | 2024-02-14 10:29 | PCM.POSTANE2 ---
Anesthesia Postop Eval I Sum Postop Eval Completion status Anesthesia document: Postop Eval 1 completed: Yes Anesthesia Postop Eval I Summary Anesthesia Postop Eval I Summary: Anesthesia Postop Eval I: Assessment Summary Airway patent Yes 02/14/24 10:28 SCHOOL OPERATIONS MANAGER.SHOL Spontaneous unlabored Yes 02/14/24 10:28 SCHOOL OPERATIONS MANAGER.SHOL respirations Mental status Awake,Calm 02/14/24 10:28 SCHOOL OPERATIONS MANAGER.SHOL nausea No 02/14/24 10:28 SCHOOL OPERATIONS MANAGER.SHOL Vomiting No 02/14/24 10:28 SCHOOL OPERATIONS MANAGER.SHOL Anesthesia Postop Eval I: Fluid Summary Crystalloid volume administer 800 02/14/24 10:28 SCHOOL OPERATIONS MANAGER.SHOL (ml) Colloids volume administered ( ml) Blood Product volume administered (ml) Total IV fluid infused 800 02/14/24 10:28 SCHOOL OPERATIONS MANAGER.SHOL Anesthesia Postop Eval I: Summary Notes Anesthesia Complication No 02/14/24 10:28 SCHOOL OPERATIONS MANAGER.SHOL Anesthesia Complication Comment: Post-operative progress note Anesthesia: Postop Eval II Evaluation Mental status: Awake Pain Level: 0 nausea: No Vomiting: No Complications Anesthesia Complication: No
--- NOTE | 2024-02-14 11:03 | PCM.PN.HOSP ---
Reason for Visit Reason for Visit: Diagnoses Essential (primary) hypertension (02/13/24) Calculus of bile duct without cholangitis or cholecystitis without obstruction (02/13/24) Acute cholecystitis (02/13/24) Periumbilical pain (02/13/24) Acquired absence of other specified parts of digestive tract (02/13/24) Other specified postprocedural states (02/13/24) Subjective Subjective Patient presented yesterday evening with worsening right upper quadrant abdominal pain concerning for recurrent choledocholithiasis. Patient had acute cholecystitis s/p lap pavan in 08/2023 and then had acute choledocholithiasis s/p ERCP with common bile duct stent and subsequent removal in 12/2023. Her pain on admission felt similar to her pain with previous gallstone issues. She had ERCP done this morning and choledocholithiasis was found with complete removal of stone and biliary sphincterotomy performed. Saw patient at the bedside earlier this afternoon, several family members and friends present. Patient was sitting up fairly comfortably in bed, conversing normally, in no acute distress. She did report ongoing mild abdominal pain at this time, much improved from yesterday. She denies any fevers or chills. She otherwise was feeling well and denied any new concerns at this time. Objective Data Objective Data Vital Signs: Vital Signs Temp Pulse Resp BP Pulse Ox O2 Del Method 97.7 F L 97 18 141/77 H 95 Room Air 02/14/24 10:59 02/14/24 10:59 02/14/24 10:59 02/14/24 10:59 02/14/24 10:59 02/14/24 10:59 Oxygen Delivery Method Room Air Weight: 96.2 kg Body Mass Index (BMI) 41.4 Intake & Output: Intake and Output for Last 24 Hours 02/12/24 02/13/24 02/14/24 23:59 23:59 23:59 Intake Total 1160 / 1160 Output Total 250 / 250 Balance 1160 / 1160 -250 / -250 Lab / Micro Data 02/14/24 05:08 02/14/24 05:08 Labs: Laboratory Results - last 24 hr 02/13/24 16:56: WBC 6.1, RBC 4.49, Hgb 12.9, Hct 39.2, MCV 87.3, MCH 28.7, MCHC 32.9, RDW Std Deviation 47.0 H, RDW Coeff of Jorge L 14.7 H, Plt Count 420, MPV 9.8, Immature Gran % (Auto) 0.200, Neut % (Auto) 56.4, Lymph % (Auto) 37.0, [place] % (Auto) 5.6, Eos % (Auto) 0.5, Baso % (Auto) 0.3, Absolute Neuts (auto) 3.4, Absolute Lymphs (auto) 2.25, Nucleated RBC % 0, Sodium 137, Potassium 4.8, Chloride 109 H, Carbon Dioxide 25.0, Anion Gap 3 L, BUN 11, Creatinine 0.88, Estim Creat Clear Calc 59.48, Est GFR (MDRD) Af Amer 79, Est GFR (MDRD) Non-Af 65, BUN/Creatinine Ratio 12.5, Glucose 118 H, Hemoglobin A1c 6.3 H, Calcium 9.7, Total Bilirubin 1.10 H, AST 549 H, ALT 200 H, Alkaline Phosphatase 379 H, Troponin I High Sens 6, Total Protein 6.9, Albumin 2.8 L, Globulin 4.1, Albumin/Globulin Ratio 0.7 L, Lipase 45 02/13/24 23:05: POC Glucose 173 H 02/14/24 05:08: WBC 6.9, RBC 4.16 L, Hgb 11.7 L, Hct 36.4 L, MCV 87.5, MCH 28.1, MCHC 32.1, RDW Std Deviation 47.0 H, RDW Coeff of Jorge L 14.6, Plt Count 403, MPV 10.1, Immature Gran % (Auto) 0.100, Neut % (Auto) 86.7 H, Lymph % (Auto) 8.3 L, Fillmore % (Auto) 4.8, Eos % (Auto) 0.0, Baso % (Auto) 0.1, Absolute Neuts (auto) 6.0, Absolute Lymphs (auto) 0.57 L, Nucleated RBC % 0, Sodium 139, Potassium 4.0, Chloride 111 H, Carbon Dioxide 23.0, Anion Gap 5, BUN 10, Creatinine 0.82, Estim Creat Clear Calc 54.93, Est GFR (MDRD) Af Amer 86, Est GFR (MDRD) Non-Af 71, BUN/Creatinine Ratio 12.2, Glucose 177 H, Calcium 8.8, Phosphorus 3.1, Magnesium 1.9, Total Bilirubin 2.00 H, AST 419 H, ALT 260 H, Alkaline Phosphatase 413 H, Total Protein 6.0 L, Albumin 2.3 L, Globulin 3.7, Albumin/Globulin Ratio 0.6 L, TSH 0.98 02/14/24 08:24: POC Glucose 137 H Radiography Diagnostic Testing: Radiology Impression Abdomen/Pelvis CT 02/13/24 16:45 IMPRESSION: 1. No masses or bowel obstruction. 2. Interval development of 2 focal areas of soft tissue density enhancement and soft tissue stranding in the pericolic soft tissue planes at the level of the ascending colon. These are of uncertain etiology, and do not appear to represent the appendix. Sequelae of epiploic appendage is a consideration however follow-up is recommended to assure complete resolution. Peritoneal implant is an additional consideration though felt less likely. 3. 2 nonobstructing calcifications within the mid abdominal ureter on the RIGHT. 4. Status post cholecystectomy, no ductal dilatation. Electronically Signed: Petar Alcantara MD at 18:41 EDT , ADDENDUM: 02/13/241945 IMPRESSION: undefined Gallbladder Ultrasound 02/13/24 17:30 IMPRESSION: 1. Status post cholecystectomy. Prominence of the common bile duct at 11 mm. No filling defects noted on ultrasound, however review of recent CT of the abdomen shows a subtle filling defect measuring 7 mm within the common bile duct approaching the sphincter which may represent a noncalcified stone. 2. Hepatic steatosis and borderline hepatomegaly. 3. Normal appearance the RIGHT kidney. 4. The reported soft tissue densities in the RIGHT upper quadrant are not visualized on current exam. Electronically Signed: Petar Alcantara MD at 19:37 EDT , Physical Exam Const alert, oriented x3 and no apparent distress Constitutional Narrative: Pleasant elderly female, morbidly obese, sitting up comfortably in bed, conversing normally, in no acute distress. General Appearance: cooperative and comfortable HEENT normocephalic, head/scalp atraumatic, hearing grossly normal bilaterally, nasal mucous membranes and turbinates normal and moist oral mucous membranes Eyes PERRL, EOMs intact bilaterally and conjunctivae normal Neck full ROM Chest inspection of chest normal Resp normal respiratory effort, normal air movement, no use of accessory muscles and clear to auscultation bilaterally Cardio regular rate, regular rhythm, no murmurs and peripheral pulses 2+ throughout GI GI Narrative: Mild tenderness to palpation in right upper quadrant noted. Otherwise abdomen soft and nondistended. Back/Spine normal ROM Extremity normal to inspection, full ROM and no pedal edema Skin no rashes or lesions noted Neuro no focal motor deficits and no sensory deficits noted Speech: speech normal Psych mental status grossly normal Assessment & Plan Assessment/Plan (1) Choledocholithiasis: (2) S/P ERCP: PLAN: Plan Patient is an 83-year-old female who presented [facility] ED on 02/13/2024 with recurrent right upper quadrant pain. 1. Recurrent choledocholithiasis; recent history of acute cholecystitis s/p laparoscopic cholecystectomy ? GI following. CT abdomen pelvis on admit showed dilated common bile duct suspicious for choledocholithiasis. Gallbladder ultrasound also showed dilated common bile duct with concern for possible noncalcified stone by bile duct sphincter. S/p ERCP on 02/13 with choledocholithiasis found; complete removal of stone was achieved, bile duct was swept and biliary sphincterotomy was performed. Patient stable post ERCP. Elevated LFTs on admit consistent with choledocholithiasis. Will follow-up morning labs and monitor pain overnight. Will advance diet as tolerated. If patient remains stable, likely okay for discharge home tomorrow or Thursday. Chronic medical conditions: ? Morbid obesity: BMI 41 on admit. Encouraged lifestyle modifications. Complicates hospital course, care and prognosis. ? History of CAD s/p stenting, hypertension, hyperlipidemia: Home medications held on day of ERCP as patient was n.p.o. Will resume home amlodipine, valsartan, Lopressor, aspirin and statin tomorrow. ? Type 2 diabetes mellitus: Home regimen of insulin glargine 45 units at night, insulin lispro 10 units with meals. Currently treating with Lantus 30 units at night and sliding scale insulin with meals, adjust as needed. ? GERD: Continue home PPI. ? Osteoarthritis with history of bilateral total knee replacements: Tylenol as needed. ? History of appendectomy, hysterectomy and hernia repair DVT prophylaxis: Lovenox CODE STATUS: Full code, verified Expected disposition: Home, 1 to 2 days Total clinical time spent by myself addressing the patient's medical issues, reviewing all the data, and collaborating with patient's care team: 35 minutes. Charges/Coding Visit Charges Inpatient E&M: 15329 Subs Hosp L2
[2024-02-14 12:01] LABS: Bedside Glucose 112 mg/dL (74-106)
[2024-02-14] MEDS: Metoprolol Tartrate 25 MG Tablet PO (12:59)
[2024-02-14] MEDS: 0.9% Saline Lock 10 ML Syringe IV (14:27)
[2024-02-14] MEDS: 0.9% Normal Saline (1000mL) 1,000 ML 250 ML IV ×3 (14:27→23:31)
[2024-02-14] MEDS: Metoclopramide 10 MG/2 ML Vial 5 MG IV (14:31)
[2024-02-14] MEDS: Morphine 2 MG/ML Syringe IV (14:48)
[2024-02-14] MEDS: Pantoprazole Sodium 40 MG in 0.9% Normal Saline (100mL MB+) 100 ML 330 MG IV (15:00)
[2024-02-14 16:42] LABS: Bedside Glucose 95 mg/dL (74-106)
[2024-02-14] MEDS: Ceftriaxone 1 GM/50 ML BAG IV (21:47)
[2024-02-14] MEDS: Insulin Glargine-YFGN 100 UNIT/ML Pen 30 UNIT SC (21:48)
[2024-02-14] MEDS: Atorvastatin Calcium 10 MG Tablet PO (21:48)
[2024-02-15] LABS: Bedside Glucose 141 mg/dL (74-106)
[2024-02-15] MEDS: 0.9% Saline Lock 10 ML Syringe IV ×3 (00:38→11:58)
[2024-02-15] MEDS: Metoclopramide 10 MG/2 ML Vial 5 MG IV ×3 (00:38→11:58)
[2024-02-15] MEDS: 0.9% Normal Saline (1000mL) 1,000 ML 250 ML IV ×3 (03:11→11:03)
[2024-02-15 03:12] VITALS: BP 115/48; PULSE 78; RESP 16; TEMP 36.9; O2SAT 97
[2024-02-15 06:00] VITALS: BMI 43.2
[2024-02-15 06:00] LABS: Hematocrit 31.4 % (37-47); Hemoglobin 10.1 g/dL (12.0-15.0); Mean Corp Hgb Conc 32.2 g/dL (32-36); Mean Corpuscular Hgb 28.7 pg (27.0-32.0); Mean Corpuscular Volume 89.2 fL (81-99); Mean Platelet Vol. 9.7 fl (6.2-12.0); Platelet Count 319 K/mm3 (150-450); RBC Distribution Width CV 15.2 % (11.6-14.6); RBC Distribution Width SD 49.7 fl (35.1-43.9); Red Blood Count 3.52 M/mm3 (4.2-5.4); White Blood Count 5.2 K/mm3 (4.4-11.0)
[2024-02-15 06:48] LABS: ALB/GLOB Ratio 0.6 RATIO (0.9-2.4); AST(SGOT) 159 U/L (15-37); Alanine Aminotransfer ALT/SGPT 148 U/L (13-56); Albumin, Serum 1.9 g/dL (3.2-5.0); Alkaline Phosphatase 295 U/L (45-117); Anion Gap 3 (5-15); BUN 6 mg/dL (7-18); Calcium,Total 8.1 mg/dL (8.5-10.1); Chloride 117 mmol/L (98-107); EST Glomerular Filtration Rate 102 mL/min (>60); Est Glom Filt Rate - Afr Amer 123 mL/min (>60); Estimated Creatinine Clearance 57.74 ml/min; Globulin 3.1 g/dL (2.2-4.2); Glucose 59 mg/dL (74-106); Potassium 3.7 mmol/L (3.5-5.1); Sodium Level 144 mmol/L (136-145)
--- NOTE | 2024-02-15 07:18 | NURSING ---
pt blood sugar 50, pt was given orange juice, pt blood sugar now 71. pt was asymptomatic
[2024-02-15 07:34] LABS: Bedside Glucose 50 mg/dL (74-106)
[2024-02-15 07:34] LABS: Bedside Glucose 71 mg/dL (74-106)
[2024-02-15] MEDS: Calcium (Elemental) 500 MG Tablet 1000 MG PO (08:10)
[2024-02-15] MEDS: Aspirin E.C. 81 MG Tablet PO (08:10)
[2024-02-15 09:15] VITALS: BP 108/53; PULSE 70; RESP 18; TEMP 36.9; O2SAT 99
[2024-02-15] MEDS: Pantoprazole Sodium 40 MG in 0.9% Normal Saline (100mL MB+) 100 ML 330 MG IV (09:29)
--- NOTE | 2024-02-15 11:01 | CASEMGMT ---
MICKEY ECHAVARRIA Assessment: Face to Face with pt for initial transition planning/care coordination assessment. RN JERICHO introduced self and role at [facility], pt voices understanding and consents to assessment. Pt is A&O x4 and answers all questions appropriately at this time. Pt sitting up in chair in no distress with adopted dtr at bedside. Pt agreeable to assessment with dtr present. Care providers, pharmacy, and demographics verified/updated. Admitting Dx:choledocholithiasis PCP:Mishel Specialists: Denies Preferred Pharmacy:[facility] Insurance:[employer] CADY Adv, [place] Prescription Benefit: yes LNOK:Kamran Goel, son; Radha Ken, niece Living Arrangements: Pt lives alone in a single story apt with 7 steps to enter. Pt reports she is I in ADL's and IADL's. Pt denies concerns at home. Transportation: Pt drives self and denies concerns with transportation. DME:shower chair, FWW, BGM with sufficient supply of strips and lancets as well as insulin and needles. HHC/SNF:Pt has had HHC in the past but cannot recall the name of the agency. Denies SNF stays. Pt states no concerns with going home at time of dc. Noted no PT recomended. Pt states no further concerns/needs. CM to follow. Advised pt to ask CM if any further question/concerns/needs arise, voices understanding. Pt Goal:Home Plan:Home
[2024-02-15 12:24] LABS: Bedside Glucose 134 mg/dL (74-106)
--- NOTE | 2024-02-15 13:23 | DS.PCM_ITS ---
Providers Date of Admission: 02/13/24 Primary Care Physician: Dr. Alicia Florentino, DO Reason For Visit: CHOLEDOCHOLITHIASIS, RECURRENT Diagnosis Discharge Diagnosis (1) Choledocholithiasis: Status: Acute Code(s): K80.50 - Calculus of bile duct without cholangitis or cholecystitis without obstruction (2) S/P ERCP: Status: Acute Code(s): Z98.890 - Other specified postprocedural states Plan Patient is an 83-year-old female who presented [facility] ED on 02/13/2024 with recurrent right upper quadrant pain. 1. Recurrent choledocholithiasis; recent history of acute cholecystitis s/p laparoscopic cholecystectomy ? GI following. CT abdomen pelvis on admit showed dilated common bile duct suspicious for choledocholithiasis. Gallbladder ultrasound also showed dilated common bile duct with concern for possible noncalcified stone by bile duct sphincter. S/p ERCP on 02/13 with choledocholithiasis found; complete removal of stone was achieved, bile duct was swept and biliary sphincterotomy was performed. Patient stable post ERCP. Elevated LFTs on admit consistent with choledocholithiasis. Will follow-up morning labs and monitor pain overnight. Will advance diet as tolerated. If patient remains stable, likely okay for discharge home tomorrow or Thursday. Chronic medical conditions: ? Morbid obesity: BMI 41 on admit. Encouraged lifestyle modifications. Complicates hospital course, care and prognosis. ? History of CAD s/p stenting, hypertension, hyperlipidemia: Home medications held on day of ERCP as patient was n.p.o. Will resume home amlodipine, valsartan, Lopressor, aspirin and statin tomorrow. ? Type 2 diabetes mellitus: Home regimen of insulin glargine 45 units at night, insulin lispro 10 units with meals. Currently treating with Lantus 30 units at night and sliding scale insulin with meals, adjust as needed. ? GERD: Continue home PPI. ? Osteoarthritis with history of bilateral total knee replacements: Tylenol as needed. ? History of appendectomy, hysterectomy and hernia repair DVT prophylaxis: Lovenox CODE STATUS: Full code, verified Expected disposition: Home, 1 to 2 days Total clinical time spent by myself addressing the patient's medical issues, reviewing all the data, and collaborating with patient's care team: 35 minutes. Medications at Discharge Home Medications atorvastatin 10 mg tablet 10 mg PO QHS CHOLESTEROL 07/28/13 metoprolol tartrate 25 mg tablet 25 tab PO DAILY high blood pressure 12/26/14 knzpcyyk-omo-ubaqr acid 0.4 mg-lycopene 300 mcg-lutein 250 mcg tablet 1 ea PO DAILY supplement 12/26/14 calcium carbonate 1,200 mg PO DAILY SUPPLEMENT 10/05/16 amlodipine 5 mg-valsartan 320 mg tablet 1 tab PO DAILY HIGH BLOOD PRESSURE 11/19/16 acetaminophen 500 mg tablet 1,000 mg PO Q8 PRN pain 02/19/18 aspirin 81 mg tablet,delayed release 81 mg PO DAILY HEART MAINTENENCE 03/05/19 insulin glargine 100 unit/mL (3 mL) subcutaneous pen 45 unit subcut QHS DIABETES 04/01/19 insulin lispro 100 unit/mL subcutaneous pen 10 unit subcut TID DIABETES 04/01/19 nitroglycerin 0.4 mg sublingual tablet 0.4 mg sublingual Q5M PRN Chest Pain #25 tabs 04/02/20 potassium chloride 20 mEq tablet,extended release(part/cryst) (Klor-Con M) 20 meq PO DAILY SUPPLEMENT 09/02/23 esomeprazole magnesium 40 mg capsule,delayed release 40 mg PO DAILY heartburn/acid reflux 11/05/23 oxycodone 10 mg tablet 10 mg PO Q6H PRN pain 5 days #15 tabs 12/09/23 etodolac 300 mg capsule 300 mg PO BID 02/13/24 insulin syringe-needle U-100 0.5 mL 31 gauge x 5/16 (BD Insulin Syringe Ultra- Fine) 02/13/24 Weight / BMI Weight Weight: 100.4 kg Body Mass Index (BMI) 43.2 ABG / Lab / Microbiology Data 02/15/24 05:22 02/15/24 05:22 Laboratory: Laboratory Results - last 24 hr 02/14/24 16:19: POC Glucose 95 02/14/24 21:44: POC Glucose 141 H 02/15/24 05:22: WBC 5.2, RBC 3.52 L, Hgb 10.1 L, Hct 31.4 L, MCV 89.2, MCH 28.7, MCHC 32.2, RDW Std Deviation 49.7 H, RDW Coeff of Jorge L 15.2 H, Plt Count 319, MPV 9.7, Sodium 144, Potassium 3.7, Chloride 117 H, Carbon Dioxide 24.0, Anion Gap 3 L, BUN 6 L, Creatinine 0.60, Estim Creat Clear Calc 57.74, Est GFR (MDRD) Af Amer 123, Est GFR (MDRD) Non-Af 102, BUN/Creatinine Ratio 10.0, Glucose 59 L, C alcium 8.1 L, Total Bilirubin 0.50, AST 159 H, ALT 148 H, Alkaline Phosphatase 295 H, Total Protein 5.0 L, Albumin 1.9 L, Globulin 3.1, Albumin/Globulin Ratio 0.6 L 02/15/24 06:39: POC Glucose 50 L 02/15/24 07:16: POC Glucose 71 L 02/15/24 11:57: POC Glucose 134 H Radiography Diagnostic Testing: Radiology Impression Endo Retro Cholangiopancreatogram 02/14/24 09:20 IMPRESSION: As above. Electronically Signed: Fredi Sheikh MD at 14:45 EDT , Meaningful Use Info Ischemic Stroke Statin Dosing Therapy Reference: STATIN DOSE THERAPY REFERENCE: * Patients > 75 years receive moderate or high dose statin therapy. * Patients 75 years or YOUNGER should receive HIGH intensity statin dose unless contraindicated. You will be required to document reason for non-treatment if statin daily dose does not meet guidelines. HIGH DOSE STATIN THERAPY DAILY Atorvastatin > than or = to 40 mg Rosuvastatin > than or = to 20 mg Amlodipine + Atorvastatin > than or = to 2.5/40 mg Ezetimibe + Simvastatin 10/80 mg Simvastatin 80mg Discharge Plan Admission Admit Date/Time: 02/13/24 21:03 Attending Provider: Joel Kong Primary Care Provider: Alicia Florentino Consulting Providers: Master Case Discharge Orders/Prescriptions Prescriptions: No Action acetaminophen 500 mg tablet 1,000 mg PO Q8 PRN (Reason: pain) nitroglycerin 0.4 mg tablet, sublingual 0.4 mg SUBLINGUAL Q5M PRN (Reason: Chest Pain) Qty: 25 1RF atorvastatin 10 MG tablet 10 mg PO QHS esomeprazole magnesium 40 mg capsule,delayed release(DR/EC) 40 mg PO DAILY metoprolol tartrate 25 MG tablet 25 tab PO DAILY noeodzad-rhr-QD-lycopen-lutein 1 EACH tablet 1 ea PO DAILY insulin glargine 100 unit/mL (3 mL) insulin pen 45 unit SC QHS calcium carbonate 600 MG tablet 1,200 mg PO DAILY insulin lispro 100 unit/mL insulin pen 10 unit SC TID amlodipine-valsartan 1 TAB tablet 1 tab PO DAILY aspirin 81 MG tablet 81 mg PO DAILY potassium chloride [Klor-Con M20] 20 mEq tablet,ER particles/crystals 20 meq PO DAILY oxycodone 10 mg tablet 10 mg PO Q6H PRN (Reason: pain) 5 Days Qty: 15 0RF etodolac 300 mg capsule 300 mg PO BID (DME) insulin syringe-needle U-100 [BD Insulin Syringe Ultra-Fine] 0.5 mL 31 gauge x 5/16 syringe MISCELLANEOUS Patient Comments: [NO ORIGINAL SIG] Referrals / Follow Up: Alicia Florentino DO [Primary Care Provider] -
--- NOTE | 2024-02-15 13:23 | PCM.DC.SUM ---
Providers Date of Admission: 02/13/24 Date of Discharge: 02/15/24 Primary Care Physician: Dr. Alicia Florentino DO Reason For Visit: CHOLEDOCHOLITHIASIS, RECURRENT Diagnosis Discharge Diagnosis (1) Choledocholithiasis: Status: Acute Code(s): K80.50 - Calculus of bile duct without cholangitis or cholecystitis without obstruction (2) S/P ERCP: Status: Acute Code(s): Z98.890 - Other specified postprocedural states Medications at Discharge Home Medications atorvastatin 10 mg tablet 10 mg PO QHS CHOLESTEROL 07/28/13 metoprolol tartrate 25 mg tablet 25 tab PO DAILY high blood pressure 12/26/14 qvhwsotf-npi-wczwi acid 0.4 mg-lycopene 300 mcg-lutein 250 mcg tablet 1 ea PO DAILY supplement 12/26/14 calcium carbonate 1,200 mg PO DAILY SUPPLEMENT 10/05/16 amlodipine 5 mg-valsartan 320 mg tablet 1 tab PO DAILY HIGH BLOOD PRESSURE 11/19/16 acetaminophen 500 mg tablet 1,000 mg PO Q8 PRN pain 02/19/18 aspirin 81 mg tablet,delayed release 81 mg PO DAILY HEART MAINTENENCE 03/05/19 insulin glargine 100 unit/mL (3 mL) subcutaneous pen 45 unit subcut QHS DIABETES 04/01/19 insulin lispro 100 unit/mL subcutaneous pen 10 unit subcut TID DIABETES 04/01/19 nitroglycerin 0.4 mg sublingual tablet 0.4 mg sublingual Q5M PRN Chest Pain #25 tabs 04/02/20 potassium chloride 20 mEq tablet,extended release(part/cryst) (Klor-Con M) 20 meq PO DAILY SUPPLEMENT 09/02/23 esomeprazole magnesium 40 mg capsule,delayed release 40 mg PO DAILY heartburn/acid reflux 11/05/23 etodolac 300 mg capsule 300 mg PO BID 02/13/24 insulin syringe-needle U-100 0.5 mL 31 gauge x 5/16 (BD Insulin Syringe Ultra-Fine) 02/13/24 oxycodone 10 mg tablet 10 mg PO Q6H PRN pain 3 days #10 tabs 02/15/24 Hospital Course Operations ERCP Procedures EKG and - (CT abdomen pelvis with IV contrast, gallbladder ultrasound) Summary of Care Provided Minutes Spent on Discharge: 35 Hospital Course: Patient is an 83-year-old female [facility] with recurrent right upper quadrant pain. Hospital course as noted below. Patient discharged home in stable condition on 02/14. 1. Recurrent choledocholithiasis; recent history of acute cholecystitis s/p laparoscopic cholecystectomy ? GI followed. CT abdomen pelvis on admit showed dilated common bile duct suspicious for choledocholithiasis. Gallbladder ultrasound also showed dilated common bile duct with concern for possible noncalcified stone by bile duct sphincter. S/p ERCP on 02/13 with choledocholithiasis found; complete removal of stone was achieved, bile duct was swept and biliary sphincterotomy was performed. Patient stable post ERCP. Elevated LFTs on admit consistent with choledocholithiasis, improving on day of discharge. Tolerated advancement of diet without issue and was having bowel movements. Stable for discharge home on 02/14, can follow-up with GI in outpatient setting as needed. Treated with ceftriaxone while inpatient, noninfectious appearing, afebrile, hemodynamically stable and no leukocytosis during hospitalization, no need for antibiotics on discharge. Chronic medical conditions: ? Morbid obesity: BMI 41 on admit. Encouraged lifestyle modifications. Complicated hospital course, care and prognosis. ? History of CAD s/p stenting, hypertension, hyperlipidemia: Home medications held on day of ERCP as patient was n.p.o. Blood pressure remained somewhat soft on day of discharge, okay to restart home Lopressor, aspirin and statin but recommended that patient hold off on taking home amlodipine?valsartan until later this week. ? Type 2 diabetes mellitus: Home regimen of insulin glargine 45 units at night, insulin lispro 10 units with meals. Treated with Lantus 30 units at night and sliding scale insulin with meals while inpatient, okay to resume home regimen on discharge. ? GERD: Continue home PPI. ? Osteoarthritis with history of bilateral total knee replacements: Tylenol as needed. ? History of appendectomy, hysterectomy and hernia repair Total clinical time spent by myself addressing the patient's medical issues, reviewing all the data, and collaborating with patient's care team: 35 minutes. Physical Exam Const alert, oriented x3 and no apparent distress Constitutional Narrative: Pleasant elderly female, morbidly obese, sitting up comfortably in bed, conversing normally, in no acute distress. General Appearance: cooperative and comfortable HEENT normocephalic, head/scalp atraumatic, hearing grossly normal bilaterally, nasal mucous membranes and turbinates normal and moist oral mucous membranes Eyes PERRL, EOMs intact bilaterally and conjunctivae normal Neck full ROM Chest inspection of chest normal Resp normal respiratory effort, normal air movement, no use of accessory muscles and clear to auscultation bilaterally Cardio regular rate, regular rhythm, no murmurs and peripheral pulses 2+ throughout GI GI Narrative: Mild tenderness to palpation in right upper quadrant noted. Otherwise abdomen soft and nondistended. Stable. Back/Spine normal ROM Extremity normal to inspection, full ROM and no pedal edema Skin no rashes or lesions noted Neuro no focal motor deficits and no sensory deficits noted Speech: speech normal Psych mental status grossly normal Weight / BMI Weight Weight: 100.4 kg Body Mass Index (BMI) 43.2 ABG / Lab / Microbiology Data 02/15/24 05:22 02/15/24 05:22 Laboratory: Laboratory Results - last 24 hr 02/14/24 16:19: POC Glucose 95 02/14/24 21:44: POC Glucose 141 H 02/15/24 05:22: WBC 5.2, RBC 3.52 L, Hgb 10.1 L, Hct 31.4 L, MCV 89.2, MCH 28.7, MCHC 32.2, RDW Std Deviation 49.7 H, RDW Coeff of Jorge L 15.2 H, Plt Count 319, MPV 9.7, Sodium 144, Potassium 3.7, Chloride 117 H, Carbon Dioxide 24.0, Anion Gap 3 L, BUN 6 L, Creatinine 0.60, Estim Creat Clear Calc 57.74, Est GFR (MDRD) Af Amer 123, Est GFR (MDRD) Non-Af 102, BUN/Creatinine Ratio 10.0, Glucose 59 L, Calcium 8.1 L, Total Bilirubin 0.50, AST 159 H, ALT 148 H, Alkaline Phosphatase 295 H, Total Protein 5.0 L, Albumin 1.9 L, Globulin 3.1, Albumin/Globulin Ratio 0.6 L 02/15/24 06:39: POC Glucose 50 L 02/15/24 07:16: POC Glucose 71 L 02/15/24 11:57: POC Glucose 134 H Radiography Diagnostic Testing: Radiology Impression Endo Retro Cholangiopancreatogram 02/14/24 09:20 IMPRESSION: As above. Electronically Signed: Fredi Sheikh MD at 14:45 EDT , Meaningful Use Info Meaningful Use Meaningful Use Diagnoses (Choose all that apply): None applicable Ischemic Stroke Statin Dosing Therapy Reference: STATIN DOSE THERAPY REFERENCE: * Patients > 75 years receive moderate or high dose statin therapy. * Patients 75 years or YOUNGER should receive HIGH intensity statin dose unless contraindicated. You will be required to document reason for non-treatment if statin daily dose does not meet guidelines. HIGH DOSE STATIN THERAPY DAILY Atorvastatin > than or = to 40 mg Rosuvastatin > than or = to 20 mg Amlodipine + Atorvastatin > than or = to 2.5/40 mg Ezetimibe + Simvastatin 10/80 mg Simvastatin 80mg Discharge Plan Admission Admit Date/Time: 02/13/24 21:03 Primary Reason for Your Visit: Abdominal pain Attending Provider: Joel Kong Primary Care Provider: Alicia Florentino Consulting Providers: Master Case Instructions Additional Instructions / Restrictions: Your blood pressures were borderline low here likely due to the gallstone and then less food and drink intake than normal. Please hold off on taking your amlodipine?valsartan medication until later this week. Otherwise continue all other home medications as normal. Discharge Orders/Prescriptions Prescriptions: Continued acetaminophen 500 mg tablet 1,000 mg PO Q8 PRN (Reason: pain) nitroglycerin 0.4 mg tablet, sublingual 0.4 mg SUBLINGUAL Q5M PRN (Reason: Chest Pain) Qty: 25 1RF atorvastatin 10 MG tablet 10 mg PO QHS esomeprazole magnesium 40 mg capsule,delayed release(DR/EC) 40 mg PO DAILY metoprolol tartrate 25 MG tablet 25 tab PO DAILY cvuxknuh-fmu-XQ-lycopen-lutein 1 EACH tablet 1 ea PO DAILY insulin glargine 100 unit/mL (3 mL) insulin pen 45 unit SC QHS calcium carbonate 600 MG tablet 1,200 mg PO DAILY insulin lispro 100 unit/mL insulin pen 10 unit SC TID aspirin 81 MG tablet 81 mg PO DAILY potassium chloride [Klor-Con M20] 20 mEq tablet,ER particles/crystals 20 meq PO DAILY etodolac 300 mg capsule 300 mg PO BID (DME) insulin syringe-needle U-100 [BD Insulin Syringe Ultra-Fine] 0.5 mL 31 gauge x 5/16 syringe MISCELLANEOUS Patient Comments: [NO ORIGINAL SIG] oxycodone 10 mg tablet 10 mg PO Q6H PRN (Reason: pain) 3 Days Qty: 10 0RF Held amlodipine-valsartan 1 TAB tablet 1 tab PO DAILY Hold Instructions: Resume on 02/19/24. Referrals / Follow Up: Alicia Florentino DO [Primary Care Provider] - Disposition Disposition (needs filled in before D/C Order can be placed): Home, Self Care Charges/Coding Visit Charges Inpatient E&M: 19383 Disch Hosp >30min
--- NOTE | 2024-02-15 13:49 | PHA.DC_ITS ---
Pharmacy IN Med Reconciliation Pharmacy Service has performed discharge medication reconciliation for this patient. The patient's discharge medication list was reviewed for discrepancies and discrepancies were resolved. Medications at Discharge Home Medications atorvastatin 10 mg tablet 10 mg PO QHS CHOLESTEROL 07/28/13 metoprolol tartrate 25 mg tablet 25 tab PO DAILY high blood pressure 12/26/14 awwupeab-ujk-ysyep acid 0.4 mg-lycopene 300 mcg-lutein 250 mcg tablet 1 ea PO DAILY supplement 12/26/14 calcium carbonate 1,200 mg PO DAILY SUPPLEMENT 10/05/16 amlodipine 5 mg-valsartan 320 mg tablet 1 tab PO DAILY HIGH BLOOD PRESSURE 11/19/16 acetaminophen 500 mg tablet 1,000 mg PO Q8 PRN pain 02/19/18 aspirin 81 mg tablet,delayed release 81 mg PO DAILY HEART MAINTENENCE 03/05/19 insulin glargine 100 unit/mL (3 mL) subcutaneous pen 45 unit subcut QHS DIABETES 04/01/19 insulin lispro 100 unit/mL subcutaneous pen 10 unit subcut TID DIABETES 04/01/19 nitroglycerin 0.4 mg sublingual tablet 0.4 mg sublingual Q5M PRN Chest Pain #25 tabs 04/02/20 potassium chloride 20 mEq tablet,extended release(part/cryst) (Klor-Con M) 20 meq PO DAILY SUPPLEMENT 09/02/23 esomeprazole magnesium 40 mg capsule,delayed release 40 mg PO DAILY heartburn/acid reflux 11/05/23 etodolac 300 mg capsule 300 mg PO BID 02/13/24 insulin syringe-needle U-100 0.5 mL 31 gauge x 5/16 (BD Insulin Syringe Ultra- Fine) 02/13/24 oxycodone 10 mg tablet 10 mg PO Q6H PRN pain 3 days #10 tabs 02/15/24
[2024-02-15 14:32] VITALS: BP 132/44; PULSE 69; RESP 18; TEMP 36.8; O2SAT 99
== END 2024-02-15 15:17 | disposition home or self-care (01) | DRG 445 ==
LOC: ED 19:27 → MS3 22:44
PROVIDERS: Internal Medicine Gastroenterology; Physician Assistant; Admitting Provider Internal Medicine; Emergency Provider Emergency Medicine; PCP Family Medicine; Visit Provider Hospitalist
PROC: 0FC98ZZ Extirpation of Matter from Common Bile Duct, Via Natural or Artificial Opening Endoscopic (ICD-10-PCS; CPT 43260; principal; 2024-02-14 09:00)
DX: K80.50 Calculus of bile duct without cholangitis or cholecystitis without obstruction (principal); Z68.41 Body mass index [BMI] 40.0-44.9, adult; R16.0 Hepatomegaly, not elsewhere classified; E11.42 Type 2 diabetes mellitus with diabetic polyneuropathy; K76.0 Fatty (change of) liver, not elsewhere classified; E66.01 Morbid (severe) obesity due to excess calories; Z79.4 Long term (current) use of insulin; I10 Essential (primary) hypertension; K83.8 Other specified diseases of biliary tract; E78.5 Hyperlipidemia, unspecified; M19.90 Unspecified osteoarthritis, unspecified site; I25.10 Atherosclerotic heart disease of native coronary artery without angina pectoris; K21.9 Gastro-esophageal reflux disease without esophagitis; Z95.5 Presence of coronary angioplasty implant and graft; Z87.891 Personal history of nicotine dependence; G89.29 Other chronic pain; Z79.891 Long term (current) use of opiate analgesic; Z90.49 Acquired absence of other specified parts of digestive tract; Z79.1 Long term (current) use of non-steroidal anti-inflammatories (NSAID)
CPT/HCPCS: 36415; 74177; 74330; 76000; 76705; 80053; 82962; 83036; 83690; 83735; 84100; 84443; 84484; 85025; 85027; 93005; 94668; 97162; 99284; J7030; Q9967; A4216; C1726; J2405

== ENCOUNTER → 2024-05-06 | Outpatient (CLI) | payer MEDICARE, BC, SELFPAY ==
--- NOTE | 2024-05-06 10:06 | BI_ITS ---
MAMMOGRAPHY - BILATERAL SCREENING REASON FOR EXAM: Female, 83 years old. Routine annual screening examination. PERTINENT HISTORY: Sisters with breast cancer. TECHNIQUE: Digital bilateral breast geoffrey (3D mammographic acquisition) in the CC and MLO projections. 2-D mediolateral oblique (MLO) and craniocaudad (CC) views of both breasts were obtained. CAD: Full Field Digital Mammography with Computer Added Detection was performed. COMPARISON: Comparison is made with prior study dated May 04, 2023 and May 01, 2022. FINDINGS: Breast Composition: There are scattered areas of fibroglandular density. There are no dominant masses or suspicious calcifications. Stable small benign-appearing bilateral axillary lymph nodes. No other significant abnormalities are identified. There has been no significant change since the prior study. BI/SCRN MAMM (CAD)W/GEOFFREY BILAT IMPRESSION: Stable bilateral screening mammogram. Yearly follow-up mammogram recommended. (A) ASSESSMENT CATEGORY: BIRADS Category 2: Benign. A letter regarding these results will be sent to the patient by the facility within 30 days. Approximately 10% of breast cancers are not detected by mammography. A normal mammogram should not delay biopsy of a clinically suspicious abnormality. [id number] Electronically Signed: Young Rucker MD at 8:11 EDT ,
== END | disposition home or self-care (01) ==
LOC: OPBI 10:05
PROVIDERS: PCP Family Medicine; Referring Provider Family Medicine; Visit Provider Family Medicine
DX: Z12.31 Encounter for screening mammogram for malignant neoplasm of breast (principal)
CPT/HCPCS: 77063; 77067

== ENCOUNTER → 2025-02-14 | Outpatient (CLI) | payer MEDICARE, BC, SELFPAY ==
--- NOTE | 2025-02-14 12:38 | RAD_ITS ---
PROCEDURE: L/S SPINE MIN 4 VIEWS 02/14/2025 REASON FOR EXAM: BACK PAIN TECHNIQUE: L/S SPINE MIN 4 VIEWS COMPARISON: 09/08/2023. FINDINGS: Grade 1 anterolisthesis of L4 on L5 measuring 4.7 mm. No associated pars defect is identified. Mild levoscoliosis apex at L3. There are diffuse spondylotic changes. Findings are demonstrated to by diffuse disc space narrowing, osteophyte formation and degenerative endplate sclerosis. There is diffuse facet joint arthropathy with secondary bilateral neural foramina narrowing. No fracture or dislocation is seen. No aggressive lytic or blastic bony lesion is noted. RAD/L/S Spine Min 4 Views IMPRESSION: Spondylosis. Reading Location: [facility]
== END | disposition home or self-care (01) ==
LOC: MTRAD 12:37
PROVIDERS: PCP Family Medicine; Referring Provider Family Medicine; Visit Provider Family Medicine
DX: M54.50 Low back pain, unspecified (principal)
CPT/HCPCS: 72110

== ENCOUNTER 2025-03-26 06:47 | Emergency (ER) | payer MEDICARE, BC, SELFPAY ==
[2025-03-26 06:48] VITALS: BP 143/75; PULSE 85; RESP 20; TEMP 36.6; O2SAT 100; BMI 43.2
--- NOTE | 2025-03-26 06:56 | ED.VIS.GI ---
HPI HPI - GI History of Present Illness Chief Complaint: Flank Pain Informant: patient and family Narrative Narrative: Presenting worsening abdominal pain that awakened at 6 AM. Started having mild back pain yesterday per evening. Nausea without vomiting. Discussion with patient kidney stones she states she had a stent by . Friend was a GI doctor. Reviewing records last year had biliary stent due to choledocholithiasis. Patient reports pain feels similar however worse than previous. No fevers. No urinary symptoms. Noted cholecystectomy August 2023. Denies history of gastric ulcers or kidney injury. Prior similar symptoms: Yes PFSH PFSH Medical History Wears hearing aid Loss of hearing Wears glasses Wears dentures Walker as ambulation aid Arthritis High cholesterol Diverticulosis Leg cramps History of edema History of echocardiogram History of irregular heartbeat Cardiology follow-up encounter Cholelithiasis Diabetes Chronic pain Rheumatoid arthritis Former smoker Irregular heart beat Hypertension Acute cholecystitis Essential hypertension Nephrolithiasis Asthma RLS (restless legs syndrome) GERD (gastroesophageal reflux disease) Premature atrial contractions Premature ventricular contraction Peripheral neuropathy Morbid obesity with BMI of 50.0-59.9, adult Diabetes mellitus, type II Hyperlipidemia Home Medications ?Medication ?Instructions ?Recorded ?Last Taken ?Type atorvastatin 10 mg tablet 10 mg PO QHS CHOLESTEROL 07/28/13 02/12/24 History metoprolol tartrate 25 mg tablet 25 tab PO DAILY high blood pressure 12/26/14 02/13/24 History njbduewf-nbf-mqibq acid 0.4 1 ea PO DAILY supplement 12/26/14 02/13/24 History mg-lycopene 300 mcg-lutein 250 mcg tablet calcium carbonate 1,200 mg PO DAILY SUPPLEMENT 10/05/16 02/13/24 History amlodipine 5 mg-valsartan 320 mg 1 tab PO DAILY HIGH BLOOD PRESSURE 11/19/16 02/13/24 History tablet Held on 02/15/24. Instructions: Resume on 02/19/24. acetaminophen 500 mg tablet 1,000 mg PO Q8 PRN pain 02/19/18 Unknown History aspirin 81 mg tablet,delayed 81 mg PO DAILY HEART MAINTENENCE 03/05/19 02/13/24 History release insulin glargine 100 unit/mL (3 45 unit subcut QHS DIABETES 04/01/19 02/12/24 History mL) subcutaneous pen insulin lispro 100 unit/mL 10 unit subcut TID DIABETES 04/01/19 02/13/24 History subcutaneous pen nitroglycerin 0.4 mg sublingual 0.4 mg sublingual Q5M PRN Chest 04/02/20 Unknown Rx tablet Pain #25 tabs potassium chloride 20 mEq 20 meq PO DAILY SUPPLEMENT 09/02/23 02/13/24 History tablet,extended release(part/cryst) (Klor-Con M) esomeprazole magnesium 40 mg 40 mg PO DAILY heartburn/acid 11/05/23 02/13/24 History capsule,delayed release reflux etodolac 300 mg capsule 300 mg PO BID 02/13/24 02/13/24 History insulin syringe-needle U-100 0.5 02/13/24 Unknown History mL 31 gauge x 5/16 (BD Insulin Syringe Ultra-Fine) oxycodone 10 mg tablet 10 mg PO Q6H PRN pain 3 days #10 02/15/24 Unknown Rx tabs Allergy/AdvReac Type Severity Reaction Status Date / Time hydromorphone HCl (From Allergy Nausea Verified 03/26/25 06:49 Dilaudid) venlafaxine AdvReac Severe Nausea Verified 03/26/25 06:49 adhesive AdvReac Other Verified 03/26/25 06:49 Family History Father Diabetes Mother Hypertension Sister Hypertension CAD (coronary artery disease) Myocardial infarction Sister Diabetes Surgical History Status post laparoscopic cholecystectomy History of cardiac catheterization History of laparoscopic cholecystectomy S/P ERCP History of appendectomy History of coronary artery stent placement History of repair of rotator cuff History of knee replacement procedure of right knee History of knee replacement procedure of left knee History of hernia repair History of total hysterectomy Social History household members: none Smoking Status: Former smoker how long ago did patient quit smoking: Quit ~ 40 yrs prior, smoked 1/4 ppd since teen until quit. alcohol intake: never substance use type: does not use ROS ROS ED Constitutional Constitutional ED: Denies chills, fever(s) or sweats ENT ENT ED: Denies sore throat Cardiovascular Cardiovascular: Denies chest pain, leg edema, palpitations or racing heartbeat Respiratory/Chest Respiratory/Chest: Denies cough, dyspnea or dyspnea on exertion Gastrointestinal Gastrointestinal: Reports abdominal pain and nausea; Denies diarrhea or vomiting Genitourinary Genitourinary ED: Denies dysuria, hematuria or urinary frequency Musculoskeletal Musculoskeletal: Denies back pain, extremity pain or neck pain Integumentary Denies rash or wounds Neurologic Neurologic: Denies headache(s), paresthesias or weakness EXAM Physical Exam Const Vital Signs: 03/26/25 06:48 Temperature 97.9 F Temperature Source Oral Pulse Rate 85 Respiratory Rate 20 H Blood Pressure 143/75 H Blood Pressure Mean 97 Pulse Ox 100 Oxygen Delivery Method Room Air Positive well nourished and well developed Constitutional Narrative: Uncomfortable, nontoxic General Appearance ED: well developed HEENT Reports moist mucous membranes normocephalic and atraumatic Eyes General Eye ED: Yes normal appearance of both eyes Neck full ROM Chest Wall Chest: Negative for tenderness Resp normal respiratory effort and normal air movement Effort and Inspection: symmetric chest movement; Negative for respiratory distress Cardio regular rate, regular rhythm and no murmurs Peripheral Pulses: pulses 2+ throughout GI normal to inspection, nondistended, normoactive bowel sounds GI Narrative: Pain mid to lower abdomen. No guarding or rebound. Palpation: Negative for guarding or rebound tenderness present Extremity normal to inspection General Extremety ED: Negative for edema or tenderness General Extremity: Negative for edema Neuro oriented x3 and no sensory deficits noted Sensorium / Orientation: awake and alert Skin no rashes or lesions noted and no wounds MDM MDM MDM Narrative Medical decision making narrative: Interventions / MDM: Differential diagnosis: Choledocholithiasis, pancreatitis, colitis, kidney stone Diagnosis considered but do not suspect: N/A My EKG interpretation: N/A Imaging independently reviewed and interpreted by myself: CT abdomen pelvis IV contrast: Pending External documents reviewed: N/A Test considered but not ordered:N/A ED course: Patient uncomfortable nontoxic. Apparently history of choledocholithiasis with cholecystectomy in the past. Abdominal labs were ordered for urine. CT abdomen pelvis IV contrast. Fluids started morphine Zofran Toradol ordered. Patient be signed out to oncoming physician. Re-evaluation: stable Disposition discussed with patient/family/significant other: Case discussed with consulting clinician: N/A This note was generated with [employer] software. It may contain incorrect words, spelling, and punctuation that were not noted in checking the note before signing. Discharge Plan Triage Chief Complaint: Flank Pain ED Provider: Kirk Beadren Dx/Rx/DC Orders Prescriptions: No Action acetaminophen 500 mg tablet 1,000 mg PO Q8 PRN (Reason: pain) nitroglycerin 0.4 mg tablet, sublingual 0.4 mg SUBLINGUAL Q5M PRN (Reason: Chest Pain) Qty: 25 1RF atorvastatin 10 MG tablet 10 mg PO QHS esomeprazole magnesium 40 mg capsule,delayed release(DR/EC) 40 mg PO DAILY metoprolol tartrate 25 MG tablet 25 tab PO DAILY alxvckel-pmz-TU-lycopen-lutein 1 EACH tablet 1 ea PO DAILY insulin glargine 100 unit/mL (3 mL) insulin pen 45 unit SC QHS calcium carbonate 600 MG tablet 1,200 mg PO DAILY insulin lispro 100 unit/mL insulin pen 10 unit SC TID amlodipine-valsartan 1 TAB tablet 1 tab PO DAILY aspirin 81 MG tablet 81 mg PO DAILY potassium chloride [Klor-Con M20] 20 mEq tablet,ER particles/crystals 20 meq PO DAILY etodolac 300 mg capsule 300 mg PO BID (DME) insulin syringe-needle U-100 [BD Insulin Syringe Ultra-Fine] 0.5 mL 31 gauge x 5/16 syringe MISCELLANEOUS Patient Comments: [NO ORIGINAL SIG] oxycodone 10 mg tablet 10 mg PO Q6H PRN (Reason: pain) 3 Days Qty: 10 0RF Primary Care Provider: Alicia Florentino Referrals: Alicia Floretnino DO [Primary Care Provider] - Print Language: Albanian
--- NOTE | 2025-03-26 07:00 | CT_ITS ---
PROCEDURE: ABDOMEN/PELVIS W IV CONT ONLY 03/26/2025 REASON FOR EXAM: PAIN, HX CHOLEDOCHOLITHIASIS TECHNIQUE: ABDOMEN/PELVIS W IV CONT ONLY Coronal and Sagittal reconstruction series were provided. CONTRAST: Isovue 370 VOLUME: 100 mL One or more dose reduction techniques were used (e.g., Automated exposure control, adjustment of the mA and/or kV according to patient size, use of iterative reconstruction technique. RADIATION DOSE SUMMARY: DLP: 1200 mGycm COMPARISON: CT abdomen pelvis 02/13/2024. FINDINGS: Lung bases: Unremarkable. Liver: The liver is normal in size with diffuse hepatic steatosis. The major portal veins are patent. Minimal biliary ductal dilation, similar to prior examination. Gallbladder: Prior cholecystectomy. No radiopaque stones within the common bile duct. Spleen: Normal in size. Pancreas: Mildly prominent main pancreatic duct, similar to prior examination. Adrenals: No adrenal mass. Kidneys: Unchanged calcifications within the mid right ureter, stable since at least 2023. no hydronephrosis. Bladder: Distended and unremarkable. Reproductive Organs: Prior hysterectomy. Bowel: The bowel loops are nondilated. No ascites or pneumoperitoneum. Prior appendectomy. Lymph nodes: No suspicious lymph node enlargement. Vasculature: Mild mixed plaque of the aortoiliac vessels. Peritoneum / Retroperitoneum: Slight decreased size of thetwo soft tissue lesions within the right lateral conal fascia (series 2, image 48). No new or enlarging soft tissue mass. Bones: Thoracolumbar spondylosis. Small fat containing periumbilical hernia. CT/Abdomen/Pelvis W IV Cont ONLY IMPRESSION: 1. No acute abdominopelvic finding. 2. No radiopaque stones within the common bile duct, however visualization is l imited by CT examination. If clinical concern for choledocholithiasis, recommend diagnostic and therapeutic ERCP. 3. Slightly decreased size of the right lateral conal fascial soft tissue lesio ns, which are indeterminate in etiology and may represent sequela of prior epiploic appendagitis or omental infarct. Peritonea l implant remains an additional consideration, however less likely. Reading Location: [id number]
[2025-03-26] MEDS: 0.9% Normal Saline (1000mL) 1,000 ML 250 ML IV (07:05)
[2025-03-26 07:11] LABS: Hematocrit 40.8 % (37-47); Hemoglobin 13.3 g/dL (12.0-15.0); Immature Granulocytes Count 0.010 X10^3/uL (0.0-0.0); Mean Corp Hgb Conc 32.6 g/dL (32-36); Mean Corpuscular Volume 90.3 fL (81-99); Mean Platelet Vol. 9.8 fl (6.2-12.0); NRBC Flagged by Analyzer 0 % (0-5); Platelet Count 332 K/mm3 (150-450); RBC Distribution Width CV 13.3 % (11.6-14.6); RBC Distribution Width SD 44.0 fl (35.1-43.9); Red Blood Count 4.52 M/mm3 (4.2-5.4); White Blood Count 5.4 K/mm3 (4.4-11.0)
--- OUTSIDE RECORDS SUMMARY | 2025-03-26 07:24 | XMS RPT_ITS | CCD ---
Author Organization [facility] Care Team Providers Care Drafting Clerk Name Role Phone Lisbet Chairez Unavailable Ramírez, Nita Unavailable Unavailable Darrell, Nita Unavailable Unavailable VOLODYMYR LEO Attending Unavailable ALICIA FLORENTINO Primary Care Unavailable Alicia Florentino DO Primary Care Provider Dr. Alicia Florentino Primary Care Provider Dr. Ame Dobbs Emergency Provider Dr. Elia Melendrez Admit Provider Dr. Elia Melendrez Other Provider Dr. Babita Beltrán Attending Provider [phone] SANCHEZ, PA-C Nancy Attending Provider Dr. Alicia Florentino Primary Care Provider Dr. Ame Dobbs Referring Provider Dr. Ame Dobbs Emergency Provider Dr. Elia Melendrez Admit Provider Dr. Elia Melendrez Other Provider Dr. Babita Beltrán Attending Provider Dr. Elia Melendrez Attending Provider Dr. Master Phillip Referring Provider Unavailable Dr. Babita Beltrán Other Provider Dr. Master Phillip Other Provider Unavailable Friend, Dr. Askew Attending Provider Dr. Carol Crow Referring Provider Dr. Master Phillip Attending Provider Unavailable Friend, Dr. Askew Other Provider Dr. Clem Gusman Attending Provider Dr. aCrol Crow Other Provider Dr. Carol Crow Attending Provider ENRIQUE Garcia Attending Provider [phone] Dr. Alicia Florentino Referring Provider Dr. Alicia Florentino DO Primary Care Provider [phone] Dr. Tammi Mckenzie MD Attending Provider [phone] Dr. Tammi Mckenzie MD Referring Provider [phone] Alicia Florentino Attending Unavailable Alicia Florentino Referring Unavailable Alicia Florentino Primary Care Unavailable Tammi Mckenzie Attending Unavailable Tammi Mckenzie Referring Unavailable Alicia Florentino Primary Care Unavailable Allergies Allergy Classification Reported Allergen(s) Allergy Type Date of Onset Reaction(s) Facility (3 sources) Adhesive Tape; Translations: [ADHESIVE BANDAGES] allergy to substance 3 islva skin [facility] Work Phone: (6 sources) aspirin drug allergy 0 vomiting [facility] Work Phone: (3 sources) naproxen drug allergy 5 nausea [facility] Work Phone: (3 sources) venlafaxine drug allergy 6 Nausea [facility] Work Phone: (6 sources) Adhesive agent; Translations: [adhesive] Propensity to adverse reactions 1 Other [facility] Comment on above: irritation (3 sources) Aspirin Drug Allergy 1 BABY [place]. REG STRENG UPSET STOMACH [facility] (6 sources) HYDROmorphone; Translations: [hydromorphone HCl] Drug Allergy 1 Nausea [facility] (3 sources) Naproxen Drug Allergy 1 Nausea [facility] (5 sources) venlafaxine Drug Allergy 1 Nausea [facility] (3 sources) Lisinopril; Translations: [LISINOPRIL] Drug Allergy 9 Swelling [facility] (1 source) venlafaxine Drug Allergy 4 [facility] Repository Medications Current Medications Medication Drug Class(es) Dates Sig (Normalized) Sig (Original) acetaminophen 500 mg oral tablet (15 sources) Start: 12-04-2016 End: 02-19-2018 take 2 tablets by mouth every eight hours as needed for pain Acetaminophen 500 mg tablet Active 1000 mg PO EVERY 8 HOURS as needed for pain February 19, 2018 9:37am Start: 12-04-2016 End: 02-19-2018 take 1000 mg by mouth every eight hours Acetaminophen Active 1000 MG PO EVERY 8 HOURS February 19, 2018 9:37am Start: 11-07-2015 End: 12-04-2016 take 2 tablets by mouth every six hours as needed for pain Acetaminophen (Tylenol) 325 MG tablet Discontinued 650 mg PO EVERY 6 HOURS NEEDED as needed for Mild Pain (0-3/10)/Headache 0 0 November 07, 2015 12:00am December 04, 2016 7:46am amLODIPine 5 mg / valsartan 320 mg oral tablet (15 sources) Dihydropyridine Calcium Channel Tia, Angiotensin 2 Receptor Tia Start: 11-19-2016 Amlodipine-Valsartan 1 TAB tablet Active 1 {tbl} PO DAILY November 19, 2016 12:00am HIGH BLOOD PRESSURE On Hold: Resume on 02/19/24. Start: 07-28-2013 End: 10-25-2015 take 1 tablet by mouth once daily Amlodipine-Valsartan (Exforge) 1 TAB tablet Discontinued 320 mg PO DAILY July 28, 2013 1:00am October 25, 2015 1:30pm take 1 tablet by vamsi th once daily EXFORGE 5-320 MG TABS One tablet by mouth daily AMLODIPINE BESYLATE-VALSARTAN [id number] Jerson Carrillo DO aspirin 81 mg delayed release oral tablet (20 sources) Nonsteroidal Anti-inflammatory Drug Start: 03-05-2019 take 1 tablet by mouth once daily Aspirin 81 MG tablet Active 81 mg PO DAILY March 05, 2019 8:45pm HEART MAINTENENCE Start: 12-04-2016 End: 03-05-2019 take 1 tablet by mouth twice daily Aspirin 81 MG tablet Discontinued 81 mg PO TWICE A DAY 30 0 December 04, 2016 12:00am March 05, 2019 8:45pm Start: 03-28-2015 take 1 tablet by vamsi th once daily ADULT ASPIRIN EC LOW STRENGTH 81 MG TBEC One tablet by mouth daily ASPIRIN [id number] Alicia Florentino DO Start: 03-28-2015 End: 12-04-2016 take 1 tablet by mouth once daily Aspirin (Aspir-Low) [address] Discontinued 81 mg PO DAILY October 05, 2016 1:00am December 04, 2016 7:44am Start: 03-28-2015 take 1 tablet by vamsi th once daily ADULT ASPIRIN EC LOW STRENGTH 81 MG TBEC One tablet by mouth daily ASPIRIN [id number] Alicia Florentino DO atorvastatin 10 mg oral tablet (19 sources) HMG-CoA Reductase Inhibitor Start: 07-28-2013 take 1 tablet by mouth at bedtime Atorvastatin 10 MG tablet Active 10 mg PO AT BEDTIME July 28, 2013 1:00am CHOLESTEROL Start: 01-30-2009 End: 08-25-2012 atorvastatin calcium(LIPITOR 10 MG TAB) Take one(1) tablet daily. 0 01/30/2009 Active Comment on above: Take one(1) tablet d aily. benzonatate 100 mg oral capsule (7 sources) Non-narcotic Antitussive Start: 2 End: 3 take 1 capsule by mouth three times daily as needed for cough benzonatate (TESSALON PERLES) 100 mg capsule Indications: URI, acute Take 1 capsule by mouth three times daily as needed for cough for up to 7 days. 21 capsule 0 08/22/2022 08/29/2022 Active Start: 06-03-2012 End: 06-07-2012 take 1 tablet by mouth three times daily as needed for cough BENZONATATE 100 MG CAPS One tablet by mouth three times daily as needed cough, swallow pill in whole BENZONATATE [id number] Jossue Moya MD Comment on above: Take 1 capsule by mo [facility] three times daily as needed for cough for up to 7 days. calcium carbonate 1500 mg oral tablet (10 sources) Start: 10-05-2016 take 2 tablets by mouth once daily Calcium Carbonate 600 MG tablet Active 1200 mg PO DAILY October 05, 2016 1:00am SUPPLEMENT Start: 10-05-2016 take 1200 mg by mout h once daily Calcium Carbonate Active 1200 MG PO DAILY October 05, 2016 1:00am Start: 07-28-2013 End: 09-21-2013 Calcium Carbonate (Caltrate 600) 600 MG tablet Discontinued 1200 mg PO DAILY July 28, 2013 1:00am September 21, 2013 5:04pm etodolac 300 mg oral capsule (4 sources) Nonsteroidal Anti-inflammatory Drug Start: 02-13-2024 take 1 capsule by mouth twice daily Etodolac 300 mg capsule Active 300 mg PO TWICE A DAY February 13, 2024 12:00am Start: 09-02-2023 End: 12-03-2023 take 1 capsule by mouth twice daily Etodolac 300 mg capsule Discontinued 300 mg PO TWICE A DAY September 02, 2023 1:00am December 03, 2023 12:53pm INFLAMMATION 3 ml insulin glargine 100 unt/ml pen injector (20 sources) Insulin Analogue Start: 10-17-2015 End: 04-01-2019 Insulin Glargine 100 unit/mL (3 mL) insulin pen Active 45 U SC AT BEDTIME April 01, 2019 10:18am DIABETES Start: 10-17-2015 End: 04-01-2019 Insulin Glargine 100 UNITS/M L insulin pen Discontinued 45 U SC AT BEDTIME October 17, 2015 3:31pm April 01, 2019 10:19am Start: 2013 End: 10-17-2015 Insulin Glargine (Lantus [place] ostar U-100 Insulin) 100 UNITS/ML Pen Discontinued 16 - 60 U SC AT BEDTIME 3 3 2013 9:12am October 17, 2015 3:31pm 16 units subcutaneous in am 60 units subcutaneous qhs Start: 07-28-2013 End: 2013 Insulin Glargine (Lantus [place] ostar U-100 Insulin) 100 UNITS/ML Pen Discontinued 55 U SC AT BEDTIME July 28, 2013 1:00am 2013 9:12am Start: 03-01-2013 take 46 [IU] by subc utaneous injection once daily LANTUS 100 UNIT/ML SOLN 46 units SQ every night. INSULIN GLARGINE [id number] Jerson Carrillo DO Start: 03-01-2013 take 50 [IU] by subc utaneous injection once daily LANTUS 100 UNIT/ML SOLN 50 units SQ every night. INSULIN GLARGINE [id number] Jossue Moya MD Start: 11-12-2012 take 45 [IU] by subc utaneous injection once daily LANTUS 100 UNIT/ML SOLN 45 units SQ every night. INSULIN GLARGINE [id number] Jossue Moya MD Start: 11-12-2012 take 45 [IU] by subc utaneous injection once daily LANTUS 100 UNIT/ML SOLN 45 units SQ every night. INSULIN GLARGINE [id number] Jossue Moya MD Start: 10-02-2010 take 40 [IU] by subc utaneous injection once daily LANTUS 100 UNIT/ML SOLN 40 units SQ every night. INSULIN GLARGINE [id number] Jossue Moya MD Start: 10-02-2010 take 40 [IU] by subc utaneous injection once daily LANTUS 100 UNIT/ML SOLN 40 units SQ every night. INSULIN GLARGINE [id number] Jossue Moya MD Start: 01-30-2009 take 50 [IU] by subc utaneous injection once daily LANTUS 100 UNIT/ML SOLN 50 units SQ every night. INSULIN GLARGINE [id number] Jossue Moya MD Start: 01-30-2009 take 46 [IU] by subc utaneous injection once daily LANTUS 100 UNIT/ML SOLN 46 units SQ every night. INSULIN GLARGINE [id number] Jerson Carrillo DO End: 10-02-2010 LANTUS SOLN at night INSULIN GLARGINE SOLN [id number] Brina Tovar MD LANTUS SOLN at n ight INSULIN GLARGINE SOLN [id number] Delmy Donavan Mcdaniels End: 10-02-2010 LANTUS SOLN at night INSULIN GLARGINE SOLN [id number] Brian Tovar MD Comment on above: Use as directed. 3 ml insulin lispro 100 unt/ml pen injector (20 sources) Insulin Analogue Start: 04-01-2019 Insulin Lispr o 100 unit/mL insulin pen Active 10 U SC THREE TIMES A DAY April 01, 2019 10:19am DIABETES Start: 04-01-2019 Insulin Lispro Active 8 UNIT SC THREE TIMES A DAY April 01, 2019 9:19am Start: 10-05-2016 End: 04-01-2019 inject 10 [IU] by subcutaneous injection three times daily Insulin Lispro 100 UNIT/ML insulin pen Discontinued 10 U SQ THREE TIMES A DAY October 05, 2016 1:00am April 01, 2019 10:19am Start: 02-13-2011 HUMALOG PEN 10 0 UNIT/ML SOLN use in place of humalog solution when required. 10 units 3 times a day before meals. INSULIN LISPRO (HUMAN) Jossue Moya MD Start: 02-13-2011 End: 04-26-2014 HUMALOG PEN 100 UNIT/ML SOLN use in place of humalog solution when required. 10 units 3 times a day before meals. INSULIN LISPRO (HUMAN) Jossue Moya MD Start: 02-13-2011 HUMALOG PEN 10 0 UNIT/ML SOLN use in place of humalog solution when required. 10 units 3 times a day before meals. INSULIN LISPRO (HUMAN) Jossue Moya MD Start: 02-13-2011 End: 04-26-2014 HUMALOG PEN 100 UNIT/ML SOLN use in place of humalog solution when required. 10 units 3 times a day before meals. INSULIN LISPRO (HUMAN) Jossue Moya MD Start: 10-02-2010 take 8 [IU] by subcu taneous injection three times daily HUMALOG 100 UNIT/ML SOLN 8 units SQ with each meal 3 times a day. INSULIN LISPRO (HUMAN) [id number] Jossue Moya MD Start: 10-02-2010 take 6 [IU] by subcu taneous injection three times daily HUMALOG 100 UNIT/ML SOLN 6 units SQ with each meal 3 times a day. INSULIN LISPRO (HUMAN) [id number] Alicia Florentino DO Start: 10-02-2010 take 10 [IU] by subc utaneous injection three times daily HUMALOG 100 UNIT/ML SOLN 10 units SQ with each meal 3 times a day. INSULIN LISPRO (HUMAN) [id number] Jossue Moya MD Start: 10-02-2010 take 8 [IU] by subcu taneous injection three times daily HUMALOG 100 UNIT/ML SOLN 8 units SQ with each meal 3 times a day. INSULIN LISPRO (HUMAN) [id number] Jossue Moya MD Start: 01-30-2009 take 10 [IU] by subc utaneous injection three times daily HUMALOG 100 UNIT/ML SOLN 10 units SQ with each meal 3 times a day. INSULIN LISPRO (HUMAN) [id number] Jossue Moya MD Start: 01-30-2009 take 6 [IU] by subcu taneous injection three times daily HUMALOG 100 UNIT/ML SOLN 6 units SQ with each meal 3 times a day. INSULIN LISPRO (HUMAN) [id number] Alicia Florentino DO End: 10-02-2010 HUMALOG SOLN INSU DEMETRA LISPRO (HUMAN) SOLN [id number] Brian Tovar MD HUMALOG SOLN INS ULIN LISPRO (HUMAN) SOLN [id number] Delmy Mcdaniels End: 10-02-2010 HUMALOG SOLN INSU DEMETRA LISPRO (HUMAN) SOLN [id number] Brian Tovar MD Comment on above: as directed metoprolol tartrate 25 mg oral tablet (13 sources) beta-Adrenergic Tia Start: 12-26-2014 Metoprolol Tartrate 25 MG tablet Active 25 {tbl} PO DAILY December 26, 2014 12:00am high blood pressure Start: 09-08-2013 take 1 tablet by vamsi th twice daily Metoprolol Tartrate Active 25 TABLET PO TWICE A DAY December 25, 2014 11:00pm Start: 09-08-2013 take 0.5 tablet by m outh twice daily METOPROLOL TARTRATE 25 MG TABS 1/2 tablet by mouth twice daily METOPROLOL TARTRATE [id number] Alicia Florentino DO Uhkakcnb-Ifr-Ft-Lycopen-Lute in (4 sources) Start: 12-26-2014 Yowklzbt-Sdd-Gn-Lycopen-Lute in Active 1 EACH PO DAILY December 25, 2014 11:00pm Start: 12-26-2014 Dqnyvswd-Due-E j-Grhmgeg-Gnajas Active 1 EACH PO DAILY December 26, 2014 12:00am Omzlqpyl-Hso-Gn-Lycopen-Lute in 1 EACH tablet (1 source) Start: 12-26-2014 Whatnthv-Szq-Ov-Lycopen-Lute in 1 EACH tablet Active 1 NMA PO DAILY December 26, 2014 12:00am supplement nitroglycerin 0.4 mg subling ual tablet (16 sources) Nitrate Vasodilator Start: 12-26-2014 End: 04-02-2020 Nitroglycerin 0.4 mg tablet, sublingual Active 0.4 mg SL Q5M as needed for Chest Pain 25 April 02, 2020 10:13am Start: 08-01-2013 End: 04-02-2020 Nitroglycerin Discontinued 0 .4 MG SL Q5M December 26, 2014 12:00am April 02, 2020 10:13am Start: 08-01-2013 NITROGLYCERIN 0.4 MG SUBL 1 tablet under the tongue every 5 minutes times 3 as needed for chest pain. NITROGLYCERIN [id number] Renae Mullen RN oxyCODONE hydrochloride 10 mg oral tablet (20 sources) Opioid Agonist Start: 12-09-2023 End: 02-15-2024 take 1 tablet by mouth every six hours as needed for pain Oxycodone 10 mg tablet Active 10 mg PO EVERY 6 HOURS as needed for pain 10 3 0 February 15, 2024 Abdominal pain Unspecified abdominal pain Start: 09-10-2023 End: 09-17-2023 take 1 tablet by mouth every six hours as needed for pain Oxycodone 5 mg Tablet Discontinued 5 mg PO EVERY 6 HOURS NEEDED as needed for Pain Score 6-10 9 3 0 September 10, 2023 September 17, 2023 1:31pm Acute cholecystitis Acute cholecystitis Start: 12-04-2016 End: 02-17-2018 take 5-10 mg by mouth every four hours as needed for pain Oxycodone 5 MG tablet Discontinued 5 - 10 mg PO EVERY 4 HOURS NEEDED as needed for Pain 60 0 December 04, 2016 12:00am February 17, 2018 1:52pm Start: 10-25-2015 End: 11-07-2015 take 5-10 mg by mouth every four hours as needed for pain Oxycodone 5 MG tablet Discontinued 5 - 10 mg PO EVERY 4 HOURS NEEDED as needed for Pain 20 0 November 07, 2015 10:23am November 07, 2015 10:24am Start: 10-25-2015 End: 11-07-2015 take 1 tablet by mouth twice daily Oxycodone (Oxycontin) 10 MG tablet Discontinued 10 mg PO TWICE A DAY 10 0 October 25, 2015 1:00am November 07, 2015 10:22am microencapsulated potassium chloride 20 meq extended release oral tablet (20 sources) Start: 09-02-2023 Potassium Chlo ride (Klor-Con M20) 20 mEq tablet,ER particles/crystals Active 20 meq PO DAILY September 02, 2023 1:00am SUPPLEMENT Start: 12-26-2014 End: 09-02-2023 take 2 tablets by mouth once daily Potassium Chloride 10 MEQ tablet extended release Discontinued 20 meq PO DAILY December 26, 2014 12:00am September 02, 2023 2:28pm Start: 12-26-2014 End: 09-02-2023 take 20 mEq by mouth once daily Potassium Chloride Dis continued 20 MEQ PO DAILY December 26, 2014 12:00am September 02, 2023 2:28pm Start: 07-28-2013 End: 09-21-2013 Potassium Chloride (Klor-Con 10) 10 MEQ Tablet.Er Discontinued 20 meq PO DAILY 20 0 September 21, 2013 5:05pm September 21, 2013 9:40pm Start: 04-09-2012 take 1 tablet by vamsi th once daily KLOR-CON M20 20 MEQ CR-TABS One tablet by mouth daily POTASSIUM CHLORIDE DEBBIE CR [id number] Jerson Niki Gerardo DO Start: 04-09-2012 take 1 tablet by vamsi th once daily KLOR-CON M20 20 MEQ CR-TABS One tablet by mouth daily POTASSIUM CHLORIDE DEBBIE CR [id number] Jerson A Gerardo DO Start: 04-09-2012 take 1 tablet by vamsi th once daily KLOR-CON M20 20 MEQ CR-TABS One tablet by mouth daily POTASSIUM CHLORIDE DEBBIE CR [id number] Jerson Carrillo DO Start: 01-30-2009 potassium chlo ride(KLOR-CON M20 20 MEQ TAB) Take one(1) tablet daily. 0 01/30/2009 Active take 1 tablet by vamsi th once daily KLOR-CON M20 CR-TABS One tablet by mouth daily POTASSIUM CHLORIDE DEBBIE CR CR-TABS [id number] Brian Tovar MD take 1 tablet by vamsi th once daily KLOR-CON M20 CR-TABS One tablet by mouth daily POTASSIUM CHLORIDE DEBBIE CR CR-TABS [id number] Brian Tovar MD Comment on above: Take one(1) tablet d aily. Completed/Discontinued Medications Medication Drug Class(es) Dates Sig (Normalized) Sig (Original) ACCUCHECK COMPACT TEST STRIPS (6 sources) Start: 10-22-2012 End: 08-31-2013 ACCUCHECK COMPACT TEST STRIPS 3-4 times daily DX: DM-uncontrolled, on insulin ACCUCHECK COMPACT TEST STRIPS Marybel Paez Start: 10-22-2012 ACCUCHECK COMP ACT TEST STRIPS 3-4 times daily DX: DM-uncontrolled, on insulin Jossue Moya MD Start: 10-22-2012 ACCUCHECK COMP ACT TEST STRIPS 3-4 times daily DX: DM-uncontrolled, on insulin Jossue Moya MD Start: 10-22-2012 End: 08-31-2013 ACCUCHECK COMPACT TEST STRIP S 3-4 times daily DX: DM-uncontrolled, on insulin ACCUCHECK COMPACT TEST STRIPS Marybel Paez Start: 12-04-2010 ACCUCHECK COMP ACT TEST STRIPS [place] blood glucose as directed ACCUCHECK COMPACT TEST STRIPS Brian Tovar MD Start: 12-04-2010 ACCUCHECK COMP ACT TEST STRIPS [place] blood glucose as directed ACCUCHECK COMPACT TEST STRIPS Brian Tovar MD acetaminophen 325 mg / oxyCODONE hydrochloride 5 mg oral tablet (14 sources) Opioid Agonist Start: 10-17-2013 End: 07-27-2014 take 1-2 tablets by mouth every four hours as needed PERCOCET 5-325 MG TABS 1-2 tablets by mouth every 4 hours as needed OXYCODONE-ACETAMINOPHEN [id number] Jossue Moya MD Start: 10-17-2013 End: 07-27-2014 take 1-2 tablets by mouth every four hours as needed PERCOCET 5-325 MG TABS 1-2 tablets by mouth every 4 hours as needed, avoid driving or operating machine under the influence of medication. OXYCODONE-ACETAMINOPHEN [id number] Jossue Moya MD Start: 10-17-2013 take 1-2 tablets by mouth every four hours as needed PERCOCET 5-325 MG TABS 1-2 tablets by mouth every 4 hours as needed, avoid driving or operating machine under the influence of medication. OXYCODONE-ACETAMINOPHEN [id number] Jossue Moya MD Start: 10-17-2013 take 1-2 tablets by mouth every four hours as needed PERCOCET 5-325 MG TABS 1-2 tablets by mouth every 4 hours as needed OXYCODONE-ACETAMINOPHEN [id number] Jossue Moya MD Start: 09-17-2013 End: 2013 Oxycodone-Acetaminophen 1 TA BLET tablet Discontinued 1 - 2 {tbl} PO EVERY 4 HOURS NEEDED as needed for Pain 30 0 September 17, 2013 1:00am 2013 8:46am Start: 09-17-2013 End: 2013 take 1 tablet by mouth every four hours as needed Oxycodone-Acetaminophen Discontinued 1 - 2 TABLET PO EVERY 4 HOURS NEEDED September 17, 2013 1:00am 2013 8:46am azithromycin 250 mg oral tablet (6 sources) Macrolide Antimicrobial Start: 06-07-2012 End: 08-25-2012 take 2 tablets by mouth once daily, then take 1 tablet by mouth once daily, then take 2-5 tablets by mouth AZITHROMYCIN 250 MG TABS two tablets by mouth on day one, and one tablets daily one day 2-5 AZITHROMYCIN [id number] Jossue Moya MD bisacodyl 5 mg delayed release oral tablet (20 sources) Stimulant Laxative Start: 10-08-2016 End: 10-08-2016 take 2 tablets by mouth once daily as needed for constipation Bisacodyl 5 MG tablet Discontinued 10 mg PO DAILY as needed for Constipation October 08, 2016 11:46am October 08, 2016 12:09pm Start: 10-08-2016 End: 10-08-2016 take 10 mg by mouth once daily Bisacodyl Discontinued 10 MG PO DAILY October 08, 2016 11:46am October 08, 2016 12:09pm Start: 03-26-2011 End: 05-24-2012 DULCOLAX 5 MG TBEC 1-2 tabs daily. BISACODYL [id number] Brian Tovar MD Start: 03-26-2011 End: 05-24-2012 DULCOLAX 5 MG TBEC 1-2 tabs daily. BISACODYL [id number] Jossue Moya MD calcium (4 sources) Phosphate Binder, Calcium Start: 10-18-2013 take 1 tablet by mouth once daily CALCIUM + D3 600-200 MG-UNIT TABS One tablet by mouth daily CALCIUM CARB-CHOLECALCIFEROL [id number] Cristal Flood Start: 10-18-2013 take 1 tablet by vamsi th once daily CALCIUM + D3 600-200 MG-UNIT TABS One tablet by mouth daily CALCIUM CARB-CHOLECALCIFEROL [id number] Cristal Flood Start: 01-30-2009 CALCIUM 500 MG TAB Take one(1) tablet twice daily. 0 01/30/2009 Active Comment on above: Take one(1) tablet t wice daily. calcium carbonate 1500 mg / cholecalciferol 200 unt oral tablet (1 source) Vitamin D Start: take 1 tablet by mouth once daily CALCIUM + D3 600-200 MG-UNIT TABS One tablet by mouth daily CALCIUM CARB-CHOLECALCIFEROL [id number] Cristal Flood celecoxib 200 mg oral capsule (5 sources) Nonsteroidal Anti-inflammatory Drug Start: End: take 1 capsule by mouth twice daily Celecoxib 200 MG capsule Discontinued 200 mg PO TWICE A DAY 3 0 October 25, 2015 1:00am November 07, 2015 10:22am ciprofloxacin 500 mg oral tablet (5 sources) Quinolone Antimicrobial Start: End: 01-29-2 014 take 1 tablet by mouth twice daily Ciprofloxacin Hcl 500 MG tablet Discontinued 500 mg PO TWICE A DAY 14 0 September 17, 2013 1:00am September 21, 2013 5:04pm codeine phosphate 2 mg/ml / guaiFENesin 20 mg/ml oral solution (6 sources) Opioid Agonist Start: End: 013 take 5 mL by mouth every six hours as needed for cough CHERATUSSIN AC 100-10 MG/5ML SYRP 5ml by mouth every 6hr as needed cough, avoid driving or operating machine under the influence of medication. GUAIFENESIN-CODEINE [id number] Jossue Moya MD Start: 06-07-2012 End: 08-25-2012 take 5 mL by mouth every six hours as needed for cough CHERATUSSIN AC 100-10 MG/5ML SYRP 5ml by mouth every 6hr as needed cough, avoid driving or operating machine under the influence of medication. GUAIFENESIN-CODEINE [id number] Jossue Moya MD Start: 06-07-2012 take 5 mL by mouth e very six hours as needed for cough CHERATUSSIN AC 100-10 MG/5ML SYRP 5ml by mouth every 6hr as needed cough, avoid driving or operating machine under the influence of medication. GUAIFENESIN-CODEINE [id number] Jossue Moya MD cyclobenzaprine hydrochloride 5 mg oral tablet (9 sources) Muscle Relaxant Start: 10-17-2013 End: 10-01-2015 take 1 tablet by mouth once daily CYCLOBENZAPRINE HCL 5 MG TABS One tablet by mouth daily CYCLOBENZAPRINE HCL [id number] Nickolas Lockett MD docusate sodium 100 mg oral capsule (20 sources) Start: 09-10-2023 End: 02-13-2024 take 2 capsules by mouth twice daily as needed for constipation Docusate Sodium 100 mg Capsule Discontinued 200 mg PO TWICE A DAY as needed for constipation December 03, 2023 12:00am February 13, 2024 5:44pm Start: 09-10-2023 End: 12-03-2023 take 200 mg by mouth twice daily Docusate Sodium Activ e 200 MG PO TWICE A DAY December 03, 2023 12:00am Start: 10-08-2016 End: 04-02-2020 take 1 capsule by mouth twice daily as needed for constipation Docusate Sodium 100 MG capsule Discontinued 100 mg PO TWICE A DAY as needed for Constipation 60 0 October 08, 2016 12:09pm April 02, 2020 10:12am Start: 05-24-2012 take 1 tablet by vamsi th twice daily as needed COLACE 50 MG CAPS One tablet by mouth twice daily as needed DOCUSATE SODIUM [id number] Nickolas Lokcett MD Start: 02-13-2011 End: 02-20-2011 COLACE 100 MG CAPS 3 caps at bedtime as needed DOCUSATE SODIUM [id number] Brian Tovar MD Start: 02-13-2011 End: 02-20-2011 COLACE 100 MG CAPS 3 caps at bedtime as needed DOCUSATE SODIUM [id number] Brian Tovar MD docusate sodium 50 mg / sennosides, residential 8.6 mg oral tablet (5 sources) Start: 2013 End: 12-26-2014 take 1 tablet by mouth twice daily Sennosides-Docusate Sodium (Stool Softener-Stimulant Laxat) 1 TABLET tablet Discontinued 2 {tbl} PO TWICE A DAY 60 0 2013 1:00am December 26, 2014 7:08am doxycycline monohydrate 100 mg oral capsule (5 sources) Tetracyclin e-class Drug Start: 12-04-2016 End: 02-17-2018 take 1 capsule by mouth twice daily Doxycycline Monohydrate 100 MG capsule Discontinued 100 mg PO TWICE A DAY 14 0 December 04, 2016 12:00am February 17, 2018 1:51pm ELASTIC BANDAGES & SUPPORTS (2 sources) Start: 10-27-2013 KNEE BRACE MIS C left knee Dx: left leg pain, back pain with radiation to left leg ELASTIC BANDAGES & SUPPORTS [id number] Jossue Moya MD Start: 10-27-2013 KNEE BRACE MIS C left knee Dx: left leg pain, ELASTIC BANDAGES & SUPPORTS [id number] Jossue Moya MD ELASTIC BANDAGES & SUPPORTS (4 sources) Start: 10-27-2013 KNEE BRACE lef t knee Dx: left leg pain, back pain with radiation to left leg ELASTIC BANDAGES & SUPPORTS [id number] Jossue Moya MD Start: 10-27-2013 KNEE BRACE lef t knee Dx: left leg pain, ELASTIC BANDAGES & SUPPORTS [id number] Jossue Moya MD esomeprazole 40 mg delayed release oral capsule (12 sources) Proton Pump Inhibitor Start: 01-30-2009 End: 11-05-2023 take 1 capsule by mouth once daily Esomeprazole Magnesium 40 MG capsule Discontinued 40 mg PO DAILY July 28, 2013 1:00am November 05, 2023 1:02pm heartburn/acid reflux take 1 tablet by mouth once pedro y NEXIUM 40 MG PACK One tablet by mouth daily ESOMEPRAZOLE MAGNESIUM [id number] Jerson A Gerardo DO take 1 tablet by mouth once pedro y NEXIUM 40 MG PACK One tablet by mouth daily ESOMEPRAZOLE MAGNESIUM [id number] Jerson A Gerardo DO Comment on above: Take one(1) capsule daily. estrogens, conjugated (residential) 0.3 mg oral tablet (14 sources) Estrogen Start: 01-31-20 09 End: 12-01-19 13 estrogens,conjugated (PREMARIN 0.3 MG TAB) Take one(1) tablet daily. 0 01/30/2009 Active Comment on above: Take one(1) tablet d aily. ferrous sulfate 325 mg oral tablet (5 sources) Start: 12-05-19 17 End: 02-18-20 18 take 1 tablet by mouth twice daily at mealtime Ferrous Sulfate 325 MG tablet Discontinued 325 mg PO TWICE DAILY WITH MEALS 30 0 December 04, 2016 12:00am February 17, 2018 1:51pm FLUoxetine 20 mg oral tablet (6 sources) Serotonin Reuptake Inhibitor Start: 06-23-20 13 End: 09-08-19 14 take 1 tablet by mouth once daily FLUOXETINE HCL 20 MG TABS One tablet by mouth daily FLUOXETINE HCL [id number] Nickolas Lockett MD fluticasone propionate 0.05 mg/actuat metered dose nasal spray (2 sources) Corticosteroid Start: 08-22-20 22 take 2 spray(s) by mouth once daily fluticasone (FLONASE) 50 mcg/actuation nasal spray Indications: URI, acute Use 2 Sprays in each nostril once daily. Rinse mouth after use. 1 Each 0 08/22/2022 Active Comment on above: Use 2 Sprays in each nostril once daily. Rinse mouth after use. folic acid 1 mg oral tablet (5 sources) Start: 12-05-19 End: 04-02-20 20 take 1 tablet by mouth twice daily at mealtime Folic Acid 1 MG tablet Discontinued 1 mg PO TWICE DAILY WITH MEALS 30 0 December 04, 2016 12:00am April 02, 2020 10:11am furosemide 40 mg oral tablet (16 sources) Loop Diuretic Start: 01-31-20 09 End: 12-13-19 15 take 1 tablet by mouth once daily Furosemide 40 MG tablet Discontinued 40 mg PO DAILY 30 2013 1:00am 2013 9:14am Comment on above: Take one(1) tablet d aily. gabapentin 300 mg oral capsule (20 sources) Anti-epileptic Agent Start: 12-13-19 End: 03-28-20 GABAPENTIN 300 MG CAPS one tab daily x 1wk one tab twice daily x 1wk then one tab three times daily GABAPENTIN [id number] Alicia Florentino DO Start: 05-24-2012 take 1 tablet by vamsi th three times daily, then take 2 tablets by mouth three times daily NEURONTIN 300 MG CAPS One tablet by mouth three times daily, titrate it up as directed to Two tablets by mouth three times daily GABAPENTIN [id number] Jossue Moya MD Start: 05-24-2012 take 1 tablet by vamsi th three times daily, then take 2 tablets by mouth three times daily NEURONTIN 300 MG CAPS One tablet by mouth three times daily, titrate it up as directed to Two tablets by mouth three times daily GABAPENTIN [id number] Jossue Moya MD Start: 10-02-2010 End: 2013 take 1 capsule by mouth twice daily Gabapentin 300 MG capsule Discontinued 300 mg PO BID@0800,1200 60 0 2013 1:00am 2013 9:15am Start: 10-02-2010 take 1 tablet by vamsi th twice daily NEURONTIN 300 MG CAPS One tablet by mouth twice daily GABAPENTIN [id number] Brian Tovar MD GLUCOMETER (3 sources) Start: 05-21-2015 GLUCOMETER use to check blood sugar 4 times daily DX: 250.02 GLUCOMETER Alicia A Malys, DO Start: 05-21-2015 GLUCOMETER use to check blood sugar 4 times daily DX: 250.02 GLUCOMETER Alicia A Malys, DO GLUCOSE BLOOD (1 source) Start: 08-31-2013 ONETOUCH ULTRA BLUE STRP 4 times daily DX: DM-II on inuslin, not controlled GLUCOSE BLOOD [id number] Alicia A Malys, DO GLUCOSE BLOOD (2 sources) Start: 08-31-2013 ONETOUCH ULTRA BLUE STRP 4 times daily DX: DM-II on inuslin, not controlled GLUCOSE BLOOD [id number] Alicia A Malys, DO HANDICAP PLACARD- 2 YEARS (3 sources) Start: 11-27-[address]- 2 YEARS Diagnosis : Diabetic neuropathy, hypertension. HANDICAP PLACARD- 2 YEARS Brian Tovar MD Start: 11-27-[address]- 2 YEARS Diagnosis : Diabetic neuropathy, hypertension. 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 duration 5 years Jossue Moya MD INSULIN SYRINGE-NEEDLE U-100 (3 sources) Start: 02-22-2013 BD INSULIN SYR MITRA ULTRAFINE 31G X 5/16 0.5 ML MISC DX: DM on insulin 4 times daily INSULIN SYRINGE-NEEDLE U-100 [id number] Alicia A Checoys, DO Start: 05-20-2012 take 1 tablet by vamsi th three times daily BD INSULIN SYRINGE ULTRAFINE 31G X 5/16 0.3 ML MISC One tablet by mouth three times daily INSULIN SYRINGE-NEEDLE U-100 [id number] Jossue Moya MD Start: 03-17-2011 BD INSULIN SYR MITRA ULTRAFINE 31G X 5/16 0.3 ML MISC INSULIN SYRINGE-NEEDLE U-100 [id number] Brian Tovar MD INSULIN SYRINGE-NEEDLE U-100 (1 source) Start: 02-22-2013 BD INSULIN SYR MITRA ULTRAFINE 31G X 5/16 0.5 ML DX: DM on insulin 4 times daily INSULIN SYRINGE-NEEDLE U-100 [id number] Alicia Florentino DO INSULIN SYRINGE-NEEDLE U-100 (2 sources) Start: 05-20-2012 take 1 tablet by mouth three times daily BD INSULIN SYRINGE ULTRAFINE 31G X 5/16 0.3 ML One tablet by mouth three times daily INSULIN SYRINGE-NEEDLE U-100 [id number] Jossue Moya MD Start: 03-17-2011 BD INSULIN SYR MITRA ULTRAFINE 31G X 5/16 0.3 ML INSULIN SYRINGE-NEEDLE U-100 [id number] Brian Tovar MD insulin, regular, human 100 unt/ml injectable solution (5 sources) Insulin Start: 07-28-2013 End: 09-21-2013 Insulin Regular Human (Humulin R Regular U-100 Insuln) 100 UNIT/ML Ml Discontinued 10 U SC 3 TIMES DAILY WITH MEALS July 28, 2013 1:00am September 21, 2013 9:46pm LANCETS (2 sources) Start: 05-21-2015 LANCETS use to check blood sugar 4 times daily DX 250.02 LANCETS Alicia A Mishel, DO Start: 05-21-2015 LANCETS use to check blood sugar 4 times daily DX 250.02 LANCETS Alicia A Mishel DO meloxicam 15 mg oral tablet (6 sources) Nonsteroidal Anti-inflammatory Drug Start: 08-13-2015 End: 10-01-2015 take 1 tablet by mouth once daily MELOXICAM 15 MG TABS 1 po daily MELOXICAM [id number] Alicia Niki Florentino DO methylPREDNISolone 4 mg oral tablet (15 sources) Corticosteroid Start: 10-08-2016 End: 10-08-2016 Methylprednisolone 4 MG tablet Discontinued 4 mg PO DIRECTED 1 0 October 08, 2016 11:38am October 08, 2016 11:40am MULTIPLE VITAMINS-MINERALS (3 sources) Start: 10-18-2013 take 1 tablet by mouth once daily CENTRUM SILVER ULTRA WOMENS TABS One tablet by mouth daily MULTIPLE VITAMINS-MINERALS [id number] Cristal Serafin Remigio take 1 tablet by vamsi th once daily CENTRUM SILVER TABS One tablet by mouth daily MULTIPLE VITAMINS-MINERALS [id number] Delmy Mcdaniels End: 03-28-2015 take 1 tablet by mouth once daily CENTRUM SILVER TABS One tablet by mouth daily MULTIPLE VITAMINS-MINERALS [id number] Alicia Florentino DO MULTIPLE VITAMINS-MINERALS (2 sources) Start: 10-18-2013 take 1 tablet by mouth once daily CENTRUM SILVER ULTRA WOMENS TABS One tablet by mouth daily MULTIPLE VITAMINS-MINERALS [id number] Cristal Flood MULTIPLE VITAMINS-MINERALS (4 sources) End: 03-28-2015 take 1 tablet by mouth once daily CENTRUM SILVER TABS One tablet by mouth daily MULTIPLE VITAMINS-MINERALS [id number] Alicia Florentino DO take 1 tablet by mouth once pedro y CENTRUM SILVER TABS One tablet by mouth daily MULTIPLE VITAMINS-MINERALS [id number] Delmy Mcdaniels Gvuuhtbp-Omy-Ky-Lycopen-Lute in (Centrum Silver) 1 EACH tablet (5 sources) Start: 07-28-2013 End: 09-21-2013 take 1 tablet by mouth once daily Seueeusb-Ffb-Jf-Lycopen-Lutein (Centrum Silver) 1 EACH tablet Discontinued 1 NMA PO DAILY July 28, 2013 1:00am September 21, 2013 5:04pm Start: 07-28-2013 End: 09-21-2013 take 1 tablet by mouth once daily Yxlzszve-Kwb-Tz-Lycopen-Lutein (Centrum Silver) 1 EACH tablet Discontinued 1 EACH PO DAILY July 28, 2013 12:00am September 21, 2013 4:04pm Start: 07-28-2013 End: 09-21-2013 take 1 tablet by mouth once daily Gtqgpyzz-Hgp-Fg-Lycopen-Lutein (Centrum Silver) 1 EACH tablet Discontinued 1 EACH PO DAILY July 28, 2013 1:00am September 21, 2013 5:04pm multivitamins w-minerals/lut(CENTRUM SILVER TAB) (2 sources) Start: 01-30-2009 multivitamins w-minerals/lut(CENTRUM SILVER TAB) Take one(1) tablet daily. 0 01/30/2009 Active Comment on above: Take one(1) tablet d aily. POLYETHYLENE GLYCOL 3350 (2 sources) Osmotic Laxative Start: 02-20-2011 MIRALAX POWD 1 tablespoon mixed with 8 oz. water by mouth once a day POLYETHYLENE GLYCOL 3350 [id number] Brian Tovar MD Start: 02-20-2011 End: 05-24-2012 MIRALAX POWD 1 tablespoon mi xed with 8 oz. water by mouth once a day POLYETHYLENE GLYCOL 3350 [id number] Jossue Moya MD POLYETHYLENE GLYCOL 3350 (4 sources) Start: 02-20-2011 MIRALAX POWD 1 tablespoon mixed with 8 oz. water by mouth once a day POLYETHYLENE GLYCOL 3350 [id number] Brian Tovar MD Start: 02-20-2011 End: 05-24-2012 MIRALAX POWD 1 tablespoon mi xed with 8 oz. water by mouth once a day POLYETHYLENE GLYCOL 3350 [id number] Jossue Moya MD Start: 02-20-2011 MIRALAX POWD 1 tablespoon mixed with 8 oz. water by mouth once a day POLYETHYLENE GLYCOL 3350 [id number] Brian Tovar MD Start: 02-20-2011 End: 05-24-2012 MIRALAX POWD 1 tablespoon mi xed with 8 oz. water by mouth once a day POLYETHYLENE GLYCOL 3350 [id number] Jossue Moya MD pregabalin 50 mg oral capsule (8 sources) Start: 02-17-2018 End: 02-19-2018 take 1 capsule by mouth twice daily Pregabalin (Lyrica) 50 mg capsule Discontinued 50 mg PO TWICE A DAY February 17, 2018 12:00am February 19, 2018 9:39am Start: 01-18-2016 take 1 capsule by mo [facility] twice daily LYRICA 50 MG CAPS 1 capsule by mouth twice daily PREGABALIN [id number] Jerson Carrillo DO rivaroxaban 10 mg oral tablet (10 sources) Factor Xa Inhibitor Start: 10-25-2015 End: 11-07-2015 take 1 tablet by mouth once daily Rivaroxaban (Xarelto) 10 MG tablet Discontinued 10 mg PO DAILY@0600 14 0 October 25, 2015 1:48pm November 07, 2015 10:22am for 2 weeks senokot-s (2 sources) Start: 09-08-2013 take 1 tablet by mouth twice daily as needed COLACE 50 MG CAPS One tablet by mouth twice daily as needed DOCUSATE SODIUM [id number] Nickolas Lockett MD Start: 05-24-2012 take 1 tablet by vamsi twice daily COLACE 50 MG CAPS One tablet by mouth twice daily DOCUSATE SODIUM [id number] Jossue Moya MD sulfamethoxazole 800 mg / trimethoprim 160 mg oral tablet (10 sources) Dihydrofolate Reductase Inhibitor Antibacterial, Sulfonamide Antimicrobial Start: 10-25-2015 End: 11-07-2015 Sulfamethoxazole-Trimethopri m 1 TABLET tablet Discontinued 1 {tbl} PO TWICE DAILY WITH MEALS 7 October 25, 2015 1:48pm November 07, 2015 10:22am Please, ask Dr. Burnett before D/C bactrim. He will follow Wound CULTURE Start: 10-25-2015 End: 11-07-2015 take 1 tablet by mouth twice daily at mealtime Sulfamethoxazole-Trimethoprim Discontinu ed 1 TABLET PO TWICE DAILY WITH MEALS October 25, 2015 1:48pm November 07, 2015 10:22am Please, ask Dr. Burnett before D/C bactrim. He will follow Wound CULTURE tamsulosin hydrochloride 0.4 mg oral capsule (5 sources) alpha-Adrenergic Tia Start: 09-17-2013 End: 09-21-2013 take 1 capsule by mouth at bedtime Tamsulosin 0.4 MG capsule Discontinued 0.4 mg PO AT BEDTIME 30 0 September 17, 2013 1:00am September 21, 2013 5:05pm TEST STRIPS (2 sources) Start: 05-21-2015 TEST STRIPS use to check blood sugars 4 times daily DX 250.02 TEST STRIPS Alicia Florentino DO Start: 05-21-2015 TEST STRIPS us e to check blood sugars 4 times daily DX 250.02 TEST STRIPS Alicia Florentino DO traZODone hydrochloride 50 mg oral tablet (6 sources) Serotonin Reuptake Inhibitor Start: 05-24-2012 End: 09-08-2013 take 1 tablet by mouth once daily TRAZODONE HCL 50 MG TABS One tablet by mouth daily every night TRAZODONE HCL [id number] Nickolas Lockett MD 24 hr divalproex sodium 500 mg extended release oral tablet (20 sources) Mood Stabilizer, Anti-epileptic Agent Start: 10-08-2016 End: 10-08-2016 take 1 tablet by mouth at bedtime Divalproex 500 MG Tab.Er.24h Discontinued 500 mg PO AT BEDTIME 30 0 October 08, 2016 11:46am October 08, 2016 12:08pm valsartan 160 mg oral tablet (5 sources) Angiotensin 2 Receptor Tia Start: 10-25-2015 End: 11-07-2015 take 2 tablets by mouth once daily Valsartan 160 MG tablet Discontinued 320 mg PO DAILY 0 October 25, 2015 1:00am November 07, 2015 10:23am Start: 10-25-2015 End: 11-07-2015 take 320 mg by mouth once daily Valsartan Discontinued 320 MG PO DAILY October 25, 2015 1:00am November 07, 2015 10:23am 0.65 ml varicella-zoster vir us vaccine live (oka-merck) strain 39071 unt/ml injection (2 sources) Start: 05-08-2015 ZOSTAVAX 14668 UNT/0.65ML SUSR inject 0.65 ml subcutaneously x 1 dose ZOSTER VACCINE LIVE [id number] Alicia Florentino DO Start: 05-08-2015 ZOSTAVAX 56398 UNT/0.65ML SUSR inject 0.65 ml subcutaneously x 1 dose ZOSTER VACCINE LIVE [id number] Alicia Florentino DO 24 hr venlafaxine 75 mg extended release oral capsule (12 sources) Serotonin and Norepinephrine Reuptake Inhibitor Start: 01-17-2016 End: 01-18-2016 take 1 capsule by mouth once daily VENLAFAXINE HCL ER 75 MG TB77Q-TLR One capsule by mouth daily VENLAFAXINE HCL [id number] Jerson Carrillo DO Start: 11-30-2012 End: 06-23-2013 take 1 tablet by mouth twice daily VENLAFAXINE HCL 37.5 MG TABS One tablet by mouth twice daily VENLAFAXINE HCL [id number] Jossue Moya MD WALKER WITH SEAT (3 sources) Start: 04-26-2014 WALKER WITH SE AT diagnosis: diabetic peripheral neuropathy, osteoarthritis, degenerative disc disease Jossue Moya MD Start: 04-26-2014 WALKER WITH SE AT diagnosis: diabetic peripheral neuropathy, osteoarthritis, degenerative disc disease Jossue Moya MD WALKING BOOT (3 sources) Start: 05-13-2011 WALKING BOOT R ight foot- pain due to injury, Possible fracture, diabetes WALKING BOOT Brian Tovar MD Start: 05-13-2011 WALKING BOOT R ight foot- pain due to injury, Possible fracture, diabetes WALKING BOOT Brian Tovar MD Problems Active Problems Problem Classification Problem Date Documented Date Episodic/Chronic Abdominal pain (11 sources) Left lower quadrant pain; Translations: [Abdominal pain] Onset: 04-07-2011 Resolved: 02-09-2012 04-07-2011 Episodic Biliary tract disease (6 sources) Acute cholecystitis; Translations: [Acute cholecystitis] 09-02-2023 Episodic Cardiac dysrhythmias (17 sources) Ventricular premature beats; Translations: [Premature atrial contraction] Onset: 09-08-2013 09-08-2013 Chronic Diabetes mellitus with complications (15 sources) Diabetic peripheral neuropathy; Translations: [Type II diabetes mellitus uncontrolled] Onset: 10-02-2010 Resolved: 03-28-2015 10-02-2010 Chronic Diabetes mellitus without complication (5 sources) Type 2 diabetes mellitus; Translations: [Type 2 diabetes mellitus without complications] 02-17-2018 Chronic Disorders of lipid metabolism (11 sources) Hypercholesterolemia; Translations: [Hyperlipidemia] Onset: 10-02-2010 10-02-2010 Chronic Esophageal disorders (3 sources) Gastroesophageal reflux disease; Translations: [Gastro-esophageal reflux disease without esophagitis] 08-25-2012 Chronic Essential hypertension (9 sources) Hypertensive disorder; Translations: [Essential hypertension] Onset: 10-02-2010 10-02-2010 Chronic Menopausal disorders (3 sources) Menopausal syndrome; Translations: [Menopausal and female climacteric states] Onset: 11-30-2012 11-30-2012 Chronic Nausea and vomiting (1 source) Nausea and vomiting; Translations: [Nausea with vomiting, unspecified] 02-23-2024 Episodic Nonspecific chest pain (20 sources) Atypical chest pain; Translations: [Chest pain] Onset: 08-01-2013 Resolved: 03-28-2015 03-28-2015 Episodic Osteoarthritis (3 sources) Osteoarthritis of knee; Translations: [Osteoarthritis of knee, unspecified] Onset: 11-22-2015 12-02-2015 Chronic Other hereditary and degenerative nervous system conditions (3 sources) Restless legs; Translations: [Restless legs syndrome] Onset: 10-02-2010 10-02-2010 Chronic Other nervous system disorders (3 sources) Peripheral nerve disease ; Translations: [Polyneuropathy, unspecified] Onset: 01-17-2016 01-17-2016 Chronic Other nutritional; endocrine; and metabolic disorders (9 sources) Body mass index 40+ - severely [...] [Acute upper respiratory infection] Onset: 08-22-2022 Episodic Residual codes; unclassified (2 sources) Past history of procedure; Translations: [Other specified postprocedural states] 09-17-2023 Episodic Residual codes; unclassified (1 source) Acquired absence of other specified parts of digestive tract; Translations: [Other postprocedural status] 09-17-2023 Episodic Spondylosis; intervertebral disc disorders; other back problems (3 sources) Degeneration of lumbar intervertebral disc; Translations: [Other intervertebral disc degeneration, lumbar region] Onset: 10-17-2013 10-17-2013 Chronic Unclassified (2 sources) Screening mammography ; Translations: [Encounter for other screening for malignant neoplasm of breast] Onset: 03-01-2013 03-01-2013 Unclassified (1 source) Low back pain, unspecified; Translations: [Low back pain, unspecified] Onset: 02-20-2025 Past or Other Problems Problem Classification Problem Date Documented Da te Episodic/Chronic Cardiac dysrhythmias (6 sources) Tachycardia; Translations: [Palpitations] Onset: 08-01-2013 11-28-2014 Episodic Conditions associated with dizziness or vertigo (9 sources) Dizziness; Translations: [Dizziness and giddiness] Onset: 08-01-2013 Resolved: 01-19-2014 01-19-2014 Episodic Malaise and fatigue (3 sources) Fatigue; Translations: [Other fatigue] Onset: 03-28-2015 03-28-2015 Episodic Other acquired deformities (2 [...] unspecified knee] Onset: 08-13-2015 08-13-2015 Episodic Other screening for suspected conditions (not mental disorders or infectious disease) (1 source) Encounter for screening mammogram for malignant neoplasm of breast; Translations: [Encounter for screening mammogram for malignant neoplasm of breast] Onset: 05-29-2024 Episodic Other skin disorders (10 sources) Localized [...] Results Test Name Value Interpretation Reference Range Facility L/S Spine Min 4 Viewson 01-23 L/S Spine Min [address] [facility] Imaging Services [address] [place], [place] [address] (157) L/S Spine Min 4 Views MR#: [id number] Acct: [id number] Name: KEIKO GOEL Rep #: [id number] : 1940 F 84 From: Tate youssef MD PCP: Dr. Alicia Florentino DO Status: REG CLI Study: L/S Spine Min 4 Views Date of Exam: 02/14/25 Exam# [id number] Ordering Dr: Tammi Mckenzie MD PROCEDURE: L/S SPINE MIN 4 VIEWS 02/14/2025 REASON FOR EXAM: BACK PAIN TECHNIQUE: L/S SPINE MIN 4 VIEWS COMPARISON: 09/08/2023. FINDINGS: Grade 1 anterolisthesis of L4 on L5 measuring 4.7 mm. No associated pars defect is identified. Mild levoscoliosis apex at L3. There are diffuse spondylotic changes. Findings are demonstrated to by diffuse disc space narrowing, osteophyte formation and degenerative endplate sclerosis. There is diffuse facet joint arthropathy with secondary bilateral neural foramina narrowing. No fracture or dislocation is seen. No aggressive lytic or blastic bony lesion is noted. RAD/L/S Spine Min 4 Views IMPRESSION: Spondylosis. Reading [facility] CC: Dr. Tammi Mckenzie MD; Dr. Alicia Florentino DO Box Press Operator: Signed Normal [facility] SCRN MAMM (CAD)W/GEOFFREY BILATo n 05-06-2024 SCRN MAMM (CAD)W/GEOFFREY BILAT [facility] Imaging Services [address] [address] SCRN MAMM (CAD)W/GEOFFREY BILAT MR#: [id number] Acct: [id number] Name: KEIKO GOEL Rep #: [id number] : 1940 F 83 From: Young john MD PCP: Dr. Alicia Florentino DO Status: [facility] Study: SCRN MAMM (CAD)W/GEOFFREY BILAT Date of Exam: 04/24 11/14 Exam# [id number] Ordering Dr: Alicia Florentino DO -[id number] MAMMOGRAPHY - BILATERAL SCREENING REASON FOR EXAM: Female, 83 years old. Routine annual screening examination. PERTINENT HISTORY: Sisters with breast cancer. TECHNIQUE: Digital bilateral breast geoffrey (3D mammographic acquisition) in the CC and MLO projections. 2-D mediolateral oblique (MLO) and craniocaudad (CC) views of both breasts were obtained. CAD: Full Field Digital Mammography with Computer Added Detection was performed. COMPARISON: Comparison is made with prior study dated May 04, 2023 and May 01, 2022. FINDINGS: Breast Composition: There are scattered areas of fibroglandular density. There are no dominant masses or suspicious calcifications. Stable small benign-appearing bilateral axillary lymph nodes. No other significant abnormalities are identified. There has been no significant change since the prior study. BI/SCRN MAMM (CAD)W/GEOFFREY BILAT IMPRESSION: Stable bilateral screening mammogram. Yearly follow-up mammogram recommended. (A) ASSESSMENT CATEGORY: BIRADS Category 2: Benign. A letter regarding these results will be sent to the patient by the facility within 30 days. Approximately 10% of breast cancers are not detected by mammography. A normal mammogram should not delay biopsy of a clinically suspicious abnormality. [id number] Electronically Signed: Young Rucker MD at 8:11 EDT , CC: Dr. Alicia Florentino, DO Box Press Operator: Signed Normal [facility] No Panel InformationOrdered By: Azar Cespedes on 12-09-2023 Troponin I High Sensitivity 6 pg/mL 3.0-54.0 [facility] Comment on above: Please Note: New Mitzi t Units and Gender Specific Reference Ranges. For more information see Policy Stat Procedure [place] High Sensitivity Troponin (TNIH) and attachments. Thin prep Papanicolaou smear with manual screeningOrdered By: Azar Cespedes on 12-09-2023 Thin prep Papanicolaou smear with manual screening 102 mg/dL 74-106 [facility] Comment on above: MANAGEMENT OF PATIEN T CARE PER NURSING PROTOCOL Absolute lymphocyte countOrd ered By: Nancy Way on 09-10-2023 Lymphocytes Auto (Unsp spec) [#/Vol] 1.81 10*3/uL 0.83-4.51 [facility] Automated lymphocyte count a s percentage of total leukocytesOrdered By: Nancy Way on 09-10-2023 Lymphocytes/100 WBC Auto (Unsp spec) 28.0 % 19-41 [facility] Basophil percentageOrdered B y: Nancy Way on 09-10-2023 Basophils/100 WBC (Bld) 0.5 % 0-1 [facility] Bilirubin [Mass/Vol] 0.50 mg/dL 0.20-1.00 [facility] Comment on above: For patients on eltr ombopag therapy, use of Dimension [place] TBIL is not recommended. Chloride [Moles/Vol] 107 mmol/L 98-107 [facility] Eosinophils/100 WBC (Bld) 3.7 % 0-5 [facility] Glucose [Mass/Vol] 91 mg/dL 74-106 [facility] Hemoglobin (Bld) [Mass/Vol] 10.0 g/dL 12.0-15.0 [facility] Monocytes/100 WBC (Bld) 7.7 % 0-10 [facility] Neutrophils (Bld) [#/Vol] 3.8 10*3/uL 2.0-7.7 [facility] Neutrophils/100 WBC (Bld) 59.2 % 47-70 [facility] Potassium [Moles/Vol] 4.1 mmol/L 3.5-5.1 [facility] Protein [Mass/Vol] 6.0 g/dL 6.4-8.2 [facility] Sodium [Moles/Vol] 140 mmol/L 136-145 [facility] WBC (Bld) [#/Vol] 6.5 10*3/uL 4.4-11.0 [facility] Determination of erythrocyte mean corpuscular volume (MCV)Ordered By: Nancy Way on 09-10-2023 MCV (RBC) [Entitic vol] 88.4 fL 81-99 [facility] Erythrocyte distribution wid th ratioOrdered By: Nancy Way on 09-10-2023 Erythrocyte distribution width (RBC) [Ratio] 14.0 % 11.6-14.6 [facility] Erythrocyte distribution wid th standard deviationOrdered By: Nancy Way on 09-10-2023 Erythrocyte distribution width (RBC) [Entitic vol] 45.6 fL 35.1-43.9 [facility] Hematocrit Auto (Bld) [Volum e fraction]Ordered By: Nancy Way on 09-10-2023 Hematocrit (Bld) [Volume fraction] 30.4 % 37-47 [facility] Immature granulocytes/100 WB C Auto (Bld)Ordered By: Nancy Way on 09-10-2023 Immature granulocytes/100 WBC (Bld) 0.900 % 0.0-0.9 [facility] Comment on above: IG% - Immature Granu locytes (promyelocytes, myelocytes and metamyelocytes) > 1% indicates that a LEFT SHIFT is Present. Laboratory - Chemistry and C hemistry - challengeOrdered By: Nancy Way on 09-10-2023 Albumin/Globulin [Mass ratio] 0.5 {ratio} 0.9-2.4 [facility] ALP [Catalytic activity/Vol] 91 U/L 45-117 [facility] ALT [Catalytic activity/Vol] 29 U/L 13-56 [facility] CO2 [Moles/Vol] 30.0 mmol/L 21.0-32.0 [facility] Globulin (S) [Mass/Vol] 4.0 g/dL 2.2-4.2 [facility] Urea nitrogen/Creatinine [Mass ratio] 10.7 mg/mg 10-20 [facility] Laboratory - Hematology and Cell countsOrdered By: Nancy Way on 09-10-2023 MCH (RBC) [Entitic mass] 29.1 pg 27.0-32.0 [facility] MCHC (RBC) [Mass/Vol] 32.9 g/dL 32-36 [facility] Nucleated RBC/100 WBC (Bld) [Ratio] 0 % 0-5 [facility] Platelets (Bld) [#/Vol] 369 10*3/uL 150-450 [facility] No Panel InformationOrdered By: Nancy Way on 09-10-2023 Estimated Creatinine Clearance Calc 61.10 ml/min [facility] Estimated GFR (MDRD) Amer 111 mL/min >60 [facility] Comment on above: GFR Calc Estimated GFR (MDRD) Non-Af Amer 92 mL/min >60 [facility] Comment on above: Non- GFR Calc Platelet mean volume Sacha-Ec ker (Bld) [Entitic vol]Ordered By: Nancy Way on 09-10-2023 Platelet mean volume (Bld) [Entitic vol] 9.3 fL 6.2-12.0 [facility] RBC Auto (Bld) [#/Vol]Ordere d By: Nancy Way on 09-10-2023 RBC (Bld) [#/Vol] 3.44 10*6/uL 4.2-5.4 [facility] Serum or plasma calcium cristi urement (mass/volume)Ordered By: Nancy Way on 09-10-2023 Calcium [Mass/Vol] 9.2 mg/dL 8.5-10.1 [facility] Serum or plasma creatinine m easurement (mass/volume)Ordered By: Nancy Way on 09-10-2023 Creatinine [Mass/Vol] 0.66 mg/dL 0.55-1.02 [facility] Comment on above: The validity of the calculated GFR & GFRAA in patients over 70 years has not been determined. Clinical correlation is essential. Serum or plasma urea nitroge n measurement (mass/volume)Ordered By: Nancy Way on 09-10-2023 Urea nitrogen [Mass/Vol] 7 mg/dL 7-18 [facility] Thin prep Papanicolaou smear with manual screeningOrdered By: Carol Crow on 09-10-2023 Thin prep Papanicolaou smear with manual screening 153 mg/dL 74-106 [facility] Comment on above: MANAGEMENT OF PATIEN T CARE PER NURSING PROTOCOL Thin prep Papanicolaou smear with manual screeningOrdered By: Nancy Way on 09-10-2023 Thin prep Papanicolaou smear with manual screening 2.0 g/dL 3.2-5.0 [facility] Thin prep Papanicolaou smear with manual screening 21 U/L 15-37 [facility] Thin prep Papanicolaou smear with manual screening 3 5-15 [facility] Basophil percentageOrdered B y: Carol Crow on 09-09-2023 Basophil percentage 3.0 mg/dL 2.5-4.9 [facility] Laboratory - Chemistry and C hemistry - challengeOrdered By: Elia Melendrez on 09-08-2023 Magnesium [Mass/Vol] 2.0 mg/dL 1.6-2.6 [facility] Laboratory - Chemistry and C hemistry - challengeOrdered By: Master Phillip on 09-05-2023 Natriuretic peptide B (Bld) [Mass/Vol] 120.7 pg/mL 0-100 [facility] Direct bilirubinOrdered By: Master Phillip on 09-04-2023 Bilirubin.direct [Mass/Vol] 0.85 mg/dL 0.00-0.30 [facility] Whole blood hemoglobin A1c/t otal hemoglobin ratio (mass fraction)Ordered By: Ash Candelaria on 09-03-2023 HbA1c (Bld) [Mass fraction] 6.5 % 3.8-5.6 [facility] Comment on above: Normal < 5.7 % Predi abetic 5.7 - 6.4 % Diabetic >or= 6.5 % Please note range changes. Absolute lymphocyte countOrd ered By: Ame Dobbs on 09-02-2023 Lymphocytes Auto (Unsp spec) [#/Vol] 0.78 10*3/uL 0.83-4.51 [facility] Basophil percentageOrdered B y: Ame Dobbs on 09-02-2023 Basophils/100 WBC (Bld) 0.3 % 0-1 [facility] Bilirubin [Mass/Vol] 2.10 mg/dL 0.20-1.00 [facility] Comment on above: For patients on eltr ombopag therapy, use of [place] TBIL is not recommended. Chloride [Moles/Vol] 109 mmol/L 98-107 [facility] Eosinophils/100 WBC (Bld) 0.0 % 0-5 [facility] Glucose [Mass/Vol] 171 mg/dL 74-106 [facility] Comment on above: Fasting Glucose resu lt greater than or equal to 126 mg/dL suggests DIABETES MELLITUS per A.D.A. criteria. Neutrophils (Bld) [#/Vol] 6.6 10*3/uL 2.0-7.7 [facility] Neutrophils/100 WBC (Bld) 87.1 % 47-70 [facility] Potassium [Moles/Vol] 4.0 mmol/L 3.5-5.1 [facility] Protein [Mass/Vol] 7.5 g/dL 6.4-8.2 [facility] Sodium [Moles/Vol] 140 mmol/L 136-145 [facility] WBC (Bld) [#/Vol] 7.5 10*3/uL 4.4-11.0 [facility] Blood erythrocytes count (nu mber/volume)Ordered By: Ame Dobbs on 09-02-2023 RBC (Bld) [#/Vol] 4.55 10*6/uL 4.2-5.4 [facility] Blood hemoglobin measurement (mass/volume)Ordered By: Ame Dobbs on 09-02-2023 Hemoglobin (Bld) [Mass/Vol] 13.2 g/dL 12.0-15.0 [facility] Blood lymphocytes/100 leukoc ytesOrdered By: Ame Dobbs on 09-02-2023 Lymphocytes/100 WBC (Bld) 10.4 % 19-41 [facility] Blood manual differential co mment interpretation (narrative result)Ordered By: Ame Dobbs on 09-02-2023 Manual differential comment Franck (Bld) [Interp] SCANNED [facility] Blood monocytes/100 leukocyt esOrdered By: [facility] [place] Dobbs on 09-02-2023 Monocytes/100 WBC (Bld) 1.9 % 0-10 [facility] Blood platelet mean volumeOr dered By: Ame Dobbs on 09-02-2023 Platelet mean volume (Bld) [Entitic vol] 10.3 fL 6.2-12.0 [facility] Determination of erythrocyte mean corpuscular volume (MCV)Ordered By: Ame Dobbs on 09-02-2023 MCV (RBC) [Entitic vol] 88.8 fL 81-99 [facility] Hematocrit Auto (Bld) [Volum e fraction]Ordered By: [facility] Dobbs on 09-02-2023 Hematocrit (Bld) [Volume fraction] 40.4 % 37-47 [facility] Laboratory - Chemistry and C hemistry - challengeOrdered By: Ame Dobbs on 09-02-2023 ALP [Catalytic activity/Vol] 173 U/L 45-117 [facility] ALT [Catalytic activity/Vol] 90 U/L 13-56 [facility] CO2 [Moles/Vol] 23.0 mmol/L 21.0-32.0 [facility] Globulin (S) [Mass/Vol] 4.1 g/dL 2.2-4.2 [facility] Lipase [Catalytic activity/Vol] 47 U/L -75 [facility] Comment on above: Please note:LIPASE r evised reference range effective 22. New Lipase methodology. Expected to produce lower values than the previous assay method. NEW Reference Range: 13 - 75 U/L Urea nitrogen/Creatinine [Mass ratio] 9.6 mg/mg 10-20 [facility] Laboratory - Hematology and Cell countsOrdered By: Ame Dobbs on 09-02-2023 Erythrocyte distribution width (RBC) [Entitic vol] 45.5 fL 35.1-43.9 [facility] Erythrocyte distribution width (RBC) [Ratio] 14.2 % 11.6-14.6 [facility] Immature granulocytes/100 WBC (Bld) 0.300 % 0.0-0.9 [facility] Comment on above: IG% - Immature Granu locytes (promyelocytes, myelocytes and metamyelocytes) > 1% indicates that a LEFT SHIFT is Present. MCH (RBC) [Entitic mass] 29.0 pg 27.0-32.0 [facility] Nucleated RBC/100 WBC (Bld) [Ratio] 0 % 0-5 [facility] MCHC Auto (RBC) [Mass/Vol]Or dered By: Ame Dobbs on 09-02-2023 MCHC (RBC) [Mass/Vol] 32.7 g/dL 32-36 [facility] No Panel InformationOrdered By: Ame Dobbs on 09-02-2023 Troponin I High Sensitivity 10 pg/mL 3.0-54.0 [facility] Comment on above: Please Note: New Mitzi t Units and Gender Specific Reference Ranges. For more information see Policy Stat [place] High Sensitivity Troponin (TNIH) and attachments. Estimated Creatinine Clearance Calc 51.82 ml/min [facility] Estimated GFR (MDRD) Amer 74 mL/min >60 [facility] Comment on above: GFR Calc Estimated GFR (MDRD) Non-Af Amer 61 mL/min >60 [facility] Comment on above: Non- GFR Calc Platelets bldOrdered By: Savanna Dobbs on 09-02-2023 Platelets (Bld) [#/Vol] 345 10*3/uL 150-450 [facility] Serum or plasma albumin cristi urement (mass/volume)Ordered By: Ame Dobbs on 09-02-2023 Albumin [Mass/Vol] 3.4 g/dL 3.2-5.0 [facility] Serum or plasma albumin/glob ulin mass ratioOrdered By: Ame Dobbs on 09-02-2023 Albumin/Globulin [Mass ratio] 0.8 {ratio} 0.9-2.4 [facility] Serum or plasma calcium cristi urement (mass/volume)Ordered By: Ame Dobbs on 09-02-2023 Calcium [Mass/Vol] 10.5 mg/dL 8.5-10.1 [facility] Serum or plasma creatinine m easurement (mass/volume)Ordered By: Ame Dobbs on 09-02-2023 Creatinine [Mass/Vol] 0.94 mg/dL 0.55-1.02 [facility] Comment on above: The validity of the calculated GFR & GFRAA in patients over 70 years has not been determined. Clinical correlation is essential. Serum or plasma urea nitroge n measurement (mass/volume)Ordered By: Ame Dobbs on 09-02-2023 Urea nitrogen [Mass/Vol] 9 mg/dL 7-18 [facility] Thin prep Papanicolaou smear with manual screeningOrdered By: Remus Dobbs on 09-02-2023 Thin prep Papanicolaou smear with manual screening 190 U/L 15-37 [facility] Thin prep Papanicolaou smear with manual screening 8 5-15 [facility] CNOVon 08-22-2022 CN Office Visit (UCWSTR) ---- MARTITA GOELYN ([id number]) 1940 F Date Time Provider Department 08/22/22 11:15 AM VOLODYMYR LEO RUST During your visit today, we recorded the following information about you: Temperature Pulse Respiration Blood pressure 97.4 degrees 85/minute 18/minute 124/72 Weight 108.1 kg Volodymyr Leo APRN.CNP 08/22/2022 12:06 PM Signed CC: Patient presents with: Head Congestion: And chest congestion x5 days HPI: Keiko Goel is a 81 year old female [...] bronchitis, bronchiectasis or COPD: No Smoker: No Seasonal/environmen lisa allergies: No The ROS is otherwise negative. [...] tartrate, short acting, (LOPRESSOR) 25 mg tablet amLODIPine-Valsarta n 5-320 mg per tablet BD INSULIN SYRINGE ULTRA-FINE 0.5 mL 31 gauge x 5/16 potassium chloride(KLOR-CON M20 20 MEQ TAB) Take one(1) tablet daily. esomeprazole mag trihydrate(NEXIUM 40 MG CAP) Take one(1) capsule daily. FUROSEMIDE 40 MG TAB Take one(1) tablet daily. atorvastatin calcium(LIPITOR 10 MG TAB) Take one(1) tablet daily. multivitamins w-minerals/lut(CENT RUM SILVER TAB) Take one(1) tablet daily. CALCIUM 500 MG TAB Take one(1) tablet twice daily. insulin lispro,human rec.anlog(HUMALOG 100 UNIT/ML SUB-Q) as directed insulin glargine,hum.rec.an log(LANTUS 100 UNIT/ML SUB-Q) Use as directed. fluticasone (FLONASE) 50 mcg/actuation nasal spray Use 2 Sprays in each nostril once daily. Rinse mouth after use. benzonatate (TESSALON PERLES) 100 mg capsule Take 1 capsule by mouth three times daily as needed for cough for up to 7 days. estrogens,conjugate d(PREMARIN 0.3 MG TAB) Take one(1) tablet daily. [...] symptoms occur. Patient agreeable to treatment plan. Volodymyr Leo APRN.ARNOL Leo APRN.CNP 08/22/2022 11:44 AM Signed Diagnosis: Assessment COUGH: Your doctor wants you [...] Warm liquids, cough drops, and nonprescription cough (more content not included)... Normal [facility] Office Visit: Richard 06-08-20 17 Documentation of current medications (procedure) Done Invalid Interpretation Code [employer] Work Phone: Fall risk assessment No Invalid Interpretation Code [employer] Work Phone: Hemoglobin A1c/Hemoglobin.total mass fraction (Bld) 7.0 % Invalid Interpretation Code [employer] Work Phone: Protein mass conc Done Invalid Interpretation Code [employer] [facility] Work Phone: Office Visiton 12-01-2016 Dietary management education, guidance, and counseling (procedure) yes Invalid Interpretation Code [facility] Work Phone: Documentation of current medications (procedure) Done Invalid Interpretation Code [employer] [facility] Work Phone: Chart Maintenanceon 10-20-19 17 HbA1c 7.0 % Invalid Interpretation Code [employer] [facility] Work Phone: Clinical Lists Updateon Left ventricular Ejection fraction 60 % Invalid Interpretation Code [employer] [facility] Work Phone: Clinical Lists Updateon 08-26 Alanine aminotransferase (ALT) 18 U/L Invalid Interpretation Code [employer] [facility] Work Phone: Alkaline phosphatase (ALP) 147 U/L Invalid Interpretation Code [employer] [facility] Work Phone: ALP enzyme act/vol (Bld) 147 U/L Invalid Interpretation Code [employer] Work Phone: Aspartate aminotransferase (AST) 15 U/L Invalid Interpretation Code [employer] [facility] Work Phone: Bilirubin (total) 0.40 mg/dL Invalid Interpretation Code [address] [facility] Work Phone: Chloride 104 mmol/L Invalid Interpretation Code [employer] [facility] Work Phone: Cholesterol 137 mg/dL Invalid Interpretation Code [employer] [facility] Work Phone: CO2 28.0 mmol/L Invalid Interpretation Code [employer] [facility] Work Phone: CO2 ppres (BldV) 28.0 mmol/L Invalid Interpretation Code [employer] [facility] Work Phone: Creatinine 0.90 mg/dL Invalid Interpretation Code [employer] [facility] Work Phone: HDL Cholesterol 48 mg/dL Invalid Interpretation Code [employer] [facility] Work Phone: Hematocrit (HCT) 42.4 % Invalid Interpretation Code [facility] Work Phone: Hemoglobin (HGB) 13.9 g/dL Invalid Interpretation Code [facility] Work Phone: LDL Cholesterol 63 mg/dL Invalid Interpretation Code [facility] Work Phone: Platelets 261 10*3/mm3 Invalid Interpretation Code [facility] Work Phone: Potassium 4.5 mmol/L Invalid Interpretation Code [facility] Work Phone: Sodium 140 mmol/L Invalid Interpretation Code [facility] Work Phone: Triglyceride 128 mg/dL Invalid Interpretation Code [facility] Work Phone: Urea nitrogen 17 mg/dL Invalid Interpretation Code [facility] Work Phone: very low density lipoproteins 26 mg/dL Invalid Interpretation Code [facility] Work Phone: WBC (Leukocytes) 5.0 10*3/uL Invalid Interpretation Code [facility] Work Phone: Rx Refill: eRx Request for A MLODIPINE/VALSARTAN TABS 5/320on 04-02-2016 e-scripts messenger refill request [id number]`AMLODI PINE/VALSARTAN TABS 5/320`5/320``90 Tablet``TAKE 1 TABLET DAILY``3`0`03/29/20 15`01/07/2016`[employer] Mail Electronic*`[id number] 822`AMLODIPINE/VALS CASANDRA TABS 5/320 Quantity: 90 Tablet Instructions: TAKE 1 TABLET DAILY Better [facility] Work Phone: ESM_RR [phone] [id number]`AMLODI PINE/VALSARTAN TABS 5/320`5/320``90 Tablet``TAKE 1 TABLET DAILY``3`0`03/29/20 15`01/07/2016`Ex[employer] ss Scripts Mail Electronic*`[id number]`128 822`AMLODIPINE/VALS CASANDRA TABS 5/320 Quantity: 90 Tablet Instructions: TAKE 1 TABLET DAILY [employer] [facility] Work Phone: Office Visit: 1 month F/U re checkon 02-18-2016 Tobacco smoking status NHIS Never Invalid Interpretation Code [facility] Work Phone: Tobacco smoking status NHIS Former smoker Invalid Interpretation Code [employer] Work Phone: Tobacco use [facility] Former smoker Invalid Interpretation Code [facility] Work Phone: Microbiology: Acid Fast Bact Cult/Smon 12-10-2015 AFBCS . Invalid Interpretation Code [employer] Work Phone: GE use only - for [employer] import when terms are not otherwise specified . Invalid Interpretation Code [facility] Work Phone: Microbiology: Culture, Fungu s 8482on 11-09-2015 fungus culture isolated from skin, hair, nails . Invalid Interpretation Code [facility] Work Phone: Lab Report: Bedside Glucoseo n 11-08-2015 Glucose 146 mg/dL High 70-110 [facility] Work Phone: Glucose mass conc 146 mg/dL High 70-110 [employer] Work Phone: Lab Report: Basic Metabolic Profile (BMP)on 11-03-2015 Anion gap 3 mmol/L Low 5-15 [facility] Work Phone: Anion gap 4 molar conc 3 Low 5-15 [employer] Work Phone: BUN/Creatinine Ratio 15.4 RATIO Invalid Interpretation Code 10-20 [facility] Work Phone: Calcium 8.9 mg/dL Invalid Interpretation Code 8.5-10.1 [facility] Work Phone: Creatinine 38.96 mL/min Invalid Interpretation Code [facility] Work Phone: eGFR (non-black) 78 mL/min/{1.73_m2} Invalid Interpretation Code >[address] [facility] Work Phone: eGFR (non-black) 65 mL/min/{1.73_m2} Invalid Interpretation Code >[address] [facility] Work Phone: EST GFR - AA 78 mL/min Invalid Interpretation Code >60 [employer] Work Phone: Glucose 113 mg/dL High 70-[address] [facility] Work Phone: Glucose mass conc 113 mg/dL High 70-110 [employer] [employer] [facility] Work Phone: Microbiology: (P) Fungus Sta inon 11-03-2015 fungus stain . Invalid Interpretation Code [address] [facility] Work Phone: FUNST . Invalid Interpretation Code [employer] [employer] [facility] Work Phone: Lab Report: CBC W/Diff, Auto matedon 10-28-2015 Absolute Neut 4.2 X10 3/UL Invalid Interpretation Code 2.0-7.7 [employer] [facility] Work Phone: Basophils/100 leukocytes 0.2 % Invalid Interpretation Code 0-[address] [facility] Work Phone: Eosinophils/100 leukocytes 5.6 % High 0-[address] [facility] Work Phone: Erythrocyte distribution width Auto Ratio (RBC) 49.0 fL High 35.1-43.9 [facility]in [employer] [facility] Work Phone: Erythrocytes (RBC) 3.42 10*6/uL Low 4.2-5.4 [facility] Work Phone: Immature granulocytes #/vol (Bld) 0.200 % Invalid Interpretation Code 0.0-0.9 [employer] Work Phone: immature granulocytes, percentage of total cells, blood 0.200 % Invalid Interpretation Code 0.0-0.[address] [facility] Work Phone: Immature granulocytes/100 WBC (Bld) 0.200 % Invalid Interpretation Code 0.0-0.9 [facility] Work Phone: Lymphocytes 0.97 X10 3/UL Invalid Interpretation Code 0.83-4.[address] [facility] Work Phone: Lymphocytes/100 leukocytes 16.0 % Low 19-41 [facility] Work Phone: MCH 28.9 pg Invalid Interpretation Code 27.0-32.0 [facility] Work Phone: MCHC 32.1 G/GL Invalid Interpretation Code 32-36 [facility] Work Phone: MCV 90.1 fL Invalid Interpretation Code 81-99 [facility] Work Phone: Monocytes/100 leukocytes 8.9 % Invalid Interpretation Code 0-10 [facility] Work Phone: neutrophil count, blood 4.2 X10 3/UL Invalid Interpretation Code 2.0-7.7 [facility] Work Phone: Neutrophils Auto #/vol (Bld) 4.2 X10 3/UL Invalid Interpretation Code 2.0-7.7 [employer] [facility] Work Phone: Neutrophils/100 leukocytes 69.1 % Invalid Interpretation Code 47-70 [facility] Work Phone: PMV by Audelia 9.6 fL Invalid Interpretation Code 6.2-12.0 [facility] Work Phone: RDW SD 49.0 fL High 35.1-43.9 [employer] [facility] Work Phone: RDW-CA 15.0 % High 11.6-14.[address] [facility] Work Phone: red blood cell distribution width, size density 49.0 fL High 35.1-43.[address] [facility] Work Phone: Lab Report: (P) Urinalysis, Completeon 10-27-2015 Albumin Ql (U) Negative Invalid Interpretation Code Negative [employer] [facility] Work Phone: Bilirubin Ql (U) Negative Invalid Interpretation Code Negative [facility] Work Phone: Ketones mass conc (U) Negative Invalid Interpretation Code Negative [facility] Work Phone: NITRITE UR Negative Invalid Interpretation Code Negative [facility] Work Phone: Nitrite Urine Negative Invalid Interpretation Code Negative [address] [facility] Work Phone: Occult Blood, urine Negative Invalid Interpretation Code Negative [address] [facility] Work Phone: OCCULT BLOOD-UR Negative Invalid Interpretation Code Negative [facility] Work Phone: specific gravity, urine 1.015 Invalid Interpretation Code 1.002-1.[address] [facility] Work Phone: Urine, bilirubin presence Negative Invalid Interpretation Code Negative [facility] Work Phone: Urine, clarity Clear Invalid Interpretation Code Clear [facility] Work Phone: Urine, color Yellow Invalid Interpretation Code Yellow [facility] Work Phone: Urine, glucose presence Normal mg/dl Invalid Interpretation Code Normal [address] [facility] Work Phone: Urine, ketones presence Negative Invalid Interpretation Code Negative [address] [facility] Work Phone: Urine, leukocyte esterase presence 25 High Negative [facility] Work Phone: Urine, pH 6.0 [pH] Invalid Interpretation Code 5.0 - 8.[address] [facility] Work Phone: Urine, protein Negative Invalid Interpretation Code Negative [facility] Work Phone: UROBILI Normal mg/dl Invalid Interpretation Code Normal [facility] Work Phone: urobilinogen, urine, by dipstick Normal mg/dl Invalid Interpretation Code Normal [address] [facility] Work Phone: Lab Report: Urinalysis, Chidi oneal 10-27-2015 Urine, bacteria in sediment 1 /[HPF] Invalid Interpretation Code None Seen [address] [facility] Work Phone: Urine, epithelial cells in sediment 0-5 SEEN Invalid Interpretation Code 5-[address] [facility] Work Phone: Urine, erythrocytes in sediment by volume 0 SEEN Invalid Interpretation Code 0-5 [facility] Work Phone: Urine, mucus presence in sediment 0 SEEN Invalid Interpretation Code [facility] [facility] Work Phone: WBC 0-5 SEEN Invalid Interpretation Code 0-5 Davin CPM [employer] [facility] Work Phone: WBC (Leukocytes) 0-5 SEEN Invalid Interpretation Code 0-5 [facility] Work Phone: Lab Report: Magnesiumon 03- Magnesium 1.7 mg/dL Low 1.8-2.4 [facility] Work Phone: Microbiology: Culture, Body Fluidon 10-08-2015 body fluid culture . Invalid Interpretation Code [facility] Work Phone: CUBF . Invalid Interpretation Code Talib CPM [employer] [facility] Work Phone: Office Visiton 10-01-2015 General cardiovascular disease 10Y risk [#] Moville.D'Agostino 20 % Invalid Interpretation Code [facility] Work Phone: Lab Report: (P) Synovial Flu id RBC, WBC AND Diffon 09-24-2015 Cell Count, Synovial Fluid 0.4350 10 3 uL High 0.000-0.000 [facility] Work Phone: Erythrocytes (RBC) 0.005 10 6/UL High 0 Blo [facility] Work Phone: mononuclear cells, synovial fluid as percent of leukocytes 63.5 % Invalid Interpretation Code [facility] Work Phone: neutrophils, polymorphonuclear as percent of synovial fluid leukocytes 36.5 % Invalid Interpretation Code [facility] Work Phone: SYBF MN WBC% 63.5 % Invalid Interpretation Code [facility] Work Phone: SYBF PMN WBC% 36.5 % Invalid Interpretation Code [facility] Work Phone: SYN Tot Cell Ct 0.4350 10 3 uL High 0.000-0.[address] [facility] Work Phone: SYNOVIAL RBC 0.005 10 6/UL High 0 [facility] Work Phone: SYNOVIAL WBC 0.3700 10 3UL High 0.000-0.002 [facility] Work Phone: WBC, Fluid 0.3700 10 3UL High 0.000-0.002 [facility] Work Phone: Lab Report: Synovial Fluid R BC, WBC AND Diffon 09-24-2015 appearance, body fluid Cloudy Invalid Interpretation Code CLEAR [address] [facility] Work Phone: color, synovial fluid Yellow Invalid Interpretation Code [address] [facility] Work Phone: Lymphocytes/100 leukocytes 70 % Invalid Interpretation Code [address] [facility] Work Phone: Monocytes 9 % Invalid Interpretation Code [address] [facility] Work Phone: NEUTROPHIL 18 % Invalid Interpretation Code 0-25 [facility] Work Phone: neutrophils as percent of body fluid leukocytes 18 % Invalid Interpretation Code 0-[address] [facility] Work Phone: OTHER CELL /SYN 3 % Invalid Interpretation Code [facility] Work Phone: other Cells 3 % Invalid Interpretation Code [address] [facility] Work Phone: source of sample LEFT KNEE Invalid Interpretation Code [address] [facility] Work Phone: SYNOVIAL COLOR Yellow Invalid Interpretation Code [facility] Work Phone: SYNOVIAL SOURCE LEFT KNEE Invalid Interpretation Code [facility] Work Phone: Lab Report: CRPon 09-21-2015 C reactive protein (CRP) 0.758 mg/dL High Units converted. See lab report for original value. [facility] Work Phone: Lab Report: Erythrocyte Sed Rateon 09-21-2015 Erythrocyte sedimentation rate 59 mm/h High 0-30 [facility] Work Phone: Lab Report: Comprehensive Me tabolic Profilon 08-10-2015 Albumin 3.3 g/dL Low 3.4-5.[address] [facility] Work Phone: Albumin/Globulin Ratio 0.9 {ratio} Invalid Interpretation Code 0.9-2.[address] [facility] Work Phone: Globulin 3.7 g/dL High 2.3-3.[address] [facility] Work Phone: Protein 7.0 g/dL Invalid Interpretation Code 6.4-8.[address] [facility] Work Phone: Office Visit: [facility] 03-28-2015 Protein mass conc yes Invalid Interpretation Code [employer] Work Phone: Smoking cessation education (procedure) yes Invalid Interpretation Code [address] [facility] Work Phone: Lab Report: Partial Thrombop last Timeon 12-13-2014 aPTT 30.3 s Invalid Interpretation Code 24.1-36.[address] [facility] Work Phone: Lab Report: Prothrombin Time w/INRon 12-13-2014 Coagulation tissue factor induced in platelet poor plasma 13.3 s Invalid Interpretation Code 11.7-14.[address] [facility] Work Phone: INR Coag RelTime (PPP) 1.0 {INR} Invalid Interpretation Code [employer] Work Phone: INR in blood by coagulation 1.0 {INR} Invalid Interpretation Code [address] [facility] Work Phone: Office Visit: [facility] 12-14-19 15 cardiac risk group C Invalid Interpretation Code [address] [facility] Work Phone: EKG Report: [facility] ECG Obse rvationson 11-28-2014 EKG QRS axis -4 deg Invalid Interpretation Code [employer] [facility] Work Phone: electrocardiogram interpretation Sinus Rhythm WITHIN NORMAL LIMITS Invalid Interpretation Code [facility] Work Phone: Interpretation Sinus Rhythm WITHIN NORMAL LIMITS Invalid Interpretation Code Davin CPM [employer] [facility] Work Phone: P [place] 48 deg Invalid Interpretation Code [facility] Work Phone: P wave axis, electrocardiogram 48 deg Invalid Interpretation Code [address] [facility] Work Phone: WI Interval 152 ms Invalid Interpretation Code [facility] Work Phone: WI interval, electrocardiogram 152 ms Invalid Interpretation Code [address] [facility] Work Phone: Pulse (Heart Rate) 66 /min Invalid Interpretation Code [address] [facility] Work Phone: QRS axis, electrocardiogram -4 deg Invalid Interpretation Code [address] [facility] Work Phone: QRS Duration 101 ms Invalid Interpretation Code Davin CPM [employer] [facility] Work Phone: QRS duration, electrocardiogram 101 ms Invalid Interpretation Code [address] [facility] Work Phone: QT Interval new path ms Invalid Interpretation Code Davin CPM [employer] [facility] Work Phone: QT interval, electrocardiogram new path ms Invalid Interpretation Code [address] [facility] Work Phone: T [place] 55 deg Invalid Interpretation Code Davin CPM [employer] [facility] Work Phone: T wave axis, electrocardiogram 55 deg Invalid Interpretation Code [address] [facility] Work Phone: Lab Report: Microalb:Creat R atio,Random URon 11-23-2014 Urine, creatinine 147.8 mg/dL Invalid Interpretation Code NO RANGE EST. [address] [facility] Work Phone: Urine, microalbumin 0.65 mg/dL Invalid Interpretation Code Units converted. See lab report for original value. [address] [facility] Work Phone: Lab Report: Thyroid Stim Hor graciela (TSH)on 11-23-2014 Thyroid stimulating hormone (TSH) 2.37 u[iU]/mL Invalid Interpretation Code 0.358-3.[address] [facility] Work Phone: Office Visiton 03-09-2014 Breast Mammogram screening Normal Bilateral Invalid Interpretation Code [address] [facility] Work Phone: Lab Report: TROPon 3 Troponin I ng/mL Normal <0.06 [facility] Work Phone: Lab Report: LIVERon 10-03-19 11 Bilirubin (direct) 0.15 mg/dL Normal 0.00-0.30 [facility] Work Phone: Vital Signs Date Time Vital Sign Value Performing Clinician Facility 12-09-2023 14:40-0400 Diastolic blood pressure 75 mm[Hg] Dr. Alicia Florentino Work Phone: [facility] 12-09-2023 14:40-0400 Heart rate 75 /min Dr. Alicia Florentino Work Phone: [facility] 12-09-2023 14:40-0400 Respiratory rate 18 /min Dr. Alicia Florentino Work Phone: [facility] 12-09-2023 14:40-0400 SaO2% (BldA) [Mass fraction] 93 % Dr. Alicia Florentino Work Phone: [facility] 12-09-2023 14:40-0400 Systolic blood pressure 158 mm[Hg] Dr. Alicia Florentino Work Phone: [facility] 12-09-2023 13:30-0400 Body temperature 98.6 [degF] Dr. Alicia Florentino Work Phone: [facility] 12-09-2023 12:30-0400 Inhaled oxygen flow rate 2 L/min Dr. Alicia Florentino Work Phone: [facility] 12-09-2023 09:32-0400 Body height 152.[address] Alicia Florentino Work Phone: [facility] 12-09-2023 09:32-0400 Body mass index (BMI) [Ratio] 41.8 kg/m2 Dr. Alicia Florentino Work Phone: [facility] 12-09-2023 09:32-0400 Body weight [address] Alicia Florentino Work Phone: [facility] 11-05-2023 12:57-0400 Body mass index (BMI) [Ratio] 43 kg/m2 Dr. Alicia Florentino Work Phone: [facility] 11-05-2023 12:57-0400 Body weight 99.[address] Alicia Florentino Work Phone: [facility] 11-05-2023 12:57-0400 Diastolic blood pressure 46 mm[Hg] Dr. Alicia Florentino Work Phone: [facility] 11-05-2023 12:57-0400 Heart rate 55 /min Dr. Alicia Florentino Work Phone: [facility] 11-05-2023 12:57-0400 Respiratory rate 16 /min Dr. Alicia Florentino Work Phone: [facility] 11-05-2023 12:57-0400 Systolic blood pressure 107 mm[Hg] Dr. Alicia Florentino Work Phone: [facility] 09-10-2023 17:05-0500 Body temperature 97.9 [degF] Dr. Alicia Florentino Work Phone: [facility] 09-10-2023 17:05-0500 Diastolic blood pressure 56 mm[Hg] Dr. Alicia Florentino Work Phone: [facility] 09-10-2023 17:05-0500 Heart rate 64 /min Dr. Alicia Florentino Work Phone: [facility] 09-10-2023 17:05-0500 Respiratory rate 16 /min Dr. Alicia Florentino Work Phone: [facility] 09-10-2023 17:05-0500 SaO2% (BldA) [Mass fraction] 96 % Dr. Alicia Florentino Work Phone: [facility] 09-10-2023 17:05-0500 Systolic blood pressure 125 mm[Hg] Dr. Alicia Florentino Work Phone: [facility] 09-09-2023 15:33-0500 Body weight 107.[address] Alicia Florentino Work Phone: [facility] 09-08-2023 19:54-0500 Inhaled oxygen flow rate 3 L/min Dr. Alicia Florentino Work Phone: [facility] 09-04-2023 08:23-0500 Body mass index (BMI) [Ratio] 46.1 kg/m2 Dr. Alicia Florentino Work Phone: [facility] 09-02-2023 14:00-0500 Diastolic blood pressure 54 mm[Hg] Dr. Alicia Florentino Work Phone: [facility] 09-02-2023 14:00-0500 Heart rate 76 /min Dr. Alicia Florentino Work Phone: [facility] 09-02-2023 14:00-0500 Respiratory rate 17 /min Dr. Alicia Florentino Work Phone: [facility] 09-02-2023 14:00-0500 SaO2% (BldA) [Mass fraction] 100 % Dr. Alicia Florentino Work Phone: [facility] 09-02-2023 14:00-0500 Systolic blood pressure 149 mm[Hg] Dr. Alicia Florentino Work Phone: [facility] 09-02-2023 13:26-0500 Body temperature 98.4 [degF] Dr. Alicia Florentino Work Phone: [facility] 09-02-2023 08:45-0500 Body height 152.[address] Alicia Florentino Work Phone: [facility] 09-02-2023 08:45-0500 Body mass index (BMI) [Ratio] 45.8 kg/m2 Dr. Alicia Florentino Work Phone: [facility] 09-02-2023 08:45-0500 Body weight 106.[address] Alicia Florentino Work Phone: [facility] 08-22-2022 11:22-0500 Body temperature 97.39 [degF] Volodymyr Leo APRN.CASE SEALER Work Phone: [facility] 08-22-2022 11:22-0500 Body weight 108.14 kg Volodymyr Leo APRN.CASE SEALER Work Phone: [facility] 08-22-2022 11:22-0500 Diastolic blood pressure 72 mm[Hg] Volodymyr Leo APRN.CASE SEALER Work Phone: [facility] 08-22-2022 11:22-0500 Heart rate 85 /min Volodymyr Leo APRN.CASE SEALER Work Phone: [facility] 08-22-2022 11:22-0500 Respiratory rate 18 /min Volodymyr Leo APRN.CASE SEALER Work Phone: [facility] 08-22-2022 11:22-0500 SaO2% (BldA) [Mass fraction] 98 % Volodymyr Leo APRN.CASE SEALER Work Phone: [facility] 08-22-2022 11:22-0500 Systolic blood pressure 124 mm[Hg] Volodymyr Leo APRN.CASE SEALER Work Phone: [facility] 06-08-2017 09:55-0400 BMI (Body Mass Index) 51.75 kg/m2 [facility] Work Phone: 06-08-2017 09:55-0400 BP Diastolic 60 mm[Hg] [facility] Work Phone: 06-08-2017 09:55-0400 BP Systolic 120 mm[Hg] [facility] Work Phone: 06-08-2017 09:55-0400 Pulse (Heart Rate) 60 /min [facility] Work Phone: 06-08-2017 09:55-0400 Weight 120.2 kg [facility] Work Phone: 12-01-2016 09:47-0400 BMI (Body Mass Index) 52.14 kg/m2 Lisbet Mihaela [facility] Work Phone: 12-01-2016 09:47-0400 BP Diastolic 64 mm[Hg] Lisbethussein [facility] Work Phone: 12-01-2016 09:47-0400 BP Systolic 122 mm[Hg] Lisbethussein Chairez [facility] Work Phone: 12-01-2016 09:47-0400 Height 152.4 cm Lisbet Mihaela [facility] Work Phone: 12-01-2016 09:47-0400 Pulse (Heart Rate) 68 /min Lisbethussein Chairez [facility] Work Phone: 12-01-2016 09:47-0400 Respiratory Rate 20 /min [facility] Work Phone: 12-01-2016 09:47-0400 Weight 121.11 kg Lisbethussein Chairez [facility] Work Phone: 04-07-2016 11:27-0400 BSA (Body Surface Area) 2.11 m2 [facility] Work Phone: 02-18-2016 12:15-0400 Body Temperature 98.3 [degF] [facility] Work Phone: 02-18-2016 12:15-0400 Pulse Oximetry 100 % Lisbethussein Chairez [facility] Work Phone: 11-03-2015 07:55-0500 Body surface area Derived from formula 38.96 mL/min [facility] Work Phone: 11-28-2014 10:11-0400 Heart rate 66 /min [facility] Work Phone: 08-01-2013 09:41-0500 BP Diastolic 80 mm[Hg] Lisbet Chairez [place] [employer] [facility] Work Phone: 08-01-2013 09:41-0500 BP Systolic 125 mm[Hg] Lisbet Chairez [facility] [employer] [facility] Work Phone: Encounters Encounter Date Encounter Type Care Provider Facility Start: 02-14-2025 End: 02-14-[address] Alicia Florentino DO Work Phone: -Radiology Monitor Start: 02-14-2025 End: 02-14-[address] Tammi Mckenzie MD -Radiology Monitor Work Phone: Start: 02-14-2025 End: 02-14-2025 ambulatory Tammi Mckenzie Facility:[facility] Start: 05-06-2024 End: 05-06-2024 ambulatory Alicia Florentino Facility:[facility] Start: 12-09-2023 Non-patient / Non-visit Dr. Anamaria Florentino Work Phone: [facility] Start: 12-09-2023 End: 12-09-2023 Admission to same day surgery center Dr. Alicia Florentino Work Phone: [facility] Work Phone: Start: 12-09-2023 End: 12-09-[address] Alicia Florentino Work Phone: [facility] Work Phone: Start: 11-05-2023 End: 11-05-[address] Alicia Florentino Work Phone: [facility] Work Phone: Start: 09-17-2023 End: 09-17-[address] Alicia Florentino Work Phone: [facility] Work Phone: Start: 09-10-2023 Non-patient / Non-visit Dr. Anamaria Florentino Work Phone: [facility] Work Phone: Start: 09-10-2023 Non-patient / Non-visit Dr. Anamaria Florentino Work Phone: [facility] Start: 09-09-2023 Non-patient / Non-visit Dr. Anamaria Florentino Work Phone: [facility] Start: 09-09-2023 Non-patient / Non-visit Dr. Anamaria Florentino Work Phone: [facility] Work Phone: Start: 09-08-2023 Non-patient / Non-visit Dr. Anamaria Florentino Work Phone: [facility] Start: 09-08-2023 Non-patient / Non-visit Dr. Anamaria Florentino Work Phone: [facility] Start: 09-07-2023 Non-patient / Non-visit Dr. Anamaria Florentino Work Phone: [facility] Work Phone: Start: 09-07-2023 Non-patient / Non-visit Dr. Anamaria Florentino Work Phone: [facility] Start: 09-06-2023 Non-patient / Non-visit Dr. Anamaria Florentino Work Phone: [facility] Start: 09-05-2023 Non-patient / Non-visit Dr. Anamaria Florentino Work Phone: [facility] Start: 09-05-2023 Non-patient / Non-visit Dr. Anamaria Florentino Work Phone: [facility] Start: 09-05-2023 Non-patient / Non-visit Dr. Anamaria Florentino Work Phone: [facility] Work Phone: Start: 09-04-2023 Non-patient / Non-visit Dr. Anamaria Florentino Work Phone: [facility] Start: 09-04-2023 Non-patient / Non-visit Dr. Anamaria Florentino Work Phone: [facility] Start: 09-04-2023 Non-patient / Non-visit Dr. Anamaria Florentino Work Phone: [facility] Work Phone: Start: 09-03-2023 Non-patient / Non-visit Dr. Anamaria Florentino Work Phone: [facility] Start: 09-03-2023 Non-patient / Non-visit Dr. Anamaria Florentino Work Phone: [facility] Start: 09-02-2023 Non-patient / Non-visit Dr. Anamaria Florentino Work Phone: [facility] Start: 09-02-2023 End: 09-10-2023 Evaluation and management of inpatient Dr. Alicia Florentino Work Phone: [facility] Work Phone: Start: 05-04-2023 End: 05-04-2023 ambulatory [facility] Work Phone: Start: 05-04-2023 End: 05-04-2023 Patient encounter procedure [facility] Work Phone: Start: 09-13-2022 Refill Volodymyr espinoza APRNElizabethCASE SEALER Work Phone: [facility] Comment on above: Refill Request; Refi ll Request Start: 08-22-2022 End: 08-22-2022 ambulatory VOLODYMYR LEO Facility:[facility] Start: 08-22-2022 End: 08-22-2022 Patient encounter procedure Volodymyr Stef KINJAL Work Phone: [facility] Comment on above: URI, acute (Primary Dx) Start: 05-01-2022 End: 05-01-2022 ambulatory [facility] Work Phone: Start: 05-01-2022 End: 05-01-2022 Patient encounter procedure [facility] Procedures Date Procedure Procedure Detail Performing Clinician Start: 02-14-2025 X-ray of lumbosacral spine Dr. Alicia espinoza DO Work Phone: Start: 12-09-[address] Alicia Florentino Work Phone: Start: 12-09-[address] Alicia Florentino Work Phone: Start: 09-08-2023 Plain X-ray abdomen Dr. Alicia Florentino Work Phone: Start: 09-05-2023 Plain chest X-ray Dr. Alicia Florentino Work Phone: Start: 09-04-[address] Alicia Florentino Work Phone: Start: 09-04-[address] Alicia Florentino Work Phone: Start: 09-04-2023 Total cholecystectomy and exploration of common bile duct Dr. Alicia Florentino Work Phone: Start: 09-03-[address] Alicia Florentino Work Phone: Start: 09-03-[address] Alicia Florentino Work Phone: Start: 09-03-[address] Alicia Florentino Work Phone: Start: 09-03-2023 Computed tomography of abdomen and pelvis with intravenous contrast Dr. Alicia Florentino Work Phone: Start: 09-02-2023 US scan of gallbladder Dr. Alicia Florentino Work Phone: Start: 09-02-2023 Plain chest X-ray Dr. Alicia Florentino Work Phone: Start: 05-04-2023 Screening mammography Start: 05-01-2022 Screening mammography Start: 06-08-2017 End: 06-08-2017 Follow Up Appt 9 months Sharona Lucas PA-C Work Phone: Start: 06-08-2017 End: 06-08-2017 PF Sharona Lucas PA-C Work Phone: Start: 12-01-2016 End: 12-01-2016 Follow Up Appt 6 months Nickolas Lockett MD Start: 12-01-2016 End: 12-01-2016 MMM Nickolas Lockett MD Start: 12-01-2016 End: 12-01-2016 Dietary management education, guidance, and counseling Nita Ramírez Start: 12-01-2016 End: 12-01-2016 Follow Up Appt 6 months Nickolas Lockett MD Start: 12-01-2016 End: 12-01-2016 MMSerafin Lockett MD Start: 04-07-2016 End: 04-07-2016 Follow Up Appt 6 months Sharona Lucas PA-C Work Phone: Start: 04-07-2016 End: 04-07-2016 PF Sharona Lucas PA-C Work Phone: Start: 04-07-2016 End: 04-07-2016 Follow Up Appt 6 months Sharona Lucas PA-C Work Phone: Start: 04-07-2016 End: 04-07-2016 PFM Sharona Lucas PA-C Work Phone: Start: 03-07-2016 End: 05-27-2017 Mammogram, screening Jerson Carrillo DO Work Phone: Start: 10-27-2015 End: 10-27-2015 Urinalysis Nita Ramírez Start: 10-01-2015 End: 05-27-2017 *Hepatic Function Panel Nickolas Lockett MD Start: 10-01-2015 End: 10-01-2015 Follow Up Appt 6 months Nickolas Lockett MD Start: 10-01-2015 End: 05-27-2017 Lipid 1996 panel - Serum or Plasma Nickolas Lockett MD Start: 10-01-2015 End: 10-01-2015 MMM Nickolas Lockett MD Start: 10-01-2015 End: 10-01-2015 Follow Up Appt 6 months Nickolas Lockett MD Start: 10-01-2015 End: 10-01-2015 MMM Nickolas Lockett MD Start: 08-13-2015 End: 05-27-2017 Radiologic exam knee complete 4/more views Alicia Niki Florentino, DO Work Phone: Start: 08-13-2015 End: 05-27-2017 X-ray exam of hip Alicia Florentino, DO Work Phone: Start: 03-28-2015 End: 08-13-2015 *CBC with Differential Alicia Florentino, DO Work Phone: Start: 03-28-2015 End: 08-10-2015 *CMP Complete Metabolic Panel Alicia shepherd, DO Work Phone: Start: 03-28-2015 End: 08-11-2015 Hemoglobin A1c/Hemoglobin.total in Blood Alicia Niki Florentino, DO Work Phone: Start: 03-28-2015 End: 08-11-2015 Lipid 1996 panel - Serum or Plasma Alicia Florentino, DO Work Phone: Start: 03-28-2015 End: 08-13-2015 *CBC with Differential Alicia Florentino, DO Work Phone: Start: 03-28-2015 End: 08-10-2015 *CMP Complete Metabolic Panel Alicia shepherd, DO Work Phone: Start: 03-28-2015 End: 08-11-2015 [...] 02-19-2015 End: 02-20-2015 Examination of retina Sharona Lucas PA-C Work Phone: Start: 02-19-2015 End: 02-19-2015 Follow Up Appt 6 months Sharona Lucas PA-C Work Phone: Start: 02-19-2015 End: 02-20-2015 Pedal pulse taking Sharona Lucas PA-C Work Phone: Start: 02-19-2015 End: 02-19-2015 PFM Sharona Lucas PA-C Work Phone: Start: 02-19-2015 End: 02-20-2015 Colonoscopy Sharona Lucas PA-C Work Phone: Start: 02-19-2015 End: 02-20-2015 Documentation of current medications Sharona Lucas PA-C Work Phone: Start: 02-19-2015 End: 02-20-2015 Examination of retina Sharona Lucas PA-C Work Phone: Start: 02-19-2015 End: 02-19-2015 Follow Up Appt 6 months Sharona Lucas PA-C Work Phone: Start: 02-19-2015 [...] 12-13-2014 End: 12-14-2014 Examination of retina Sharona Lucas PA-C Work Phone: Start: 12-13-2014 End: 12-13-2014 Follow Up Appt 6 weeks Sharona Lucas PA-C Work Phone: Start: 12-13-2014 [...] Start: 12-13-2014 End: 12-13-2014 Electrocardiogram, complete Sharona Lucas PA-C Work Phone: Start: 12-13-2014 End: 12-14-2014 Examination of retina Sharona Lucas PA-C Work Phone: Start: 12-13-2014 End: 12-13-2014 Follow Up Appt 6 weeks Sharona Lucas PA-C Work Phone: Start: 12-13-2014 End: 01-19-2015 Left Heart Cath Sharona Lucas PA-C Work Phone: Start: 12-13-2014 End: 12-13-2014 MMM Sharona Lucas PA-C Work Phone: Start: 12-13-2014 End: 12-14-2014 Pedal pulse taking Sharona Lucas PA-C Work Phone: Start: 11-28-2014 End: 12-06-2014 Ecg routine ecg w/least 12 lds w/i&r Jossue Moya MD Start: 11-28-2014 End: 12-06-2014 Nuclear stress test -Anya dean MD Start: 11-28-2014 End: 12-06-2014 Electrocardiogram, complete Jossue Moya MD Start: 11-28-2014 End: 12-06-2014 Nuclear stress test -Anya dean MD Start: 10-26-2014 End: 11-23-2014 *CMP Complete Metabolic Panel Jossue dean MD Start: 10-26-2014 End: 11-23-2014 *MIACRE Microalb; Creat Ratio, Coolidge UR Jossue Moya MD Start: 10-26-2014 End: 11-23-2014 Assay of thyroid stimulating hormone tsh Jossue Moya MD Start: 10-26-2014 End: 11-23-2014 Hemoglobin glycosylated a1c Jossue Moya MD Start: 10-26-2014 End: 11-23-2014 Lipid Profile Jossue Moya MD Start: 10-26-2014 End: 11-23-2014 *CMP Complete Metabolic Panel Jossue dean MD Start: 10-26-2014 End: 11-23-2014 *MIACRE Microalb; Creat Ratio, Coolidge UR Jossue Moya MD Start: 10-26-2014 End: 11-23-2014 HbA1c Jossue Moya MD Start: 10-26-2014 End: 11-23-2014 Lipid Profile Jossue Moya MD Start: 10-26-2014 End: 11-23-2014 Thyroid stimulating hormone (TSH) Jossue Moya MD Start: 07-27-2014 End: 07-27-2014 *ANGELIQUE Moya MD Start: 07-27-2014 End: 07-27-2014 Hemoglobin A1c/Hemoglobin.total in Blood Jossue Moya MD Start: 07-27-2014 End: 07-27-2014 Injection single/doctor of audiology trigger point 1/2 muscles Jossue Moya MD Start: 07-27-2014 End: 07-27-2014 *BMP Jossue Moya MD Start: 07-27-2014 End: 07-27-2014 HbA1c [...] *ANGELIQUE Moya MD Start: 05-30-2014 End: 07-27-2014 HbA1c Jossue Moya MD Start: 04-26-2014 End: 07-27-2014 EMG Jossue Moya MD Start: 04-26-2014 End: 07-27-2014 Nerve Conduction Jossue Moya MD Start: 04-26-2014 End: 07-27-2014 EMG Jossue Moya MD Start: 04-26-2014 End: 07-27-2014 Nerve Conduction Jossue Moya MD Start: 03-06-2014 End: 03-09-2014 Mammogram, Screening, both breasts Jossue Moya MD Start: 03-06-2014 End: 03-09-2014 Mammogram, Screening, both breasts Jossue Moya MD Start: 01-19-2014 End: 04-19-2014 *CMP Complete Metabolic Panel Jossue dean MD Start: 01-19-2014 End: 07-27-2014 EMG Jossue [...] End: 04-19-2014 *CMP Complete Metabolic Panel Jossue dean MD Start: 01-19-2014 End: 07-27-2014 EMG Jossue [...] End: 09-07-2013 *CMP Complete Metabolic Panel Jossue dean MD Start: 06-23-2013 End: 09-07-2013 *MIACRE Microalb; Creat Ratio, Coolidge UR Jossue Moya MD Start: 06-23-2013 End: 09-07-2013 CBC W Auto Differential panel - Blood Jossue Moya MD Start: 06-23-2013 End: 09-07-2013 Hemoglobin A1c/Hemoglobin.total in Blood Jossue Moya MD Start: 06-23-2013 End: 09-07-2013 Lipid 1996 panel - Serum or Plasma Jossue Moya MD Start: 06-23-2013 End: 09-07-2013 *CMP Complete Metabolic Panel Jossue dean MD Start: 06-23-2013 End: 09-07-2013 *MIACRE Microalb; Creat Ratio, Coolidge UR Jossue Moya MD Start: 06-23-2013 End: 09-07-2013 CBC W Auto Differential panel - Blood Jossue Moya MD Start: 06-23-2013 End: 09-07-2013 HbA1c Jossue Moya MD Start: 06-23-2013 End: 09-07-2013 Lipid panel [AGGREGATE] Jossue Moya MD Start: 03-01-2013 End: 03-01-2013 *ANGELIQUE Moya MD [...] Jossue Moya MD Start: 11-30-2012 End: 11-30-2012 *BMP Jossue Moya MD Start: 11-30-2012 End: 12-01-2012 HbA1c Jossue Moya MD Start: 05-24-2012 End: 08-25-2012 *CMP Complete Metabolic Panel Jossue dean MD Start: 05-24-2012 End: 08-25-2012 *Microalbumin, Creatine Ratio, rand urine Jossue Moya MD Start: 05-24-2012 End: 05-24-2012 Follow Up Appt 3 months Jossue Moya MD Start: 05-24-2012 End: 08-25-2012 Hemoglobin A1c/Hemoglobin.total in Blood Jossue Moya MD Start: 05-24-2012 End: 08-25-2012 Lipid 1996 panel - Serum or Plasma Jossue Moya MD Start: 05-24-2012 End: 08-25-2012 *CMP Complete Metabolic Panel Jossue dean MD Start: 05-24-2012 End: 08-25-2012 *Microalbumin, Creatine Ratio, rand urine Jossue Moya MD Start: 05-24-2012 End: 05-24-2012 Follow Up Appt 3 months Jossue Moya MD Start: 05-24-2012 End: 08-25-2012 HbA1c Jossue Moya MD Start: 05-24-2012 End: 08-25-2012 Lipid panel [AGGREGATE] Jossue Moya MD Start: 04-09-2012 End: 05-17-2012 *ANGELIQUE Moya MD Start: 04-09-2012 End: 05-17-2012 Hemoglobin A1c/Hemoglobin.total in Blood Jossue Moya MD Start: 04-09-2012 End: 05-17-2012 *ANGELIQUE Moya MD Start: 04-09-2012 End: 05-17-2012 HbA1c Jossue Moya MD Start: 10-02-2011 End: 12-18-2011 Ct soft tissue neck w/contrast material Brian Tovar MD Start: 10-02-2011 End: 12-18-2011 Ct soft tissue neck w/dye Brian Tovar MD Start: 08-12-2011 End: 2011 *CMP Complete Metabolic Panel Brian pedro MD Start: 08-12-2011 End: 2011 Hemoglobin A1c/Hemoglobin.total in Blood Brian Tovar MD Start: 08-12-2011 End: 2011 Lipid 1996 panel - Serum or Plasma Brian Tovar MD Start: 08-12-2011 End: 2011 *CMP Complete Metabolic Panel Brian pedro MD Start: 08-12-2011 End: 2011 HbA1c Brian Tovar MD Start: 08-12-2011 End: 2011 Lipid panel [AGGREGATE] Brian Victoria Start: 05-13-2011 End: 10-03-2011 Radex foot complete [...] End: 10-03-2010 Blood count manual cell count sim Tovar MD Start: 10-02-2010 End: 10-03-2010 Hemoglobin [...] Metabolic panel total ca Brian Tovar MD History of cholecystectomy Statu s post laparoscopic cholecystectomy Dr. Alicia Florentino Work Phone: Comment on above: 82-year-old female who makes her first o utpatient follow-up from laparoscopic cholecystectomy with intraoperative cholangiogram following admission for acute cholecystitis with choledocholithiasis. Her postoperative course was somewhat protracted by postoperative constipation. I have shared with patient repeatedly that I believe she is quite sensitive to the constipating effects of narcotics. She shares that she is currently still constipated and not experiencing very frequent bowel movements while using stool softeners. Thus I have recommended that she consider transition to more of a prokinetic like MiraLAX and have instructed her in the use of this medication. He is well-healing on exam and I have suggested she could introduce some triple antibiotic ointment to help with the dryness of her incisions. It is apparent that she may have had some postoperative bleeding at her supraumbilical port site as there is some firmness but there is no drainage or signs of infection. Lastly I reviewed with her the results of her pathology and of her cholangiogram. Regarding the latter I reminded her that she will need to establish follow-up with Dr. Cespedes for stent removal. She confirms this appointment is made for December 09, 2023. Plan of Treatment Date Care Activity Detail Author Start: 12-09-[address] [facility] Start: 12-09-2023 Endoscopic retrograde cholangiopancreatography ERCP Biliary/Pancreas [facility] Start: 12-09-2023 RF Guidance for endoscopy of Biliary ducts and Pancreatic duct-- W contrast retrograde [facility] Start: 12-09-2023 Patient discharge [facility] Start: 09-10-2023 End: 09-10-2023 Referral to service [facility] Start: 09-10-2023 Patient discharge [facility] Start: 09-10-2023 [facility] Start: 09-08-2023 Care planning and problem solving actions [facility] Start: 09-08-2023 Provision of activity privileges [facility] Start: 09-06-2023 Referral to service [facility] Start: 09-06-2023 Consultation [facility] Start: 09-03-2023 Total cholecystectomy and exploration of common bile duct Laparoscopic, Cholecystectomy with IOC (Not Applicable) [facility] Start: 09-03-2023 Referral to occupational therapist [facility] Start: 09-03-2023 Referral to service [facility] Start: 09-03-2023 Referral to gastroenterology service [facility] Start: 09-02-2023 Application of intermittent pneumatic compression device [facility] Start: 09-02-2023 Ambulation without limitation [facility] Start: 09-02-2023 Catheterization of vein [facility] Start: 09-02-2023 Consultation [facility] Start: 09-02-2023 Measuring intake and output [facility] Start: 09-02-2023 Oxygen therapy [facility] Start: 09-02-2023 Preoperative care [facility] Start: 09-02-2023 Following clinical pathway protocol [facility] Start: 09-02-2023 Verification routine [facility] Start: 09-02-2023 Admission procedure [facility] Start: 09-02-2023 Hospital admission, emergency, from emergency room, medical nature [facility] Start: 09-02-2023 [facility] Start: 09-02-2023 Inhalation therapy procedure [facility] Start: 08-24-2022 ADVANCE DIRECTIVE DISCUSSION ADVANCE DIRECTIVE DISCUSSION [facility] Start: 08-24-2022 DEPRESSION ASSESSMENT DEPRESSION ASSESSMENT [facility] Start: 03-08-2018 End: 03-08-2018 Appointment Appointment [facility] Work Phone: Start: 11-23-2017 DIABETES SCREEN DIABETES SCREEN [facility] Start: 06-08-2017 End: 06-08-2017 Follow Up Appt 9 months Follow Up Appt 9 months [facility] Work Phone: Start: 06-08-2017 End: 06-08-2017 PFM PFM [facility] Work Phone: Start: 06-08-2017 End: 06-08-[address] [facility] [address] [facility] Work Phone: Start: 12-01-2016 End: 12-01-2016 Follow Up Appt 6 months Follow Up Appt 6 months [facility] Work Phone: Start: 12-01-2016 End: 12-01-2016 MMM MMM [facility] Work Phone: Start: 12-01-2016 End: 12-01-2016 Follow Up Appt 6 months Follow Up Appt [address] [facility] Work Phone: Start: 12-01-2016 End: 12-01-2016 [facility]: Start: 04-07-2016 End: 04-07-2016 Follow Up Appt 6 months Follow Up Appt 6 months [facility] Work Phone: Start: 04-07-2016 End: 04-07-2016 PF PF [facility] Work Phone: Start: 04-07-2016 End: 04-07-2016 Follow Up Appt 6 months Follow Up Appt 6 months [facility] Work Phone: Start: 04-07-2016 End: 04-07-2016 [facility] [address] [facility] Work Phone: Start: 03-07-2016 End: 05-27-2017 Mammogram, screening Mammogram, Screening, both breasts [facility] Work Phone: Start: 03-07-2016 End: 03-07-2016 Mammogram, screening Mammogram, Screening, both breasts [facility] Work Phone: Start: 10-01-2015 End: 05-27-2017 *Hepatic Function Panel *Hepatic Function Panel [facility] Work Phone: Start: 10-01-2015 End: 10-01-2015 Follow Up Appt 6 months Follow Up Appt 6 months [facility] Work Phone: Start: 10-01-2015 End: 05-27-2017 Lipid panel [AGGREGATE] *Lipid Profile CC PCP [facility] Work Phone: Start: 10-01-2015 End: 10-01-2015 MMM MMM [facility] Work Phone: Start: 10-01-2015 End: 10-01-2015 *Hepatic Function Panel *Hepatic Function Panel [facility] [address] [facility] Work Phone: Start: 10-01-2015 End: 10-01-2015 Follow Up Appt 6 months Follow Up Appt 6 months [facility] Work Phone: Start: 10-01-2015 End: 10-01-2015 Lipid panel [AGGREGATE] *Lipid Profile CC PCP [facility] Work Phone: Start: 10-01-2015 End: 10-01-2015 MMM MMM [facility] Work Phone: Start: 08-13-2015 End: 05-27-2017 Radiologic exam knee complete 4/more views X-Ray, Knee [facility] Work Phone: Start: 08-13-2015 End: 05-27-2017 X-ray exam of hip X-Ray, Hip Unilateral [facility] Work Phone: Start: 08-13-2015 End: 08-13-2015 X-ray exam of hip X-Ray, Hip Unilateral [facility] Work Phone: Start: 08-13-2015 End: 08-13-2015 X-ray exam, knee, 4 or more X-Ray, Knee [facility] Work Phone: Start: 03-28-2015 End: 08-13-2015 *CBC with Differential *CBC with Differential [facility] Work Phone: Start: 03-28-2015 End: 08-10-2015 *CMP Complete Metabolic Panel *CMP Complete Metabolic Panel [facility] Work Phone: Start: 03-28-2015 End: 08-11-2015 Hemoglobin A1c/Hemoglobin.total mass fraction (Bld) *HgA1C [facility] Work Phone: Start: 03-28-2015 End: 08-11-2015 Lipid panel [AGGREGATE] *Lipid Profile [facility] Work Phone: Start: 03-28-2015 End: 08-13-2015 *CBC with Differential *CBC with Differential [facility] Work Phone: Start: 03-28-2015 End: 08-10-2015 *CMP Complete Metabolic Panel *CMP Complete Metabolic Panel [place] [address] [facility] Work Phone: Start: 03-28-2015 End: 08-11-2015 HbA1c *HgA1C [facility] Work Phone: Start: 03-28-2015 End: 08-11-2015 Lipid panel [AGGREGATE] *Lipid Profile [facility] Work Phone: Start: 02-27-2015 End: 05-27-2017 Mammogram, screening Mammogram, Screening, both breasts [facility] Work Phone: Start: 02-27-2015 End: 02-27-2015 Mammogram, screening Mammogram, Screening, both breasts [facility] Work Phone: Start: 02-19-2015 End: 02-19-2015 Follow Up Appt 6 months Follow Up Appt 6 months [facility] Work Phone: Start: 02-19-2015 End: 02-19-2015 PFM PF [facility] Work Phone: Start: 02-19-2015 End: 02-19-2015 Follow Up Appt 6 months Follow Up Appt 6 months [facility] Work Phone: Start: 02-19-2015 End: 02-19-[address] [facility] [address] [facility] Work Phone: Start: 12-13-2014 End: 12-13-2014 *BMP *BMP [facility] Work Phone: Start: 12-13-2014 End: 12-13-2014 aPTT *PTT-Partial Thromboplastin Time [facility] Work Phone: Start: 12-13-2014 End: 12-13-2014 Carotid duplex Carotid duplex [facility] Work Phone: Start: 12-13-2014 End: 12-13-2014 CBC W Auto Differential panel - Blood *CBC without Diff [facility] Work Phone: Start: 12-13-2014 End: 12-15-2014 Chest x-ray X-Ray, Chest, PA & Lateral [facility] Work Phone: Start: 12-13-2014 End: 12-13-2014 Ecg routine ecg w/least 12 lds w/i&r EKG (In office) [facility] [employer] [facility] Work Phone: Start: 12-13-2014 End: 12-13-2014 Follow Up Appt 6 weeks Follow Up Appt 6 weeks [facility] Work Phone: Start: 12-13-2014 End: 12-13-2014 INR Coag RelTime (PPP) *PT/INR [facility] Work Phone: Start: 12-13-2014 End: 12-13-2014 Left Heart Cath Left Heart Cath [facility] [employer] Work Phone: Start: 12-13-2014 End: 12-13-2014 MMM MMM [facility] Work Phone: Start: 12-13-2014 End: 12-13-2014 *BMP *BMP [facility] Work Phone: Start: 12-13-2014 End: 12-13-2014 aPTT *PTT-Partial Thromboplastin Time [facility] Work Phone: Start: 12-13-2014 End: 12-13-2014 Carotid duplex Carotid duplex [facility] Work Phone: Start: 12-13-2014 End: 12-13-2014 CBC W Auto Differential panel - Blood *CBC without Diff [facility] Work Phone: Start: 12-13-2014 End: 12-15-2014 Chest x-ray X-Ray, Chest, PA & Lateral [facility] Work Phone: Start: 12-13-2014 End: 12-13-2014 Coagulation factor induced.INR assay in platelet poor plasma *PT/INR [facility] Work Phone: Start: 12-13-2014 End: 12-13-2014 Electrocardiogram, complete EKG (In office) [facility] Work Phone: Start: 12-13-2014 End: 12-13-2014 Follow Up Appt 6 weeks Follow Up Appt [address] [facility] Work Phone: Start: 12-13-2014 End: 12-13-2014 Left Heart Cath Left Heart Cath [facility] [address] [facility] Work Phone: Start: 12-13-2014 End: 12-13-2014 MMM MMM [facility] Work Phone: Start: 11-28-2014 End: 12-06-2014 Ecg routine ecg w/least 12 lds w/i&r EKG (In office) [facility] Work Phone: Start: 11-28-2014 End: 12-06-2014 Nuclear stress test -Lexiscan Nuclear stress test -[facility] [employer] Work Phone: Start: 11-28-2014 End: 12-06-2014 Electrocardiogram, complete EKG (In office) [facility] Work Phone: Start: 11-28-2014 End: 12-06-2014 Nuclear stress test -Lexiscan Nuclear stress test -[employer] [facility] Work Phone: Start: 10-26-2014 End: 11-23-2014 *CMP Complete Metabolic Panel *CMP Complete Metabolic Panel [facility] Work Phone: Start: 10-26-2014 End: 11-23-2014 *MIACRE Microalb; Creat Ratio, Coolidge UR *MIACRE Microalb; Creat Ratio, Coolidge UR [facility] Work Phone: Start: 10-26-2014 End: 11-23-2014 Hemoglobin A1c/Hemoglobin.total mass fraction (Bld) HGBA1C [facility] Work Phone: Start: 10-26-2014 End: 11-23-2014 Lipid Profile Lipid Profile [facility] Work Phone: Start: 10-26-2014 End: 11-23-2014 Thyroid stimulating hormone (TSH) TSH [facility] Work Phone: Start: 10-26-2014 End: 11-23-2014 *CMP Complete Metabolic Panel *CMP Complete Metabolic Panel [facility] Work Phone: Start: 10-26-2014 End: 11-23-2014 *MIACRE Microalb; Creat Ratio, Coolidge UR *MIACRE Microalb; Creat Ratio, Coolidge UR [facility] Work Phone: Start: 10-26-2014 End: 11-23-2014 HbA1c HGBA1C [facility] Work Phone: Start: 10-26-2014 End: 11-23-2014 Lipid Profile Lipid Profile [facility] Work Phone: Start: 10-26-2014 End: 11-23-2014 Thyroid stimulating hormone (TSH) TSH [facility] Work Phone: Start: 07-27-2014 End: 07-27-2014 *BMP *BMP [facility] Work Phone: Start: 07-27-2014 End: 07-27-2014 Hemoglobin A1c/Hemoglobin.total mass fraction (Bld) *HgA1C [facility] Work Phone: Start: 07-27-2014 End: 07-27-2014 Injection single/doctor of audiology trigger point 1/2 muscles Injection Trigger Point 1-2 Muscles [facility] Work Phone: Start: 07-27-2014 End: 07-27-2014 *BMP *BMP [facility] Work Phone: Start: 07-27-2014 End: 07-27-2014 HbA1c *HgA1C [facility] [address] [facility] Work Phone: Start: 07-27-2014 End: 07-27-2014 Inj trigger point, 1/2 muscl Injection Trigger Point 1-[address] [facility] Work Phone: Start: 06-23-2014 End: 06-28-2014 Neurology Referral Neurology Referral Maurice Buenrostro, [address], [place], [address] [facility] Work Phone: Start: 06-23-2014 End: 06-28-2014 Neurology Referral Neurology Referral Maurice Buenrostro, [address], [address], [place], [address] [facility] Work Phone: Start: 05-30-2014 End: 07-27-2014 *BMP *BMP [facility] [employer] Work Phone: Start: 05-30-2014 End: 07-27-2014 Hemoglobin A1c/Hemoglobin.total mass fraction (Bld) *HgA1C [facility] Work Phone: Start: 05-30-2014 End: 07-27-2014 *BMP *BMP [facility] Work Phone: Start: 05-30-2014 End: 07-27-2014 HbA1c *HgA1C [facility] [facility] Work Phone: Start: 04-26-2014 End: 07-27-2014 EMG EMG [facility] Work Phone: Start: 04-26-2014 End: 07-27-2014 Nerve Conduction Nerve Conduction [facility] Work Phone: Start: 04-26-2014 End: 07-27-2014 EMG EM[address] [facility] [facility] Work Phone: Start: 04-26-2014 End: 07-27-2014 Nerve Conduction Nerve Conduction [facility] Work Phone: Start: 03-06-2014 End: 03-09-2014 Mammogram, Screening, both breasts Mammogram, Screening, both breasts [employer] Work Phone: Start: 03-06-2014 End: 03-09-2014 Mammogram, Screening, both breasts Mammogram, Screening, both breasts [facility] [facility] Work Phone: Start: 01-19-2014 End: 04-19-2014 *CMP Complete Metabolic Panel *CMP Complete Metabolic Panel [facility] Work Phone: Start: 01-19-2014 End: 07-27-2014 EMG EMG [facility] [employer] [facility] Work Phone: Start: 01-19-2014 End: 04-19-2014 Hemoglobin A1c/Hemoglobin.total mass fraction (Bld) *HgA1C [facility] Work Phone: Start: 01-19-2014 End: 04-19-2014 Lipid panel [AGGREGATE] *Lipid Profile [facility] Work Phone: Start: 01-19-2014 End: 07-27-2014 Nerve Conduction Nerve Conduction [facility] Work Phone: Start: 01-19-2014 End: 01-19-2014 Radex shoulder complete minimum 2 views X-Ray, Shoulder [facility] Work Phone: Start: 01-19-2014 End: 04-19-2014 *CMP Complete Metabolic Panel *CMP Complete Metabolic Panel [facility] Work Phone: Start: 01-19-2014 End: 07-27-2014 EMG EMG [facility] Work Phone: Start: 01-19-2014 End: 04-19-2014 HbA1c *HgA1C [facility] Work Phone: Start: 01-19-2014 End: 04-19-2014 Lipid panel [AGGREGATE] *Lipid Profile [facility] Work Phone: Start: 01-19-2014 End: 07-27-2014 Nerve Conduction Nerve Conduction [facility] Work Phone: Start: 01-19-2014 End: 01-19-2014 X-ray exam of shoulder X-Ray, Shoulder [facility] Work Phone: Start: 01-17-2014 End: 01-19-2014 Hemoglobin A1c/Hemoglobin.total mass fraction (Bld) *HgA1C [facility] [employer] [facility] Work Phone: Start: 01-17-2014 End: 01-19-2014 HbA1c *HgA1C [facility] Work Phone: Start: 09-08-2013 End: 09-08-2013 Ecg routine ecg w/least 12 lds w/i&r EKG (In office) [employer] [facility] Work Phone: Start: 09-08-2013 End: 09-08-2013 Echocardiography Echocardiogram (complete) [facility] Work Phone: Start: 09-08-2013 End: 09-08-2013 Follow Up Appt 6 weeks Follow Up Appt 6 weeks [employer] [facility] Work Phone: Start: 09-08-2013 End: 09-08-2013 MMM MMM [facility] Work Phone: Start: 09-08-2013 End: 09-08-2013 Echocardiography Echocardiogram (complete) [facility] Work Phone: Start: 09-08-2013 End: 09-08-2013 Electrocardiogram, complete EKG (In office) [facility] Work Phone: Start: 09-08-2013 End: 09-08-2013 Follow Up Appt 6 weeks Follow Up Appt 6 weeks [facility] Work Phone: Start: 09-08-2013 End: 09-08-2013 [employer] Work Phone: Start: 08-29-2013 End: 08-30-2013 Cardiac Referral Cardiac Referral [address] [place] [address], [address], [place], [address] [facility] Work Phone: Start: 08-29-2013 End: 08-30-2013 Cardiac Referral Cardiac Referral [address] [place] [address], [address], [place], [address] [facility] Work Phone: Start: 08-12-2013 End: 09-05-2013 ENT referral ENT referral Beto Pratt, [address] [place] [address], [place], [address] [facility] Work Phone: Start: 08-12-2013 End: 09-05-2013 ENT referral ENT referral Beto Pratt, [address] [place] [address], [place], [address] [facility] Work Phone: Start: 08-01-2013 End: 08-15-2013 48 hour holter monitor 48 hour holter monitor [facility] [employer] [facility] Work Phone: Start: 08-01-2013 End: 08-09-2013 Carotid duplex Carotid duplex [facility] [employer] [facility] Work Phone: Start: 08-01-2013 End: 08-15-2013 48 hour holter monitor 48 hour holter monitor [facility] [facility] Work Phone: Start: 08-01-2013 End: 08-09-2013 Carotid duplex Carotid duplex [facility] Work Phone: Start: 06-23-2013 End: 09-07-2013 *CMP Complete Metabolic Panel *CMP Complete Metabolic Panel [facility] [employer] [facility] Work Phone: Start: 06-23-2013 End: 09-07-2013 *MIACRE Microalb; Creat Ratio, Coolidge UR *MIACRE Microalb; Creat Ratio, Coolidge UR Davin CPM [employer] Work Phone: Start: 06-23-2013 End: 09-07-2013 CBC W Auto Differential panel - Blood *CBC without Diff [facility]in [employer] Work Phone: Start: 06-23-2013 End: 09-07-2013 Hemoglobin A1c/Hemoglobin.total mass fraction (Bld) *HgA1C Davin CPM [facility] Work Phone: Start: 06-23-2013 End: 09-07-2013 Lipid panel [AGGREGATE] *Lipid Profile Davin CPM [employer] Work Phone: Start: 06-23-2013 End: 09-07-2013 *CMP Complete Metabolic Panel *CMP Complete Metabolic Panel [facility] Work Phone: Start: 06-23-2013 End: 09-07-2013 *MIACRE Microalb; Creat Ratio, [place] UR *MIACRE Microalb; Creat Ratio, [place] UR [facility] Work Phone: Start: 06-23-2013 End: 09-07-2013 CBC W Auto Differential panel - Blood *CBC without Diff [facility] Work Phone: Start: 06-23-2013 End: 09-07-2013 HbA1c *HgA1C [facility] [address] [facility] Work Phone: Start: 06-23-2013 End: 09-07-2013 Lipid panel [AGGREGATE] *Lipid Profile [facility] Work Phone: Start: 03-01-2013 End: 03-01-2013 *BMP *BMP [facility] Work Phone: Start: 03-01-2013 End: 03-01-2013 Bone density scan Bone Density Study [employer] Work Phone: Start: 03-01-2013 End: 03-01-2013 Hemoglobin A1c/Hemoglobin.total mass fraction (Bld) *HgA1C [facility] Work Phone: Start: 03-01-2013 End: 03-01-2013 Mammogram, Screening, both breasts Mammogram, Screening, both breasts [facility] Work Phone: Start: 03-01-2013 End: 03-01-2013 *BMP *BMP [facility] Work Phone: Start: 03-01-2013 End: 03-01-2013 Bone density scan Bone Density Study [facility] Work Phone: Start: 03-01-2013 End: 03-01-2013 HbA1c *HgA1C [facility] [facility] Work Phone: Start: 03-01-2013 End: 03-01-2013 Mammogram, Screening, both breasts Mammogram, Screening, both breasts [facility] Work Phone: Start: 11-30-2012 End: 11-30-2012 *BMP *BMP [facility] Work Phone: Start: 11-30-2012 End: 12-01-2012 Hemoglobin A1c/Hemoglobin.total mass fraction (Bld) *HgA1C [facility] Work Phone: Start: 11-30-2012 End: 11-30-2012 *BMP *BMP [facility] Work Phone: Start: 11-30-2012 End: 12-01-2012 HbA1c *HgA1C [facility] Work Phone: Start: 05-24-2012 End: 08-25-2012 *CMP Complete Metabolic Panel *CMP Complete Metabolic Panel [facility] Work Phone: Start: 05-24-2012 End: 08-25-2012 *Microalbumin, Creatine Ratio, rand urine *Microalbumin, Creatine Ratio, rand urine [facility] Work Phone: Start: 05-24-2012 End: 05-24-2012 Follow Up Appt 3 months Follow Up Appt 3 months [facility] Work Phone: Start: 05-24-2012 End: 08-25-2012 Hemoglobin A1c/Hemoglobin.total mass fraction (Bld) *HgA1C [facility] Work Phone: Start: 05-24-2012 End: 08-25-2012 Lipid panel [AGGREGATE] *Lipid Profile [facility] Work Phone: Start: 05-24-2012 End: 08-25-2012 *CMP Complete Metabolic Panel *CMP Complete Metabolic Panel [facility] Work Phone: Start: 05-24-2012 End: 08-25-2012 *Microalbumin, Creatine Ratio, rand urine *Microalbumin, Creatine Ratio, rand urine [facility] Work Phone: Start: 05-24-2012 End: 05-24-2012 Follow Up Appt 3 months Follow Up Appt 3 months [facility] Work Phone: Start: 05-24-2012 End: 08-25-2012 HbA1c *HgA1C [facility] Work Phone: Start: 05-24-2012 End: 08-25-2012 Lipid panel [AGGREGATE] *Lipid Profile [facility] Work Phone: Start: 04-09-2012 End: 05-17-2012 *BMP *BMP [facility] [employer] Work Phone: Start: 04-09-2012 End: 05-17-2012 Hemoglobin A1c/Hemoglobin.total mass fraction (Bld) *HgA1C [facility] [employer] Work Phone: Start: 04-09-2012 End: 05-17-2012 *BMP *BMP [facility] Work Phone: Start: 04-09-2012 End: 05-17-2012 HbA1c *HgA1C [facility] Work Phone: Start: 10-02-2011 End: 12-18-2011 Ct soft tissue neck w/contrast material CT Neck Soft Tissue with Contrast [facility] Work Phone: Start: 10-02-2011 End: 12-18-2011 Ct soft tissue neck w/dye CT Neck Soft Tissue with Contrast [facility] Work Phone: Start: 08-12-2011 End: 2011 *CMP Complete Metabolic Panel *CMP Complete Metabolic Panel [facility] Work Phone: Start: 08-12-2011 End: 2011 Hemoglobin A1c/Hemoglobin.total mass fraction (Bld) *HgA1C [facility] [employer] Work Phone: Start: 08-12-2011 End: 2011 Lipid panel [AGGREGATE] *Lipid Profile [facility] Work Phone: Start: 08-12-2011 End: 2011 *CMP Complete Metabolic Panel *CMP Complete Metabolic Panel [facility] Work Phone: Start: 08-12-2011 End: 2011 HbA1c *HgA1C [facility] Work Phone: Start: 08-12-2011 End: 2011 Lipid panel [AGGREGATE] *Lipid Profile [facility] Work Phone: Start: 05-13-2011 End: 10-03-2011 Radex foot complete minimum 3 views X-Ray, Foot [facility] Work Phone: Start: 05-13-2011 End: 10-03-2011 X-ray exam of foot X-Ray, Foot [facility] Work Phone: Start: 03-26-2011 End: 2011 Surgery Referral Surgery Referral [facility] Work Phone: Start: 03-26-2011 End: 2011 Surgery Referral Surgery Referral [facility] Work Phone: Start: 02-13-2011 End: 03-27-2011 Hemoglobin A1c/Hemoglobin.total mass fraction (Bld) *HgA1C [facility] Work Phone: Start: 02-13-2011 End: 03-27-2011 HbA1c *HgA1C [facility] Work Phone: Start: 10-02-2010 End: 10-03-2010 Basic metabolic panel calcium total *BMP [facility] Work Phone: Start: 10-02-2010 End: 10-03-2010 Blood count manual cell count each *CBC with Differential [facility] [employer] Work Phone: Start: 10-02-2010 End: 10-03-2010 Hemoglobin A1c/Hemoglobin.total mass fraction (Bld) *HgA1C [facility] Work Phone: Start: 10-02-2010 End: 10-03-2010 Hepatic function panel *Liver/Hepatic Function Panel [facility] Work Phone: Start: 10-02-2010 End: 10-03-2010 Lipid panel *Lipid Profile [facility] Work Phone: Start: 10-02-2010 End: 10-03-2010 Protein mass conc *Lipid Profile [facility] Work Phone: Start: 10-02-2010 End: 10-03-2010 HbA1c *HgA1C [facility] Work Phone: Start: 10-02-2010 End: 10-03-2010 Hepatic function panel *Liver/Hepatic Function Panel [facility] Work Phone: Start: 10-02-2010 End: 10-03-2010 Lipid panel *Lipid Profile [facility] Work Phone: Start: 10-02-2010 End: 10-03-2010 Manual cell count, each *CBC with Differential [facility] Work Phone: Start: 10-02-2010 End: 10-03-2010 Metabolic panel total ca *BMP [facility] Work Phone: Start: 2006 BONE DENSITY BONE DENSITY [facility] Start: 2006 PNEUMOCOCCAL: 65+ (1 - PCV) PNEUMOCOCCAL: 65+ (1 - PCV) [facility] Start: 1991 SHINGRIX VACCINE (1 of 2) SHINGRIX VACCINE (1 of 2) [facility] Start: 1960 Urine microalbumin profile DTAP,TDAP,TD (1 - Tdap) [facility] Magnesium [Mass/volu me] in Serum or Plasma [facility] Patient referral [facility] Work Phone: Immunizations Immunization Date Immunization Notes Care Provider Fa cility 08-27-2023 RSV Adult BiValent (Abrysvo) Dr. Alicia Florentino DO Work Phone: [facility] 06-11-2023 Covid (Spikevax) Dr. Alicia walton DO Work Phone: [facility] 05-26-2023 Influenza, high dose seasonal Dr. Alicia Florentino DO Work Phone: [facility] 05-26-2023 Pneumococcal Vaccine PCV20 (Prevnar 20) Dr. Alicia Florentino DO Work Phone: [facility] 05-26-2022 Covid Moderna Bivale nt Booster Dr. Alicia Florentino DO Work Phone: [facility] 11-01-2020 Covid (Vicente & Vicente) Dr. Alicia Florentino DO Work Phone: [facility] 05-24-2016 Influenza virus vaccine [facility] 05-08-2015 varicella zoster imm une globulin; Translations: [ZOSTER VACCINE LIVE] Nita Ram[facility]rez [facility] Work Phone: 05-24-2013 Influenza virus vaccine W [facility] 09-24-2009 Pneumococcal Vaccine [facility] Work Phone: 09-24-2009 pneumococcal vaccine , unspecified formulation [facility] Payers Date Payer Category Payer Self-pay [id number] 2024 Unknown [id number] 2004 Unknown [id number] 2004 Unknown LEONIE [place] [id number] 2004-Present [phone] [address] [place] [address] Indemnity [id number] 2002 Medicare [id number] 2002 Medicare MEDICARE MEDICAR E A AND B [id number] 2002-Present [phone] [place] [address] Medicare [id number] Unknown [id number] Unknown [id number] Social History Date Type Detail Facility Start: 05-31-2021 End: 12-03-2023 Tobacco smoking status NHIS Unknown if ever smoked [facility] Start: 2016 None [facility] Start: 2016 Alone [facility] Start: 2016 Non-smoker [facility] Start: 1940 Sex Assigned At Female [facility] Tobacco smoking status NHIS Never smoked tobacco [facility] Start: 08-22-2022 Alcohol intake Current non-dr cloth shrinking tester of alcohol (finding) [facility] Start: 1940 Sex Assigned At Not on file [facility] Start: 02-13-2024 Tobacco smoking status NHIS Ex-smoker (finding) [facility] NEGATED: Highlighted row [facility] Medical Equipment Procedure Code Equipment Code Equipment Original Text Equipment Identifier Dates TEST STRIPS TEST STRIPS [id number] Start: 05-21-2015 LANCETS LANCETS [id number] Start: 05-21-2015 INSULIN SYRINGE-NEEDLE U-100 [id number] Start: 10-22-2012 End: 08-31-2013 INSULIN SYRINGE-NEEDLE U-100 BD INSULIN SYRINGE ULTRAFINE 31G X 5/16 0.3 ML [id number] Start: 03-17-2011 INSULIN SYRINGE-NEEDLE U-100 BD INSULIN SYRINGE ULTRAFINE 31G X 5/16 0.3 ML [id number] Start: 05-20-2012 ERCP (endoscopic retrograde cholangiopancreato graphy) Polymeric biliary stent, non-bioabsorbable ()[id number] [facility] Start: 09-03-2023 ACCUCHECK COMPACT TEST STRIPS ACCUCHECK COMPACT TEST STRIPS [id number] Start: 12-04-2010 ACCUCHECK COMPAC T TEST STRIPS [id number] Start: 10-22-2012 Insulin Syringe-Needle U-100 (Bd Insulin Syringe Ultra-Fine) 0.5 mL 31 gauge x 5/16 syringe Start: 02-13-2024 Goals Date Patient Goal Desired Activity /State Functional Status Date Assessment Result Facility 09-10-2023 Functional status Chair [facility] Work Phone: Mental Status Date Assessment Result Facility 12-09-2023 Cognitive function Voice/Name [facility] Work Phone: 09-09-2023 Cognitive function Voice/Name [facility] Work Phone: 09-02-2023 Cognitive function Voice/Name [facility] Work Phone: Clinical Notes 08-22-2022 to 02-15-2025 Note Date & Type Note Facility 02-15-2025 Radiology Diagnostic study note [facility] Imaging Services [address] [place] [address] L/S Spine Min 4 Views MR#: [id number] Acct: [id number] Name: KEIKO GOEL Rep #: [id number] : 1940 F 84 From: Shantelle Jacob MD PCP: Dr. Alicia Florentino, DO Status: REG CLI Study:L/S Spine Min 4 Views Date of Exam: 02/14/25 Exam# [id number] Ordering Dr: Dain Mckenzie MD PROCEDURE: L/S SPINE MIN 4 VIEWS 02/14/2025 REASON FOR EXAM: BACK PAIN TECHNIQUE: L/S SPINE MIN 4 VIEWS COMPARISON: 09/08/2023. FINDINGS: Grade 1 anterolisthesis of L4 on L5 measuring 4.7 mm. No associated pars defect is identified. Mild levoscoliosis apex at L3. There are diffuse spondylotic changes. Findings are demonstrated to by diffuse disc space narrowing, osteophyte formation and degenerative endplate sclerosis. There is diffuse facet joint arthropathy with secondary bilateral neural foramina narrowing. No fracture or dislocation is seen. No aggressive lytic or blastic bony lesion is noted. RAD/L/S Spine Min 4 Views IMPRESSION: Spondylosis. [facility] CC: Dr. Tammi Mckenzie MD; Dr. Alicia Florentino, DO ~ Box Press Operator: Signed [facility] 12-09-2023 History and physi km note Note Date/Time December 09, 2023 10:36am [facility] Medical Records Department [address] [place] [address] History & Physical Exam 12/09/23 1033 MR#: [id number] Acct: [id number] Name: KEIKO GOEL Rep #:[id number] : 1940 83 From: Azar Friend DO PCP: Dr. Alicia Florentino, DO Status:REG [facility] Location: [place] [address] History and Physical Date of Admission: 12/09/23 82 F who presents with worsening right upper quadrant pain. She has a past medical history of morbid obesity, Asthma, HTN, HLD, Diabetes mellitus type II w/ chronic peripheral neuropathy, GERD, PAC/PVC, RLS, Hx nephrolithiasis who presents to the [facility] ED on 09/02/23 with history of onset of chest discomfort as well as upper abdominal pain and right upper quadrant pain. She reported her pain as 9-10/10, worse with palpation. She notes minimal improvement with morphine. She does report history of occasional wheezing and dyspnea with heavy activity but otherwise notes last asthma exacerbation was > 2years prior. She denies having any inhaler should she needed unfortunately. Workup in the ED included T98.4, heart 76, BP 147/64, respiratory rate 14, under percent room air, CBC with WBC 7.5, human 13.2, platelet 345 with lymphopenia, CMP with chloride 109, glucose 171, calcium 10.5, T. bili 2.10, AST/LT 190/90, alk phos 173, troponin 7 with repeat delta 10, lipase 47, chest x-ray with no acute cardiopulmonary finding, gallbladder ultrasound with hepatomegaly and fatty infiltration of the liver, multiple gallstones with a positive sonographic Murray sign and a small amount of pericholecystic fluid, EKG was sinus rhythm with PAC and occasional PVC otherwise no acute cardiopulmonary finding. CT scan of the abdomen pelvis there is decreased attenuation of the liver consistent with steatosis. There are multiple gallstones. Mild distention of thegallbladder lumen. Normal spleen. Normal pancreas Laboratory analysis WBC 7.2, RBC 4.02 L, Hgb 11.6 L, Hct 36.0 L, MCV 89.6, MCH 28.9, MCHC 32.2, RDW Std Deviation 46.0 H, RDW Coeff of Jorge L 14.2, Plt Count 299,MPV 9.7, Immature Gran % (Auto) 0.000, Neut % (Auto) 72.6 H, Lymph % (Auto) 21.2, Ulster % (Auto) 6.0, Eos % (Auto) 0.1, Baso % (Auto) 0.1, Absolute Neuts (auto) 5.2, Absolute Lymphs (auto) 1.52, Nucleated RBC % 0, Sodium 143, Potassium 4.0, Chloride 113 H, Carbon Dioxide 26.0, Anion Gap 4 L, BUN 11, Creatinine 0.98, Estim Creat Clear Calc 49.88, Est GFR (MDRD) Af Amer 70, Est GFR (MDRD) Non-Af 58 L, BUN/Creatinine Ratio 11.2, Glucose 78, Hemoglobin A1c 6.5 H, Calcium 8.7, Total Bilirubin 4.90 H, AST 154 H, ALT 136 H, Alkaline Phosphatase 175 H, Total Protein 6.3 L, Albumin 2.8 L, Globulin 3.5, Albumin/Globulin Ratio 0.8 L [facility] Medical History (Updated 09/02/23 @ 15:11 by Iwona Hawk) Asthma Chronic pain Diabetes Diabetes mellitus, type II Essential hypertension Former smoker GERD (gastroesophageal reflux disease) Hyperlipidemia Hypertension Irregular heart beat Morbid obesity with BMI of 50.0-59.9, adult Nephrolithiasis Peripheral neuropathy Premature atrial contractions Premature ventricular contraction Rheumatoid arthritis RLS (restless legs syndrome) Home Medications atorvastatin 10 mg tablet 10 mg PO QHS CHOLESTEROL 07/28/13 [History Last Taken 10/05/16 08:30] esomeprazole magnesium 40 mg capsule,delayed release 40 mg PO DAILY heartburn /acid reflux 07/28/13 [History Last Taken 12/02/16 09:00] metoprolol tartrate 25 mg tablet 25 tab PO BID high blood pressure 12/26/14 [History Last Taken 12/02/16 09:00] ttegjmdn-abd-ouwhk acid 0.4 mg-lycopene 300 mcg-lutein 250 mcg tablet 1 ea PO DAILY supplement 12/26/14 [History Last Taken 10/05/16 08:30] calcium carbonate 600 mg calcium (1,500 mg) tablet 1,200 mg PO DAILY SUPPLEMENT 10/05/16 [History Last Taken 10/05/16 08:30] amlodipine 5 mg-valsartan 320 mg tablet 1 tab PO DAILY HIGH BLOOD PRESSURE 11/19/16 [History Last Taken 12/02/16 09:00] acetaminophen 500 mg tablet 1,000 mg PO Q8 PRN pain 02/19/18 [History Last Taken Unknown] aspirin 81 mg tablet,delayed release 81 mg PO DAILY HEART MAINTENENCE 03/05/19 [History Last Taken Unknown] insulin glargine 100 unit/mL (3 mL) subcutaneous pen 45 unit subcut QHS DIABETES 04/01/19 [History Last Taken Unknown] insulin lispro 100 unit/mL subcutaneous pen 8 unit subcut TID DIABETES 04/01/19 [History Last Taken Unknown] nitroglycerin 0.4 mg sublingual tablet 0.4 mg sublingual Q5M PRN Chest Pain #25 tabs 04/02/20 [Rx Last Taken Unknown] etodolac 300 mg capsule 300 mg PO BID INFLAMMATION 09/02/23 [History Last Taken Unknown] potassium chloride 20 mEq tablet,extended release(part/cryst) (Klor-Con M) 20 meq PO DAILY SUPPLEMENT 09/02/23 [History Last Taken Unknown] Allergy/AdvReac Type Severity Reaction Status Date / Time hydromorphone HCl Allergy Nausea Verified 09/02/23 08:44 [From Dilaudid] naproxen [From Aleve] AdvReac Severe Nausea Verified 09/02/23 08:44 venlafaxine AdvReac Severe Nausea Verified 09/02/23 08:44 adhesive AdvReac Other Verified 09/02/23 08:44 aspirin AdvReac BABY OK. Verified 09/02/23 08:44 REG STRENG UPSET STOMACH Family History Father DiabetesMother HypertensionSister Hypertension CAD (coronary artery disease) Myocardial infarctionSister Diabetes Surgical History (Updated 09/02/23 @ 15:11 by Iwona Hawk) History of appendectomy History of coronary artery stent placement History of hernia repair History of knee replacement procedure of left knee History of knee replacement procedure of right knee History of repair of rotator cuff History of total hysterectomy Social History (Updated 09/02/23 @ 14:[address] Babita Beltrán MD) household members: none Smoking Status: Former smoker how long ago did patient quit smoking: Quit ~ 40 yrs prior, smoked 1/4 ppd since teen until quit. alcohol intake: never substance use type: does not use ROS Constitutional Constitutional: Reports fatigue and poor appetite Eyes Eyes: Reports systems reviewed and no addt'l complaints, except as documented ENT HEENT: Reports systems reviewed and no addt'l complaints, except as documented Cardiovascular Cardiovascular: Reports chest pain, hypertension, irregular heart rhythm and vomiting Respiratory/Chest Respiratory/Chest: Reports systems reviewed and no addt'l complaints, except as documented Gastrointestinal Gastrointestinal: Reports systems reviewed and no addt'l complaints, except as documented Genitourinary Genitourinary: Reports systems reviewed and no addt'l complaints, except as documented Musculoskeletal Musculoskeletal: Reports systems reviewed and no addt'l complaints, except as documented Integumentary Integumentary: Reports systems reviewed and no addt'l complaints, except as documented Neurologic Neurologic: Reports systems reviewed and no addt'l complaints, except as documented Psychiatric Psychiatric: Reports systems reviewed and no addt'l complaints, except as documented Endocrine Endocrinology: Reports systems reviewed and no addt'l complaints, except as documented Hematologic/Lymphatic Hematologic/Lymphatic: Reports systems reviewed and no addt'l complaints, exceptas documented Allergic/Immunologic Allergic/Immunologic: Reports systems reviewed and no addt'l complaints, except as documented Physical Exam Const oriented x3 and no apparent distress Resp normal respiratory effort GI GI Narrative: Obese, nondistended, soft, tender to palpation in the right upper quadrant with positive Murray sign Lab / Micro Data 09/03/23 05:45 09/03/23 05:45 Labs: Laboratory Results - last 24 hr 09/02/23 21:18: POC Glucose 119 H 09/03/23 02:25: POC Glucose 105 09/03/23 05:45: WBC 7.2, RBC 4.02 L, Hgb 11.6 L, Hct 36.0 L, MCV 89.6, MCH 28.9, MCHC 32.2, RDW Std Deviation 46.0 H, RDW Coeff of Jorge L 14.2, Plt Count 299, MPV 9.7, Immature Gran % (Auto) 0.000, Neut % (Auto) 72.6 H, Lymph % (Auto) 21.2, Ulster % (Auto) 6.0, Eos % (Auto) 0.1, Baso % (Auto) 0.1, Absolute Neuts (auto) 5.2, Absolute Lymphs (auto) 1.52, Nucleated RBC % 0, Sodium 143, Potassium 4.0, Chloride 113 H, Carbon Dioxide 26.0, Anion Gap 4 L, BUN 11, Creatinine 0.98, Estim Creat Clear Calc 49.88, Est GFR (MDRD) Af Amer 70, Est GFR (MDRD) Non-Af 58 L, BUN/Creatinine Ratio 11.2, Glucose 78, Hemoglobin A1c 6.5 H, Calcium 8.7, Total Bilirubin 4.90 H, AST 154 H, ALT 136 H, Alkaline Phosphatase 175 H, Total Protein 6.3 L, Albumin 2.8 L, Globulin 3.5, Albumin/Globulin Ratio 0.8 L 09/03/23 10:08: POC Glucose 52 L 09/03/23 10:30: POC Glucose 164 H 09/03/23 15:45: POC Glucose 61 L [facility] Radiology Impression Abdomen/Pelvis CT 09/03/23 07:39 IMPRESSION: Hepatomegaly and fatty infiltration of the liver. Mildly distended gallbladder lumen with multiple gallstones. 2. Adjacent calculi are seen in the midportion of the right ureter. Bibasilar atelectasis. Electronically Signed: Young Rucker MD at 8:55 EST , Assessment & Plan Assessment/Plan (1) Acute cholecystitis: PLAN: Plan The patient is an 82 y/o F w/ PMHx: Morbid obesity, Asthma, HTN, HLD, Diabetes mellitus type II w/ chronic peripheral neuropathy, GERD, PAC/PVC, RLS, Hx nephrolithiasis who presents to the [facility] ED on 09/02/23 with history of onset of chest discomfort as well as upper abdominal pain and right upper quadrant pain that started at approximately 3 AM on day of presentation with associated nauseaand emesis with no recent fever, chills or any diarrhea reporting her pain is severe and constant prompting ED evaluation. Acute cholecystitis with some concern for choledocholithiasis w/ abdominal pain, N/V with significant hyperbilirubinemia and transaminitis: We discussed the option of pursuing an MRCP due to the elevation in her liver enzymes consistent with cholestatic stasis and likely obstructive jaundice. . Therefore she agreed to undergo ERCP. she did well during ERCP. 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 She had a temporary stent placed and she comes in today to have the stent removed. Risk and benefits of the procedure were explained to the patient including not withstanding infection, bleeding, sepsis, perforation, post ERCP pancreatitis,. She will have an ASA of 3 for the procedure. 12/09/23 1036 <Electronically signed by Azar Cespedes DO> Cosigner Signature (if applicable): CC: Dr. Alicia Florentino, ; Azar Cespedes DO~ Signed [facility] Work Phone: [phone] 230-107504-17-2024 Procedure [facility] 12-09-2023 Procedure [facility]01-24-2023 Miscellaneous Notes* Telephone Encounter - Larisa Barker LPN - 09/16/2022 11:38 AM EST Pt reports she has a pcp outside of the clinic and is not sure why a rx request was sent here unless it has something to do with being at [facility] last month. Larisa Barker LPN * Telephone Encounter - Lynnette Zayas LPN - 09/15/2022 10:22 AM EST TC to Pt. LM to call [facility] to schedule a New Pt appt. Has not been seen since 2011. Lynnette Zayas LPN [facility] NoteHNO ID: [id number] Author: Volodymyr Leo APRN.[facility] Service: ? Author Type: Nurse Practitioner Type: Progress Notes Filed: 08/22/2022 12:06 PM Note Text: CC: Patient presents with: Head Congestion: And chest congestion x5 days HPI: Keiko Goel is a 81 year old female [...] symptoms occur. Patient agreeable to treatment plan. Volodymyr Leo APRN.[facility]12-30-2022 Instructions* Patient Instructions* Volodymyr Leo APRN.[facility] - 08/22/2022 11:44 AM EST Diagnosis: Assessment [...] the lung from pneumonia. A persistent cough las ting longer than 4-6 weeks requires medical evaluation [...] or other serious complaints. [facility] History of Present illness Narrative* Volodymyr Leo APRN.CNP - 08/22/2022 11:40 AM EST CC: Patient presents with: Head Congestion: And chest congestion x5 days HPI: Keiko Goel is a 81 year old female [...] symptoms occur. Patient agreeable to treatment plan. Volodymyr Leo APRN.[facility] Author Babita Beltrán [facility] September 02, 2023 2:32pm Note Date/Time September 02, 2023 1 :51pm [facility] Medical Records Department [address] [place] [address] Consultation - Hospitalist 09/02/23 1350 MR#: [id number] Acct: [id number] Name: KEIKO GOEL Rep #:[id number] : 1940 82 From: Babita Beltrán MD PCP: Dr. Alicia Florentino, DO Status:ADM IN Location: [place] [address] Assessment & Plan Assessment/Plan (1) Acute cholecystitis: PLAN: Plan The patient is an 82 y/o F w/ PMHx: Morbid obesity, Asthma, HTN, HLD, Diabetes mellitus type II w/ chronic peripheral neuropathy, GERD, PAC/PVC, RLS, Hx nephrolithiasis who presents to the [facility] ED on 09/02/23 with history of onset of chest discomfort as well as upper abdominal pain and right upper quadrant pain that started at approximately 3 AM on day of presentation with associated nauseaand emesis with no recent fever, chills or any diarrhea reporting her pain is severe and constant prompting ED evaluation. #1. Acute cholecystitis with some concern for choledocholithiasis w/ abdominal pain, N/V with significant hyperbilirubinemia and transaminitis: Patient being admitted per general surgery, maintain on judicious fluids, maintained on IV Zosyn therapy, per review of their orders note plan for allowance of clears withn.p.o. status at midnight, maintain on PPI, would trend CBC, CMP, given findingsconsultation with GI at Surgery discretion, PRN pain regimen/antiemetic regimen per surgery discretion. Patient NSQIP risk certainly moderately increased for perioperative cardiac events also confounded by underlying pulmonary disease and from discussions asthma is not as well-controlled as preferred but patient has had no recent exacerbation therefore as noted will place on budesonide scheduled, EKG with no acute evidence of ischemia, labs otherwise with no acute findings, agree with progression to OR. #2. Chronic asthma, from discussions moderately controlled with intermittent symptoms ongoing: From discussion patient's asthma is likely not completely well- controlled although she has not had an exacerbation in some time, to be cautious given current presentation and planned operative intervention will place on ATC budesonide therapy, PRN albuterol, HOB, IS parameters. #3. Hypertension: Continue home regimen including metoprolol, and the pain, valsartan, PRN hydralazine. #4. Hyperlipidemia: Holding statin therapy given elevated bilirubin and transaminases. Resume once clinically appropriate. #5. Diabetes mellitus type II with chronic neuropathy: Will hold scheduled short acting insulin given clear to n.p.o. status but may resume once she is transition to an appropriate diet, in the interim will maintain on every 6 hoursaccu checks w/ ISS. #6. Morbid Obesity: Weight loss and lifestyle changes encouraged. #7. History PVC/PAC: We will continue patient home metoprolol regimen. #8. Restless leg syndrome: Per currently not on chronic regimen, if acutely an issue may consider adding agent. #9. Former tobacco use: Encourage continued tobacco cessation. #10. GERD: We will maintain on PPI. #11. DVT prophylaxis: SCDs, chemoprophylaxis initiation per surgery discretion given planned OR. #12. CODE status: Patient HCPOA is Radha Ken her niece and Kamran Goel her son and living will is she notes currently in place. Discussed CODE status at length including difference between FULL code, DNR-CCA and DNR-CC status. Following discussions about the differences in these status, requested Full Codestatus. Advanced Care Planning Face to Face Time: 16 minutes. HPI Consult Data Date of Consult: 09/02/23 HPI Narrative Reason for Consultation: Medical management HPI Narrative: The patient is an 82 y/o F w/ PMHx: Morbid obesity, Asthma, HTN, HLD, Diabetes mellitus type II w/ chronic peripheral neuropathy, GERD, PAC/PVC, RLS, Hx nephrolithiasis who presents to the [facility] ED on 09/02/23 with history of onset of chest discomfort as well as upper abdominal pain and right upper quadrant pain that started at approximately 3 AM on day of presentation with associated nauseaand emesis with no recent fever, chills or any diarrhea reporting her pain is severe and constant prompting ED evaluation. She reports her pain still 9-10/10,worse with palpation. She notes minimal improvement with morphine. She does report history of occasional wheezing and dyspnea with heavy activity but otherwise notes last asthma exacerbation was > 2 years prior. She denies havingany inhaler should she needed unfortunately. She does note that she has been meaning to discuss this with her primary care physician. Workup in the ED included T98.4, heart 76, BP 147/64, respiratory rate 14, under percent room air, CBC with WBC 7.5, human 13.2, platelet 345 with lymphopenia, CMP with chloride 109, glucose 171, calcium 10.5, T. bili 2.10, AST/LT 190/90, alk phos 173, troponin 7 with repeat delta 10, lipase 47, chest x-ray with no acute cardiopulmonary finding, gallbladder ultrasound with hepatomegaly and fatty infiltration of the liver, multiple gallstones with a positive sonographic Murray sign and a small amount of pericholecystic fluid, EKG was sinus rhythm with PAC and occasional PVC otherwise no acute cardiopulmonary finding. In the ED patient administered Zosyn, maintenance IV fluids, initially aspirin 324 p.o.x 1, Zofran 4 mg IV x 1, morphine 4 mg IV times a total of 3 doses while the in the ED. Dr. Melendrez admitting patient and requesting hospitalist consultation. [facility] Medical History Asthma Diabetes mellitus, type II Essential hypertension GERD (gastroesophageal reflux disease) Hyperlipidemia Morbid obesity with BMI of 50.0-59.9, adult Nephrolithiasis Peripheral neuropathy Premature atrial contractions Premature ventricular contraction RLS (restless legs syndrome) Home Medications atorvastatin 10 mg tablet 10 mg PO QHS CHOLESTEROL 07/28/13 [History Last Taken 10/05/16 08:30] esomeprazole magnesium 40 mg capsule,delayed release 40 mg PO DAILY heartburn/acid reflux 07/28/13 [History Last Taken 12/02/16 09:00] metoprolol tartrate 25 mg tablet 25 tab PO BID high blood pressure 12/26/14 [History Last Taken 12/02/16 09:00] xnsmmjio-evr-aaqdg acid 0.4 mg-lycopene 300 mcg-lutein 250 mcg tablet 1 ea PO DAILY supplement 12/26/14 [History Last Taken 10/05/16 08:30] calcium carbonate 600 mg calcium (1,500 mg) tablet 1,200 mg PO DAILY SUPPLEMENT 10/05/16 [History Last Taken 10/05/16 08:30] amlodipine 5 mg-valsartan 320 mg tablet 1 tab PO DAILY HIGH BLOOD PRESSURE 11/19/16 [History Last Taken 12/02/16 09:00] acetaminophen 500 mg tablet 1,000 mg PO Q8 PRN pain 02/19/18 [History Last Taken Unknown] aspirin 81 mg tablet,delayed release 81 mg PO DAILY HEART MAINTENENCE 03/05/19 [History Last Taken Unknown] insulin glargine 100 unit/mL (3 mL) subcutaneous pen 45 unit subcut QHS PEYAPNSG20/09/19 [History Last Taken Unknown] insulin lispro 100 unit/mL subcutaneous pen 8 unit subcut TID DIABETES 04/01/19 [History Last Taken Unknown] nitroglycerin 0.4 mg sublingual tablet 0.4 mg sublingual Q5M PRN Chest Pain #25 tabs 04/02/20 [Rx Last Taken Unknown] etodolac 300 mg capsule 300 mg PO BID INFLAMMATION 09/02/23 [History Last Taken Unknown] potassium chloride 20 mEq tablet,extended release(part/cryst) (Klor-Con M) 20 meq PO DAILY SUPPLEMENT 09/02/23 [History Last Taken Unknown] Allergy/AdvReac Type Severity Reaction Status Date / Time hydromorphone HCl Allergy Nausea Verified 09/02/23 08:44 [From Dilaudid] naproxen [From Aleve] AdvReac Severe Nausea Verified 09/02/23 08:44 venlafaxine AdvReac Severe Nausea Verified 09/02/23 08:44 adhesive AdvReac Other Verified 09/02/23 08:44 aspirin AdvReac BABY OK. Verified 09/02/23 08:44 REG STRENG UPSET STOMACH Family History Father Diabetes Mother Hypertension Sister Hypertension CAD (coronary artery disease) Myocardial infarction Sister Diabetes Surgical History History of hernia repair History of knee replacement procedure of left knee History of knee replacement procedure of right knee History of repair of rotator cuff History of total hysterectomy Social History (Updated 09/02/23 @ 14:[address] Babita Beltrán MD) household members: none Smoking Status: Former smoker how long ago did patient quit smoking: Quit ~ 40 yrs prior, smoked 1/4 ppd since teen until quit. alcohol intake: never substance use type: does not use ROS ROS Narrative Admission Review of Systems: CONSTITUTIONAL: No weight loss, fever, chills, + weakness or fatigue. HEENT: Eyes: No visual loss, blurred vision, double vision or yellow sclerae. Ears, Nose, Throat: No hearing loss, sneezing, congestion, runny nose or sore throat. SKIN: No rash or itching, lesions, wounds. CARDIOVASCULAR: No chest pain, chest pressure or chest discomfort, palpitations,edema, orthopnea, syncopal events. RESPIRATORY: + Intermittent exertional dyspnea with wheezing. No recent cough, increased sputum or hemoptysis. GASTROINTESTINAL: + anorexia, nausea, vomiting, abdominal pain. No diarrhea, melena, BRBPR. GENITOURINARY: No dysuria, frequency, urgency or retention. NEUROLOGICAL: No headache, dizziness, syncope, paralysis, ataxia, numbness or tingling in the extremities, focal weakness, change in bowel or bladder control,seizure. MUSCULOSKELETAL: + muscle, back pain, joint pain or stiffness. HEMATOLOGIC: No anemia. Easy bleeding/bruising. LYMPHATICS: No enlarged nodes. No history of splenectomy. PSYCHIATRIC: No history of depression or anxiety. ENDOCRINOLOGIC: No reports of sweating, cold or heat intolerance. No polyuria orpolydipsia. ALLERGIES: + History of asthma. Physical Exam Narrative Physical Examination: General: Awake, alert, oriented x 3 and cooperative, laying in the ED bed, fatigued, notes pain ongoing to the epigastric but primarily right upper quadrant, 9-10 out of 10 Skin: Normal color, normal turgor, no icterus, no cyanosis. HEENT: AT/NC, EOMI, PERRLA, dry MM, no carotid bruits or JVD noted. Lungs: Mildly diminished, distant, greater bases, appropriate effort with no evidence of any distress, currently no wheezing nor any rales or rhonchi. Heart: Regular rate and rhythm; no gallop, rub audible. Abdomen: Soft, morbidly obese, significant discomfort primarily to right upper quadrant with rebound and some mild discomfort to the epigastric region as well,hyperactive BS, difficult to discern distention and HSM given significant pain with palpation and habitus. Extremities: No cyanosis, no clubbing, mild ankle/distal hernandez nonpitting edema. Neurological: Patient awake, alert, oriented as noted, cognitive function intact; pupils equally reactive to light and accommodation, cranial nerves II-XII grossly normal, moving all 4 extremities, no focal deficits, strength severely globally decreased secondary to acute complaints. Psychiatric: Affect appears fatigued, uncomfortable appearing, no acute evidenceof depressive or anxiety feelings. Lab / Micro Data 09/02/23 09:27 09/02/23 09:27 Labs: Laboratory Results - last 24 hr 09/02/23 09:27: WBC 7.5, RBC 4.55, Hgb 13.2, Hct 40.4, MCV 88.8, MCH 29.0, MCHC 32.7, RDW Std Deviation 45.5 H, RDW Coeff of Jorge L 14.2, Plt Count 345, MPV 10.3, Immature Gran % (Auto) 0.300, Neut % (Auto) 87.1 H, Lymph % (Auto) 10.4 L, Ulster % (Auto) 1.9, Eos % (Auto) 0.0, Baso % (Auto) 0.3, Absolute Neuts (auto) 6.6, Absolute Lymphs (auto) 0.78 L, Nucleated RBC % 0, Differential Comment SCANNED, Sodium 140, Potassium 4.0, Chloride 109 H, Carbon Dioxide 23.0, Anion Gap 8, BUN9, Creatinine 0.94, Estim Creat Clear Calc 51.82, Est GFR (MDRD) Af Amer 74, EstGFR (MDRD) Non-Af 61, BUN/Creatinine Ratio 9.6 L, Glucose 171 H, Calcium 10.5 H,Total Bilirubin 2.10 H, AST 190 H, ALT 90 H, Alkaline Phosphatase 173 H, Troponin I High Sens 7, Total Protein 7.5, Albumin 3.4, Globulin 4.1, Albumin/Globulin Ratio 0.8 L, Lipase 47 09/02/23 12:22: Troponin I High Sens 10 Imagaing Radiology Impression Chest X-Ray 09/02/23 08:56 IMPRESSION: No acute abnormality is seen. Electronically Signed: Young Rucker MD at 9:23 EST , Gallbladder Ultrasound 09/02/23 10:56 IMPRESSION: Hepatomegaly and fatty infiltration of the liver. Multiple gallstones with positive sonographic Murray''s sign and small amount of pericholecystic fluid. Electronically Signed: Young Rucker MD at 12:15 EST , Charges/Coding Visit Charges Office Visits / Consults: 70686 IP Consult L4 09/02/23 1432 <Electronically signed by Babita Beltrán MD> Cosigner Signature (if applicable): CC: Dr. Alicia Florentino DO~ Signed ADDENDUM by Dr. Babita Beltrán MD on 09/02/23 at 1432 Visit Charges Office Visits / Consults: [id number] IP Consult L4 Procedures Hospitalists Procedures: 83171 Advncd Care Plan 30 Min 09/02/23 1432<Electronically signed by Babita Beltrán MD> Cosigner Signature (if applicable): cc: Dr. Alicia Florentino DO ~* Signed [facility] Work Phone: Evaluation noteNo assessment information available [facility] Work Phone: Evaluation note* Diagnosis URI, acute- Primary Acute upper respiratory infections of unspecified site [facility] Diagnosis URI, acute Acute upper respiratory infections of unspecified site [facility]* Diagnosis Onset Date Resolution Status Abdominal pain acute Acute cholecystitis acute Chest pain acute [facility] Work Phone: Evaluation note* Diagnosis Onset Date Resolution Status Abdominal pain acute Hyperlipidemia chronic Acute cholecystitis resolved Chest pain resolved Status post laparoscopic cholecystectomy acute Premature ventricular contraction acute Essential hypertension chron ic [facility] Work Phone: History and physical note Author [facility] September 02, 2023 2:18pm Note Date/Time September 02, 2023 2 :18pm [facility] Medical Records Department [address] [place] [address] History & Physical Exam 09/02/23 1403 MR#: [id number] Acct: [id number] Name: KEIKO GOEL Rep #:[id number] : 1940 82 From: Nancy SANCHEZ PA-C PCP: Dr. Alicia Florentino DO Status:ADM IN Location: [facility] [place] [id number] HPI - General General Date of Admission: 09/02/23 Date of Service: 09/02/23 Chief Complaint: Right upper quadrant/epigastric pain HPI Narrative KEIKO GOEL, is a 82 F who presents with a sudden onset of epigastric/right upper quadrant abdominal pain. Patient notes that the pain woke her up around 0300 AM this morning. She notes multiple episodes of vomiting this morning priorto coming to the ED. Patient denies previous pain similar to this. She denies a known history of gallbladder issues. She notes a cardiac history of irregular heartbeat and was following with Dr. Lockett. Her last office visit with him was in May of 2022. Patient was supposed to transfer to Dr. Gusman, however she has not scheduled an appointment with him. Patient notes she has high blood pressure and is a diabetic. She notes she carries nitroglycerin with her in her purse, however has not had to take it. Patient denies any pulmonary history. Shedoes not use oxygen at home. She notes her abdominal surgical history includes ahysterectomy. Labs were obtained and were remarkable for elevated liver enzymes. A RUQ u/s wasobtained which demonstrated fatty liver, hepatomegaly, multiple gallstones with positive sonographic Murray's sign and small amount of pericholecystic fluid. [facility] Medical History (Updated 09/02/23 @ 12:[address] Ame Dobbs DO) Asthma Diabetes mellitus, type II Essential hypertension GERD (gastroesophageal reflux disease) Hyperlipidemia Morbid obesity with BMI of 50.0-59.9, adult Nephrolithiasis Peripheral neuropathy Premature atrial contractions Premature ventricular contraction RLS (restless legs syndrome) Home Medications atorvastatin 10 mg tablet 10 mg PO QHS CHOLESTEROL 07/28/13 [History Last Taken 10/05/16 08:30] esomeprazole magnesium 40 mg capsule,delayed release 40 mg PO DAILY heartburn/acid reflux 07/28/13 [History Last Taken 12/02/16 09:00] metoprolol tartrate 25 mg tablet 25 tab PO BID high blood pressure 12/26/14 [History Last Taken 12/02/16 09:00] [id number]-igu-aompk acid 0.4 mg-lycopene 300 mcg-lutein 250 mcg tablet 1 ea PO DAILY supplement 12/26/14 [History Last Taken 10/05/16 08:30] calcium carbonate 600 mg calcium (1,500 mg) tablet 1,200 mg PO DAILY SUPPLEMENT 10/05/16 [History Last Taken 10/05/16 08:30] amlodipine 5 mg-valsartan 320 mg tablet 1 tab PO DAILY HIGH BLOOD PRESSURE 11/19/16 [History Last Taken 12/02/16 09:00] acetaminophen 500 mg tablet 1,000 mg PO Q8 PRN pain 02/19/18 [History Last Taken Unknown] aspirin 81 mg tablet,delayed release 81 mg PO DAILY HEART MAINTENENCE 03/05/19 [History Last Taken Unknown] insulin glargine 100 unit/mL (3 mL) subcutaneous pen 45 unit subcut QHS [id number]/09/19 [History Last Taken Unknown] insulin lispro 100 unit/mL subcutaneous pen 8 unit subcut TID DIABETES 04/01/19 [History Last Taken Unknown] nitroglycerin 0.4 mg sublingual tablet 0.4 mg sublingual Q5M PRN Chest Pain #25 tabs 04/02/20 [Rx Last Taken Unknown] etodolac 300 mg capsule 300 mg PO BID INFLAMMATION 09/02/23 [History Last Taken Unknown] potassium chloride 20 mEq tablet,extended release(part/cryst) (Klor-Con M) 20 meq PO DAILY SUPPLEMENT 09/02/23 [History Last Taken Unknown] Allergy/AdvReac Type Severity Reaction Status Date / Time hydromorphone HCl Allergy Nausea Verified 09/02/23 08:44 [From Dilaudid] naproxen [From Aleve] AdvReac Severe Nausea Verified 09/02/23 08:44 venlafaxine AdvReac Severe Nausea Verified 09/02/23 08:44 adhesive AdvReac Other Verified 09/02/23 08:44 aspirin AdvReac BABY OK. Verified 09/02/23 08:44 REG STRENG UPSET STOMACH Family History Father Diabetes Mother Hypertension Sister Hypertension CAD (coronary artery disease) Myocardial infarction Sister Diabetes Surgical History History of hernia repair History of knee replacement procedure of left knee History of knee replacement procedure of right knee History of repair of rotator cuff History of total hysterectomy Social History Smoking Status: Former smoker alcohol intake: never substance use type: does not use ROS Constitutional Constitutional: Reports fatigue and poor appetite Eyes Eyes: Reports systems reviewed and no addt'l complaints, except as documented ENT HEENT: Reports systems reviewed and no addt'l complaints, except as documented Cardiovascular Cardiovascular: Reports chest pain, hypertension, irregular heart rhythm and vomiting Respiratory/Chest Respiratory/Chest: Reports systems reviewed and no addt'l complaints, except as documented Gastrointestinal Gastrointestinal: Reports systems reviewed and no addt'l complaints, except as documented Genitourinary Genitourinary: Reports systems reviewed and no addt'l complaints, except as documented Musculoskeletal Musculoskeletal: Reports systems reviewed and no addt'l complaints, except as documented Integumentary Integumentary: Reports systems reviewed and no addt'l complaints, except as documented Neurologic Neurologic: Reports systems reviewed and no addt'l complaints, except as documented Psychiatric Psychiatric: Reports systems reviewed and no addt'l complaints, except as documented Endocrine Endocrinology: Reports systems reviewed and no addt'l complaints, except as documented Hematologic/Lymphatic Hematologic/Lymphatic: Reports systems reviewed and no addt'l complaints, exceptas documented Allergic/Immunologic Allergic/Immunologic: Reports systems reviewed and no addt'l complaints, except as documented Vital Signs Vital Signs Vital Signs: 09/02/23 08:45 09/02/23 08:45 09/02/23 09:14 Temperature 97.9 F Temperature Source Oral Pulse Rate 80 Respiratory Rate 20 H Respiratory Effort Normal Non-Labored Blood Pressure Blood Pressure Mean Pulse Ox 100 100 Oxygen Delivery Method Room Air Room Air 09/02/23 09:14 09/02/23 09:56 09/02/23 11:55 Temperature Temperature Source Pulse Rate 81 78 Respiratory Rate 20 H 25 H Respiratory Effort Blood Pressure 165/69 H 145/62 H 148/46 H Blood Pressure Mean 101 89 80 Pulse Ox 100 100 Oxygen Delivery Method Room Air 09/02/23 13:00 09/02/23 13:26 Temperature 98.4 F Temperature Source Pulse Rate 57 L 76 Respiratory Rate 15 14 Respiratory Effort Blood Pressure 136/55 H 147/64 H Blood Pressure Mean 82 91 Pulse Ox 100 100 Oxygen Delivery Method Room Air Weight Weight: 235 lb 0.204 oz Body Mass Index (BMI) 45.8 Physical Exam Const alert and oriented x3 General Appearance: anxious HEENT normocephalic and head/scalp atraumatic Eyes PERRL Neck full ROM Lymph Lymphatic: no lymphadenopathy noted Resp normal respiratory effort and clear to auscultation bilaterally Cardio Rate: regular rate Rhythm: regular rhythm Heart Sounds: murmur GI GI Narrative: Abdomen- soft, obese, generalized abdominal pain worse in the epigastric region.Positive bowel sounds. no CVA tenderness Back/Spine no CVA tenderness Extremity normal to inspection Skin no rashes or lesions noted Neuro no focal motor deficits and no sensory deficits noted Psych Appearance: grossly normal Mood & Affect: anxious Thought Process: normal thought process Results Lab / Micro Data 09/02/23 09:27 09/02/23 09:27 Labs: Laboratory Results - last 24 hr 09/02/23 09:27: WBC 7.5, RBC 4.55, Hgb 13.2, Hct 40.4, MCV 88.8, MCH 29.0, MCHC 32.7, RDW Std Deviation 45.5 H, RDW Coeff of Jorge L 14.2, Plt Count 345, MPV 10.3, Immature Gran % (Auto) 0.300, Neut % (Auto) 87.1 H, Lymph % (Auto) 10.4 L, Ulster % (Auto) 1.9, Eos % (Auto) 0.0, Baso % (Auto) 0.3, Absolute Neuts (auto) 6.6, Absolute Lymphs (auto) 0.78 L, Nucleated RBC % 0, Differential Comment SCANNED, Sodium 140, Potassium 4.0, Chloride 109 H, Carbon Dioxide 23.0, Anion Gap 8, BUN9, Creatinine 0.94, Estim Creat Clear Calc 51.82, Est GFR (MDRD) Af Amer 74, EstGFR (MDRD) Non-Af 61, BUN/Creatinine Ratio 9.6 L, Glucose 171 H, Calcium 10.5 H,Total Bilirubin 2.10 H, AST 190 H, ALT 90 H, Alkaline Phosphatase 173 H, Troponin I High Sens 7, Total Protein 7.5, Albumin 3.4, Globulin 4.1, Albumin/Globulin Ratio 0.8 L, Lipase 47 09/02/23 12:22: Troponin I High Sens 10 Imagaing Radiology Impression Chest X-Ray 09/02/23 08:56 IMPRESSION: No acute abnormality is seen. Electronically Signed: Young Rucker MD at 9:23 EST , Gallbladder Ultrasound 09/02/23 10:56 IMPRESSION: Hepatomegaly and fatty infiltration of the liver. Multiple gallstones with positive sonographic Murray''s sign and small amount of pericholecystic fluid. Electronically Signed: Young Rucker MD at 12:15 EST , Assessment & Plan Assessment/Plan (1) Acute cholecystitis: PLAN: I am seeing this patient in conjunction with Dr. Melendrez. Patient's examination and workup are consistent with acute cholecystitis. Plan to admit patient to med/surg floor with tele monitoring, stabilize and plan for surgery tomorrow. Consult hospitalist for medical management. Dr. Melendrez will plan to perform a laparoscopic cholecystectomy with intraoperative cholangiogram. Procedure details, risks and benefits have been explained to the patient. [facility] verbally understands and [facility] Appreciate hospitalist input and recommendations. Thank you for allowing us to participate in this patient's care. Charges/Coding Visit Charges Inpatient E&M: 90906 Init Hosp L2 09/02/23 1418 <Electronically signed by Nancy SANCHEZ PA-C> Cosigner Signature (if applicable): CC: ENRIQUE Way; Dr. Alicia Florentino, DO~ Signed [facility] Work Phone: Reason for referral (narrative)No reason for referral information [facility] Work Phone: Chief Complaint and Reason for Visit Chief Complaint SCREENING Chief Complaint chest pain chest pain chest pain Reason for Visit Abdominal pain Acute cholecystitis Chest pain Chief Complaint chest pain chest pain chest pain chest pain chest pain chest pain chest pain chest pain chest pain chest pain chest pain chest pain chest pain chest pain chest pain chest pain chest pain chest pain chest pain chest pain chest pain chest pain chest pain chest pain CHOLECYTITIS DOS 09/04 1 y fu PREV PFM PT Reason for Visit Abdominal pain Hyperlipidemia Acute cholecystitis Chest pain Status post laparoscopic cholecystectomy Premature ventricular contraction Essential hypertension Chief Complaint Admit Date BACK PAIN February 14, 2025 12:3 5pm Family History No Family History Records Found Relationship Condition Age at Onset Recorded Date/T summer father Diabetes mellitus Unknown mother Hypertension Unknown sister Hypertension Unknown Coronary artery disease Unknown Myocardial infarction Unknown sister Diabetes mellitus Unknown Advance Directives No Advanced Directives Records Found Advance Directive Response Recorded Date/ Time Advance Directives Yes September 11:36am Living Will Yes March 05, 2019 8:41pm Power of Domain Architect Yes March 05 8:41pm Advance Directive Response Recorded Date/ Time Name of Medical Power of Domain Architect BHAVESH DURON September 02, 2023 8:49am Advance Directives Yes September 10:36am Living Will Yes September 02 8:49am Power of Domain Architect Yes September 02, 2023 8:49am Advance Directive Response Recorded Date/ Time Name of Medical Power of Domain Architect BHAVESH DURON September 02, 2023 4:03pm Name of Medical Power of Domain Architect ON FILE December 03, 2023 12:56pm Advance Directives Yes September 11:36am Living Will Yes December 03, 2023 12:56pm Power of Domain Architect Yes December 02 12:56pm Advance Directive Response Recorded Date/ Time Advance Directives Yes September 11:36am Summary Purpose Additional Source Comments Goals (unrecognized section and content) Goals may be documented in a n alternate sectionGoals may be documented in an alternate sectionGoals may be documented in an alternate sectionGoals may be documented in an alternate section INFORMATION SOURCE (unrecogn ized section and content) DATE CREATED AUTHOR 08/22/2022 [facility] DATE CREATED AUTHOR AUTHOR'S ORGANIZ ATION 02/21/2025 [facility] Source Comments (unrecognize d section and content) In the event this informatio n is protected by the Federal Confidentiality of Alcohol and Drug Abuse Patient Records regulations: The Federal rules restrict any use of the information to criminally investigate or prosecute any alcohol or drug abuse patient.[facility] the event this information is protected by the Federal Confidentiality of Alcohol and Drug Abuse Patient Records regulations: The Federal rules restrict any use of the information to criminally investigate or prosecute any alcohol or drug abuse patient.[facility] Reason for Visit (unrecogniz ed section and content) Reason Comments Head Congestion And chest congestion x5 days Reason Onset Date Comments Refill Request Refill Request 09/16/2022 Care Teams (unrecognized sec tion and content) Drafting Clerk Relationship Specialty Start Date End Date Alicia Florentino DO PCP - General Family Medicine 06/26/16 Drafting Clerk Relationship Specialty Start Date End Date Alicia Florentino DO PCP - General Family Medicine 06/26/16 Team Status: Active Member Role Status Dates Dr. Alicia Florentino DO Family Provider Active Dr. Alicia Florentino DO Primary Care Provider Active Team Status: Inactive Member Role Status Dates Dr. Alicia Florentino DO Primary Care Provide r, Attending Provider, Referring Provider Active Team Status: Active Member Role Status Dates Dr. Alicia Malys , DO Primary Care Provider Active Dr. Ame Dobbs , DO Emergency Provider Active Dr. Elia Melendrez MD Admit Provider, Other Provider Active Nancy SANCHEZ PA-C Attending Provider Active Team Status: Active Member Role Status Dates Dr. Alicia Florentino , DO Primary Care Provider Active Dr. Ame Dobbs , DO Emergency Provider Active Dr. Elia Melendrez MD Admit Provider, Other Provider Active Dr. Babita Beltrán MD Attending Provider Active Team Status: Active Member Role Status Dates Dr. Alicia Florentino , DO Primary Care Provider Active Dr. Ame Dobbs , DO Emergency Provider Active Dr. Elia Melendrez MD Admit Provider, Attending Provi manda Active Team Status: Inactive Member Role Status Dates Dr. Alicia Florentino , DO Primary Care Provider, Referring P rovider Active Dr. Clem Gusman MD Attending Provider Active Team Status: Active Member Role Status Dates Dr. Alicia Florentino , DO Primary Care Provider Active Dr. Ame Dobbs , DO Emergency Provider Active Dr. Elia Melendrez MD Admit Provider, A ttending Provider, Other Provider Active DRE WaldronC Active Dr. Master Phillip MD Referring Provider Active Team Status: Active Member Role Status Dates Dr. Alicia Florentino , DO Primary Care Provider Active Dr. Ame Dobbs , DO Referring Provider, Emergency Pro vider Active Dr. Elia Melendrez MD Admit Provider, Other Provider Active Dr. Babita Beltrán MD Attending Provider Active Team Status: Active Member Role Status Dates Dr. Alicia Florentino , DO Primary Care Provider Active Dr. Ame Dobbs , DO Emergency Provider Active Dr. Elia Melendrez MD Admit Provider, Other Provider Active Dr. Babita Beltrán MD Other Provider Active Dr. Master Phillip MD Attending Provider, Other Provid er Active Team Status: Active Member Role Status Dates Dr. Alicia Florentino , DO Primary Care Provider Active Dr. Ame Dobbs , DO Emergency Provider Active Dr. Elia Melendrez MD Admit Provider, A ttending Provider, Other Provider Active Dr. Babita Beltrán MD Other Provider Active Dr. Master Phillip MD Other Provider Active Team Status: Active Member Role Status Dates Dr. Alicia Florentino , DO Primary Care Provider Active Dr. Ame Dobbs , DO Emergency Provider Active Dr. Elia Melendrez MD Admit Provider, Other Provider Active Dr. Babita Beltrán MD Other Provider Active Dr. Master Phillip MD Other Provider Active Dr. Azar Cespedes , DO Attending Provider Active Dr. Carol Crow MD Referring Provider Active Team Status: Active Member Role Status Dates Dr. Alicia Florentino , DO Primary Care Provider Active Dr. Azar Cespedes , DO Attending Provider Active Dr. Carol Crow MD Referring Provider Active Team Status: Active Member Role Status Dates Dr. Alicia Florentino , DO Primary Care Provider Active Dr. Ame Dobbs , DO Emergency Provider Active Dr. Elia Melendrez MD Admit Provider, Other Provider Active Dr. Babita Beltrán MD Other Provider Active Dr. Master Phillip MD Attending Provider, Other Provid er Active Dr. Azar Cespedes , DO Other Provider Active Team Status: Active Member Role Status Dates Dr. Alicia Florentino , DO Primary Care Provider Active Dr. Ame Dobbs , DO Emergency Provider Active Dr. Elia Melendrez MD Admit Provider, A ttending Provider, Other Provider Active Dr. Babita Beltrán MD Other Provider Active Dr. Master Phillip MD Other Provider Active Dr. Azar Cespedes , DO Other Provider Active Team Status: Active Member Role Status Dates Dr. Alicia Florentino , DO Primary Care Provider Active Dr. Ame Dobbs , DO Emergency Provider Active Dr. Elia Melendrez MD Admit Provider, Other Provider Active Dr. Babita Beltrán MD Other Provider Active Dr. Master Phillip MD Other Provider Active Dr. Azar Cespedes , DO Attending Provider, Other Prov ider Active Dr. Carol Crow MD Referring Provider Active Team Status: Active Member Role Status Dates Dr. Alicia Florentino , DO Primary Care Provider Active Dr. Clem Gusman MD Attending Provider Active Team Status: Active Member Role Status Dates Dr. Alicia Florentino , DO Primary Care Provider Active Dr. Ame Dobbs , DO Emergency Provider Active Dr. Elia Melendrez MD Admit Provider, A ttending Provider, Other Provider Active Dr. Babita Beltrán MD Other Provider Active Dr. Azar Cespedes , DO Other Provider Active Dr. Carol Crow MD Other Provider Active Dr. Master Phillip MD Other Provider Active Team Status: Active Member Role Status Dates Dr. Alicia Florentino , DO Primary Care Provider Active Dr. Ame Dobbs , DO Emergency Provider Active Dr. Elia Melendrez MD Admit Provider, Other Provider Active Dr. Baibta Beltrán MD Other Provider Active Dr. Azar Cespedes , DO Attending Provider, Other Prov ider Active Dr. Carol Crow MD Referring Provider, Other Provid er Active Dr. Master Phillip MD Other Provider Active Team Status: Active Member Role Status Dates Dr. Alicia Florentino , DO Primary Care Provider Active Dr. Ame Dobbs , DO Emergency Provider Active Dr. Elia Melendrez MD Admit Provider, Other Provider Active Dr. Babita Beltrán MD Other Provider Active Dr. Azar Cespedes , DO Other Provider Active Dr. Carol Crow MD Attending Provider, Other Provid er Active Dr. Master Phillip MD Other Provider Active Team Status: Active Member Role Status Dates Dr. Alicia Florentino , DO Primary Care Provider Active Dr. Ame Dobbs , DO Emergency Provider Active Dr. Elia Melendrez MD Admit Provider, Other Provider Active Dr. Babita Beltrán MD Other Provider Active Dr. Azar Cespedes , DO Other Provider Active Dr. Carol Crow MD Other Provider Active Dr. Master Phillip MD Other Provider Active Nancy SANCHEZ, PA-C Attending Provider Active Team Status: Inactive Member Role Status Dates Dr. Alicia Florentino , DO Primary Care Provider, Referring P rovider Active Dr. Elia Melendrez MD Attending Provider Active Team Status: Active Member Role Status Dates Dr. Alicia Florentino , DO Primary Care Provider, Referring P rovider Active Dr. Azar Cespedes , DO Attending Provider, Other Prov ider Active Team Status: Inactive Member Role Status Dates Dr. Alicia Florentino , DO Primary Care Provider Active Dr. Ame Dobbs , DO Emergency Provider Active Dr. Elia Melendrez MD Admit Provider, Other Provider Active Dr. Babita Beltrán MD Other Provider Active Dr. Azar Cespedes , DO Other Provider Active Dr. Carol Crow MD Attending Provider Active Dr. Master Phillip MD Other Provider Active Team Status: Inactive Member Role Status Dates Dr. Alicia Florentino , DO Primary Care Provider, Referring P rovider Active Dr. Azar Cespedes , DO Attending Provider Active Team Status: Active Member Role/Relationship Status Dates Dr. Alicia Florentino , DO Family Provider Active Dr. Alicia Florentino , DO Primary Care Provider Active Team Status: Inactive Member Role/Relationship Status Dates Dr. Alicia Florentino DO Primary Care Provider Active Start: February 14, 2025 End: February 14, 2025 Dr. Tammi Mckenzie MD Attending Provider Active Start: February 14, 2025 End: February 14, 2025 Dr. Tammi Mckenzie MD Referring Provider Active Start: February 14, 2025 End: February 14, 2025 FOR RECORDS PERTAINING TO PATIENTS WHO ARE [...] BE BASED ON THE PRIMARY CLINICAL RECORDS. [facility]. provides no warranty or guarantee of the accuracy or completeness of information in this document.
[2025-03-26 07:46] LABS: AST(SGOT) 25 U/L (<=31); Alanine Aminotransfer ALT/SGPT 11 U/L (<=34); Albumin, Serum 3.7 g/dL (3.4-4.8); Alkaline Phosphatase 110 U/L (35-104); Anion Gap 11 (5-15); BUN 9 mg/dL (4-19); BUN/Creat Ratio 11.2 RATIO (10-20); Bilirubin, Direct 0.18 mg/dL (0.00-0.30); Calcium,Total 10.0 mg/dL (7.6-11.0); Carbon Dioxide 22.3 mmol/L (21.0-32.0); Chloride 107 mmol/L (98-108); Estimated Creatinine Clearance 54.66 ml/min (50-250); Globulin 3.0 g/dL (2.2-4.2); Glucose 136 mg/dL (70-99); Lipase 31 U/L (13-75); Potassium 4.6 mmol/L (3.3-5.1)
[2025-03-26 08:23] VITALS: BP 118/47; PULSE 58; RESP 16; O2SAT 97
[2025-03-26 08:51] LABS: Mucous, Urine 0 SEEN /hpf (<or=2+); Red Blood Cells-Urine 0 SEEN /hpf (0-5)
[2025-03-26 08:52] LABS: Color, Urine Yellow (Yellow); Glucose, Dipstick Normal (Normal); Ketone-Dipstick Negative (Negative); Leukocyte Esterase-Dipstick Negative /ul (Negative); Nitrite-Dipstick Negative (Negative); Occult Blood-Urine 10 /ul (Negative); Protein-Dipstick Negative (Negative); Specific Gravity, Urine 1.010 (1.002-1.030); Urine Bilirubin Dipstick Negative (Negative)
[2025-03-26 08:58] LABS: Squamous Epithelial Cells - UA 0-5 SEEN /hpf (5-10)
[2025-03-26 09:00] VITALS: BP 128/53; PULSE 58; RESP 14; O2SAT 97
[2025-03-26 10:00] VITALS: BP 112/53; PULSE 60; RESP 14; O2SAT 99
[2025-03-26 10:52] VITALS: BP 117/42; PULSE 57; RESP 18; TEMP 36.2; O2SAT 99
== END 2025-03-26 10:54 | disposition home or self-care (01) ==
PROVIDERS: Emergency Medicine; Emergency Provider Surgery; PCP Family Medicine; Visit Provider Surgery
DX: R10.9 Unspecified abdominal pain (principal); E11.42 Type 2 diabetes mellitus with diabetic polyneuropathy; Z79.4 Long term (current) use of insulin; M54.50 Low back pain, unspecified; I10 Essential (primary) hypertension; Z79.899 Other long term (current) drug therapy; Z87.891 Personal history of nicotine dependence
CPT/HCPCS: 74177; 80048; 80076; 81001; 83690; 85025; 96361; 96374; 96375; 99283; Q9967; A4216; J2405

== ENCOUNTER → 2025-05-08 | Outpatient (CLI) | payer MEDICARE, BC, SELFPAY ==
--- NOTE | 2025-05-08 12:16 | BI_ITS ---
EXAM: SCRN MAMM (CAD)W/GEOFFREY BILAT DATE: 05/08/2025 CLINICAL HISTORY: F, Age 84 y/o , SCREENING TECHNIQUE: Procedure Code: [id number] Modality: MG Procedure: SCRN MAMM (CAD)W/GEOFFREY BILAT COMPARISON: Prior exam(s) dated . FINDINGS: TISSUE DENSITY: The breasts are almost entirely fatty. Bilateral Breast Mammographic Findings: No significant masses, calcifications or other abnormalities are identified. Benign-appearing round microcalcifications are seen in both breasts. Benign-appearing axillary and intramammary lymph nodes are seen bilaterally. A benign macrocalcification is seen in the right breast. BI/SCRN MAMM (CAD)W/GEOFFREY BILAT IMPRESSION: Benign screening mammogram. OVERALL FINAL ASSESSMENT BI-RADS 2: BENIGN RECOMMENDATION: Routine annual follow-up in 1 Year A letter with findings and recommendations will be mailed to the patient. Reading Location: [id number]
== END | disposition home or self-care (01) ==
LOC: OPBI 12:15
PROVIDERS: PCP Family Medicine; Referring Provider Family Medicine; Visit Provider Family Medicine
DX: Z12.31 Encounter for screening mammogram for malignant neoplasm of breast (principal)
CPT/HCPCS: 77063; 77067